=== PATIENT | male | born 1940 | race Hispanic/Latino ===

== ENCOUNTER 2016-03-21 03:09 | Inpatient (IN) | payer OTHER ==
[~2016-03-21] VITALS: Ht 170.2 cm; Wt 76.9 kg
[~2016-03-21 03:09] MED LIST: AMLODIPINE BESYL5 M1 PO; ATORVASTATIN CA40 M1 PO; COLACE100 M1 PO; FLOMAX0.4 M1 PO; GLUCOPHAGE1000 M1 PO; LEVEMIR100 UNIT/1 SC; LEXAPRO20 M1 PO; LYRICA75 M1 PO; NEXIUM40 M1 PO; NOVOLOG100 UNIT/2 SC; PLAQUENIL200 M1 PO; PREDNISONE5 M1 PO; PROAIR HFA8.5 GM INH; SULFASALAZINE500 M2 PO; TRAMADOL HCL50 M1 PO; VICTOZA 2-0.6 MG/0.1 SC; VITAMIN B-121000 MC3 PO
--- NOTE | 2016-03-21 16:05 | Admission Core Measures ---
Acute Coronary Syndrome Inclusion Criteria ACS Diagnosis No Inpatient Core Measures LDL Reminder: If No, please order W/I first 24hr of stay Congestive Heart Failure Inclusion Criteria CHF Diagnosis No Cerebrovascular accident Inclusion Criteria CVA/TIA Diagnosis No Inpatient Core Measures Bedside Swallow Eval Reminder: If BSE failed, place ST order Antithrombotic Reminder: Order Antithrombotic Medication by end of day 2 Antithrombotic Reminder: Document Reason Antithrombotic Not ordered by end of day 2 AFIB/Flutter Reminder: If Present, add to problem list AFIB/Flutter Reminder: Order Anticoag Medication for pts with AFIB/Flutter Atherosclerosis Reminder: If Present, add to problem list LDL Reminder: If No, please order W/I first 24hr of stay PT Order Reminder: If No, please order Venous thromboembolism Inpatient Core Measures VTE Risk Factors: Age > 40, Surgery VTE Prophylaxis Ordered Inpt Mech & Pharm No Mech VTE prophylaxis d/t No contraindications No VTE Pharm Prophylaxis d/t No contraindications Inclusion Criteria - Per Current guidelines, there needs to be overlap - treatment for the first 5 days of Warfarin therapy. - Parenteral Anticoagulation (IV or SC) needs to be - given along with Warfarin therapy. VTE Diagnosis No VTE Type NONE VTE Confirmed by (Test) NONE Problem List As ranked by this Provider includes Assessment & Plan 1. S/P lobectomy of lung HOME MEDS Home Med List Albuterol Sulfate (Proair Hfa) 90 MCG HFA.AER.AD 2 PUF INH PRN RESPIRATORY ( Reported) Amlodipine Besylate 5 MG TABLET 1 TAB PO DAILY BP (Reported) Atorvastatin Calcium 40 MG TABLET 1 TAB PO DAILY CHOLESTEROL (Reported) Cyanocobalamin (Vitamin B-12) 1,000 MCG TABLET 1 TAB PO DAILY SUPPLEMENT ( Reported) Docusate Sodium (Colace) 100 MG CAPSULE 1 CAP PO DAILY STOOL SOFTENER ( Reported) Escitalopram Oxalate (Lexapro) (Unknown Strength) TABLET (Unknown Dose) PO DAILY ANXIETY (Reported) Esomeprazole (Nexium) 40 MG CAPSULE.DR 1 CAP PO BID GI (Reported) Hydroxychlorquine (Plaquenil) 200 MG TABLET 1 TAB PO DAILY RA (Reported) Insulin Aspart (Novolog) 100 UNIT/ML VIAL 15 UNITS SC TIDAC DM (Reported) Insulin Detemir (Levemir) 100 UNIT/ML VIAL 25 UNITS SC QPM DM (Reported) Liraglutide (Victoza 2-Britton) 0.6 MG/0.1 ML (18 MG/3 ML) PEN.INJCTR 1.2 MG SC QPM DM (Reported) Metformin HCl (Glucophage) 1,000 MG TABLET 1 TAB PO BID DM (Reported) Prednisone 5 MG TABLET 1 TAB PO DAILY RA (Reported) Pregabalin (Lyrica) 75 MG CAPSULE 1 CAP PO BID NEUROPATHY (Reported) Sulfasalazine 500 MG TABLET 1 TAB PO DAILY RA (Reported) Tamsulosin HCl (Flomax) 0.4 MG CAP.ER.24H 1 CAP PO DAILY BPH (Reported) Tramadol HCl 50 MG TABLET 1 TAB PO TID PRN PAIN (Reported)
[2016-03-21] MEDS ORDERED: LEXAPRO20 M1 PO (16:09)
--- NOTE | 2016-03-21 16:45 | Cons- CRCU ---
SELENE HALL 03/21/16 1644: General Information and HPI Consulting Request Date of Consult: 03/21/16 Requested By: Dr. Rosales Reason for Consult: Post lobectomy for critical care management Source of Information: patient, family, old records Exam Limitations: no limitations History of Present Illness: This is a 75 years old gentleman with past medical history significant for depression, anxiety, diabetes mellitus, emphysema, COPD, GERD, hypertension, hyperlipidemia, lung cancer status post left upper lobectomy in 1996, BPH who is today admitted to the critical care unit after having right lower lobectomy and mediastinal lymph node dissection. The patient had a right lower lobectomy and mediastinal lymph node dissection and has been left with the chest tube hooked to the vacuum suction. At the time of interview in the ICU the patient reported pain predominantly on the incision site and the placement of the chest tubes she denied any shortness of breath, coughing, bloody sputum, palpitation, lightheadedness, or dizziness. The patient concern is is hungry and would like to eat proper solid meal. Allergies/Medications Allergies: Coded Allergies: No Known Allergies (03/18/16) Home Med List: Albuterol Sulfate (Proair Hfa) 90 MCG HFA.AER.AD 2 PUF INH Q6P PRN WHEEZING ( Reported) Amlodipine Besylate 5 MG TABLET 1 TAB PO DAILY BP (Reported) Atorvastatin Calcium 40 MG TABLET 1 TAB PO DAILY CHOLESTEROL (Reported) Cyanocobalamin (Vitamin B-12) 1,000 MCG TABLET 1 TAB PO DAILY SUPPLEMENT ( Reported) Docusate Sodium (Colace) 100 MG CAPSULE 1 CAP PO DAILY STOOL SOFTENER ( Reported) Escitalopram Oxalate (Lexapro) 20 MG TABLET 1 TAB PO DAILY DEPRESSION ( Reported) Esomeprazole (Nexium) 40 MG CAPSULE.DR 1 CAP PO BID GI (Reported) Hydroxychlorquine (Plaquenil) 200 MG TABLET 1 TAB PO DAILY RA (Reported) Insulin Aspart (Novolog) 100 UNIT/ML VIAL 15 UNITS SC TIDAC DM (Reported) Insulin Detemir (Levemir) 100 UNIT/ML VIAL 25 UNITS SC QPM DM (Reported) Liraglutide (Victoza 2-Britton) 0.6 MG/0.1 ML (18 MG/3 ML) PEN.INJCTR 1.2 MG SC QPM DM (Reported) Metformin HCl (Glucophage) 1,000 MG TABLET 1 TAB PO BID DM (Reported) Prednisone 5 MG TABLET 1 TAB PO DAILY RA (Reported) Pregabalin (Lyrica) 75 MG CAPSULE 1 CAP PO BID NEUROPATHY (Reported) Sulfasalazine 500 MG TABLET 1 TAB PO DAILY RA (Reported) Tamsulosin HCl (Flomax) 0.4 MG CAP.ER.24H 1 CAP PO DAILY BPH (Reported) Tramadol HCl 50 MG TABLET 1 TAB PO TID PRN PAIN (Reported) Current Medications: Current Medications Sig/Lelo Start time Last Medication Dose Route Stop Time Status Admin Albuterol Sulfate 3 ML Q4 03/21 2200 AC INH Albuterol Sulfate 2 PUF Q6P PRN 03/21 1800 AC INH Albuterol Sulfate 2 PUF Q6P PRN 03/21 1615 DC INH Amlodipine Besylate 5 MG DAILY 03/22 1000 DC PO Amlodipine Besylate 5 MG DAILY 03/22 1000 AC PO Atorvastatin Calcium 40 MG DAILY@1700 03/22 1700 AC PO Atorvastatin Calcium 40 MG DAILY 03/22 1000 DC PO Cefazolin Sodium 2 GM Q8H 03/21 2200 AC N/A 1 UNIT IV 03/22 0629 Dextrose/Sodium 1,000 ML .[id number] 03/21 1800 AC Chloride IV Docusate Sodium 100 MG DAILY 03/22 1000 DC PO Docusate Sodium 100 MG DAILY 03/22 1000 AC PO Escitalopram Oxalate 20 MG DAILY 03/22 1000 DC PO Escitalopram Oxalate 20 MG DAILY 03/22 1000 AC PO Heparin Sodium 5,000 UNIT Q8 03/21 2200 AC (Porcine) SC Hydromorphone HCl 50 MG Q24H PRN 03/21 1615 AC Sodium Chloride 45 ML IV Hydroxychloroquine 200 MG DAILY 03/22 1000 DC Sulfate PO Hydroxychloroquine 200 MG DAILY 03/22 1000 AC Sulfate PO Insulin Human Regular 0 TIDAC/HS 03/21 1700 AC SC Omeprazole 40 MG DAILY AC 03/22 0700 DC PO Omeprazole 40 MG DAILY AC 03/22 0700 AC PO Ondansetron HCl 4 MG Q6P PRN 03/21 1800 AC IV Prednisone 5 MG DAILY 03/22 1000 DC PO Prednisone 5 MG DAILY 03/22 1000 AC PO Pregabalin 75 MG BID 03/21 2200 DC PO Pregabalin 75 MG BID 03/21 2200 AC PO Sulfasalazine 500 MG DAILY 03/22 1000 DC PO Sulfasalazine 500 MG DAILY 03/22 1000 AC PO Tamsulosin HCl 0.4 MG DAILY 03/22 1000 DC PO Tamsulosin HCl 0.4 MG DAILY 03/22 1000 AC PO Review of Systems Review of Systems Constitutional: Denies: chills, fever. EENTM: Denies: blurred vision, double vision. Cardiovascular: Denies: chest pain, palpitations. Respiratory: Denies: cough, short of breath. GI: Denies: abdominal pain, nausea, vomiting. Genitourinary: Denies: frequency, urgency. Musculoskeletal: Denies: no symptoms. Skin: Denies: no symptoms. Hematologic/Endocrine: Denies: bruising, bleeding. All Other Systems: Reviewed and Negative Past History Travel History Traveled to [place] past 21 day No Medical History Cardiovascular: hypertension, hyperlipidemia Respiratory: COPD, emphysema Gastrointestinal: GERD Renal: benign prost hyperplasia Endocrine: diabetes Surgical History Surgical History: hernia repair-inguinal Family History Relations & Conditions If Any: MOTHER (Diabetes mellitus). SISTER (Diabetes mellitus). Psychosocial History Where Do You Live? Home Who Do You Live With? spouse Smoking Status: Former Smoker ETOH Use: denies use Illicit Drug Use: denies illicit drug use Functional Ability ADLs Independent: dressing, eating, toileting, bathing. Exam & Diagnostic Data Last 24 Hrs of Vital Signs/I&O Vital Signs Date Time Temp Pulse Resp B/P Pulse O2 O2 Flow FiO2 Ox Delivery Rate 03/21 1999 98.2 88 26 148/88 03/21 1999 93 Nasal 3.0L Cannula 03/21 1999 98.2 88 26 148/88 93 Nasal 3.0L Cannula 03/21 Nasal 3.0L Cannula Physical Exam General Appearance: no apparent distress, alert, awake, in pain Head: atraumatic, normal appearance Eyes: Bilateral: normal appearance, PERRL. Ears, Nose, Throat: normal pharynx, normal ENT inspection Neck: normal inspection, supple Respiratory: normal breath sounds, no respiratory distress, tender around the surgical site Cardiovascular: regular rate/rhythm Gastrointestinal: normal bowel sounds, soft, non-tender Extremities: normal inspection, normal capillary refill, no edema Neurologic/Psych: awake, alert, oriented x 3 Cranial Nerves: normal hearing, normal speech Skin: intact, normal color Assessment/Plan Impression/Plan: This is a 75 years old gentleman who was admitted today for right lower lung lobectomy she has had previous lobectomy in 1996 due to lung cancer and subsequently admitted to the ICU for postoperative management. Right lower lobe lobectomy Postoperative day 0 for right lower lobe lobectomy and mediastinal lymph node dissection Chest tube currently in place to suction draining sanguinous fluid, will continue to monitor drainage and subsequent management for CT surgery for removal when there is substantial decrease in secretion. Repeat CXR in the a.m. , CBCs and electrolytes in the a.m. and 24 hours old in program 2 doses every 8 hours. 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 Chronic obstructive pulmonary disease Patient has history of COPD not on home oxygen, continue the patient on home prednisone 5 mg daily, TRC evaluation and nebulization as needed Hyperlipidemia Continue the patient on a medication atorvastatin 40 mg daily and low-fat diet Patient Is full code heparin and Alps for DVT prophylaxis Problem List: 1. S/P lobectomy of lung 2. GERD (gastroesophageal reflux disease) 3. Diabetes mellitus 4. COPD (chronic obstructive pulmonary disease) 5. Hyperlipidemia 6. Hypertension 7. Lung cancer Consult Acknowledgment - Thank you for your consult request. ELIA KAMINSKI MD 03/21/16 7321: Exam & Diagnostic Data Last 48 Hrs of Labs/Abelardo: na Assessment/Plan Other Findings/Comments: Elia Mcqueen M.D. have examined this patient, reviewed available EMR data, personally reviewed images, discussed with resident/PA/MAINSPRING FORMER, discussed management plan with housestaff and nursing staff, discussed managment plan all of healthcare providers, discussed management plan with patient and/or family, agreed with resident/PA/MAINSPRING FORMER. The past history and parts of the chart have been autopopulated. Impression 75 year old man hx lung ca, s/p right lower lobecotmy, lymph node dissection. Plan -pain control -chest tube per surgery -ins/outs -IST -TRC/Nebs -post thoracotomy protocol -DVT prophylaxis at all times TTS 40min Consult Acknowledgment - Thank you for your consult request.
--- NOTE | 2016-03-21 17:07 | RADIOLOGY REPORT ---
EXAMINATION: XR PORTABLE CHEST CLINICAL INFORMATION: Status post right lower lobectomy COMPARISON: 03/18/2016 TECHNIQUE: Portable view of the chest was obtained. FINDINGS: Chest tube overlies the right lung base. The lungs are hypoinflated. There is haziness at the right lung base, which may reflect postoperative change. No definite pneumothorax. No discrete consolidation is seen in the left lung, though assessment is somewhat limited due to low lung volumes. No definite pleural effusion. There is widening of the mediastinal contour which could be accentuated by low lung volumes and patient rotation. Soft tissue gas is noted along the right lateral chest wall. IMPRESSION: 1. Status post right lower lobectomy with basilar chest tube. Right basilar haziness may reflect postoperative change/atelectasis. 2. Widened mediastinum may be accentuated by low lung volumes and patient positioning, though mediastinal hematoma is also a possibility in the setting of recent surgery. Short-term follow-up with improved inspiratory effort may be helpful for reevaluation.
--- NOTE | 2016-03-21 18:32 | PN- Thoracic Surgery ---
Subjective Subjective: The patient was seen this evening postoperatively. He was complaining of some pain around the chest tube site insertion but overall was relatively comfortable. He no other points current time and denied any true chest pain, difficulty breathing, or palpitations. Objective Vital Signs and I&Os Vital signs: Blood pressure 160/90, pulse 80, O2 saturations 97% on 2 L via nasal cannula temperature 97.6 I's and O's: 2000 ML's in of lactated Ringer's/500 ML's out of urine via Brice catheter/EBL 100/chest tube 140 Physical Exam: Gen.: Alert and in no obvious distress Skin: Warm and dry Cardiac: S1-S2 regular Chest: Equal expansion, surgical dressing is blood-tinged but otherwise intact, there is a chest tube hooked up to Pleur-evac suction with no air leak Pulmonary: Bilateral breath sounds are equal and decreased at bases this transmitted chest tube noises in the right chest with some upper respiratory congestion clears with cough Extremities: Bilateral lower extremity warm without calf tenderness or significant edema. Assessment/Plan Assessment/Plan Assessment: 75-year-old male status post right thoracotomy and right upper lobectomy. Postoperatively patient is pressing as expected and his pain is under adequate control. He is oxygenating adequately on the minimum O2 requirements Plan: Strict I's and O's Follow-up morning laboratory studies and chest x-ray Continue current pain regiment GI and DVT prophylaxis Resuming medications aside for diabetic meds but will be started on insulin sliding scale Total respiratory care for postthoracotomy protocol Out of bed to chair in the morning Follow-up pulmonary critical care consultation recommendations Clear liquid diet tomorrow advance as tolerated in the morning if stable Keep chest tube to Pleur-evac and suction 2 doses of prophylactic postoperative antibiotics Core Measures/Miscellaneous Brice Catheter Date In: 03/21/16 Still Needed? Yes Venous Thromboembolism VTE Risk Factors: Cancer/chemo/oth therapy, Surgery VTE Contraindications: No Contraindications VTE Prophylaxis Ordered Inpt: Mech & Pharm VTE Diagnosis: No VTE Type: NONE VTE Confirmed by (Test): NONE Beta Sonali Is Beta Sonlai a Home Med? No Antibiotics Is Patient on Antibiotics? Yes If Yes: prophylaxis
--- NOTE | 2016-03-21 18:49 | Admission Certification ---
Admission Certification Certification Statement - As attending physician, I certify that at the time of - admission, based on clinical presentation, severity of - symptoms, need for further diagnostic testing and - therapeutic interventions, and risk of adverse outcomes - without in-hospital treatment, in my clinical assessment, - this patient requires an acute hospital stay for a minimum - of two nights or longer. I have also considered psychsocial - factors such as support system, advanced age, financial - issues, cognitive issues, and failed out-patient treatments, - past re-admission history, safety of patient, and lack of - compliance as applicable. Specific rationale supporting this admission is: Major chest surgery requiring prolonged intensive care unit stay
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
[2016-03-21 20:00] VITALS: BP 148/88
[2016-03-21 22:00] VITALS: BP 147/73
[2016-03-22] VITALS (11 sets, daily range): BP systolic 121–158; BP diastolic 60–88
--- NOTE | 2016-03-22 05:42 | PN- Thoracic Surgery ---
Subjective Subjective: The patient was seen this morning postoperatively day #1. He is complaining of some significant pain from around the chest tube site for which the Dilaudid ULTRASONIC CLEANER was not helping. He has no other complaints the current time and denies any chest pain, difficulty breathing, or palpitations. Objective Vital Signs and I&Os Vital Signs Date Time Temp Pulse Resp B/P Pulse O2 O2 Flow FiO2 Ox Delivery Rate 03/22 0400 98.1 84 24 156/74 03/22 0400 95 Nasal 5.0L Cannula 03/22 0200 97.9 87 17 144/66 03/22 0054 96 Nasal 5.0L Cannula 03/22 0000 98 Nasal 5.0L Cannula 03/22 0000 98.2 88 20 158/88 98 Nasal 5.0L Cannula 03/21 2199 98.0 85 19 147/73 03/21 2052 Nasal 3.0L Cannula 03/21 1999 98.2 88 26 148/88 03/21 1999 93 Nasal 3.0L Cannula 03/21 1999 98.2 88 26 148/88 93 Nasal 3.0L Cannula 03/21 1900 91 Nasal 3.0L Cannula Intake & Output 03/22 0800 03/22 0000 03/21 1600 03/21 0800 03/21 0000 03/20 1600 Intake Total 1014 Output Total 975 Balance 39 Intake, IV 314 Intake, Oral 700 Number 0 Bowel Movements Output, Chest 275 Tube Drainage Output, Urine 700 Patient 171 lb Weight Physical Exam: General: Alert and complaining of pain Skin: Warm and dry Chest: Surgical dressing is blood-tinged but otherwise intact. His chest tube 1 placed hooked up to Pleur-evac and wall suction with approximately 400 ML's of dark sanguinous blood since inserted. Cardiac: S1-S2 regular Pulmonary: Bilateral breath sounds are equal, there are fine extremities is throughout both lung quiroz, transmitted chest tube sounds in the right chest Extremities: Bilateral extremities warm without calf tenderness or significant edema. Assessment/Plan Assessment/Plan Assessment: 75-year-old male status post right thoracotomy and lower lobectomy postoperative day #1. The patient is progressing as expected, his oxygenating adequately, however his pain is not well managed at the current time. Plan: Will give 1 dose of IV Toradol and and when necessary IV Tylenol Follow-up morning laboratory studies and chest x-ray Hep-Lock IV fluids, advance diet as tolerated, KELLY Mary line. Total respiratory care per postthoracotomy protocol Strict I's and O's GI and DVT prophylaxis Out of bed to chair Keep chest tube to Pleur-evac and wall suction Core Measures/Miscellaneous Brice Catheter Date In: 03/21/16 Venous Thromboembolism VTE Risk Factors: Cancer/chemo/oth therapy, Surgery VTE Contraindications: No Contraindications VTE Prophylaxis Ordered Inpt: Mech & Pharm VTE Diagnosis: No VTE Type: NONE VTE Confirmed by (Test): NONE Beta Sonali Is Beta Sonali a Home Med? No Antibiotics Is Patient on Antibiotics? No
[2016-03-22 06:20] LABS: ABSOLUTE BASOPHIL COUNT 0 /CUMM (0.0-0.2); ABSOLUTE EOSINOPHIL COUNT 0 /CUMM (0.0-0.7); ABSOLUTE GRANULOCYTE CT 14.4 /CUMM (1.4-6.5); ABSOLUTE LYMPH COUNT 1.2 /CUMM (1.2-3.4); ABSOLUTE MONOCYTE COUNT 1.7 /CUMM (0.10-0.60); BASOPHIL % 0.1 % (0.0-2.0); EOSINOPHIL % 0 % (0-5); GRANULOCYTE % 83.2 % (42.2-75.2); HEMATOCRIT 33.2 % (42-52); MEAN CORPUSCULAR HGB 27.6 PG (27.0-31.0); MEAN CORPUSCULAR HGB CONC 32.9 G/DL (33.0-37.0); MEAN CORPUSCULAR VOLUME 84.1 FL (80.0-94.0); MEAN PLATELET VOLUME 8.2 FL (7.4-10.4); PLATELET COUNT 341 /CUMM (130-400); RBC DISTRIBUTION WIDTH 16.9 % (11.5-14.5); RED BLOOD CELL CT 3.95 /CUMM (4.70-6.10); WHITE BLOOD CELL COUNT 17.4 /CUMM (4.8-10.8)
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
--- NOTE | 2016-03-22 08:11 | RADIOLOGY REPORT ---
EXAMINATION: XR PORTABLE CHEST CLINICAL INFORMATION: Postop right lower lobectomy. COMPARISON: 03/18/2016, 03/21/2016. TECHNIQUE: Portable view of the chest was obtained. FINDINGS: Right-sided thoracostomy tube is again noted along the diaphragm. A small amount of subcutaneous emphysema is identified along the chest wall. Cardiomediastinal silhouette appears somewhat decreased in size suggesting improved vascular congestion. Lung volumes remain diminished although somewhat improved. Patchy opacity right lung base likely atelectasis. Discoid atelectasis left lung base. No pneumothorax. There are multiple air-filled loops of bowel in the abdominal cavity. IMPRESSION: Somewhat improved appearing chest x-ray.
--- NOTE | 2016-03-22 08:35 | PN- Resident CRCU ---
Subjective HPI/CRCU Issues: Patient was seen and examined. He is on bed looks relaxed and comfortable. Patient denies any current chest pain or palpitation, however he reported mild shortness breath which is normal for him. Patient has no current complaints. He is on oxygen activating 94 on 3 L. Objective Vital Signs & I&O Last 8 Hrs of Vitals and I&O: Intake & Output 03/22 1600 03/22 0800 03/22 0000 Intake Total 1537.5 1014 Output Total 1075 975 Balance 462.5 39 Intake, IV 557.5 314 Intake, Oral 980 700 Number 0 0 Bowel Movements Output, Chest 275 275 Tube Drainage Output, Urine 800 700 Patient 77.564 kg Weight Laboratory Tests 03/22 0452 Chemistry Sodium (137 - 145 mmol/L) 133 L Potassium (3.5 - 5.1 mmol/L) 4.6 Chloride (98 - 107 mmol/L) 97 L Carbon Dioxide (22 - 30 mmol/L) 24 Anion Gap (5 - 16) 12 BUN (9 - 20 mg/dL) 13 Creatinine (0.7 - 1.2 mg/dL) 0.6 L Estimated GFR (>60 ml/min) > 60 BUN/Creatinine Ratio (7 - 25 %) 21.7 Hematology CBC w Diff NO MAN DIFF REQ WBC (4.8 - 10.8 /CUMM) 17.4 H RBC (4.70 - 6.10 /CUMM) 3.95 L Hgb (14.0 - 18.0 G/DL) 10.9 L Hct (42 - 52 %) 33.2 L MCV (80.0 - 94.0 FL) 84.1 MCH (27.0 - 31.0 PG) 27.6 RDW (11.5 - 14.5 %) 16.9 H Plt Count (130 - 400 /CUMM) 341 MPV (7.4 - 10.4 FL) 8.2 Gran % (42.2 - 75.2 %) 83.2 H Lymphocytes % (20.5 - 51.1 %) 7.0 L Monocytes % (1.7 - 9.3 %) 9.7 H Eosinophils % (0 - 5 %) 0 Basophils % (0.0 - 2.0 %) 0.1 Absolute Granulocytes (1.4 - 6.5 /CUMM) 14.4 H Absolute Lymphocytes (1.2 - 3.4 /CUMM) 1.2 Absolute Monocytes (0.10 - 0.60 /CUMM) 1.7 H Absolute Eosinophils (0.0 - 0.7 /CUMM) 0 Absolute Basophils (0.0 - 0.2 /CUMM) 0 PUBS MCHC (33.0 - 37.0 G/DL) 32.9 L Exam General Appearance: well developed/nourished, no apparent distress, alert, awake , comfortable Head: atraumatic, normal appearance Neck: supple Respiratory: rhonchi on the right side more than the left side Cardiovascular: regular rate/rhythm Gastrointestinal: soft, non-tender Extremities: normal inspection, no edema (on lower extremity bilaterally) Current Medications: Current Medications Sig/Lelo Start time Last Medication Dose Route Stop Time Status Admin Acetaminophen 1,000 MG Q8P PRN 03/22 0545 AC N/A 1 UNIT IV 03/23 0600 Acetaminophen 1,000 MG .STK-MED ONE 03/21 1306 DC IV 03/21 1307 Albuterol Sulfate 3 ML Q4 03/21 2200 AC 03/22 INH 0807 Albuterol Sulfate 2 PUF Q6P PRN 03/21 1800 AC INH Albuterol Sulfate 2 PUF Q6P PRN 03/21 1615 DC INH Amlodipine Besylate 5 MG DAILY 03/22 1000 DC PO Amlodipine Besylate 5 MG DAILY 03/22 1000 AC PO Atorvastatin Calcium 40 MG DAILY@1700 03/22 1700 AC PO Atorvastatin Calcium 40 MG DAILY 03/22 1000 DC PO Cefazolin Sodium 2 GM Q8H 03/21 2200 DC 03/22 N/A 1 UNIT IV 03/22 0629 0555 Dexamethasone 8 MG .STK-MED ONE 03/21 1306 DC IM 03/21 1307 Dextrose/Sodium 1,000 ML .Q24H 03/22 0545 AC Chloride IV Dextrose/Sodium 1,000 ML .[id number] 03/21 1800 DC Chloride IV Docusate Sodium 100 MG DAILY 03/22 1000 DC PO Docusate Sodium 100 MG DAILY 03/22 1000 AC PO Escitalopram Oxalate 20 MG DAILY 03/22 1000 DC PO Escitalopram Oxalate 20 MG DAILY 03/22 1000 AC PO Fentanyl Citrate 500 MCG .STK-MED ONE 03/21 1305 DC IM 03/21 1306 Heparin Sodium 5,000 UNIT Q8 03/21 2200 AC 03/22 (Porcine) SC 0554 Hydromorphone HCl 50 MG Q24H PRN 03/21 1615 AC Sodium Chloride 45 ML IV Hydromorphone HCl 2 MG .STK-MED ONE 03/21 1605 DC IM 03/21 1606 Hydromorphone HCl 2 MG .STK-MED ONE 03/21 1305 DC IM 03/21 1306 Hydroxychloroquine 200 MG DAILY 03/22 1000 DC Sulfate PO Hydroxychloroquine 200 MG DAILY 03/22 1000 AC Sulfate PO Insulin Aspart 15 UNITS TIDAC 03/22 1200 AC SC Insulin Aspart 8 UNITS ONCE ONE 03/22 0930 DC SC 03/22 0931 Insulin Detemir 25 UNITS QPM 03/22 2200 AC SC Insulin Human Regular 0 TIDAC/HS 03/21 1700 DC 03/21 SC 2206 Ketorolac 30 MG ONCE ONE 03/22 0545 DC 03/22 Tromethamine IV 03/22 0546 0554 Metformin HCl 1,000 MG BID 03/22 1000 AC PO Midazolam HCl 2 MG .STK-MED ONE 03/21 1305 DC IM 03/21 1306 Omeprazole 40 MG DAILY AC 03/22 0700 DC PO Omeprazole 40 MG DAILY AC 03/22 0700 AC 03/22 PO 0552 Ondansetron HCl 4 MG Q6P PRN 03/21 1800 AC IV Prednisone 5 MG DAILY 03/22 1000 DC PO Prednisone 5 MG DAILY 03/22 1000 AC PO Pregabalin 75 MG BID 03/21 2200 DC PO Pregabalin 75 MG BID 03/21 2200 AC 03/21 PO 2207 Sulfasalazine 500 MG DAILY 03/22 1000 DC PO Sulfasalazine 500 MG DAILY 03/22 1000 AC PO Tamsulosin HCl 0.4 MG DAILY 03/22 1000 DC PO Tamsulosin HCl 0.4 MG DAILY 03/22 1000 AC 03/22 PO 0552 Impression/Plan Impression/Problem List Impression: Respiratory #Right lower lobe lobectomy Postoperative day 1 for right lower lobectomy and mediastinal lymph node dissectionChest tube currently in place to suction and draining sanguinous fluid , until today he put out 550 mL, will continue to monitor drainage and subsequent management for CT surgery for removal when there is substantial decrease in secretion. Repeated CXR this morning show somewhat improving comparing to the previous x-ray. * Will continue patient on oxygen * We will continue monitoring drainage * We will follow up CT surgery condition #Chronic obstructive pulmonary disease Patient has history of COPD not on home oxygen * continue the patient on home prednisone 5 mg daily * TRC evaluation * nebulization as needed ID No current distress Cardiovascular Hypertension * Continue to monitor blood pressure every shift * continue home medication amlodipine 5 mg daily Hematology H&H is stable at 10.9 and 33.2 WBCs 17.4 most likely because of the steroid * Repeat CBC daily Metabolic: #BPH Continue Tamsulosin 0.4 mg daily. #Hyperlipidemia Continue atorvastatin 40 mg daily and low-fat diet Alimentary: #GERD Continue with omeprazole 40 mg daily. Neurological No current neurological issue Endocrinology Diabetes mellitus Will hold patient oral antidiabetic medications. * keep him on insulin sliding scale low-dose * Accu-Cheks * consistent carbohydrate 3 diet SKIN no Current skin issues DVT/Prophylaxis: heparin Diet consistent carbohydrate 3 diet Code Status Full code Patient Is full code heparin and Alps for DVT prophylaxis Problem List: 1. S/P lobectomy of lung Pain Ratin Tomorrow's Labs & Rationales: CBC and ICU bundle Plan DVT/Prophylaxis: mechanical, pharmacological
--- NOTE | 2016-03-22 10:28 | PN- CRCU ---
Subjective HPI/Critical Care Issues: Patient seen and examined. No chest pain, at respiratory baseline. No nausea, vomiting, diarrhea or constipation. Afebrile and hemodynamically stable. Objective Current Medications: Current Medications Sig/Leol Start time Last Medication Dose Route Stop Time Status Admin Acetaminophen 1,000 MG Q8P PRN 03/22 0545 AC N/A 1 UNIT IV 03/23 0600 Acetaminophen 1,000 MG .STK-MED ONE 03/21 1306 DC IV 03/21 1307 Albuterol Sulfate 3 ML Q4 03/21 2200 AC 03/22 INH 0807 Albuterol Sulfate 2 PUF Q6P PRN 03/21 1800 AC 03/22 INH 1010 Albuterol Sulfate 2 PUF Q6P PRN 03/21 1615 DC INH Amlodipine Besylate 5 MG DAILY 03/22 1000 DC PO Amlodipine Besylate 5 MG DAILY 03/22 1000 AC 03/22 PO 1009 Atorvastatin Calcium 40 MG DAILY@1700 03/22 1700 AC PO Atorvastatin Calcium 40 MG DAILY 03/22 1000 DC PO Cefazolin Sodium 2 GM Q8H 03/21 2200 DC 03/22 N/A 1 UNIT IV 03/22 0629 0555 Dexamethasone 8 MG .STK-MED ONE 03/21 1306 DC IM 03/21 1307 Dextrose/Sodium 1,000 ML .Q24H 03/22 0545 AC 03/22 Chloride IV 1019 Dextrose/Sodium 1,000 ML .[id number] 03/21 1800 DC Chloride IV Docusate Sodium 100 MG DAILY 03/22 1000 DC PO Docusate Sodium 100 MG DAILY 03/22 1000 AC 03/22 PO 1008 Escitalopram Oxalate 20 MG DAILY 03/22 1000 DC PO Escitalopram Oxalate 20 MG DAILY 03/22 1000 AC PO Fentanyl Citrate 500 MCG .STK-MED ONE 03/21 1305 DC IM 03/21 1306 Heparin Sodium 5,000 UNIT Q8 03/21 2200 AC 03/22 (Porcine) SC 0554 Hydromorphone HCl 50 MG Q24H PRN 03/21 1615 AC Sodium Chloride 45 ML IV Hydromorphone HCl 2 MG .STK-MED ONE 03/21 1605 DC IM 03/21 1606 Hydromorphone HCl 2 MG .STK-MED ONE 03/21 1305 DC IM 03/21 1306 Hydroxychloroquine 200 MG DAILY 03/22 1000 DC Sulfate PO Hydroxychloroquine 200 MG DAILY 03/22 1000 AC 03/22 Sulfate PO 1008 Insulin Aspart 15 UNITS TIDAC 03/22 1200 AC SC Insulin Aspart 8 UNITS ONCE ONE 03/22 0930 DC SC 03/22 0931 Insulin Detemir 25 UNITS QPM 03/22 2200 AC SC Insulin Human Regular 0 TIDAC/HS 03/21 1700 DC 03/21 SC 2206 Ketorolac 30 MG ONCE ONE 03/22 0545 DC 03/22 Tromethamine IV 03/22 0546 0554 Metformin HCl 1,000 MG BID 03/22 1000 AC PO Midazolam HCl 2 MG .STK-MED ONE 03/21 1305 DC IM 03/21 1306 Omeprazole 40 MG DAILY AC 03/22 0700 DC PO Omeprazole 40 MG DAILY AC 03/22 0700 AC 03/22 PO 0552 Ondansetron HCl 4 MG Q6P PRN 03/21 1800 AC IV Prednisone 5 MG DAILY 03/22 1000 DC PO Prednisone 5 MG DAILY 03/22 1000 AC 03/22 PO 1008 Pregabalin 75 MG BID 03/21 2200 DC PO Pregabalin 75 MG BID 03/21 2200 AC 03/22 PO 1008 Sulfasalazine 500 MG DAILY 03/22 1000 DC PO Sulfasalazine 500 MG DAILY 03/22 1000 AC 03/22 PO 1009 Tamsulosin HCl 0.4 MG DAILY 03/22 1000 DC PO Tamsulosin HCl 0.4 MG DAILY 03/22 1000 AC 03/22 PO 0552 Vital Signs & I&O Last 24 Hrs of Vitals and I&O: Vital Signs Date Time Temp Pulse Resp B/P Pulse O2 O2 Flow FiO2 Ox Delivery Rate 03/22 1009 81 127/68 03/22 0810 94 Nasal 3.0L Cannula 03/22 0800 97.2 78 19 136/60 03/22 0800 95 Nasal 3.0L Cannula 03/22 0800 97.2 78 19 136/60 95 Nasal 3.0L Cannula 03/22 0600 98.0 80 21 139/73 03/22 0552 81 30 152/73 03/22 0400 98.1 84 24 156/74 03/22 0400 95 Nasal 5.0L Cannula 03/22 0200 97.9 87 17 144/66 03/22 0054 96 Nasal 5.0L Cannula 03/22 0000 98 Nasal 5.0L Cannula 03/22 0000 98.2 88 20 158/88 98 Nasal 5.0L Cannula 03/21 2199 98.0 85 19 147/73 03/21 2052 Nasal 3.0L Cannula 03/21 1999 98.2 88 26 148/88 03/21 1999 93 Nasal 3.0L Cannula 03/21 1999 98.2 88 26 148/88 93 Nasal 3.0L Cannula 03/21 1899 91 Nasal 3.0L Cannula Intake & Output 03/22 1600 03/22 0800 03/22 0000 Intake Total 1537.5 1014 Output Total 1075 975 Balance 462.5 39 Intake, IV 557.5 314 Intake, Oral 980 700 Number 0 0 Bowel Movements Output, Chest 275 275 Tube Drainage Output, Urine 800 700 Patient 171 lb Weight Exam Other Physical Findings: General - Alert, awake and oriented HEENT - normocephalic, atraumatic Cardiovascular - S1, S2 Lungs - clear to auscultation bilaterally Abdomen - soft, bowel sounds positive, no tenderness Extremities - without edema or cyanosis Results Last 24 Hrs of Lab Results: Laboratory Tests 03/22/16 0452: Anion Gap 12, Estimated GFR > 60, BUN/Creatinine Ratio 21.7, CBC w Diff NO MAN DIFF REQ, RBC 3.95 L, MCV 84.1, MCH 27.6, RDW 16.9 H, MPV 8.2, Gran % 83.2 H, Lymphocytes % 7.0 L, Monocytes % 9.7 H, Eosinophils % 0, Basophils % 0.1, Absolute Granulocytes 14.4 H, Absolute Lymphocytes 1.2, Absolute Monocytes 1.7 H, Absolute Eosinophils 0, Absolute Basophils 0, PUBS MCHC 32.9 L Impression/Plan Impression/Plan Impression/Plan: Impression 75 year old man hx lung ca, s/p right lower lobecotmy, lymph node dissection. Plan -pain control -chest tube per surgery -ins/outs -IST -TRC/Nebs -post thoracotomy protocol -DVT prophylaxis at all times TTS 35 min
--- NOTE | 2016-03-22 13:40 | NUR ---
RAY HERNANDEZ PAGED NO VOIDS SINCE COATS REMOVAL, BLADDER SCAN 446 MLS, PATIENT EXHIBITED SYMPTOMS OF PANIC ATTACK, HR TO 105, RR 30'S, DESAT 89,
--- NOTE | 2016-03-22 20:43 | NUR ---
PT A/OX3, FOLLOWS COMMANDS, ANXIOUS. PT PRIMARILY SERBIAN SPEAKING, BUT SPEAKS AND UNDERSTANDS [place]. 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 BREATHS SOUNDS WITH SCATTERED INP/EXP WHEEZES, DIMINISHED BREATH SOUNDS AT BASES. NO SOB OR RESP DISTRESS NOTED AT PRESENT. NONPRODUCTIVE COUGH NOTED. 02 SATS 88-91%-O2 INCREASED FROM 5LNC TO 6LNC BY RESP THERAPIST-WILL MONITOR. SEE FLOW SHEET FOR VS, 02 SATS, I/O'S. MONITOR SHOWS ST, NO ECTOPY NOTED AT PRESENT. BP SLIGHTLY ELEVATED AT PRESENT. ABD SOFT, DISTENDED, POSITIVE BOWEL SOUNDS. ON STRAIGHT CATH PROTOCOL. SKIN INTACT. RT CHEST TUBE IN PLACE-TO WATER SEAL-DRAINING SEROSAGINIOUS DRAINAGE, NO AIR LEAK OR CREIPUTUS NOTED
--- NOTE | 2016-03-22 22:03 | RADIOLOGY REPORT ---
EXAMINATION: XR PORTABLE CHEST CLINICAL INFORMATION: Post lobectomy. Shortness of breath and desaturation COMPARISON: Chest x-rays from 03/21/2016 and 03/22/2016 TECHNIQUE: Portable AP view of the chest was obtained. FINDINGS: Lung volumes are lower than on the recent prior study, accounting for which the cardiomediastinal silhouette is stable. There is a right-sided chest tube with tip terminating in the region of the right lung base medially, unchanged. There remains opacity in the region of the right lung base. The left lung demonstrates some linear opacity, unchanged potentially related to atelectasis. No progressive pulmonary edema, or progressive airspace consolidation is convincingly visualized. No pneumothorax. There is scattered soft tissue air within the right hemithorax. IMPRESSION: Lung volumes are lower than on the prior study from earlier the same day. Apart from this there has been no convincing interval change.
--- NOTE | 2016-03-22 22:35 | NUR ---
PT CONTINUED TO DESATURATE-DR. HALL AND SURGICAL PA AWARE-12 LEAD EKG AND CBC, ICU BUNDLE AND TROPONIN DONE ORDERED. PT EXAMINED BY SURGICAL PA-CHEST TUBE HOOKED BACK UP TO 20CM H2O SUCTION, PLACED ON HIGH FLOW 02 AT 50%. 02 SATS 92-94%. PT DENIES ANY CHEST PAIN AT PRESENT, ONLY PAIN AT CHEST TUBE INSERION SITE. MONITOR ST IN LOW 100'S. BP REMAINS SLIGHTLY ELEVATED. NO NAUSEA, OR DIAPHORESIS NOTED AT PRESENT. WILL MONITOR
[2016-03-22 22:48] LABS: ABSOLUTE BASOPHIL COUNT 0 /CUMM (0.0-0.2); ABSOLUTE EOSINOPHIL COUNT 0 /CUMM (0.0-0.7); ABSOLUTE GRANULOCYTE CT 17.5 /CUMM (1.4-6.5); ABSOLUTE LYMPH COUNT 1.2 /CUMM (1.2-3.4); ABSOLUTE MONOCYTE COUNT 1.8 /CUMM (0.10-0.60); BASOPHIL % 0.1 % (0.0-2.0); EOSINOPHIL % 0 % (0-5); HEMATOCRIT 32.3 % (42-52); MEAN CORPUSCULAR HGB 27.9 PG (27.0-31.0); MEAN CORPUSCULAR HGB CONC 33.2 G/DL (33.0-37.0); MEAN PLATELET VOLUME 8.3 FL (7.4-10.4); PLATELET COUNT 338 /CUMM (130-400); RBC DISTRIBUTION WIDTH 16.6 % (11.5-14.5); RED BLOOD CELL CT 3.84 /CUMM (4.70-6.10); WHITE BLOOD CELL COUNT 20.5 /CUMM (4.8-10.8)
[2016-03-22 22:49] LABS: GRANULOCYTE % 85.4 % (42.2-75.2)
--- NOTE | 2016-03-22 23:49 | NUR ---
PT TRANSPORTED TO CT SCAN FOR CTA AT 2310-EKG MONITORING, 02 AT 50%VM. PT STABLE THOUGHOUT PROCEDURE-02 SATS 96-98% DURING PROCEDURE-RETURNED AT 2340-PLACED BACK IN BED AND REATTACHED TO BEDSIDE MONITOR
[2016-03-23] VITALS: BP 130/80; BP 133/69
--- NOTE | 2016-03-23 00:14 | CT SCAN REPORT ---
EXAMINATION: CT ANGIOGRAM OF THE CHEST WITH AND WITHOUT CONTRAST (CT PULMONARY ANGIOGRAM FOR PE) CLINICAL INFORMATION: Lung cancer. Status post right lower lobectomy. Shortness of breath and desaturation. COMPARISON: Multiple prior chest x-rays dating back to 03/18/2016. TECHNIQUE: Prior to contrast administration, noncontrast localization images were obtained. Subsequently, multidetector volumetric imaging was performed from the thoracic inlet to below the diaphragms following the administration of 95 mL Optiray 350 intravenous contrast. No contrast reaction reported. Sagittal, coronal, and MIP oblique sagittal reformatted images were obtained on the CT workstation, uploaded to PACS, and reviewed. Total exam dose-length product 594 mGy-cm FINDINGS: QUALITY OF STUDY/CONTRAST BOLUS: Suboptimal contrast opacification of the pulmonary arterial vasculature. PULMONARY ARTERIES: No large central pulmonary emboli. No visible intraluminal filling defects within the right and left pulmonary arteries or within the lobar and segmental branches of the pulmonary arterial vasculature. Evaluation of the subsegmental pulmonary arteries, notably within the bilateral lung bases, is limited secondary to diffuse respiratory motion abnormality and pulmonary hypoinflation. THORACIC AORTA: The thoracic aorta is normal in caliber, without evidence of obstruction or aneurysmal dilatation. There are scattered coronary artery calcifications. Calcified and noncalcified mural thrombus is identified along the descending thoracic aorta. LUNG: Evaluation of the lung parenchyma demonstrates postsurgical changes related to right lower lobe lobectomy with a small pneumothorax identified within the right lung apex, occupying approximately 15% of the right hemithorax. There are patchy airspace opacities within the remnant segments of the right lung, which are nonspecific but could reflect atelectasis given recent surgery. There is moderate centrilobular emphysema, notably within the right lung. Images of the chest were obtained during the expiratory phase, which accounts for posterior collapse of the trachea and mainstem bronchi. There is also narrowing of the right upper lobe bronchus as well as the right middle lobe bronchus. A chest tube is visualized within the right hemithorax. No large pleural effusions are identified. Incidental note is made of right apical scarring (series 2, image 59). Smooth interlobular septal thickening may reflect interstitial pulmonary edema. PLEURA: As noted above, there is a small right apical pneumothorax occupying approximately 15% of the right hemithorax. A right-sided chest tube is in place. There is a trace right-sided pleural effusion. No large pleural effusions are identified. MEDIASTINUM: Normal heart size, without significant pericardial effusion. Normal three-vessel branching of the aortic arch. Scattered atherosclerosis of the thoracic aorta. Scattered coronary artery calcifications. No evidence of septal bowing or right heart strain. CHEST WALL/AXILLA: Scattered foci of subcutaneous emphysema along the right chest wall. OSSEOUS STRUCTURES: Acute nondisplaced fractures involving the right posterolateral seventh rib (series 2, image 243). No visible destructive osseous lesions. UPPER ABDOMEN: No acute findings within the upper abdomen. No reflux of contrast into the hepatic veins to suggest elevated right heart pressures. IMPRESSION: 1. Suboptimal contrast opacification of the pulmonary arterial vasculature. No large central pulmonary emboli. No visible intraluminal filling defects to the level of the segmental pulmonary arteries. Evaluation of the subsegmental pulmonary arteries, notably within the bilateral lung bases is limited secondary to pulmonary hypoinflation as well as diffuse respiratory motion abnormality, which degrades image quality. 2. Postsurgical changes related to right lower lobe lobectomy with a small right apical pneumothorax identified occupying approximately 15% of the right hemithorax. A right-sided chest tube is in place. 3. Confluent and patchy airspace opacities within the remnant right lung. This could reflect atelectasis given right lung volume loss. Superimposed infection is not excluded in the appropriate clinical setting. These airspace opacities are visualized on a background of moderate centrilobular emphysema. 4. Narrowing of the right upper and right middle lobe bronchi. This may be secondary to hypoventilation given expiratory phase imaging. VTE: Indeterminate. This critical result was discussed with Dr. Breezy Deshpande at 12:11 AM on 03/23/2016 and it was ascertained that the content and urgency of the report was understood at the time of direct communication.
[2016-03-23 04:00] VITALS: BP 118/65
[2016-03-23 05:05] LABS: ABSOLUTE BASOPHIL COUNT 0 /CUMM (0.0-0.2); ABSOLUTE EOSINOPHIL COUNT 0 /CUMM (0.0-0.7); ABSOLUTE GRANULOCYTE CT 16.1 /CUMM (1.4-6.5); ABSOLUTE LYMPH COUNT 1.6 /CUMM (1.2-3.4); ABSOLUTE MONOCYTE COUNT 1.7 /CUMM (0.10-0.60); BASOPHIL % 0.2 % (0.0-2.0); EOSINOPHIL % 0.2 % (0-5); GRANULOCYTE % 82.5 % (42.2-75.2); MEAN CORPUSCULAR HGB 27.5 PG (27.0-31.0); MEAN CORPUSCULAR HGB CONC 32.5 G/DL (33.0-37.0); MEAN CORPUSCULAR VOLUME 84.3 FL (80.0-94.0); MEAN PLATELET VOLUME 8.2 FL (7.4-10.4); PLATELET COUNT 307 /CUMM (130-400); RBC DISTRIBUTION WIDTH 17.2 % (11.5-14.5); RED BLOOD CELL CT 3.68 /CUMM (4.70-6.10); WHITE BLOOD CELL COUNT 19.5 /CUMM (4.8-10.8)
--- NOTE | 2016-03-23 05:56 | PN- Thoracic Surgery ---
Subjective Subjective: Pt was having episodes of hypoxia last night with increase O2 requirements, up to 50% high flow O2. His CT was returned to pleurovac suction, and subsequent CXR was relatively unchanged vs. the morning and negative for ptx. Given peristent hypoxia and mild tachycardia, the decision was made by the CC team to send pt for CTA chest, which did not show PE. Pt also required straight cath x 2 overnight. At this time, he admits to discomfort at the chest tube insertion site, but denies shortness of breath or substernal chest pain. He is tolerating some po liquids. Unclear whether he is eating. Denies nausea. Objective Vital Signs and I&Os Vital Signs Date Time Temp Pulse Resp B/P Pulse O2 O2 Flow FiO2 Ox Delivery Rate 03/23 0400 86 15 118/65 03/23 0400 96 Nasal 50% Cannula 03/23 0051 Nasal 50% Cannula 03/23 0000 99.1 103 21 133/69 03/23 0000 98 Nasal 50% Cannula 03/23 0000 99.1 103 21 130/80 98 Nasal 50% Cannula 03/22 2000 99.6 105 33 153/73 03/22 2000 91 Nasal 6.0L Cannula 03/22 1800 106 30 157/88 03/22 1640 94 Nasal 5.0L Cannula 03/22 1617 94 Nasal 5.0L Cannula 03/22 1617 98.3 97 23 130/62 94 Nasal 5.0L Cannula 03/22 1400 96 22 140/72 03/22 1200 98.6 96 22 136/60 03/22 1200 95 Nasal 3.0L Cannula 03/22 1153 Nasal 3.0L Cannula 03/22 1009 81 127/68 03/22 1000 90 22 121/68 03/22 0810 94 Nasal 3.0L Cannula 03/22 0800 97.2 78 19 136/60 03/22 0800 95 Nasal 3.0L Cannula 03/22 0800 97.2 78 19 136/60 95 Nasal 3.0L Cannula 03/22 0600 98.0 80 21 139/73 03/22 0552 81 30 152/73 Intake & Output 03/23 0800 03/23 0000 03/22 1600 03/22 0800 03/22 0000 03/21 1600 Intake Total 861 1600 1537.5 1014 Output Total 916 089 3819 975 Balance 171 775 462.5 39 Intake, IV 501 240 557.5 314 Intake, Oral 360 1360 980 700 Number 0 0 0 0 Bowel Movements Output, Chest 190 200 275 275 Tube Drainage Output, Urine 500 625 800 700 Patient 170 lb 171 lb Weight Physical Exam: Gen: Pt is resting, but easily arousable. No acute distress. Cardiac: Regular, borderline tachycardic. Pulmonary: There are still scattered rhonchi and expiratory wheezes on the right side. Shallow breathing is noted. The bases. Right-sided chest tube is intact and dressing is clean and dry. Extremities: No significant edema or calf tenderness noted. Results Last 48 Hours of Labs: Laboratory Tests 03/23 03/22 0435 2151 Chemistry Sodium (137 - 145 mmol/L) 129 L 127 L Potassium (3.5 - 5.1 mmol/L) 4.7 4.4 Chloride (98 - 107 mmol/L) 93 L 90 L Carbon Dioxide (22 - 30 mmol/L) 28 24 Anion Gap (5 - 16) 8 12 BUN (9 - 20 mg/dL) 14 14 Creatinine (0.7 - 1.2 mg/dL) 0.8 0.6 L Estimated GFR (>60 ml/min) > 60 > 60 Glucose (65 - 99 mg/dL) 205 H 171 H Calcium (8.4 - 10.2 mg/dL) 9.3 9.4 Phosphorus (2.5 - 4.5 mg/dL) 3.1 3.3 Magnesium (1.6 - 2.3 mg/dL) 1.8 1.2 L Total Bilirubin (0.2 - 1.3 mg/dL) 0.5 0.6 AST (17 - 59 U/L) 20 24 ALT (21 - 72 U/L) 30 35 Troponin I (<0.11 ng/ml) < 0.01 Albumin (3.5 - 5.0 g/dL) 2.7 L 3.2 L Hematology CBC w Diff NO MAN DIFF REQ NO MAN DIFF REQ WBC (4.8 - 10.8 /CUMM) 19.5 H 20.5 H RBC (4.70 - 6.10 /CUMM) 3.68 L 3.84 L Hgb (14.0 - 18.0 G/DL) 10.1 L 10.7 L Hct (42 - 52 %) 31.0 L 32.3 L MCV (80.0 - 94.0 FL) 84.3 84.0 MCH (27.0 - 31.0 PG) 27.5 27.9 RDW (11.5 - 14.5 %) 17.2 H 16.6 H Plt Count (130 - 400 /CUMM) 307 338 MPV (7.4 - 10.4 FL) 8.2 8.3 Gran % (42.2 - 75.2 %) 82.5 H 85.4 H Lymphocytes % (20.5 - 51.1 %) 8.3 L 5.9 L Monocytes % (1.7 - 9.3 %) 8.8 8.6 Eosinophils % (0 - 5 %) 0.2 0 Basophils % (0.0 - 2.0 %) 0.2 0.1 Absolute Granulocytes (1.4 - 6.5 /CUMM) 16.1 H 17.5 H Absolute Lymphocytes (1.2 - 3.4 /CUMM) 1.6 1.2 Absolute Monocytes (0.10 - 0.60 /CUMM) 1.7 H 1.8 H Absolute Eosinophils (0.0 - 0.7 /CUMM) 0 0 Absolute Basophils (0.0 - 0.2 /CUMM) 0 0 PUBS MCHC (33.0 - 37.0 G/DL) 32.5 L 33.2 03/22 0452 Chemistry Sodium (137 - 145 mmol/L) 133 L Potassium (3.5 - 5.1 mmol/L) 4.6 Chloride (98 - 107 mmol/L) 97 L Carbon Dioxide (22 - 30 mmol/L) 24 Anion Gap (5 - 16) 12 BUN (9 - 20 mg/dL) 13 Creatinine (0.7 - 1.2 mg/dL) 0.6 L Estimated GFR (>60 ml/min) > 60 BUN/Creatinine Ratio (7 - 25 %) 21.7 Hematology CBC w Diff NO MAN DIFF REQ WBC (4.8 - 10.8 /CUMM) 17.4 H RBC (4.70 - 6.10 /CUMM) 3.95 L Hgb (14.0 - 18.0 G/DL) 10.9 L Hct (42 - 52 %) 33.2 L MCV (80.0 - 94.0 FL) 84.1 MCH (27.0 - 31.0 PG) 27.6 RDW (11.5 - 14.5 %) 16.9 H Plt Count (130 - 400 /CUMM) 341 MPV (7.4 - 10.4 FL) 8.2 Gran % (42.2 - 75.2 %) 83.2 H Lymphocytes % (20.5 - 51.1 %) 7.0 L Monocytes % (1.7 - 9.3 %) 9.7 H Eosinophils % (0 - 5 %) 0 Basophils % (0.0 - 2.0 %) 0.1 Absolute Granulocytes (1.4 - 6.5 /CUMM) 14.4 H Absolute Lymphocytes (1.2 - 3.4 /CUMM) 1.2 Absolute Monocytes (0.10 - 0.60 /CUMM) 1.7 H Absolute Eosinophils (0.0 - 0.7 /CUMM) 0 Absolute Basophils (0.0 - 0.2 /CUMM) 0 PUBS MCHC (33.0 - 37.0 G/DL) 32.9 L Recent Imaging Studies: CTA chest last night: 1. Suboptimal contrast opacification of the pulmonary arterial vasculature. No large central pulmonary emboli. No visible intraluminal filling defects to the level of the segmental pulmonary arteries. Evaluation of the subsegmental pulmonary arteries, notably within the bilateral lung bases is limited secondary to pulmonary hypoinflation as well as diffuse respiratory motion abnormality, which degrades image quality. 2. Postsurgical changes related to right lower lobe lobectomy with a small right apical pneumothorax identified occupying approximately 15% of the right hemithorax. A right-sided chest tube is in place. 3. Confluent and patchy airspace opacities within the remnant right lung. This could reflect atelectasis given right lung volume loss. Superimposed infection is not excluded in the appropriate clinical setting. These airspace opacities are visualized on a background of moderate centrilobular emphysema. 4. Narrowing of the right upper and right middle lobe bronchi. This may be secondary to hypoventilation given expiratory phase imaging. Assessment/Plan Assessment/Plan Patient is 75-year-old male who is now postoperative day #2 status post right lower lobectomy. One chest tube remains in place. It was placed to waterseal in the morning, but returned to Pleur-evac suction due to hypoxia yesterday. CT was negative for central PE, but did show 15% pneumothorax and atelectasis. Plan: -Continue chest tube to Pleur-evac suction for now. -Continue TRC's, incentive spirometer. -Wean oxygen as tolerated. -Follow up repeat chest x-ray this morning. -Would replace Brice if another straight cath as needed. -Continue DIRECTOR SALES SUPPORT Dilaudid for pain control until the chest tube is out. -Continue diabetic diet as tolerated, although we are still awaiting bowel function. -Magnesium is improved. Continue to monitor electrolytes. Patient is also hyponatremic, so KVO fluids were changed to D5 normal saline. -Continue medical management per critical care team. -We'll discuss with attending. Core Measures/Miscellaneous Brice Catheter Date In: 03/21/16 Venous Thromboembolism VTE Risk Factors: Cancer/chemo/oth therapy, Surgery VTE Contraindications: No Contraindications VTE Prophylaxis Ordered Inpt: Mech & Pharm VTE Diagnosis: No VTE Type: NONE VTE Confirmed by (Test): NONE Beta Sonali Is Beta Sonali a Home Med? No Antibiotics Is Patient on Antibiotics? No
--- NOTE | 2016-03-23 07:26 | NUR ---
PT SLEPT MOST OF NIGHT. REMAINS ON DILUADID BROWNFIELD PROGRAM COORDINATOR. PT GOT ONE TIME DOSE OF TORADOL IV LAST NIGHT-SEE EMAR-PT STATES PAIN IS IMPROVED. RT CHEST TUBE NOW DRAINING SEROUS DRAINAGE, NO AIR OR CREPITUS NOTED THOUGHOUT SHIFT. NONPRODUCTIVE COUGH OVERNIGHT. NO SOB OR RESP DISTRESS NOTED THOUGHOUT SHIFT. RT LUNG WITH COARSE BREATH SOUNDS, DIMINISHED AT RT BASE, LT LUNG CLEAR WITH DIMINISHED BREATH SOUNDS AT LT BASE. MONITOR NSR-ST-90'S-100'S, NO ECTOPY FOR SHIFT. SBP-110'S-160'S FOR SHIFT. ABD SOFT, DISTENDED, POSITIVE BOWEL SOUNDS. PT UNABLE TO VOID-STRAIGHT CATH ORDERED FOR CLEAR YELLOW URINE-750ML AT 0500-SURGICAL RAY SAAVEDRA AWARE. SKIN INTACT. RT UPPER BACK DSG REMAINS WITH OLD BLOODY DRAINAGE-WAS OUTLINED WITH MARKER-HAS NOT EXTENDED BEYOND MARKER LINES.
--- NOTE | 2016-03-23 07:56 | RADIOLOGY REPORT ---
EXAMINATION: XR PORTABLE CHEST CLINICAL INFORMATION: Status post lobectomy. Follow-up. COMPARISON: Chest 03/22/2016. TECHNIQUE: Portable AP upright view of the chest was obtained. FINDINGS: Status post right lobectomy changes are present with slightly hypoinflated right lung. There is a right chest tube along the base. There is a right anterolateral upper chest wall subcutaneous emphysema the minimal increase in the emphysema from previous study. Minimal increased haziness in the right lung base is noted. The left lung remains expanded and clear. The aorta is ectatic deviating trachea to the right. The heart size is upper limits of normal. No gross bony abnormality seen. IMPRESSION: Stable postoperative changes right lung. Interval increase in the right chest wall subcutaneous emphysema. No change in the right basilar chest tube. Minimal increase haziness in the right lung base. Clear and expanded left lung.
[2016-03-23 08:00] VITALS: BP 130/60
--- NOTE | 2016-03-23 08:55 | PN- Resident CRCU ---
Subjective HPI/CRCU Issues: Patient was seen and examined. He looks anxious, discomfort and pain. His pain is in the right upper quadrant and around the chest you that's placed on the right side. Patient reported that he did not have any bowel movements or passing gas since surgery. Patient feel that his abdomen is distended. Denies nausea, fever, Objective Vital Signs & I&O Last 8 Hrs of Vitals and I&O: Intake & Output 03/23 1600 03/23 0800 03/23 0000 Intake Total 509 861 Output Total 790 690 Balance -281 171 Intake, IV 509 501 Intake, Oral 360 Number 0 Bowel Movements Output, Chest 40 190 Tube Drainage Output, Urine 750 500 Laboratory Tests 03/23 03/22 0435 2151 Chemistry Sodium (137 - 145 mmol/L) 129 L 127 L Potassium (3.5 - 5.1 mmol/L) 4.7 4.4 Chloride (98 - 107 mmol/L) 93 L 90 L Carbon Dioxide (22 - 30 mmol/L) 28 24 Anion Gap (5 - 16) 8 12 BUN (9 - 20 mg/dL) 14 14 Creatinine (0.7 - 1.2 mg/dL) 0.8 0.6 L Estimated GFR (>60 ml/min) > 60 > 60 Glucose (65 - 99 mg/dL) 205 H 171 H Calcium (8.4 - 10.2 mg/dL) 9.3 9.4 Phosphorus (2.5 - 4.5 mg/dL) 3.1 3.3 Magnesium (1.6 - 2.3 mg/dL) 1.8 1.2 L Total Bilirubin (0.2 - 1.3 mg/dL) 0.5 0.6 AST (17 - 59 U/L) 20 24 ALT (21 - 72 U/L) 30 35 Troponin I (<0.11 ng/ml) < 0.01 Albumin (3.5 - 5.0 g/dL) 2.7 L 3.2 L Hematology CBC w Diff NO MAN DIFF REQ NO MAN DIFF REQ WBC (4.8 - 10.8 /CUMM) 19.5 H 20.5 H RBC (4.70 - 6.10 /CUMM) 3.68 L 3.84 L Hgb (14.0 - 18.0 G/DL) 10.1 L 10.7 L Hct (42 - 52 %) 31.0 L 32.3 L MCV (80.0 - 94.0 FL) 84.3 84.0 MCH (27.0 - 31.0 PG) 27.5 27.9 RDW (11.5 - 14.5 %) 17.2 H 16.6 H Plt Count (130 - 400 /CUMM) 307 338 MPV (7.4 - 10.4 FL) 8.2 8.3 Gran % (42.2 - 75.2 %) 82.5 H 85.4 H Lymphocytes % (20.5 - 51.1 %) 8.3 L 5.9 L Monocytes % (1.7 - 9.3 %) 8.8 8.6 Eosinophils % (0 - 5 %) 0.2 0 Basophils % (0.0 - 2.0 %) 0.2 0.1 Absolute Granulocytes (1.4 - 6.5 /CUMM) 16.1 H 17.5 H Absolute Lymphocytes (1.2 - 3.4 /CUMM) 1.6 1.2 Absolute Monocytes (0.10 - 0.60 /CUMM) 1.7 H 1.8 H Absolute Eosinophils (0.0 - 0.7 /CUMM) 0 0 Absolute Basophils (0.0 - 0.2 /CUMM) 0 0 PUBS MCHC (33.0 - 37.0 G/DL) 32.5 L 33.2 Exam General Appearance: well developed/nourished, no apparent distress, alert, awake , anxious, severe distress Head: atraumatic, normal appearance Respiratory: normal breath sounds, chest non-tender Cardiovascular: regular rate/rhythm Gastrointestinal: decreased bowel sounds, distended and tender Extremities: normal inspection Current Medications: Current Medications Sig/Lelo Start time Last Medication Dose Route Stop Time Status Admin Acetaminophen 1,000 MG Q8P PRN 03/22 0545 DC N/A 1 UNIT IV 03/23 0600 Albuterol Sulfate 3 ML Q4 03/21 2200 AC 03/23 INH 0753 Albuterol Sulfate 2 PUF Q6P PRN 03/21 1800 AC 03/22 INH 1010 Alprazolam 0.5 MG TID PRN 03/22 1345 AC 03/23 PO 03/29 1344 0942 Amlodipine Besylate 5 MG DAILY 03/22 1000 AC 03/23 PO 1003 Atorvastatin Calcium 40 MG DAILY@1700 03/22 1700 AC 03/22 PO 1711 Bisacodyl 10 MG ONCE ONE 03/23 1000 DC PA 03/23 1001 Dextrose/Sodium 1,000 ML Q20H 03/23 0600 AC 03/23 Chloride IV 0645 Dextrose/Sodium 1,000 ML .Q24H 03/22 0545 DC 03/22 Chloride IV 1019 Docusate Sodium 100 MG DAILY 03/22 1000 AC 03/23 PO 1003 Escitalopram Oxalate 20 MG DAILY 03/22 1000 AC 03/23 PO 1003 Furosemide 20 MG ONCE ONE 03/23 0745 DC 03/23 IV 03/23 0746 0751 Heparin Sodium 5,000 UNIT Q8 03/21 2200 AC 03/23 (Porcine) SC 0645 Hydromorphone HCl 50 MG Q24H PRN 03/21 1615 AC Sodium Chloride 45 ML IV Hydroxychloroquine 200 MG DAILY 03/22 1000 AC 03/23 Sulfate PO 1003 Insulin Aspart 15 UNITS TIDAC 03/22 1200 AC 03/23 SC 0946 Insulin Detemir 25 UNITS QPM 03/22 2200 AC 03/22 SC 2207 Ketorolac 30 MG ONCE ONE 03/22 2145 DC 03/23 Tromethamine IV 03/22 2146 0001 Magnesium Oxide 400 MG ONE ONE 03/23 0745 DC 03/23 PO 03/23 0746 0750 Magnesium Oxide 800 MG ONE ONE 03/22 2345 DC 03/23 PO 03/22 2346 0003 Magnesium Sulfate 1 GM ONCE ONE 03/22 2345 DC 03/23 Dextrose/Water 100 ML IV 03/23 0344 0005 Metformin HCl 1,000 MG BID 03/22 1000 AC 03/23 PO 1003 Omeprazole 40 MG DAILY AC 03/22 0700 AC 03/23 PO 0645 Ondansetron HCl 4 MG Q6P PRN 03/21 1800 AC IV Prednisone 5 MG DAILY 03/22 1000 AC 03/23 PO 1003 Pregabalin 75 MG BID 03/21 2200 AC 03/23 PO 1004 Sodium Chloride 1,000 ML Q13H 03/22 2345 AC 03/23 IV 03/23 1244 0000 Sulfasalazine 500 MG DAILY 03/22 1000 AC 03/23 PO 1003 Tamsulosin HCl 0.4 MG DAILY 03/22 1000 AC 03/23 PO 1003 Impression/Plan Impression/Problem List Impression: Respiratory #Right lower lobe lobectomy Postoperative day 2 for right lower lobectomy and mediastinal lymph node dissectionChest tube currently in place to suction and draining sanguinous fluid , until today he put out 550 mL, will continue to monitor drainage and subsequent management for CT surgery for removal when there is substantial decrease in secretion. Repeated CXR this morning show somewhat improving comparing to the previous x-ray. * Will continue patient on oxygen * We will continue monitoring drainage * We will follow up cardio thoracic surgery condition #Chronic obstructive pulmonary disease Patient has history of COPD not on home oxygen * continue the patient on home prednisone 5 mg daily * TRC evaluation * nebulization as needed ID No current distress Cardiovascular Hypertension * Continue to monitor blood pressure every shift * continue home medication amlodipine 5 mg daily Hematology H&H is stable at 10.1 and 31 WBCs 19.5 most likely because of the steroid * Repeat CBC daily Metabolic: #BPH Continue Tamsulosin 0.4 mg daily. #Hyperlipidemia Continue atorvastatin 40 mg daily and low-fat diet Alimentary: #GERD Continue with omeprazole 40 mg daily. #Abdominal distention and pain Today patient started to complain of abdominal distention, and pain. He did not pass gas and denies any bowel movement. Even though patient denies any nausea or vomiting still an abdominal x-ray will be ordered to exclude intestinal obstruction, paralytic ileus or any acute intra-abdominal pathology. * Follow-up x-ray stat * If x-rays normal we will help induce bowel movements with medications Neurological No current neurological issue Endocrinology Diabetes mellitus Will hold patient oral antidiabetic medications. * keep him on insulin sliding scale low-dose * Accu-Cheks * consistent carbohydrate 3 diet SKIN no Current skin issues DVT/Prophylaxis: heparin Diet consistent carbohydrate 3 diet Code Status Full code Patient Is full code heparin and Alps for DVT prophylaxis Problem List: 1. S/P lobectomy of lung Pain Ratin Tomorrow's Labs & Rationales: cbc and ICU bundle, xray Plan DVT/Prophylaxis: mechanical, pharmacological
--- NOTE | 2016-03-23 09:53 | PN- CRCU ---
Subjective HPI/Critical Care Issues: The patient is awake and alert. Last night, the patient's oxygenation deteriorated and a chest x-ray was done. This demonstrated lower lung volumes then previous. A CT angiogram was performed and there was no evidence of central pulmonary emboli. The patient had a small right apical pneumothorax reported. There was also patchy airspace opacities within the right lung. This was thought to represent atelectasis with volume loss. Moderate emphysema was seen. He received IV Lasix for possible volume overload. Objective Current Medications: Current Medications Sig/Lelo Start time Last Medication Dose Route Stop Time Status Admin Acetaminophen 1,000 MG Q8P PRN 03/22 0545 DC N/A 1 UNIT IV 03/23 0600 Albuterol Sulfate 3 ML Q4 03/21 2200 AC 03/23 INH 0753 Albuterol Sulfate 2 PUF Q6P PRN 03/21 1800 AC 03/22 INH 1010 Alprazolam 0.5 MG TID PRN 03/22 1345 AC 03/22 PO 03/29 1344 2205 Amlodipine Besylate 5 MG DAILY 03/22 1000 DC PO Amlodipine Besylate 5 MG DAILY 03/22 1000 AC 03/22 PO 1009 Atorvastatin Calcium 40 MG DAILY@1700 03/22 1700 AC 03/22 PO 1711 Atorvastatin Calcium 40 MG DAILY 03/22 1000 DC PO Dextrose/Sodium 1,000 ML Q20H 03/23 0600 AC 03/23 Chloride IV 0645 Dextrose/Sodium 1,000 ML .Q24H 03/22 0545 DC 03/22 Chloride IV 1019 Docusate Sodium 100 MG DAILY 03/22 1000 DC PO Docusate Sodium 100 MG DAILY 03/22 1000 AC 03/22 PO 1008 Escitalopram Oxalate 20 MG DAILY 03/22 1000 DC PO Escitalopram Oxalate 20 MG DAILY 03/22 1000 AC 03/22 PO 1027 Furosemide 20 MG ONCE ONE 03/23 0745 DC 03/23 IV 03/23 0746 0751 Heparin Sodium 5,000 UNIT Q8 03/21 2200 AC 03/23 (Porcine) SC 0645 Hydromorphone HCl 50 MG Q24H PRN 03/21 1615 AC Sodium Chloride 45 ML IV Hydroxychloroquine 200 MG DAILY 03/22 1000 DC Sulfate PO Hydroxychloroquine 200 MG DAILY 03/22 1000 AC 03/22 Sulfate PO 1008 Insulin Aspart 15 UNITS TIDAC 03/22 1200 AC 03/22 SC 1220 Insulin Detemir 25 UNITS QPM 03/22 2200 AC 03/22 SC 2207 Ketorolac 30 MG ONCE ONE 03/22 2145 DC 03/23 Tromethamine IV 03/22 2146 0001 Magnesium Oxide 400 MG ONE ONE 03/23 0745 DC 03/23 PO 03/23 0746 0750 Magnesium Oxide 800 MG ONE ONE 03/22 2345 DC 03/23 PO 03/22 2346 0003 Magnesium Sulfate 1 GM ONCE ONE 03/22 2345 DC 03/23 Dextrose/Water 100 ML IV 03/23 0344 0005 Metformin HCl 1,000 MG BID 03/22 1000 AC 03/22 PO 2206 Omeprazole 40 MG DAILY AC 03/22 0700 AC 03/23 PO 0645 Ondansetron HCl 4 MG Q6P PRN 03/21 1800 AC IV Prednisone 5 MG DAILY 03/22 1000 DC PO Prednisone 5 MG DAILY 03/22 1000 AC 03/22 PO 1008 Pregabalin 75 MG BID 03/21 2200 AC 03/22 PO 2206 Sodium Chloride 1,000 ML Q13H 03/22 2345 AC 03/23 IV 03/23 1244 0000 Sulfasalazine 500 MG DAILY 03/22 1000 DC PO Sulfasalazine 500 MG DAILY 03/22 1000 AC 03/22 PO 1009 Tamsulosin HCl 0.4 MG DAILY 03/22 1000 DC PO Tamsulosin HCl 0.4 MG DAILY 03/22 1000 AC 03/22 PO 0552 Vital Signs & I&O Last 24 Hrs of Vitals and I&O: Vital Signs Date Time Temp Pulse Resp B/P Pulse O2 O2 Flow FiO2 Ox Delivery Rate 03/23 0758 95 Nasal 50% Cannula 03/23 0400 86 15 118/65 03/23 0400 96 Nasal 50% Cannula 03/23 0051 Nasal 50% Cannula 03/23 0000 99.1 103 21 133/69 03/23 0000 98 Nasal 50% Cannula 03/23 0000 99.1 103 21 130/80 98 Nasal 50% Cannula 03/22 1999 99.6 105 33 153/73 03/22 1999 91 Nasal 6.0L Cannula 03/22 1800 106 30 157/88 03/22 1640 94 Nasal 5.0L Cannula 03/22 1617 94 Nasal 5.0L Cannula 03/22 161 98.3 97 23 130/62 94 Nasal 5.0L Cannula 03/22 1400 96 22 140/72 03/22 1200 98.6 96 22 136/60 03/22 1200 95 Nasal 3.0L Cannula 03/22 1153 Nasal 3.0L Cannula 03/22 1009 81 127/68 03/22 1000 90 22 121/68 Intake & Output 03/23 1600 03/23 0800 03/23 0000 Intake Total 509 861 Output Total 790 690 Balance -281 171 Intake, IV 509 501 Intake, Oral 360 Number 0 Bowel Movements Output, Chest 40 190 Tube Drainage Output, Urine 750 500 Exam General Appearance: alert, awake Head: atraumatic Neck: supple Respiratory: coarse bilateral rhonchi and crackles heard Cardiovascular: regular rate/rhythm Abdomen: distended, bowel sounds present but mildly tympanitic, nontender Extremities: no edema Skin: intact, normal color, warm/dry Results Last 24 Hrs of Lab Results: Laboratory Tests 03/23/16 0435: Anion Gap 8, Estimated GFR > 60, Glucose 205 H, Calcium 9.3, Phosphorus 3.1, Magnesium 1.8, Total Bilirubin 0.5, AST 20, ALT 30, Albumin 2.7 L, CBC w Diff NO MAN DIFF REQ, RBC 3.68 L, MCV 84.3, MCH 27.5, RDW 17.2 H, MPV 8.2, Gran % 82.5 H, Lymphocytes % 8.3 L, Monocytes % 8.8, Eosinophils % 0.2, Basophils % 0.2, Absolute Granulocytes 16.1 H, Absolute Lymphocytes 1.6, Absolute Monocytes 1.7 H, Absolute Eosinophils 0, Absolute Basophils 0, PUBS MCHC 32.5 L 03/22/16 2151: Anion Gap 12, Estimated GFR > 60, Glucose 171 H, Calcium 9.4, Phosphorus 3.3, Magnesium 1.2 L, Total Bilirubin 0.6, AST 24, ALT 35, Troponin I < 0.01, Albumin 3.2 L, CBC w Diff NO MAN DIFF REQ, RBC 3.84 L, MCV 84.0, MCH 27.9, RDW 16.6 H, MPV 8.3, Gran % 85.4 H, Lymphocytes % 5.9 L, Monocytes % 8.6, Eosinophils % 0, Basophils % 0.1, Absolute Granulocytes 17.5 H, Absolute Lymphocytes 1.2, Absolute Monocytes 1.8 H, Absolute Eosinophils 0, Absolute Basophils 0, PUBS MCHC 33.2 Diagnostic Data CXR Findings: Stable postoperative changes right lung. Interval increase in the right chest wall subcutaneous emphysema. No change in the right basilar chest tube. Minimal increase haziness in the right lung base. Clear and expanded left lung. Impression/Plan Impression/Plan Impression/Plan: 1. Worsening hypoxemic respiratory failure likely secondary to atelectasis, mucus plugging and possible volume overload. CTA was negative for central pulmonary embolism. Superimposed infection needs to be considered in the setting of significant leukocytosis. 2. Right lower lobectomy and lymph node dissection for a history of lung cancer. 3. Diabetes. 4. COPD without evidence of bronchospasm. 5. Lung cancer status post left upper lobectomy in 1996. 6. Urinary retention. Recommendations: * Continue high flow oxygen. Attempt to wean down, maintain saturations greater than 92%. * Continue with aggressive pulmonary toilet. The patient needs right-sided chest PT. * Incentive spirometry hourly as tolerated. * Continue nebs/TRC. * Brice catheter placed due to urinary retention. * Continue Dilaudid CAP AND STUD MACHINE OPERATOR for pain control until the chest tube has been removed. * Continue diabetic diet as tolerated. * Await bowel function. Consider checking an x-ray to rule out ileus. * Agree with changing IV fluids to avoid hyponatremia. * Chest tube management as per CT surgery. * Continue DVT prophylaxis. * Continue to monitor in critical care.
--- NOTE | 2016-03-23 10:07 | NUR ---
c/o intermittent pain to abd, reports no flatus, anxiety present; RAY Rojas called, reported to Dr. Mosquera and Dr. El; Dr. El in to see patient, PA ordered suppository per Dr. El do not give until abd xray done; patient refusing xray until son arrives will continue to monitor
--- NOTE | 2016-03-23 10:13 | NUR ---
per daughters phone call "do not put my father on the commode until my mother gets there" md's aware
--- NOTE | 2016-03-23 10:18 | NUR ---
DR. ULLOA IN TO SEE PATIENT ORDERS TO AMBULATE PATIENT TO COMMODE
--- NOTE | 2016-03-23 10:40 | NUR ---
PATIENT ON COOMODE FOR 15 MINUTES, NO FLATUS, REFUSING TO SIT IN CHAIR PATIENT BACK TO BED
[2016-03-23 12:00] VITALS: BP 120/60
--- NOTE | 2016-03-23 12:05 | RADIOLOGY REPORT ---
EXAMINATION: XR PORTABLE ABDOMEN CLINICAL INFORMATION: 75-year-old man with distended and painful abdomen. COMPARISON: None. TECHNIQUE: Portable supine film of the abdomen was obtained. FINDINGS: There is significant gaseous distention of large and small bowel loops raising the possibility of postoperative ileus. No definite free peritoneal air is visualized. IMPRESSION: Prominent gaseous distention of large and small bowel loops raises the possibility of postoperative ileus.
[2016-03-23 16:00] VITALS: BP 140/70
--- NOTE | 2016-03-23 18:12 | NUR ---
PASSING FLATUS, SMALL MUCUS GUIAC POSITIVE BM ON COMMODE REPORTED TO RAY YIN AND DR. DELGADO
[2016-03-23 20:00] VITALS: BP 121/63
--- NOTE | 2016-03-23 20:12 | NUR ---
PT A/OX3, FOLLOWS COMMANDS. POLISH SPEAKING, BUT SPEAKS AND UNDERSTANDS PERUVIAN. ON DILUADID TOP LIFT CUTTER-RATES PAIN 1 OUT OF 10 AT PRESENT, DESCRIBES STABBING. RT SIDED BREATH SOUNDS RHONCI WITH DIMINISHED BREATH SOUNDS AT BASE, LT SIDE CLEAR WITH DIMINISHED BREATH SOUNDS AT LT BASE. NO COUGH, SOB OR RESP DISTRESS NOTED AT PRESENT. ON HIGH FLOW 02 AT 45% AT PRESENT. SEE FLOW SHEET FOR VS, 02 SATS, I/O'S. MONITOR SHOWS NSR, NO ECTOPY NOTED AT PRESENT. BP STABLE AT PRESENT. ABD FIRM, DISTENDED, POSITIVE BOWEL SOUNDS. COATS IN PLACE-DRAINING ADEQUATE AMT OF CLEAR YELLOW URINE. SKIN INTACT. RT SIDED CHEST TUBE IN PLACE TO H20 SEAL-NO AIR LEAK OR CREPITUS NOTED, DRAINING SEROUS DRAINAGE. RT UPPER BACK DRESSING WITH OLD BLOODY DRAINAGE.
[2016-03-24] VITALS: BP 124/62
[2016-03-24 04:00] VITALS: BP 129/63
--- NOTE | 2016-03-24 05:22 | PN- Thoracic Surgery ---
See Addendum Subjective Subjective: POD #3 s/p RLL with lymph node exenteration. Resting comfortably in bed. Remains on high flow oxygen (45%). CXR yesterday with atelectasis to right lung base. No complaints of CP or SOB. Denies N/V, F/C. Complains of abdominal pain. Xray of abdomen yesterday revealed ileus; given suppository without much effect. Not ambulating. Brice replaced due to neurogenic bladder. Objective Vital Signs and I&Os Vital Signs Date Time Temp Pulse Resp B/P Pulse O2 O2 Flow FiO2 Ox Delivery Rate 03/24 0218 94 Nasal 40% Cannula 03/24 0000 96.9 93 16 124/62 03/24 0000 92 Nasal 45% Cannula 03/24 0000 96.9 93 16 124/62 92 Nasal 45% Cannula 03/23 2000 95 32 121/63 03/23 2000 92 Nasal 45% Cannula 03/23 1707 96 Nasal 40% Cannula 03/23 1600 97.6 97 28 140/70 03/23 1600 93 Nasal 45% Cannula 03/23 1600 97.6 97 28 140/70 93 Nasal 45% Cannula 03/23 1200 97.8 100 23 120/60 03/23 1200 96 Nasal 45% Cannula 03/23 1003 145/68 03/23 1003 105 145/68 03/23 0800 97.9 92 25 130/60 03/23 0800 97.9 92 25 130/60 100 Nasal 50% Cannula 03/23 0800 100 Nasal 50% Cannula 03/23 0758 95 Nasal 50% Cannula Intake & Output 03/24 0800 03/24 0000 03/23 1600 03/23 0800 03/23 0000 03/22 1600 Intake Total 666 950 823 813 0021 Output Total 780 1250 790 690 825 Balance -114 -300 -281 171 775 Intake, IV 256 240 509 501 240 Intake, Oral 410 041 467 4175 Number 1 0 0 0 Bowel Movements Output, Chest 50 50 40 190 200 Tube Drainage Output, Urine 730 1200 750 500 625 Patient 170 lb Weight Physical Exam: Gen: AAOx3 in NAD Cor: S1+S2+ Lungs: diminished breath sounds to right lung base. Chest tube remains to waterseal. Dressing intact. Abd: firm, tender diffusely, distended, hypoactive bowel sounds auscultated Ext: no edema or calf tenderness to kahlil lower extremities CXR: Pending CT: 50/50/- no air leak identified Current Medications: Current Medications Sig/Lelo Start time Last Medication Dose Route Stop Time Status Admin Acetaminophen 1,000 MG Q8P PRN 03/22 0545 DC N/A 1 UNIT IV 03/23 0600 Albuterol Sulfate 3 ML Q4 03/21 2200 AC 03/24 INH 0200 Albuterol Sulfate 2 PUF Q6P PRN 03/21 1800 AC 03/22 INH 1010 Alprazolam 0.5 MG TID PRN 03/22 1345 AC 03/23 PO 03/29 1344 1756 Amlodipine Besylate 5 MG DAILY 03/22 1000 AC 03/23 PO 1003 Atorvastatin Calcium 40 MG DAILY@1700 03/22 1700 AC 03/23 PO 1721 Bisacodyl 10 MG ONCE ONE 03/24 0530 UNVr IL 03/24 0531 Bisacodyl 10 MG ONCE ONE 03/23 1000 DC 03/23 IL 03/23 1001 1221 Dextrose/Sodium 1,000 ML Q20H 03/23 0600 AC 03/23 Chloride IV 0645 Dextrose/Sodium 1,000 ML .Q24H 03/22 0545 DC 03/22 Chloride IV 1019 Docusate Sodium 100 MG BID 03/24 1000 UNVr PO Docusate Sodium 100 MG DAILY 03/22 1000 DC 03/23 PO 1003 Escitalopram Oxalate 20 MG DAILY 03/22 1000 AC 03/23 PO 1003 Furosemide 20 MG ONCE ONE 03/23 0745 DC 03/23 IV 03/23 0746 0751 Heparin Sodium 5,000 UNIT Q8 03/21 2200 AC 03/23 (Porcine) SC 2120 Hydromorphone HCl 50 MG Q24H PRN 03/21 1615 AC Sodium Chloride 45 ML IV Hydroxychloroquine 200 MG DAILY 03/22 1000 AC 03/23 Sulfate PO 1003 Insulin Aspart 15 UNITS TIDAC 03/22 1200 AC 03/23 SC 0946 Insulin Detemir 25 UNITS QPM 03/22 2200 AC 03/23 SC 2118 Magnesium Oxide 400 MG ONE ONE 03/23 0745 DC 03/23 PO 03/23 0746 0750 Metformin HCl 1,000 MG BID 03/22 1000 AC 03/23 PO 2116 Omeprazole 20 MG .STK-MED ONE 03/23 0648 DC PO 03/23 0649 Omeprazole 40 MG DAILY AC 03/22 0700 AC 03/23 PO 0645 Ondansetron HCl 4 MG Q6P PRN 03/21 1800 AC IV Polyethylene Glycol 17 GM DAILY 03/24 1000 UNVr PO Prednisone 5 MG DAILY 03/22 1000 AC 03/23 PO 1003 Pregabalin 75 MG BID 03/21 2200 AC 03/23 PO 2116 Sodium Chloride 1,000 ML Q13H 03/22 2345 DC 03/23 IV 03/23 1244 0000 Sulfasalazine 500 MG DAILY 03/22 1000 AC 03/23 PO 1003 Tamsulosin HCl 0.4 MG DAILY 03/22 1000 AC 03/23 PO 1003 Results Last 48 Hours of Labs: Laboratory Tests 03/23 03/22 0435 2151 Chemistry Sodium (137 - 145 mmol/L) 129 L 127 L Potassium (3.5 - 5.1 mmol/L) 4.7 4.4 Chloride (98 - 107 mmol/L) 93 L 90 L Carbon Dioxide (22 - 30 mmol/L) 28 24 Anion Gap (5 - 16) 8 12 BUN (9 - 20 mg/dL) 14 14 Creatinine (0.7 - 1.2 mg/dL) 0.8 0.6 L Estimated GFR (>60 ml/min) > 60 > 60 Glucose (65 - 99 mg/dL) 205 H 171 H Calcium (8.4 - 10.2 mg/dL) 9.3 9.4 Phosphorus (2.5 - 4.5 mg/dL) 3.1 3.3 Magnesium (1.6 - 2.3 mg/dL) 1.8 1.2 L Total Bilirubin (0.2 - 1.3 mg/dL) 0.5 0.6 AST (17 - 59 U/L) 20 24 ALT (21 - 72 U/L) 30 35 Troponin I (<0.11 ng/ml) < 0.01 Albumin (3.5 - 5.0 g/dL) 2.7 L 3.2 L Hematology CBC w Diff NO MAN DIFF REQ NO MAN DIFF REQ WBC (4.8 - 10.8 /CUMM) 19.5 H 20.5 H RBC (4.70 - 6.10 /CUMM) 3.68 L 3.84 L Hgb (14.0 - 18.0 G/DL) 10.1 L 10.7 L Hct (42 - 52 %) 31.0 L 32.3 L MCV (80.0 - 94.0 FL) 84.3 84.0 MCH (27.0 - 31.0 PG) 27.5 27.9 RDW (11.5 - 14.5 %) 17.2 H 16.6 H Plt Count (130 - 400 /CUMM) 307 338 MPV (7.4 - 10.4 FL) 8.2 8.3 Gran % (42.2 - 75.2 %) 82.5 H 85.4 H Lymphocytes % (20.5 - 51.1 %) 8.3 L 5.9 L Monocytes % (1.7 - 9.3 %) 8.8 8.6 Eosinophils % (0 - 5 %) 0.2 0 Basophils % (0.0 - 2.0 %) 0.2 0.1 Absolute Granulocytes (1.4 - 6.5 /CUMM) 16.1 H 17.5 H Absolute Lymphocytes (1.2 - 3.4 /CUMM) 1.6 1.2 Absolute Monocytes (0.10 - 0.60 /CUMM) 1.7 H 1.8 H Absolute Eosinophils (0.0 - 0.7 /CUMM) 0 0 Absolute Basophils (0.0 - 0.2 /CUMM) 0 0 PUBS MCHC (33.0 - 37.0 G/DL) 32.5 L 33.2 Assessment/Plan Assessment/Plan A: POD #3 s/p RLL with lymph node exenteration for a RLL lung cancer. Hospital course complicated by a post operative ileus. Chest tube remains to waterseal. Plan: Wean oxygen if feasible. Patient needs aggressive chest PT, including acapela therapy. Will likely remove chest tube today, pending todays CXR. No air leak identified on pleurovac. OOB and ambulate with PT. Will give aggressive bowel regimen- Colace BID, Miralax daily, Dulcolax IL x1 again today. Continue dilaudid SPINDLE SANDER until chest tube removed. Core Measures/Miscellaneous Brice Catheter Date In: 03/21/16 Venous Thromboembolism VTE Risk Factors: Cancer/chemo/oth therapy, Surgery VTE Contraindications: No Contraindications VTE Prophylaxis Ordered Inpt: Mech & Pharm VTE Diagnosis: No VTE Type: NONE VTE Confirmed by (Test): NONE Beta Sonali Is Beta Sonali a Home Med? No Antibiotics Is Patient on Antibiotics? No
[2016-03-24 06:57] LABS: ABSOLUTE BASOPHIL COUNT 0 /CUMM (0.0-0.2); ABSOLUTE EOSINOPHIL COUNT 0.1 /CUMM (0.0-0.7); ABSOLUTE GRANULOCYTE CT 11.1 /CUMM (1.4-6.5); ABSOLUTE LYMPH COUNT 1.5 /CUMM (1.2-3.4); ABSOLUTE MONOCYTE COUNT 1.6 /CUMM (0.10-0.60); BASOPHIL % 0.1 % (0.0-2.0); EOSINOPHIL % 0.8 % (0-5); GRANULOCYTE % 76.9 % (42.2-75.2); MEAN CORPUSCULAR HGB 27.3 PG (27.0-31.0); MEAN CORPUSCULAR HGB CONC 32.4 G/DL (33.0-37.0); MEAN CORPUSCULAR VOLUME 84.2 FL (80.0-94.0); MEAN PLATELET VOLUME 7.7 FL (7.4-10.4); PLATELET COUNT 301 /CUMM (130-400); RBC DISTRIBUTION WIDTH 16.3 % (11.5-14.5); RED BLOOD CELL CT 3.57 /CUMM (4.70-6.10); WHITE BLOOD CELL COUNT 14.4 /CUMM (4.8-10.8)
--- NOTE | 2016-03-24 07:36 | RADIOLOGY REPORT ---
EXAMINATION: XR PORTABLE CHEST CLINICAL INFORMATION: Status post thoracotomy with lobectomy. Follow-up pneumothorax COMPARISON: Chest x-ray from 03/23/2016 TECHNIQUE: Portable AP portable view of the chest was obtained. FINDINGS: The lungs are hypoexpanded. Postsurgical changes on the right with chest tube at the right base, as previously. There is increased opacity at the right lung base which might be related to increasing atelectasis or developing pleural effusion. Atelectasis at the left base is slightly increased. There is no pneumothorax appreciated. There is subcutaneous emphysema on the right which is slightly decreased in amount when compared to prior study. No other change. IMPRESSION: Hypoexpanded lungs with increasing atelectasis at the left base. Increasing opacity at the right base could be related to atelectasis or developing pleural effusion. No pneumothorax. Subcutaneous emphysema on the right slightly improved.
--- NOTE | 2016-03-24 07:48 | NUR ---
PT SLEPT MOST OF NIGHT. REMAINS ON DILUADID MIXER AND SCALER. RATES PAIN 1 OUT OF 10. CHEST TUBE TO WATER SEAL, NO AIR LEAK OR CREPITUS, DRAINING SEROUS DRAINAGE. RT BREATH SOUNDS RHONCI, LT BREATH SOUNDS CLEAR, DIMINISHED BREATH SOUNDS AT BASES BILATERALLY. PRODUCTIVE COUGH OF THICK ANN BLOOD TINGED SECREATIONS. NO SOB OR RESP DISTRESS NOTED OVERNIGHT. MONITOR SHOWED NSR, NO ECTOPY NOTED THOUGHOUT SHIFT. BP STABLE THOUGHOUT SHIFT. GOOD URINE OUTPUT VIA COATS THOUGHOUT SHIFT. SKIN REMAINS INTACT. ABD FIRM, DISTENDED, POSITIVE BOWEL SOUNDS
--- NOTE | 2016-03-24 07:53 | NUR ---
RECEIVED PT FROM VIA BED AT 0455-EKG MONITORING, 02 AT 3LNC, NS INFUSING AT 150ML/HR. PT PLACED IN BED AND ATTACHED TO BEDSIDE MONITOR. ORIENTATION TO UNIT DONE. BP IN THE 80'S-SEE FLOW SHEET-RT IJ TLC INSERTED BY DR. EVANS AT 0530 WITHOUT DIFFICULTY-STAT CHEST XRAY DONE-PER DR. EVANS NO PNEUMOTHROX, OKAY TO USE LINE. AT 0545 PERPHERIAL LEVOPHED STARTED ORDERED-TITRATED UP TO MAINTAIN MAP>65-SEE FREQUENT VS SHEET-CURRENTLY INFUSING AT 9MCG/MIN-#18 RF WITH POSITIVE BLOOD RETURN, NO SIGNS OF INFLITRATION. PT DENIED ANY PAIN SINCE TRANSFER. A/OX3, FOLLOWS COMMANDS. BREATH SOUND CLEAR THOUGHOUT BILATERALLY. NO SOB, RESP DISTRESS OR COUGH NOTED AT PRESENT. ABD SOFT, NONTENDER, NONDISTENDED, POSITIVE BOWEL SOUNDS. COATS IN PLACE-DRAINING ADEQUATE AMT OF CLEAR YELLOW URINE. SKIN INTACT.
[2016-03-24 08:00] VITALS: BP 110/60
--- NOTE | 2016-03-24 09:01 | PN- CRCU ---
Subjective HPI/Critical Care Issues: The patient is awake and alert. He is feeling better overall. He continues to have pain. His chest tube has been taken out. He is afebrile and his WBC count is decreasing. Objective Current Medications: Current Medications Sig/Lelo Start time Last Medication Dose Route Stop Time Status Admin Albuterol Sulfate 3 ML Q4 03/21 2200 AC 03/24 INH 0530 Albuterol Sulfate 2 PUF Q6P PRN 03/21 1800 AC 03/22 INH 1010 Alprazolam 0.5 MG TID PRN 03/22 1345 AC 03/23 PO 03/29 1344 1756 Amlodipine Besylate 5 MG DAILY 03/22 1000 AC 03/23 PO 1003 Atorvastatin Calcium 40 MG DAILY@1700 03/22 1700 AC 03/23 PO 1721 Bisacodyl 10 MG ONCE ONE 03/24 0530 DC OK 03/24 0531 Bisacodyl 10 MG ONCE ONE 03/23 1000 DC 03/23 OK 03/23 1001 1221 Dextrose/Sodium 1,000 ML Q20H 03/23 0600 AC 03/23 Chloride IV 0645 Docusate Sodium 100 MG BID 03/24 1000 AC PO Docusate Sodium 100 MG DAILY 03/22 1000 DC 03/23 PO 1003 Escitalopram Oxalate 20 MG DAILY 03/22 1000 AC 03/23 PO 1003 Heparin Sodium 5,000 UNIT Q8 03/21 2200 AC 03/24 (Porcine) SC 0630 Hydromorphone HCl 50 MG Q24H PRN 03/21 1615 AC Sodium Chloride 45 ML IV Hydroxychloroquine 200 MG DAILY 03/22 1000 AC 03/23 Sulfate PO 1003 Insulin Aspart 15 UNITS TIDAC 03/22 1200 AC 03/23 SC 0946 Insulin Detemir 25 UNITS QPM 03/22 2200 AC 03/23 SC 2118 Metformin HCl 1,000 MG BID 03/22 1000 AC 03/23 PO 2116 Omeprazole 40 MG DAILY AC 03/22 0700 AC 03/24 PO 0630 Ondansetron HCl 4 MG Q6P PRN 03/21 1800 AC IV Polyethylene Glycol 17 GM DAILY 03/24 1000 AC PO Prednisone 5 MG DAILY 03/22 1000 AC 03/23 PO 1003 Pregabalin 75 MG BID 03/21 2200 AC 03/23 PO 2116 Sodium Chloride 1,000 ML Q13H 03/22 2345 DC 03/23 IV 03/23 1244 0000 Sulfasalazine 500 MG DAILY 03/22 1000 AC 03/23 PO 1003 Tamsulosin HCl 0.4 MG DAILY 03/22 1000 AC 03/23 PO 1003 Vital Signs & I&O Last 24 Hrs of Vitals and I&O: Vital Signs Date Time Temp Pulse Resp B/P Pulse O2 O2 Flow FiO2 Ox Delivery Rate 03/24 0400 99.4 89 24 129/63 03/24 0400 93 Nasal 45% Cannula 03/24 0218 94 Nasal 40% Cannula 03/24 0000 96.9 93 16 124/62 03/24 0000 92 Nasal 45% Cannula 03/24 0000 96.9 93 16 124/62 92 Nasal 45% Cannula 03/23 1999 95 32 121/63 03/23 1999 92 Nasal 45% Cannula 03/23 1707 96 Nasal 40% Cannula 03/23 1600 97.6 97 28 140/70 03/23 1600 93 Nasal 45% Cannula 03/23 1600 97.6 97 140/70 93 Nasal 45% Cannula 03/23 1200 97.8 100 23 120/60 03/23 1200 96 Nasal 45% Cannula 03/23 1003 145/68 03/23 1003 105 145/68 Intake & Output 03/24 1600 03/24 0800 03/24 0000 Intake Total 240 666 Output Total 780 780 Balance -540 -114 Intake, IV 240 256 Intake, Oral 410 Number 1 Bowel Movements Output, Chest 40 50 Tube Drainage Output, Urine 740 730 Exam General Appearance: alert, awake Head: atraumatic Neck: supple Respiratory: coarse bilateral rhonchi and crackles heard Cardiovascular: regular rate/rhythm Abdomen: distended, bowel sounds present but mildly tympanitic, nontender Extremities: no edema Skin: intact, normal color, warm/dry Results Last 24 Hrs of Lab Results: Laboratory Tests 03/24/16 0627: Anion Gap 5, Estimated GFR > 60, Glucose 95, Calcium 10.0, Phosphorus 2.6, Magnesium 2.0, Total Bilirubin 0.5, AST 15 L, ALT 30, Albumin 2.7 L, CBC w Diff NO MAN DIFF REQ, RBC 3.57 L, MCV 84.2, MCH 27.3, RDW 16.3 H, MPV 7.7, Gran % 76.9 H, Lymphocytes % 10.7 L, Monocytes % 11.5 H, Eosinophils % 0.8, Basophils % 0.1, Absolute Granulocytes 11.1 H, Absolute Lymphocytes 1.5, Absolute Monocytes 1.6 H, Absolute Eosinophils 0.1, Absolute Basophils 0, PUBS MCHC 32.4 L 03/24/16 0600: Sodium Cancelled, Potassium Cancelled, Chloride Cancelled, Carbon Dioxide Cancelled, Anion Gap Cancelled, BUN Cancelled, Creatinine Cancelled, BUN/ Creatinine Ratio Cancelled, Phosphorus Cancelled, Magnesium Cancelled, CBC w Diff Cancelled, WBC Cancelled, RBC Cancelled, Hgb Cancelled, Hct Cancelled, MCV Cancelled, MCH Cancelled, RDW Cancelled, Plt Count Cancelled, MPV Cancelled, PUBS MCHC Cancelled Impression/Plan Impression/Plan Impression/Plan: 1. Worsening hypoxemic respiratory failure likely secondary to atelectasis, mucus plugging and volume overload. 2. Right lower lobectomy and lymph node dissection for lung cancer. 3. Diabetes. 4. COPD without evidence of bronchospasm. 5. Lung cancer status post left upper lobectomy in 1996. 6. Urinary retention. Recommendations: * Continue high flow oxygen. Attempt to wean down, maintain saturations greater than 92%. * Continue with aggressive pulmonary toilet and right-sided chest PT. * Incentive spirometry hourly as tolerated. * Continue nebs/TRC. * Brice catheter for urinary retention. * Stop Dilaudid GLOBAL MANAGER. Continue with pain control. * Continue diabetic diet as tolerated. * Aggressive bowel regimen. * Stop IVFs. * Physical therapy consult. Ambulate as tolerated. * Continue DVT prophylaxis.
[2016-03-24 10:00] VITALS: BP 122/63
--- NOTE | 2016-03-24 14:46 | NUR ---
7A-3P SHIFT NOTE: A&OX3, ANXIETY, DENIES PAIN, DILAUDID ACQUISITION CONSULTANT DC'ED. NSR 80-90, SBP 102-110, HFNC CHANGED TO HUNIDIFIED 4L NC O2SAT 96%, 20 IV LASIX GIVEN; CHEST TUBE REMOVED AT 0740 TOTAL OF 1100 MLS IN CANISTER; PA CHANGED C/T & SURG. SITE DSG'S; OOB TO COOMODE X2 BM'S (CLEAR, BLOOD TINGED MUCUS BM'S) TOLERATING CLEAR LIQUID DIET, ABD. DISTENDED AND FIRM, BOWL REG. GIVEN TO INCLUDED SUPPOSITORY,COATS INTACT ADEQUATE U/O, OOB TO CHAIR;
[2016-03-24 16:00] VITALS: BP 112/60
[2016-03-24 20:33] VITALS: BP 140/60
--- NOTE | 2016-03-24 20:39 | PN- Resident CRCU ---
Subjective HPI/CRCU Issues: pod 3 for Lympth node exenteration for RLL lung cancer. Pt is predominantly angolan speaking. Friend at bedside translated. Pt is doing well. Complains of slight increase in pain bc dilaudid pump was d/c 2/2 constipation. He continues to have no BM. No other acute complaints or overnight events. Objective Vital Signs & I&O Last 8 Hrs of Vitals and I&O: Intake & Output 03/24 1600 Intake Total 1142 Output Total 1100 Balance 42 Intake, IV 82 Intake, Oral 1060 Number 2 Bowel Movements Output, Urine 1100 Exam General Appearance: well developed/nourished, no apparent distress, alert, awake , comfortable Head: atraumatic, normal appearance Ears, Nose, Throat: normal pharynx Neck: supple Respiratory: normal breath sounds, chest non-tender Cardiovascular: regular rate/rhythm Gastrointestinal: soft, non-tender Extremities: normal inspection Nutrition Nutrition: P.O. diet Current Medications: Current Medications Sig/Lelo Start time Last Medication Dose Route Stop Time Status Admin Albuterol Sulfate 3 ML EVERY 4 HRS/AWAKE 03/24 1600 AC 03/24 INH 1752 Albuterol Sulfate 3 ML Q4 03/21 2200 DC 03/24 INH 0938 Albuterol Sulfate 2 PUF Q6P PRN 03/21 1800 AC 03/22 INH 1010 Alprazolam 0.5 MG TID PRN 03/22 1345 AC 03/23 PO 03/29 1344 1756 Amlodipine Besylate 5 MG DAILY 03/22 1000 AC 03/24 PO 1053 Atorvastatin Calcium 40 MG DAILY@1700 03/22 1700 AC 03/24 PO 1647 Bisacodyl 10 MG ONCE ONE 03/24 0530 DC 03/24 HI 03/24 0531 1053 Dextrose/Sodium 1,000 ML Q20H 03/23 0600 DC 03/23 Chloride IV 0645 Docusate Sodium 100 MG BID 03/24 1000 AC 03/24 PO 1053 Docusate Sodium 100 MG DAILY 03/22 1000 DC 03/23 PO 1003 Escitalopram Oxalate 20 MG DAILY 03/22 1000 AC 03/24 PO 1053 Furosemide 20 MG ONCE ONE 03/24 0930 DC 03/24 IV 03/24 0931 1023 Heparin Sodium 5,000 UNIT Q8 03/21 2200 AC 03/24 (Porcine) SC 1340 Hydromorphone HCl 0.5 MG Q4P PRN 03/24 0930 AC IV Hydromorphone HCl 50 MG Q24H PRN 03/21 1615 DC Sodium Chloride 45 ML IV Hydroxychloroquine 200 MG DAILY 03/22 1000 AC 03/24 Sulfate PO 1052 Insulin Aspart 0 TIDAC 03/24 1200 AC 03/24 SC 1647 Insulin Aspart 15 UNITS TIDAC 03/22 1200 DC 03/23 SC 0946 Insulin Detemir 25 UNITS QPM 03/22 2200 AC 03/23 SC 2118 Metformin HCl 1,000 MG BID 03/22 1000 DC 03/24 PO 1053 Omeprazole 40 MG DAILY AC 03/22 0700 AC 03/24 PO 0630 Ondansetron HCl 4 MG Q6P PRN 03/21 1800 AC IV Oxycodone/ 1 TAB Q4P PRN 03/24 0930 AC 03/24 Acetaminophen PO 1206 Oxycodone/ 2 TAB Q4P PRN 03/24 0930 AC Acetaminophen PO Polyethylene Glycol 17 GM DAILY 03/24 1000 AC 03/24 PO 1053 Prednisone 5 MG DAILY 03/22 1000 AC 03/24 PO 1052 Pregabalin 75 MG BID 03/21 2200 AC 03/24 PO 1053 Sulfasalazine 500 MG DAILY 03/22 1000 AC 03/24 PO 1052 Tamsulosin HCl 0.4 MG DAILY 03/22 1000 AC 03/24 PO 1053 Impression/Plan Impression/Problem List Impression: Respiratory: Right lower lobe lobectomy: Postoperative day 3 for right lower lobectomy and mediastinal lymph node dissection. Chest tube removal today. Repeated CXR this morning show somewhat improving comparing to the previous x-ray. * Will continue patient on oxygen * We will continue monitoring chest tube site * We will follow up cardio thoracic surgery recs * Dilaudid for pain Chronic obstructive pulmonary disease: Patient has history of COPD not on home oxygen * continue the patient on home prednisone 5 mg daily * TRC evaluation * nebulization as needed Cardiovascular Hypertension * Continue to monitor blood pressure every shift * continue home medication amlodipine 5 mg daily Hematology H&H. WBC elevated most likely because of the steroid * Repeat CBC daily Metabolic: BPH Continue Tamsulosin 0.4 mg daily. Hyperlipidemia Continue atorvastatin 40 mg daily and low-fat diet Alimentary: GERD Continue with omeprazole 40 mg daily. Abdominal distention and pain secondary to paralytic ileus: Yesterday patient started to complain of abdominal distention, and pain. He did not pass gas and still denies any bowel movement. * Stop Dilaudid COMPLIANCE CLERK * Zofran * By mouth diet * Monitor with abdominal x-rays or since Neurological No current neurological issue Endocrinology Diabetes mellitus * Will hold patient oral antidiabetic medications: D/C metformin * keep him on insulin sliding scale low-dose * Accu-Cheks * consistent carbohydrate 3 diet * Continue Lyrica SKIN no Current skin issues Rheumatology: Rheumatoid arthritis: Patient has long history of rheumatoid arthritis. He is currently on DMARD. * Continue sulfasalazine * Continue prednisone 5 mg by mouth daily * Continue hydroxychloroquine DVT/Prophylaxis: heparin Diet consistent carbohydrate 3 diet Code Status Full code Problem List: 1. Lung cancer 2. Hypertension 3. Hyperlipidemia 4. COPD (chronic obstructive pulmonary disease) 5. Diabetes mellitus 6. GERD (gastroesophageal reflux disease) Pain Ratin Pain Location: [facility] Tomorrow's Labs & Rationales: ICU CBC Plan DVT/Prophylaxis: mechanical, pharmacological
--- NOTE | 2016-03-24 22:20 | Event Note ---
Event Note Event Note: At 10 PM, we were alerted by nursing staff that patient had gone into atrial fibrillation. This was confirmed by EKG. Patient's heart rate ranged between 100 -120 on the stenographer secretary. Of note, patient's oxygen requirement had recently increased to 4 L from 3 L and he was satting at 90% on 3 L NC. Blood pressure was stable around 130/70. Patient was seen and examined. He was asymptomatic. Of note, patient has limited proficiency in Israeli but patient's grandson who was at bedside reported that patient does not have any history of cardiac problems or atrial fibrillation. Patient was given single dose of aspirin 81 mg. Lytes had been checked in the morning and K, Mg and Phos were all within normal limits. Troponins were checked and came back negative. CXR showed improved aeration and decreased left lower atelectasis and stable right-sided pleural effusion compared to prior CXR in AM. Patient's CHAD2-VASC score was calculated at 3 (+1 for age 65-74, +1 for HTN and +1 for diabetes), suggesting that he is at a moderate-high risk for stroke and should be considered for anticoagulation. His HAS-BLED score was 1 (+1 for age > 65), indicating a relatively low risk for major bleeding. Decision was made to start the patient on anti-coagulation, if OK with surgery since patient had a right lower lobectomy 3 days prior, after discussing with attending Dr. Shin and plug assembler Dr. Walsh. An ECHO was ordered per Dr. Walsh recs, who said that he will see patient in the AM. Dr. Rosales was contacted who recommended that patient should not be started on IV heparin. Cardizem drip was started for rate control. Repeat EKG in 5 hours showed atrial fibrillation as well. Second set of troponin was negative.
--- NOTE | 2016-03-24 23:03 | RADIOLOGY REPORT ---
EXAMINATION: XR PORTABLE CHEST CLINICAL INFORMATION: Increased oxygen requirement. Evaluate for interval changes and volume overload. New onset atrial fibrillation. COMPARISON: Multiple priors, most recent chest radiographs done 03/24/2016 at 6:55 AM. TECHNIQUE: Portable AP semiupright view of the chest was obtained. FINDINGS: There is mild improved aeration of the bilateral lungs. There is a right sided pleural effusion with adjacent right lower lobe airspace opacification which could represent atelectasis versus infiltrates. This is not significantly changed since the prior examination. There is mild left lower lobe atelectasis, decreased since the prior examination. There is no pneumothorax. The cardiomediastinal silhouette is unchanged. IMPRESSION: 1. Right-sided pleural effusion with adjacent airspace opacification which could represent atelectasis versus infiltrates, not significantly changed. 2. Improved aeration and decreased left lower lobe atelectasis.
--- NOTE | 2016-03-24 23:21 | NUR ---
LATE ENTRY: PT NOTICED AT 2200 TO BE IN AFIB ON MONITOR BY HINA MONTES. PT A/O X3. PT ASYPTOMATIC, DENIES CP/PALIPITATIONS. BP 130/70. O2 SAT 90 % ON 3L NC , O2 INCREASED TO 4L WHICH SATURATION OF 94%. IMGE NOTIFIED AND SURGICAL RAY PARSON NOTIFIED. STAT TROP/EKG/XRAY ORDERED AND COMPLETED. CARDIZEM GTT STARTED PER ORDER BY OSMANY MONTES. HR DURING AFIB HIGHEST RATE OF 130. RANGING HR OF 100-130. REPORT GIVEN TO ONCOMING RN.
--- NOTE | 2016-03-24 23:38 | Event Note ---
Event Note Event Note: Pt went into afib, rate 100s-110s. Cardiology was consulted by the critical care team. Cardizem drip was started. Dr. Walsh recommends heparin gtt, however, I spoke with Dr. Rosales and he does NOT want a heparin gtt to be started at this time due to the risk of postoperative bleeding. Of note, CXR is improved and there is no pneumothorax. First troponin is negative. Pt has improved from a pulmonary standpoint and is currently satting 95-96% on 4L humidified O2 via NC. He denies chest pain. Continue to monitor closely.
[2016-03-25] VITALS: BP 110/60
[2016-03-25 04:33] LABS: ABSOLUTE BASOPHIL COUNT 0.1 /CUMM (0.0-0.2); ABSOLUTE EOSINOPHIL COUNT 0.1 /CUMM (0.0-0.7); ABSOLUTE LYMPH COUNT 2.3 /CUMM (1.2-3.4); ABSOLUTE MONOCYTE COUNT 1.2 /CUMM (0.10-0.60); BASOPHIL % 0.4 % (0.0-2.0); EOSINOPHIL % 0.9 % (0-5); GRANULOCYTE % 72.9 % (42.2-75.2); HEMATOCRIT 31.3 % (42-52); MEAN CORPUSCULAR HGB 27.6 PG (27.0-31.0); MEAN CORPUSCULAR VOLUME 83.7 FL (80.0-94.0); MEAN PLATELET VOLUME 8.8 FL (7.4-10.4); PLATELET COUNT 237 /CUMM (130-400); RBC DISTRIBUTION WIDTH 16.9 % (11.5-14.5); RED BLOOD CELL CT 3.73 /CUMM (4.70-6.10); WHITE BLOOD CELL COUNT 13.7 /CUMM (4.8-10.8)
--- NOTE | 2016-03-25 06:05 | PN- Thoracic Surgery ---
Subjective Subjective: CT was removed yesterday, which improved pt's comfort level. O2 was weaned to 4L via NC. Pt was able to mobilize OOB. Patient received a dose of Lasix 20 mg in the morning, with effective diuresis. Last evening around 10pm, he was found to be in afib with a rate in the 100s-110s and subsequently started on a cardizem gtt. At this time, patient admits to soreness near the surgical site, but otherwise denies significant complaints. He states that he is hungry. He has been tolerating clear liquids without nausea or vomiting. Brice catheter remains in place. Objective Vital Signs and I&Os Vital Signs Date Time Temp Pulse Resp B/P Pulse O2 O2 Flow FiO2 Ox Delivery Rate 03/25 0400 96 Nasal 4.0L Cannula 03/25 0000 96 Nasal 4.0L Cannula 03/25 0000 97.6 107 25 110/60 96 Nasal 4.0L Cannula 03/24 2033 98.5 85 18 140/60 95 Nasal 3.0L Cannula 03/24 2000 Nasal 3.0L Cannula 03/24 1755 98 Nasal 4.0L Cannula 03/24 1600 Nasal 4.0L Cannula 03/24 1600 99.0 86 14 112/60 94 Nasal 4.0L Cannula 03/24 1339 94 Nasal 4.0L Cannula 03/24 1200 93 Nasal 4.0L Cannula 03/24 1053 122/63 03/24 1053 99 122/63 03/24 1000 98.0 88 17 122/63 03/24 0954 95 Nasal 4.0L Cannula 03/24 0915 95 Nasal 4.0L Cannula 03/24 0800 98.0 88 26 110/60 98 Nasal 45% Cannula 03/24 0800 98 Nasal 45% Cannula Intake & Output 03/25 0800 03/25 0000 03/24 1600 03/24 0800 03/24 0000 03/23 1600 Intake Total 267.5 1460 1142 240 666 950 Output Total 665 1400 1100 246 972 6006 Balance -397.5 60 42 -540 -114 -300 Intake, IV 17.5 20 82 240 256 240 Intake, Oral 250 1440 1060 410 710 Number 1 2 1 0 Bowel Movements Output, Chest 40 50 50 Tube Drainage Output, Urine 665 1400 1100 859 198 9888 Physical Exam: Gen.: Patient is awake and alert. No acute distress. He does appear uncomfortable with movement. Cardiac: Irregular rhythm, borderline tachycardia. Pulmonary: Improved aeration is noted today versus yesterday. Lungs are clear and breath sounds are heard to the apex. Surgical dressing and chest tube site are clean, dry, and intact. Abdomen: Remains softly distended, but slightly improved versus yesterday. No tenderness. Bowel sounds are heard. Extremities: No significant lower extremity edema Tenderness are appreciated. Results Last 48 Hours of Labs: Laboratory Tests 03/25 03/24 0338 2232 Chemistry Sodium (137 - 145 mmol/L) 137 Potassium (3.5 - 5.1 mmol/L) 4.7 Chloride (98 - 107 mmol/L) 100 Carbon Dioxide (22 - 30 mmol/L) 30 Anion Gap (5 - 16) 8 BUN (9 - 20 mg/dL) 11 Creatinine (0.7 - 1.2 mg/dL) 0.5 L Estimated GFR (>60 ml/min) > 60 Glucose (65 - 99 mg/dL) 125 H Calcium (8.4 - 10.2 mg/dL) 10.1 Phosphorus (2.5 - 4.5 mg/dL) 3.0 Magnesium (1.6 - 2.3 mg/dL) 1.9 Total Bilirubin (0.2 - 1.3 mg/dL) 0.5 AST (17 - 59 U/L) 15 L ALT (21 - 72 U/L) 23 Troponin I (<0.11 ng/ml) < 0.01 < 0.01 Albumin (3.5 - 5.0 g/dL) 2.8 L Hematology CBC w Diff MAN DIFF ORDERED WBC (4.8 - 10.8 /CUMM) 13.7 H RBC (4.70 - 6.10 /CUMM) 3.73 L Hgb (14.0 - 18.0 G/DL) 10.3 L Hct (42 - 52 %) 31.3 L MCV (80.0 - 94.0 FL) 83.7 MCH (27.0 - 31.0 PG) 27.6 RDW (11.5 - 14.5 %) 16.9 H Plt Count (130 - 400 /CUMM) 237 MPV (7.4 - 10.4 FL) 8.8 Gran % (42.2 - 75.2 %) 72.9 Lymphocytes % (20.5 - 51.1 %) 16.9 L Monocytes % (1.7 - 9.3 %) 8.9 Eosinophils % (0 - 5 %) 0.9 Basophils % (0.0 - 2.0 %) 0.4 Absolute Granulocytes (1.4 - 6.5 /CUMM) 10.0 H Absolute Lymphocytes (1.2 - 3.4 /CUMM) 2.3 Absolute Monocytes (0.10 - 0.60 /CUMM) 1.2 H Absolute Eosinophils (0.0 - 0.7 /CUMM) 0.1 Absolute Basophils (0.0 - 0.2 /CUMM) 0.1 Platelet Estimate (ADEQUATE) ADEQUATE Polychromasia 1+ Hypochromic-Microcytic 1+ Ovalocytes 1+ PUBS MCHC (33.0 - 37.0 G/DL) 33.0 03/24 03/24 0627 0600 Chemistry Sodium (137 - 145 mmol/L) 133 L Cancelled Potassium (3.5 - 5.1 mmol/L) 4.3 Cancelled Chloride (98 - 107 mmol/L) 97 L Cancelled Carbon Dioxide (22 - 30 mmol/L) 31 H Cancelled Anion Gap (5 - 16) 5 Cancelled BUN (9 - 20 mg/dL) 12 Cancelled Creatinine (0.7 - 1.2 mg/dL) 0.7 Cancelled Estimated GFR (>60 ml/min) > 60 BUN/Creatinine Ratio Cancelled Glucose (65 - 99 mg/dL) 95 Calcium (8.4 - 10.2 mg/dL) 10.0 Phosphorus (2.5 - 4.5 mg/dL) 2.6 Cancelled Magnesium (1.6 - 2.3 mg/dL) 2.0 Cancelled Total Bilirubin (0.2 - 1.3 mg/dL) 0.5 AST (17 - 59 U/L) 15 L ALT (21 - 72 U/L) 30 Albumin (3.5 - 5.0 g/dL) 2.7 L Hematology CBC w Diff NO MAN DIFF REQ Cancelled WBC (4.8 - 10.8 /CUMM) 14.4 H Cancelled RBC (4.70 - 6.10 /CUMM) 3.57 L Cancelled Hgb (14.0 - 18.0 G/DL) 9.7 L Cancelled Hct (42 - 52 %) 30.0 L Cancelled MCV (80.0 - 94.0 FL) 84.2 Cancelled MCH (27.0 - 31.0 PG) 27.3 Cancelled RDW (11.5 - 14.5 %) 16.3 H Cancelled Plt Count (130 - 400 /CUMM) 301 Cancelled MPV (7.4 - 10.4 FL) 7.7 Cancelled Gran % (42.2 - 75.2 %) 76.9 H Lymphocytes % (20.5 - 51.1 %) 10.7 L Monocytes % (1.7 - 9.3 %) 11.5 H Eosinophils % (0 - 5 %) 0.8 Basophils % (0.0 - 2.0 %) 0.1 Absolute Granulocytes (1.4 - 6.5 /CUMM) 11.1 H Absolute Lymphocytes (1.2 - 3.4 /CUMM) 1.5 Absolute Monocytes (0.10 - 0.60 /CUMM) 1.6 H Absolute Eosinophils (0.0 - 0.7 /CUMM) 0.1 Absolute Basophils (0.0 - 0.2 /CUMM) 0 PUBS MCHC (33.0 - 37.0 G/DL) 32.4 L Cancelled Recent Imaging Studies: EKG performed last night and this morning reveal atrial fibrillation with a rate in the low 100s. Chest x-ray performed last night revealed decreased haziness and no evidence of pneumothorax. Assessment/Plan Assessment/Plan Patient is 75-year-old male who is now postoperative day #4 status post right lower lobectomy. Chest tube was removed yesterday without complication and O2 requirements decreased slightly throughout the day. Plan: -Advance diet. -Discontinue Brice today if okay with critical care team. -Wean oxygen as tolerated. -Continue TRC's, incentive spirometer. -Follow up repeat chest x-ray this morning. -Pain control with intermittent Percocet as needed. -Continue Cardizem drip as per cardiology recommendations. Echocardiogram is pending. Anticoagulation is being held due to the risk of bleeding in the postoperative period. -Continue medical management per critical care team. -Will discuss with attending. Core Measures/Miscellaneous Brice Catheter Date In: 03/21/16 Venous Thromboembolism VTE Risk Factors: Cancer/chemo/oth therapy, Surgery VTE Contraindications: No Contraindications VTE Prophylaxis Ordered Inpt: Mech & Pharm VTE Diagnosis: No VTE Type: NONE VTE Confirmed by (Test): NONE Beta Sonali Is Beta Sonali a Home Med? No Antibiotics Is Patient on Antibiotics? No
--- NOTE | 2016-03-25 06:45 | RADIOLOGY REPORT ---
EXAMINATION: CHEST 1 VIEW CLINICAL INFORMATION: Follow-up for pneumothorax following chest tube removal. COMPARISON: Multiple prior exams are reviewed. The most recent is from 03/24/2016. TECHNIQUE: An AP view of the chest is provided. FINDINGS: The cardiac silhouette is stable. There are no discernible pneumothoraces. There is a small focus of subcutaneous gas within the lower right neck. There is a stable appearance of right greater than left bibasilar airspace disease. There is likely a small right pleural effusion. Coarsened interstitial prominence, right greater than left, is again identified. IMPRESSION: No discernible pneumothorax. Small right pleural effusion and right greater than left mixed interstitial and airspace disease.
--- NOTE | 2016-03-25 07:59 | PN- Resident CRCU ---
Subjective HPI/CRCU Issues: POD4, for right lower lobectomy for RLL lung cancer. She was seen and examined, he reported improvement of his pain. Patient had a nonbloody bowel movement yesterday. Patient now is in A. fib that started for the first time ever yesterday at 10 PM, he reported mild shortness breath that started around the same time with A. fib. 24 Hour Events: A. fib started around 10 PM yesterday. His blood pressure during the last shift is in the low 100s over high 60s. Temperature within normal limits. Objective Vital Signs & I&O Last 8 Hrs of Vitals and I&O: Intake & Output 03/25 1600 Intake Total Output Total Balance Patient 76.884 kg Weight Exam General Appearance: well developed/nourished, no apparent distress, alert, awake , comfortable Head: atraumatic, normal appearance Respiratory: normal breath sounds, mild right side chest,over mid axillary line tenderness.(tube site) Cardiovascular: irregular Gastrointestinal: normal bowel sounds, soft, non-tender Extremities: no lower extremity edema bilaterally Current Medications: Current Medications Sig/Lelo Start time Last Medication Dose Route Stop Time Status Admin Albuterol Sulfate 3 ML EVERY 4 HRS/AWAKE 03/24 1600 AC 03/25 INH 0800 Albuterol Sulfate 3 ML Q4 03/21 2200 DC 03/24 INH 0938 Albuterol Sulfate 2 PUF Q6P PRN 03/21 1800 AC 03/22 INH 1010 Alprazolam 0.5 MG TID PRN 03/22 1345 AC 03/23 PO 03/29 1344 1756 Amlodipine Besylate 5 MG DAILY 03/22 1000 AC 03/25 PO 1001 Aspirin 81 MG ONCE ONE 03/24 2230 DC 03/24 PO 03/24 2231 2240 Atorvastatin Calcium 40 MG DAILY@1700 03/22 1700 AC 03/24 PO 1647 Digoxin 0.125 MG 1700 03/26 1700 AC PO Digoxin 0.25 MG Q6 03/25 1200 AC 03/25 IV 03/25 2359 1239 Diltiazem HCl 125 MG Q24H 03/24 2300 AC 03/24 Sodium Chloride 100 ML IV 2301 Diltiazem HCl 25 MG .STK-MED ONE 03/24 2251 DC IV 03/24 2252 Docusate Sodium 100 MG BID 03/24 1000 AC 03/25 PO 1001 Escitalopram Oxalate 20 MG DAILY 03/22 1000 AC 03/25 PO 1000 Furosemide 40 MG DAILY 03/25 1000 DC IV Furosemide 40 MG ONCE ONE 03/25 1000 DC 03/25 IV 03/25 1001 1021 Heparin Sodium 5,000 UNIT Q8 03/21 2200 AC 03/25 (Porcine) SC 0506 Hydromorphone HCl 0.5 MG Q4P PRN 03/24 0930 AC IV Hydroxychloroquine 200 MG DAILY 03/22 1000 AC 03/25 Sulfate PO 1000 Insulin Aspart 0 TIDAC 03/24 1200 AC 03/25 SC 1219 Insulin Detemir 25 UNITS QPM 03/22 2200 AC 03/24 SC 2119 Omeprazole 40 MG DAILY AC 03/22 0700 AC 03/25 PO 0610 Ondansetron HCl 4 MG Q6P PRN 03/21 1800 AC IV Oxycodone/ 1 TAB Q4P PRN 03/24 0930 AC 03/25 Acetaminophen PO 1244 Oxycodone/ 2 TAB Q4P PRN 03/24 0930 AC Acetaminophen PO Polyethylene Glycol 17 GM DAILY 03/24 1000 AC 03/25 PO 1000 Prednisone 5 MG DAILY 03/22 1000 AC 03/25 PO 1001 Pregabalin 75 MG BID 03/21 2200 AC 03/25 PO 1000 Sulfasalazine 500 MG DAILY 03/22 1000 AC 03/25 PO 1001 Tamsulosin HCl 0.4 MG DAILY 03/22 1000 AC 03/25 PO 1000 Impression/Plan Impression/Problem List Impression: Respiratory #Right lower lobe lobectomy Postoperative day 4 for right lower lobectomy and mediastinal lymph node dissectionChest tube currently in place to suction and draining sanguinous fluid , until today he put out 550 mL, his chest tube was removed yesterday. * Will continue patient on oxygen * We will follow up cardio thoracic surgery recommendations #Chronic obstructive pulmonary disease Patient has history of COPD not on home oxygen * continue the patient on home prednisone 5 mg daily * TRC evaluation * nebulization as needed ID No current distress Cardiovascular Hypertension * Continue to monitor blood pressure every shift * continue home medication amlodipine 5 mg daily Onset A. fib Ration had the new onset A. fib that started for the first time ever yesterday around 10 PM. Patient electrolytes are within normal limits, troponin are negative, EKG showing no changes, TSH and T4, however T3 is a little bit low. * Patient is on Cardizem drip * Echocardiogram was ordered * Cardiology is on board * We will hold his anticoagulant because of his surgery history Hematology H&H is stable at 10.3 and 31.3 WBCs 13.7(down from yesterday) * Repeat CBC daily Metabolic: #BPH Continue Tamsulosin 0.4 mg daily. #Hyperlipidemia Continue atorvastatin 40 mg daily and low-fat diet Alimentary: #GERD Continue with omeprazole 40 mg daily. #Abdominal distention and pain Today patient started to complain of abdominal distention, and pain. He did not pass gas and denies any bowel movement. Even though patient denies any nausea or vomiting still an abdominal x-ray showed post operational paralytic ileus, his Dilaudid pump was DC'd. He was given suppository and had a bowel movement earlier today. Neurological No current neurological issue Endocrinology #Diabetes mellitus Will hold patient oral antidiabetic medications. * keep him on insulin sliding scale low-dose * Accu-Cheks * consistent carbohydrate 3 diet SKIN no Current skin issues DVT/Prophylaxis: heparin Diet consistent carbohydrate 3 diet Code Status Full code Patient Is full code heparin and Alps for DVT prophylaxis Problem List: 1. S/P lobectomy of lung Pain Ratin Tomorrow's Labs & Rationales: EBC and ICU bundle Plan DVT/Prophylaxis: mechanical, pharmacological
[2016-03-25 08:00] VITALS: BP 100/70
--- NOTE | 2016-03-25 09:19 | Cons- Cardiology ---
General Information and HPI Consulting Request Date of Consult: 03/25/16 Requested By: ARTEMIO KEMP,JAIR Anderson JR Reason for Consult: Atrial fibrillation Source of Information: patient, old records Exam Limitations: no limitations History of Present Illness: The patient is a 75-year-old gentleman with a past medical history of diabetes mellitus, COPD, gastroesophageal reflux disease, hypertension and hyperlipidemia. He as well has a history of lung cancer, status post right upper lung lobectomy. He presented for a right lower lung lobectomy and lymph node resection, undergoing the same on 03/21/2016. We are consulted for new onset atrial fibrillation. The patient had no significant intraoperative events. Postoperatively, his course was, gated by an ileus, which has resolved. On March 24, the patient was noted to go into atrial fibrillation, with a rapid ventricular response. He was transferred to the ICU and initiated on a Cardizem drip for rate control. The patient's rate control remains suboptimal with heart rates averaging approximately 100 to 120s. He is currently asymptomatic for chest pain or palpitations; however, continues to have discomfort with deep inspiration. Troponin isoenzymes have been negative. The patient has no history of atrial fibrillation or other cardiac issues. Allergies/Medications Allergies: Coded Allergies: No Known Allergies (03/18/16) Home Med List: Albuterol Sulfate (Proair Hfa) 90 MCG HFA.AER.AD 2 PUF INH Q6P PRN WHEEZING ( Reported) Amlodipine Besylate 5 MG TABLET 1 TAB PO DAILY BP (Reported) Atorvastatin Calcium 40 MG TABLET 1 TAB PO DAILY CHOLESTEROL (Reported) Cyanocobalamin (Vitamin B-12) 1,000 MCG TABLET 1 TAB PO DAILY SUPPLEMENT ( Reported) Docusate Sodium (Colace) 100 MG CAPSULE 1 CAP PO DAILY STOOL SOFTENER ( Reported) Escitalopram Oxalate (Lexapro) 20 MG TABLET 1 TAB PO DAILY DEPRESSION ( Reported) Esomeprazole (Nexium) 40 MG CAPSULE.DR 1 CAP PO BID GI (Reported) Hydroxychlorquine (Plaquenil) 200 MG TABLET 1 TAB PO DAILY RA (Reported) Insulin Aspart (Novolog) 100 UNIT/ML VIAL 15 UNITS SC TIDAC DM (Reported) Insulin Detemir (Levemir) 100 UNIT/ML VIAL 25 UNITS SC QPM DM (Reported) Liraglutide (Victoza 2-Britton) 0.6 MG/0.1 ML (18 MG/3 ML) PEN.INJCTR 1.2 MG SC QPM DM (Reported) Metformin HCl (Glucophage) 1,000 MG TABLET 1 TAB PO BID DM (Reported) Prednisone 5 MG TABLET 1 TAB PO DAILY RA (Reported) Pregabalin (Lyrica) 75 MG CAPSULE 1 CAP PO BID NEUROPATHY (Reported) Sulfasalazine 500 MG TABLET 1 TAB PO DAILY RA (Reported) Tamsulosin HCl (Flomax) 0.4 MG CAP.ER.24H 1 CAP PO DAILY BPH (Reported) Tramadol HCl 50 MG TABLET 1 TAB PO TID PRN PAIN (Reported) Current Medications: Current Medications Sig/Lelo Start time Last Medication Dose Route Stop Time Status Admin Albuterol Sulfate 3 ML EVERY 4 HRS/AWAKE 03/24 1600 AC 03/25 INH 0800 Albuterol Sulfate 3 ML Q4 03/21 2200 DC 03/24 INH 0938 Albuterol Sulfate 2 PUF Q6P PRN 03/21 1800 AC 03/22 INH 1010 Alprazolam 0.5 MG TID PRN 03/22 1345 AC 03/23 PO 03/29 1344 1756 Amlodipine Besylate 5 MG DAILY 03/22 1000 AC 03/24 PO 1053 Aspirin 81 MG ONCE ONE 03/24 2230 DC 03/24 PO 03/24 2231 2240 Atorvastatin Calcium 40 MG DAILY@1700 03/22 1700 AC 03/24 PO 1647 Dextrose/Sodium 1,000 ML Q20H 03/23 0600 DC 03/23 Chloride IV 0645 Diltiazem HCl 125 MG Q24H 03/24 2300 AC 03/24 Sodium Chloride 100 ML IV 2301 Diltiazem HCl 25 MG .STK-MED ONE 03/24 2251 DC IV 03/24 2252 Docusate Sodium 100 MG BID 03/24 1000 AC 03/24 PO 2125 Escitalopram Oxalate 20 MG DAILY 03/22 1000 AC 03/24 PO 1053 Furosemide 20 MG ONCE ONE 03/24 0930 DC 03/24 IV 03/24 0931 1023 Heparin Sodium 5,000 UNIT Q8 03/21 2200 AC 03/25 (Porcine) SC 0506 Hydromorphone HCl 0.5 MG Q4P PRN 03/24 0930 AC IV Hydromorphone HCl 50 MG Q24H PRN 03/21 1615 DC Sodium Chloride 45 ML IV Hydroxychloroquine 200 MG DAILY 03/22 1000 AC 03/24 Sulfate PO 1052 Insulin Aspart 0 TIDAC 03/24 1200 AC 03/24 SC 1647 Insulin Aspart 15 UNITS TIDAC 03/22 1200 DC 03/23 SC 0946 Insulin Detemir 25 UNITS QPM 03/22 2200 AC 03/24 SC 2119 Metformin HCl 1,000 MG BID 03/22 1000 DC 03/24 PO 1053 Omeprazole 40 MG DAILY AC 03/22 0700 AC 03/25 PO 0610 Ondansetron HCl 4 MG Q6P PRN 03/21 1800 AC IV Oxycodone/ 1 TAB Q4P PRN 03/24 0930 AC 03/25 Acetaminophen PO 0818 Oxycodone/ 2 TAB Q4P PRN 03/24 0930 AC Acetaminophen PO Polyethylene Glycol 17 GM DAILY 03/24 1000 AC 03/24 PO 1053 Prednisone 5 MG DAILY 03/22 1000 AC 03/24 PO 1052 Pregabalin 75 MG BID 03/21 2200 AC 03/24 PO 2119 Sulfasalazine 500 MG DAILY 03/22 1000 AC 03/24 PO 1052 Tamsulosin HCl 0.4 MG DAILY 03/22 1000 AC 03/24 PO 1053 Review of Systems Review of Systems: The review of systems is negative for chest pains, palpitations nor lightheadedness. The remainder of the 14 point review of systems is noncontributory with the exception of above. 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 SISTER (Diabetes mellitus). Psychosocial History Where Do You Live? Home Who Do You Live With? spouse Services at Home: None Smoking Status: Former Smoker ETOH Use: denies use Illicit Drug Use: denies illicit drug use Functional Ability ADLs Independent: dressing, eating, toileting, bathing. Exam & Diagnostic Data Vital Signs and I&O Vital Signs Date Time Temp Pulse Resp B/P Pulse O2 O2 Flow FiO2 Ox Delivery Rate 03/25 0802 92 Nasal 4.0L Cannula 03/25 0800 97.5 110 18 100/70 95 Nasal 4.0L Cannula 03/25 0748 Nasal 4.0L Cannula 03/25 0400 96 Nasal 4.0L Cannula 03/25 0000 96 Nasal 4.0L Cannula 03/25 0000 97.6 107 25 110/60 96 Nasal 4.0L Cannula 03/24 2033 98.5 85 18 140/60 95 Nasal 3.0L Cannula 03/24 2000 Nasal 3.0L Cannula 03/24 1755 98 Nasal 4.0L Cannula 03/24 1600 Nasal 4.0L Cannula 03/24 1600 99.0 86 14 112/60 94 Nasal 4.0L Cannula 03/24 1339 94 Nasal 4.0L Cannula 03/24 1200 93 Nasal 4.0L Cannula 03/24 1053 122/63 03/24 1053 99 122/63 03/24 1000 98.0 88 17 122/63 03/24 0954 95 Nasal 4.0L Cannula 03/24 0915 95 Nasal 4.0L Cannula Intake & Output 03/25 1600 03/25 0800 03/25 0000 03/24 1600 03/24 0800 03/24 0000 Intake Total 267.5 1460 1142 240 666 Output Total 665 1400 1100 780 780 Balance -397.5 60 42 -540 -114 Intake, IV 17.5 20 82 240 256 Intake, Oral 250 1440 1060 410 Number 1 2 1 Bowel Movements Output, Chest 40 50 Tube Drainage Output, Urine 665 1400 1100 740 730 Physical Exam: General: Nontoxic, no apparent distress. HEENT: Sclera and conjunctiva within normal limits, without xanthelasmas. Neck: Carotids 2+ without bruits. Respiratory: Scattered rhonchi and rales, air movement is decreased at bases, without accessory respiratory muscle use. Heart: Irregularly irregular 2/6 systolic ejection murmur left sternal border, without JVD. Abdomen: Soft, nontender, no masses, normoactive bowel sounds. Extremities: Without clubbing, cyanosis, without edema. Neuro: Nonfocal exam, strength, 5 out of 5 Skin: Within normal limits without lesions. Psych: Mood and affect: Normal Labs/Abelardo Results: Laboratory Tests 03/25 03/24 0338 2232 Chemistry Sodium (137 - 145 mmol/L) 137 Potassium (3.5 - 5.1 mmol/L) 4.7 Chloride (98 - 107 mmol/L) 100 Carbon Dioxide (22 - 30 mmol/L) 30 Anion Gap (5 - 16) 8 BUN (9 - 20 mg/dL) 11 Creatinine (0.7 - 1.2 mg/dL) 0.5 L Estimated GFR (>60 ml/min) > 60 Glucose (65 - 99 mg/dL) 125 H Calcium (8.4 - 10.2 mg/dL) 10.1 Phosphorus (2.5 - 4.5 mg/dL) 3.0 Magnesium (1.6 - 2.3 mg/dL) 1.9 Total Bilirubin (0.2 - 1.3 mg/dL) 0.5 AST (17 - 59 U/L) 15 L ALT (21 - 72 U/L) 23 Troponin I (<0.11 ng/ml) < 0.01 < 0.01 Albumin (3.5 - 5.0 g/dL) 2.8 L Hematology CBC w Diff MAN DIFF ORDERED WBC (4.8 - 10.8 /CUMM) 13.7 H RBC (4.70 - 6.10 /CUMM) 3.73 L Hgb (14.0 - 18.0 G/DL) 10.3 L Hct (42 - 52 %) 31.3 L MCV (80.0 - 94.0 FL) 83.7 MCH (27.0 - 31.0 PG) 27.6 RDW (11.5 - 14.5 %) 16.9 H Plt Count (130 - 400 /CUMM) 237 MPV (7.4 - 10.4 FL) 8.8 Gran % (42.2 - 75.2 %) 72.9 Lymphocytes % (20.5 - 51.1 %) 16.9 L Monocytes % (1.7 - 9.3 %) 8.9 Eosinophils % (0 - 5 %) 0.9 Basophils % (0.0 - 2.0 %) 0.4 Absolute Granulocytes (1.4 - 6.5 /CUMM) 10.0 H Absolute Lymphocytes (1.2 - 3.4 /CUMM) 2.3 Absolute Monocytes (0.10 - 0.60 /CUMM) 1.2 H Absolute Eosinophils (0.0 - 0.7 /CUMM) 0.1 Absolute Basophils (0.0 - 0.2 /CUMM) 0.1 Platelet Estimate (ADEQUATE) ADEQUATE Polychromasia 1+ Hypochromic-Microcytic 1+ Ovalocytes 1+ PUBS MCHC (33.0 - 37.0 G/DL) 33.0 03/24 03/24 0627 0600 Chemistry Sodium (137 - 145 mmol/L) 133 L Cancelled Potassium (3.5 - 5.1 mmol/L) 4.3 Cancelled Chloride (98 - 107 mmol/L) 97 L Cancelled Carbon Dioxide (22 - 30 mmol/L) 31 H Cancelled Anion Gap (5 - 16) 5 Cancelled BUN (9 - 20 mg/dL) 12 Cancelled Creatinine (0.7 - 1.2 mg/dL) 0.7 Cancelled Estimated GFR (>60 ml/min) > 60 BUN/Creatinine Ratio Cancelled Glucose (65 - 99 mg/dL) 95 Calcium (8.4 - 10.2 mg/dL) 10.0 Phosphorus (2.5 - 4.5 mg/dL) 2.6 Cancelled Magnesium (1.6 - 2.3 mg/dL) 2.0 Cancelled Total Bilirubin (0.2 - 1.3 mg/dL) 0.5 AST (17 - 59 U/L) 15 L ALT (21 - 72 U/L) 30 Albumin (3.5 - 5.0 g/dL) 2.7 L Hematology CBC w Diff NO MAN DIFF REQ Cancelled WBC (4.8 - 10.8 /CUMM) 14.4 H Cancelled RBC (4.70 - 6.10 /CUMM) 3.57 L Cancelled Hgb (14.0 - 18.0 G/DL) 9.7 L Cancelled Hct (42 - 52 %) 30.0 L Cancelled MCV (80.0 - 94.0 FL) 84.2 Cancelled MCH (27.0 - 31.0 PG) 27.3 Cancelled RDW (11.5 - 14.5 %) 16.3 H Cancelled Plt Count (130 - 400 /CUMM) 301 Cancelled MPV (7.4 - 10.4 FL) 7.7 Cancelled Gran % (42.2 - 75.2 %) 76.9 H Lymphocytes % (20.5 - 51.1 %) 10.7 L Monocytes % (1.7 - 9.3 %) 11.5 H Eosinophils % (0 - 5 %) 0.8 Basophils % (0.0 - 2.0 %) 0.1 Absolute Granulocytes (1.4 - 6.5 /CUMM) 11.1 H Absolute Lymphocytes (1.2 - 3.4 /CUMM) 1.5 Absolute Monocytes (0.10 - 0.60 /CUMM) 1.6 H Absolute Eosinophils (0.0 - 0.7 /CUMM) 0.1 Absolute Basophils (0.0 - 0.2 /CUMM) 0 PUBS MCHC (33.0 - 37.0 G/DL) 32.4 L Cancelled Assessment/Plan Assessment/Plan 75-year-old gentleman with a past medical history of diabetes mellitus, COPD, gastroesophageal reflux disease, hypertension and hyperlipidemia. He as well has a history of lung cancer, status post right upper lung lobectomy. He presented for a right lower lung lobectomy and lymph node resection, undergoing the same on 03/21/2016. We are consulted for new onset atrial fibrillation. Atrial fibrillation: Suboptimal heart rate control with IV Cardizem and the dose will be titrated as allowable by blood pressure; however, we may need to supplement with an such as digoxin (0.25 mg IV every 6 hours 3 then 0.125 mg daily). Given his underlying COPD history and use of albuterol, beta blockers may not be optimal. Anticoagulation will be initiated when acceptable from a surgical standpoint. We will as well obtain an echocardiogram to better determine his LV status in assistance for optimizing medications. Further recommendations will be made based on the findings of the same. Lungs CA: Awaiting pathology report. Further as per oncology and thoracic surgery. Hypertension: Further optimization of treatment will be made following recovery from the acute event. Titration of his medications will depend on atrial fibrillation control. Thank you for allowing us to participate in the care of your patient. Please do not hesitate to contact us further with any questions. Sincerely, César Choudhury MD [facility] Consult Acknowledgment - Thank you for your consult request.
--- NOTE | 2016-03-25 11:31 | PN- CRCU ---
Subjective HPI/Critical Care Issues: Patient seen and examined today swelling better. A. fib noted overnight heparin was not started due to recent thoracic surgery. Feeling better overall daily x- rays still show some congestion however no significant fluid overload based on ins and outs. Hemodynamically stable Objective Current Medications: Current Medications Sig/Lelo Start time Last Medication Dose Route Stop Time Status Admin Albuterol Sulfate 3 ML EVERY 4 HRS/AWAKE 03/24 1600 AC 03/25 INH 0800 Albuterol Sulfate 3 ML Q4 03/21 2200 DC 03/24 INH 0938 Albuterol Sulfate 2 PUF Q6P PRN 03/21 1800 AC 03/22 INH 1010 Alprazolam 0.5 MG TID PRN 03/22 1345 AC 03/23 PO 03/29 1344 1756 Amlodipine Besylate 5 MG DAILY 03/22 1000 AC 03/25 PO 1001 Aspirin 81 MG ONCE ONE 03/24 2230 DC 03/24 PO 03/24 2231 2240 Atorvastatin Calcium 40 MG DAILY@1700 03/22 1700 AC 03/24 PO 1647 Digoxin 0.125 MG 1700 03/26 1700 AC PO Digoxin 0.25 MG Q6 03/25 1200 AC IV 03/25 2359 Diltiazem HCl 125 MG Q24H 03/24 2300 AC 03/24 Sodium Chloride 100 ML IV 2301 Diltiazem HCl 25 MG .STK-MED ONE 03/24 2251 DC IV 03/24 2252 Docusate Sodium 100 MG BID 03/24 1000 AC 03/25 PO 1001 Escitalopram Oxalate 20 MG DAILY 03/22 1000 AC 03/25 PO 1000 Furosemide 40 MG DAILY 03/25 1000 DC IV Furosemide 40 MG ONCE ONE 03/25 1000 DC 03/25 IV 03/25 1001 1021 Heparin Sodium 5,000 UNIT Q8 03/21 2200 AC 03/25 (Porcine) SC 0506 Hydromorphone HCl 0.5 MG Q4P PRN 03/24 0930 AC IV Hydroxychloroquine 200 MG DAILY 03/22 1000 AC 03/25 Sulfate PO 1000 Insulin Aspart 0 TIDAC 03/24 1200 AC 03/24 SC 1647 Insulin Detemir 25 UNITS QPM 03/22 2200 AC 03/24 SC 2119 Omeprazole 40 MG DAILY AC 03/22 0700 AC 03/25 PO 0610 Ondansetron HCl 4 MG Q6P PRN 03/21 1800 AC IV Oxycodone/ 1 TAB Q4P PRN 03/24 0930 AC 03/25 Acetaminophen PO 0818 Oxycodone/ 2 TAB Q4P PRN 03/24 0930 AC Acetaminophen PO Polyethylene Glycol 17 GM DAILY 03/24 1000 AC 03/25 PO 1000 Prednisone 5 MG DAILY 03/22 1000 AC 03/25 PO 1001 Pregabalin 75 MG BID 03/21 2200 AC 03/25 PO 1000 Sulfasalazine 500 MG DAILY 03/22 1000 AC 03/25 PO 1001 Tamsulosin HCl 0.4 MG DAILY 03/22 1000 AC 03/25 PO 1000 Vital Signs & I&O Last 24 Hrs of Vitals and I&O: Vital Signs Date Time Temp Pulse Resp B/P Pulse O2 O2 Flow FiO2 Ox Delivery Rate 03/25 1001 95 111/62 03/25 1000 96 109/65 03/25 0802 92 Nasal 4.0L Cannula 03/25 0800 97.5 110 18 100/70 95 Nasal 4.0L Cannula 03/25 0748 Nasal 4.0L Cannula 03/25 0400 96 Nasal 4.0L Cannula 03/25 0000 96 Nasal 4.0L Cannula 03/25 0000 97.6 107 25 110/60 96 Nasal 4.0L Cannula 03/24 2033 98.5 85 18 140/60 95 Nasal 3.0L Cannula 03/24 2000 Nasal 3.0L Cannula 03/24 1755 98 Nasal 4.0L Cannula 03/24 1600 Nasal 4.0L Cannula 03/24 1600 99.0 86 14 112/60 94 Nasal 4.0L Cannula 03/24 1339 94 Nasal 4.0L Cannula 03/24 1200 93 Nasal 4.0L Cannula Intake & Output 03/25 1600 03/25 0800 03/25 0000 Intake Total 267.5 1460 Output Total 665 1400 Balance -397.5 60 Intake, IV 17.5 20 Intake, Oral 250 1440 Number 1 Bowel Movements Output, Urine 665 1400 Patient 170 lb Weight Exam Other Physical Findings: General - Alert, awake and oriented HEENT - normocephalic, atraumatic Cardiovascular - S1, S2 Lungs - clear to auscultation bilaterally Abdomen - soft, bowel sounds positive, no tenderness Extremities - without edema or cyanosis Results Last 24 Hrs of Lab Results: Laboratory Tests 03/25/16 0338: Anion Gap 8, Estimated GFR > 60, Glucose 125 H, Calcium 10.1, Phosphorus 3.0, Magnesium 1.9, Total Bilirubin 0.5, AST 15 L, ALT 23, Troponin I < 0.01, Albumin 2.8 L, TSH Pending, Thyroxine (T4) Pending, Total T3 Pending, CBC w Diff MAN DIFF ORDERED, RBC 3.73 L, MCV 83.7, MCH 27.6, RDW 16.9 H, MPV 8.8, Gran % 72.9, Lymphocytes % 16.9 L, Monocytes % 8.9, Eosinophils % 0.9, Basophils % 0.4, Absolute Granulocytes 10.0 H, Absolute Lymphocytes 2.3, Absolute Monocytes 1.2 H, Absolute Eosinophils 0.1, Absolute Basophils 0.1, Platelet Estimate ADEQUATE, Polychromasia 1+, Hypochromic-Microcytic 1+, Ovalocytes 1+, PUBS MCHC 33.0 03/24/162: Troponin I < 0.01 Impression/Plan Impression/Plan Impression/Plan: Impression 75 year old man hx lung ca, s/p right lower lobecotmy, lymph node dissection. New-onset atrial fibrillation. Atelectasis/element of congestion. Plan -40 of Lasix today -echo,cardiology follow up -pain control -ins/outs -IST 10 times daily/flutter device -TRC/Nebs -DVT prophylaxis at all times TTS 35 min
--- NOTE | 2016-03-25 11:32 | NUR ---
report given to nurse abbasi
[2016-03-25 12:00] VITALS: BP 108/74
--- NOTE | 2016-03-25 13:12 | ECHOCARDIOGRAM REPORT ---
NADYA WARE Age: 75 : 1940 Gender: M Exam Date: 03/25/2016 11:20 Exam Location: [facility] Ht (in): 67 Wt (lb): 169 BSA: 1.92 BP: 111 / 62 Ordering Physician: ED LIMA MD Referring Physician: ED LIMA MD Technologist: [facility] Room Number: 104 Indications: AFIB/FLUTTER Rhythm: Technical Quality: FINDINGS Left Ventricle Normal LV chamber size with borderline concentric LVH. The estimated LVEF is 45-50%. There is mild global hypokinesis. Right Ventricle Normal. Right ventricular size and function Right Atrium Normal appearing right atrium Left Atrium Normal appearing left atrium Mitral Valve Mildly calcified mitral valvular leaflets and annulus. It is adequate leaflet opening. There is mild mitral regurgitation. Aortic Valve Mildly calcified trileaflet aortic valve with no significant transvalvular gradient Tricuspid Valve Normal appearing tricuspid valvular leaflet structure and function. There is mild tricuspid regurgitation. The estimated PA systolic pressure is 45 mmHg Pulmonic Valve Grossly normal pulmonic valvular leaflet structure and function Pericardium Normal-appearing pericardium without significant pericardial effusion Great Vessels Grossly normal appearing great vessels CONCLUSIONS Normal LV chamber size with borderline concentric LVH. The estimated LVEF is 45-50%. There is mild global hypokinesis. There is mild mitral regurgitation. There is mild tricuspid regurgitation. The estimated PA systolic pressure is 45 mmHg. César Choudhury M.D. (Electronically Signed) Final Date: 25 March 2016 13:11 MEASUREMENTS (Male / Female) Normal Values 2D ECHO LV Diastolic Diameter PLAX 4.6 cm 4.2 - 5.9 / 3.9 - 5.3 cm LV Systolic Diameter PLAX 3.3 cm 2.1 - 4.0 cm LV Fractional Shortening PLAX 28.3 % 25 - 46 % LV Ejection Fraction 2D Teich 54.7 % IVS Diastolic Thickness 1.2 cm LVPW Diastolic Thickness 1.2 cm LV Relative Wall Thickness 0.5 LVOT Diameter 2.0 cm Aortic Root Diameter 2.8 cm LA Systolic Diameter LX 4.5 cm 3.0 - 4.0 / 2.7 - 3.8 cm LA Volume 43.0 cm 18 - 58 / 22 - 52 cm Ascending Aorta Diameter 2.9 cm DOPPLER AV Peak Velocity 128.0 cm/s AV Peak Gradient 6.6 mmHg AV Mean Velocity 87.3 cm/s AV Mean Gradient 3.0 mmHg AV Velocity Time Integral 24.9 cm LVOT Peak Velocity 73.7 cm/s LVOT Peak Gradient 2.2 mmHg LVOT Mean Velocity 46.7 cm/s LVOT Mean Gradient 1.0 mmHg LVOT Velocity Time Integral 14.4 cm LVOT Stroke Volume 45.2 cm AV Area Cont Eq vti 1.8 cm AV Area Cont Eq pk 1.8 cm MV Peak Velocity 90.9 cm/s MV Peak Gradient 3.3 mmHg MV Mean Velocity 53.0 cm/s MV Mean Gradient 1.3 mmHg Mitral E Point Velocity 67.1 cm/s Mitral A Point Velocity 79.0 cm/s Mitral E to A Ratio 0.8 MV PHT Velocity 73.3 cm/s MV Deceleration Horry 231.3 cm/s MV Pressure Half Time 95.1 ms MV Area PHT 2.3 cm MV Deceleration Time 306.0 ms TR Peak Velocity 314.0 cm/s TR Peak Gradient 39.4 mmHg Right Atrial Pressure 5.0 mmHg Pulmonary Artery Systolic Pressu 44.4 mmHg Right Ventricular Systolic Press 44.4 mmHg PV Peak Velocity 89.6 cm/s PV Peak Gradient 3.2 mmHg PV Mean Velocity 57.3 cm/s PV Mean Gradient 2.0 mmHg PV Velocity Time Integral 17.1 cm LV E' Lateral Velocity 7.6 cm/s Mitral E to LV E' Lateral Ratio 8.8 LV E' Septal Velocity 6.4 cm/s Mitral E to LV E' Septal Ratio 10.4
[2016-03-25 17:00] VITALS: BP 110/70
--- NOTE | 2016-03-25 19:40 | NUR ---
PT A/OX3, FOLLOWS COMMANDS, SPANISHH SPEAKING, BUT UNDERSTANDS AND SPEAKS [place]. RATES SURGICAL SITE PAIN 3 OUT OF 10 AT PRESENT-SEE EMAR FOR PAIN MED ADMINISTRATION. BREATH SOUNDS CLEAR WITH DIMINISHED BREATH SOUNDS AT BASES BILATERALLY. NO COUGH, SOB OR RESP DISTRESS NOTED AT PRESENT. SEE FLOW SHEET FOR VS, 02 SATS, I/O'S. MONITOR SHOWS NSR, NO ECTOPY NOTED AT PRESENT. BP STABLE AT PRESENT. CARDIZEM GTT AT 2.5MG/HR. ABD SOFT, DISTENDED, POSITIVE BOWEL SOUNDS. COATS IN PLACE-ADEQUATE URINE OUTPUT AT PRESENT. SKIN INTACT. RT SIDE AND RT UPPER BACK DSG C/D/I
[2016-03-26] VITALS: BP 124/60
[2016-03-26 05:19] LABS: ABSOLUTE BASOPHIL COUNT 0 /CUMM (0.0-0.2); ABSOLUTE EOSINOPHIL COUNT 0.2 /CUMM (0.0-0.7); ABSOLUTE GRANULOCYTE CT 7.4 /CUMM (1.4-6.5); ABSOLUTE LYMPH COUNT 1.7 /CUMM (1.2-3.4); ABSOLUTE MONOCYTE COUNT 1.3 /CUMM (0.10-0.60); BASOPHIL % 0.2 % (0.0-2.0); EOSINOPHIL % 1.7 % (0-5); HEMATOCRIT 30.6 % (42-52); MEAN CORPUSCULAR HGB 27.4 PG (27.0-31.0); MEAN CORPUSCULAR HGB CONC 32.5 G/DL (33.0-37.0); MEAN CORPUSCULAR VOLUME 84.5 FL (80.0-94.0); MEAN PLATELET VOLUME 7.7 FL (7.4-10.4); PLATELET COUNT 327 /CUMM (130-400); RBC DISTRIBUTION WIDTH 16.3 % (11.5-14.5); RED BLOOD CELL CT 3.62 /CUMM (4.70-6.10); WHITE BLOOD CELL COUNT 10.6 /CUMM (4.8-10.8)
--- NOTE | 2016-03-26 05:31 | PN- Thoracic Surgery ---
Subjective Subjective: The patient was seen this morning postoperatively day #5. He reports that his pain is getting better and denies any true chest pain, difficulty breathing, or palpitations. Most of his pain is from around the old chest tube site. Per nursing there were no significant events overnight. Objective Vital Signs and I&Os Vital Signs Date Time Temp Pulse Resp B/P Pulse O2 O2 Flow FiO2 Ox Delivery Rate 03/26 0400 97 Nasal 4.0L Cannula 03/26 0000 97 Nasal 4.0L Cannula 03/26 0000 98.0 72 15 124/60 97 Nasal 4.0L Cannula 03/25 2300 98.0 72 16 124/60 03/25 1949 93 Nasal 4.0L Cannula 03/25 1743 96 168/62 03/25 1700 93 Nasal 3.0L Cannula 03/25 1700 98.2 84 20 110/70 95 Nasal 4.0L Cannula 03/25 1645 97 Nasal 4.0L Cannula 03/25 1535 Nasal 3.0L Cannula 03/25 1239 98 108/74 03/25 1200 Nasal 4.0L Cannula 03/25 1200 98.2 90 24 108/74 94 Nasal 4.0L Cannula 03/25 1001 95 111/62 03/25 1000 96 109/65 03/25 0802 92 Nasal 4.0L Cannula 03/25 0800 97.5 110 18 100/70 95 Nasal 4.0L Cannula 03/25 0748 Nasal 4.0L Cannula Intake & Output 03/26 0800 03/26 0000 03/25 1600 03/25 0800 03/25 0000 03/24 1600 Intake Total 550 740 267.5 1460 1142 Output Total 700 5971 732 8934 1100 Balance -150 -860 -397.5 60 42 Intake, IV 30 20 17.5 20 82 Intake, Oral 520 553 539 0097 1060 Number 0 1 2 Bowel Movements Output, Urine 700 6783 123 2426 1100 Patient 170 lb Weight Physical Exam: Gen.: Alert and obvious distress Skin: Warm and dry Chest: Appropriate. Incisional tenderness, equal expansion, surgical dressing is clean, dry, and intact without signs of infection. Cardiac: S1 and S2 regular Pulmonary: Bilateral breath sounds equal with upper respiratory congestion and rose expiratory wheezes. Extremities: Bilateral lower extremities are warm without calf tenderness. Assessment/Plan Assessment/Plan Assessment: 75-year-old male status post right lower lobectomy postoperative day #5. From a surgical standpoint the patient is progressing as expected and his pain is under relatively adequate control. He developed some postoperative atrial fibrillation which is currently rate controlled with a Cardizem drip and by mouth digoxin Plan: Total respiratory care per postthoracotomy protocol Out of bed and ambulate Would consider DC Brice catheter if no further plans for diuresis today GI and DVT prophylaxis Continue current pain regiment as well as bowel regimen Follow-up morning laboratory studies and chest x-ray Follow-up pulmonary and cardiology consultation recommendations Core Measures/Miscellaneous Brice Catheter Date In: 03/21/16 Venous Thromboembolism VTE Risk Factors: Cancer/chemo/oth therapy, Surgery VTE Contraindications: No Contraindications VTE Prophylaxis Ordered Inpt: Mech & Pharm VTE Diagnosis: No VTE Type: NONE VTE Confirmed by (Test): NONE Beta Sonali Is Beta Sonali a Home Med? No Antibiotics Is Patient on Antibiotics? No
--- NOTE | 2016-03-26 06:56 | NUR ---
PT SLEPT THOUGHOUT NIGHT. RATES SURGICAL INCISION PAIN 2-3 OUT OF 10 FOR SHIFT. BREATH SOUNDS CLEAR WITH DIMINISHED BREATH SOUNDS AT BASES BILATERALLY. NO SOB OR RESP DISTRESS NOTED THOUGHOUT SHIFT, NONPRODUCTIVE COUGH NOTED. MONITOR SHOWED NSR, NO ECTOPY NOTED THOUGHOUT SHIFT. CARDIZEM GTT REMAINS AT 2.5MG/HR. COATS WITH GOOD URINE OUTPUT FOR SHIFT-CLEAR YELLOW URINE. ABD SOFT, DISTENDED, POSITIVE BOWEL SOUNDS. SKIN INTACT. DSG C/D/I
--- NOTE | 2016-03-26 07:47 | PN- Resident CRCU ---
Subjective HPI/CRCU Issues: POD5, for right lower lobectomy for RLL lung cancer. Patient was seen and examined, he looks relaxed and comfortable. No acute overnight events were reported by the patient or his nurse. He reported improvement of his pain. Yesterday he developed A. fib however now he is in normal sinus rhythm and on Cardizem drip t. He denies chest pain, palpitation, shortness breath or diaphoresis. Objective Vital Signs & I&O Last 8 Hrs of Vitals and I&O: Intake & Output 03/26 1600 03/26 0800 03/26 0000 Intake Total 18 550 Output Total 990 700 Balance -972 -150 Intake, IV 18 30 Intake, Oral 520 Number 0 0 Bowel Movements Output, Urine 990 700 Laboratory Tests 03/26 0502 Chemistry Sodium (137 - 145 mmol/L) 136 L Potassium (3.5 - 5.1 mmol/L) 4.4 Chloride (98 - 107 mmol/L) 98 Carbon Dioxide (22 - 30 mmol/L) 33 H Anion Gap (5 - 16) 5 BUN (9 - 20 mg/dL) 13 Creatinine (0.7 - 1.2 mg/dL) 0.7 Estimated GFR (>60 ml/min) > 60 Glucose (65 - 99 mg/dL) 157 H Calcium (8.4 - 10.2 mg/dL) 10.1 Phosphorus (2.5 - 4.5 mg/dL) 3.4 Magnesium (1.6 - 2.3 mg/dL) 1.7 Total Bilirubin (0.2 - 1.3 mg/dL) 0.4 AST (17 - 59 U/L) 16 L ALT (21 - 72 U/L) 26 Albumin (3.5 - 5.0 g/dL) 2.7 L Hematology CBC w Diff NO MAN DIFF REQ WBC (4.8 - 10.8 /CUMM) 10.6 RBC (4.70 - 6.10 /CUMM) 3.62 L Hgb (14.0 - 18.0 G/DL) 9.9 L Hct (42 - 52 %) 30.6 L MCV (80.0 - 94.0 FL) 84.5 MCH (27.0 - 31.0 PG) 27.4 RDW (11.5 - 14.5 %) 16.3 H Plt Count (130 - 400 /CUMM) 327 MPV (7.4 - 10.4 FL) 7.7 Gran % (42.2 - 75.2 %) 70.0 Lymphocytes % (20.5 - 51.1 %) 16.1 L Monocytes % (1.7 - 9.3 %) 12.0 H Eosinophils % (0 - 5 %) 1.7 Basophils % (0.0 - 2.0 %) 0.2 Absolute Granulocytes (1.4 - 6.5 /CUMM) 7.4 H Absolute Lymphocytes (1.2 - 3.4 /CUMM) 1.7 Absolute Monocytes (0.10 - 0.60 /CUMM) 1.3 H Absolute Eosinophils (0.0 - 0.7 /CUMM) 0.2 Absolute Basophils (0.0 - 0.2 /CUMM) 0 PUBS MCHC (33.0 - 37.0 G/DL) 32.5 L Exam General Appearance: well developed/nourished, no apparent distress, alert, awake , comfortable Head: atraumatic, normal appearance Neck: normal inspection, supple Respiratory: normal breath sounds, no respiratory distress, quiet respiration, lungs clear, mild chest tenderness over the surgical incision Cardiovascular: regular rate/rhythm Gastrointestinal: soft, non-tender Extremities: normal inspection, no lower extremity edema Current Medications: Current Medications Sig/Lelo Start time Last Medication Dose Route Stop Time Status Admin Albuterol Sulfate 3 ML EVERY 4 HRS/AWAKE 03/24 1600 AC 03/26 INH 0906 Albuterol Sulfate 2 PUF Q6P PRN 03/21 1800 AC 03/22 INH 1010 Alprazolam 0.5 MG TID PRN 03/22 1345 AC 03/25 PO 03/29 1344 2145 Amlodipine Besylate 5 MG DAILY 03/22 1000 AC 03/26 PO 0952 Atorvastatin Calcium 40 MG DAILY@1700 03/22 1700 AC 03/25 PO 1741 Digoxin 0.125 MG 1700 03/26 1700 AC PO Digoxin 0.25 MG Q6 03/25 1200 DC 03/25 IV 03/25 2359 2300 Diltiazem HCl 120 MG DAILY 03/26 1000 AC 03/26 PO 0952 Diltiazem HCl 125 MG Q24H 03/24 2300 DC 03/25 Sodium Chloride 100 ML IV 2300 Docusate Sodium 100 MG BID 03/24 1000 AC 03/26 PO 0952 Escitalopram Oxalate 20 MG DAILY 03/22 1000 AC 03/26 PO 0952 Furosemide 40 MG ONE ONE 03/25 1330 CAN PO 03/25 1331 Heparin Sodium 5,000 UNIT Q8 03/21 2200 AC 03/26 (Porcine) SC 0635 Hydromorphone HCl 0.5 MG Q4P PRN 03/24 0930 AC IV Hydroxychloroquine 200 MG DAILY 03/22 1000 AC 03/26 Sulfate PO 0951 Insulin Aspart 0 TIDAC 03/24 1200 AC 03/25 SC 1722 Insulin Detemir 25 UNITS QPM 03/22 2200 AC 03/25 SC 2142 Magnesium Oxide 400 MG ONE ONE 03/26 0800 DC 03/26 PO 03/26 0801 0952 Omeprazole 40 MG DAILY AC 03/22 0700 AC 03/26 PO 0635 Ondansetron HCl 4 MG Q6P PRN 03/21 1800 AC IV Oxycodone/ 1 TAB ONCE ONE 03/25 1415 DC 03/25 Acetaminophen PO 03/25 1416 1415 Oxycodone/ 1 TAB Q4P PRN 03/24 0930 AC 03/25 Acetaminophen PO 1741 Oxycodone/ 2 TAB Q4P PRN 03/24 0930 AC 03/26 Acetaminophen PO 0756 Polyethylene Glycol 17 GM DAILY 03/24 1000 AC 03/26 PO 0953 Prednisone 5 MG DAILY 03/22 1000 AC 03/26 PO 0951 Pregabalin 75 MG BID 03/21 2200 AC 03/26 PO 0951 Sulfasalazine 500 MG DAILY 03/22 1000 AC 03/26 PO 0951 Tamsulosin HCl 0.4 MG DAILY 03/22 1000 AC 03/26 PO 0952 Impression/Plan Impression/Problem List Impression: Respiratory #Right lower lobe lobectomy Postoperative day 5 for right lower lobectomy and mediastinal lymph node dissection. his chest tube was removed yesterday. * Will continue patient on oxygen as needed * We will follow up cardio thoracic surgery recommendations #Chronic obstructive pulmonary disease Patient has history of COPD not on home oxygen * continue the patient on home prednisone 5 mg daily * TRC evaluation * nebulization as needed ID No current distress Cardiovascular #Hypertension * Continue to monitor blood pressure every shift * continue home medication amlodipine 5 mg daily #Onset A. fib Ration had the new onset A. fib that started for the first time ever during hospital stay. Patient electrolytes are within normal limits, troponin are negative, EKG showing no changes, TSH and T4, however T3 is a little bit low. Now patient is back to normal sinus rhythm. * Patient is on Cardizem drip, we will switch it today Cardizem 120 CD. * Echocardiogram results pending * Cardiology is on board we will follow his recommendation * We will hold his anticoagulant because of his surgery history Hematology H&H is stable at 9.9 and 30.6. WBCs 10.6(down from yesterday) * Repeat CBC daily Metabolic: #BPH Continue Tamsulosin 0.4 mg daily. #Hyperlipidemia Continue atorvastatin 40 mg daily and low-fat diet Alimentary: #GERD Continue with omeprazole 40 mg daily. #Abdominal distention and pain(resolved) Denies any current abdominal pain or distention Neurological No current neurological issue Endocrinology #Diabetes mellitus Will hold patient oral antidiabetic medications. * keep him on insulin sliding scale low-dose * Accu-Cheks * consistent carbohydrate 3 diet SKIN no Current skin issues DVT/Prophylaxis: heparin Diet consistent carbohydrate 3 diet Code Status Full code Patient Is full code heparin and Alps for DVT prophylaxis Problem List: 1. S/P lobectomy of lung 2. A-fib Pain Ratin Tomorrow's Labs & Rationales: cbc and icu bundle Plan DVT/Prophylaxis: mechanical, pharmacological
[2016-03-26 08:00] VITALS: BP 122/66
--- NOTE | 2016-03-26 08:23 | RADIOLOGY REPORT ---
EXAMINATION: XR PORTABLE CHEST CLINICAL INFORMATION: Status post right lobectomy. Follow-up study. COMPARISON: Chest x-rays 03/25/2016 03/24/2016. TECHNIQUE: Portable AP view of the chest was obtained. FINDINGS: There has been no significant interval change in the opacities at the right greater than left bases. There is likely a right sided pleural effusion. The cardiac silhouette is unchanged. The aortic arch is calcified and unfolded. Surgical clips are noted at the left hilum and at the thoracic inlet in the midline. There are no pneumothoraces. There has been interval decrease in the subcutaneous air in the right neck. There are degenerative changes in the right shoulder. There are multiple monitor leads overlying the chest.. IMPRESSION: 1. Stable opacification at the right greater than left bases with a likely right pleural effusion. 2. There are no pneumothoraces.
--- NOTE | 2016-03-26 08:48 | PN- Cardiology ---
Subjective Subjective: Patient only complains of incisional pain. Review of Systems: Eyes no blurred or double vision Ears no deafness or ringing Nose and throat no recurrent sinusitis Lungs per history of present illness Heart per history of present illness Abdomen no nausea vomiting Musculoskeletal occasional muscle and joint pains Psych no anxiety or depression Neuro without recurrent headache or seizures Endocrine no heat or cold intolerance Objective Vital Signs and I&Os Vital Signs Date Time Temp Pulse Resp B/P Pulse O2 O2 Flow FiO2 Ox Delivery Rate 03/26 0400 97 Nasal 4.0L Cannula 03/26 0000 97 Nasal 4.0L Cannula 03/26 0000 98.0 72 15 124/60 97 Nasal 4.0L Cannula 03/25 2300 98.0 72 16 124/60 03/25 1949 93 Nasal 4.0L Cannula 03/25 1743 96 168/62 03/25 1700 93 Nasal 3.0L Cannula 03/25 1700 98.2 84 20 110/70 95 Nasal 4.0L Cannula 03/25 1645 97 Nasal 4.0L Cannula 03/25 1535 Nasal 3.0L Cannula 03/25 1239 98 108/74 03/25 1200 Nasal 4.0L Cannula 03/25 1200 98.2 90 24 108/74 94 Nasal 4.0L Cannula 03/25 1001 95 111/62 03/25 1000 96 109/65 Intake & Output 03/26 1600 03/26 0800 03/26 0000 03/25 1600 03/25 0800 03/25 0000 Intake Total 18 550 740 267.5 1460 Output Total 240 623 9367 665 1400 Balance -972 -150 -860 -397.5 60 Intake, IV 18 30 20 17.5 20 Intake, Oral 520 448 374 7854 Number 0 0 1 Bowel Movements Output, Urine 994 835 6300 665 1400 Patient 170 lb Weight Physical Exam: Patient is a well-developed well-nourished male appearing in no acute distress HEENT is unremarkable Neck is supple there is no JVD Lungs decreased breath sounds right upper lung field Heart regular rhythm S1 and S2 are normal no murmurs gallops or rubs Abdomen bowel sounds positive Extremities without edema Current Medications: Current Medications Sig/Lelo Start time Last Medication Dose Route Stop Time Status Admin Albuterol Sulfate 3 ML EVERY 4 HRS/AWAKE 03/24 1600 AC 03/25 INH 2100 Albuterol Sulfate 2 PUF Q6P PRN 03/21 1800 AC 03/22 INH 1010 Alprazolam 0.5 MG TID PRN 03/22 1345 AC 03/25 PO 03/29 1344 2145 Amlodipine Besylate 5 MG DAILY 03/22 1000 AC 03/25 PO 1001 Atorvastatin Calcium 40 MG DAILY@1700 03/22 1700 AC 03/25 PO 1741 Digoxin 0.125 MG 1700 03/26 1700 AC PO Digoxin 0.25 MG Q6 03/25 1200 DC 03/25 IV 03/25 2359 2300 Diltiazem HCl 125 MG Q24H 03/24 2300 AC 03/25 Sodium Chloride 100 ML IV 2300 Docusate Sodium 100 MG BID 03/24 1000 AC 03/25 PO 2141 Escitalopram Oxalate 20 MG DAILY 03/22 1000 AC 03/25 PO 1000 Furosemide 40 MG ONE ONE 03/25 1330 CAN PO 03/25 1331 Furosemide 40 MG DAILY 03/25 1000 DC IV Furosemide 40 MG ONCE ONE 03/25 1000 DC 03/25 IV 03/25 1001 1021 Heparin Sodium 5,000 UNIT Q8 03/21 2200 AC 03/26 (Porcine) SC 0635 Hydromorphone HCl 0.5 MG Q4P PRN 03/24 0930 AC IV Hydroxychloroquine 200 MG DAILY 03/22 1000 AC 03/25 Sulfate PO 1000 Insulin Aspart 0 TIDAC 03/24 1200 AC 03/25 SC 1722 Insulin Detemir 25 UNITS QPM 03/22 2200 AC 03/25 SC 2142 Magnesium Oxide 400 MG ONE ONE 03/26 0800 DC PO 03/26 0801 Omeprazole 40 MG DAILY AC 03/22 0700 AC 03/26 PO 0635 Ondansetron HCl 4 MG Q6P PRN 03/21 1800 AC IV Oxycodone/ 1 TAB ONCE ONE 03/25 1415 DC 03/25 Acetaminophen PO 03/25 1416 1415 Oxycodone/ 1 TAB Q4P PRN 03/24 09 AC 03/25 Acetaminophen PO 1741 Oxycodone/ 2 TAB Q4P PRN 03/24 0930 AC 03/26 Acetaminophen PO 0756 Polyethylene Glycol 17 GM DAILY 03/24 1000 AC 03/25 PO 1000 Prednisone 5 MG DAILY 03/22 1000 AC 03/25 PO 1001 Pregabalin 75 MG BID 03/21 2200 AC 01/30 PO 2141 Sulfasalazine 500 MG DAILY 03/22 1000 AC 03/25 PO 1001 Tamsulosin HCl 0.4 MG DAILY 03/22 1000 AC 03/25 PO 1000 Results Last 48 Hrs of Labs/Mics: Laboratory Tests 03/26/16 0502: Anion Gap 5, Estimated GFR > 60, Glucose 157 H, Calcium 10.1, Phosphorus 3.4, Magnesium 1.7, Total Bilirubin 0.4, AST 16 L, ALT 26, Albumin 2.7 L, CBC w Diff NO MAN DIFF REQ, RBC 3.62 L, MCV 84.5, MCH 27.4, RDW 16.3 H, MPV 7.7, Gran % 70.0, Lymphocytes % 16.1 L, Monocytes % 12.0 H, Eosinophils % 1.7, Basophils % 0.2, Absolute Granulocytes 7.4 H, Absolute Lymphocytes 1.7, Absolute Monocytes 1.3 H, Absolute Eosinophils 0.2, Absolute Basophils 0, PUBS MCHC 32.5 L 03/25/16 0338: Anion Gap 8, Estimated GFR > 60, Glucose 125 H, Calcium 10.1, Phosphorus 3.0, Magnesium 1.9, Total Bilirubin 0.5, AST 15 L, ALT 23, Troponin I < 0.01, Albumin 2.8 L, TSH 1.520, Thyroxine (T4) 7.0, Total T3 0.70 L, CBC w Diff MAN DIFF ORDERED, RBC 3.73 L, MCV 83.7, MCH 27.6, RDW 16.9 H, MPV 8.8, Gran % 72.9 , Lymphocytes % 16.9 L, Monocytes % 8.9, Eosinophils % 0.9, Basophils % 0.4, Absolute Granulocytes 10.0 H, Absolute Lymphocytes 2.3, Absolute Monocytes 1.2 H, Absolute Eosinophils 0.1, Absolute Basophils 0.1, Platelet Estimate ADEQUATE, Polychromasia 1+, Hypochromic-Microcytic 1+, Ovalocytes 1+, PUBS MCHC 33.0 03/24/16 2232: Troponin I < 0.01 Telemetry reviewed sinus rhythm Recent Imaging Studies: Echocardiogram CONCLUSIONS Normal LV chamber size with borderline concentric LVH. The estimated LVEF is 45-50%. There is mild global hypokinesis. There is mild mitral regurgitation. There is mild tricuspid regurgitation. The estimated PA systolic pressure is 45 mmHg. César Choudhury M.D. Assessment/Plan Assessment/Plan 1. Brief episode of postoperative atrial fibrillation currently in sinus rhythm 2. Carcinoma of the lung status post right upper lobectomy 3. COPD by history 4. GERD 5. Hypertension stable 6. Hyperlipidemia 7. Diabetes 8. Mild cardiomyopathy on echocardiogram EF 45-50% Recommendations 1. I would transition IV Cardizem to by mouth 2. Given the brevity of his episode of atrial fibrillation I would hold off on initiating anticoagulation at present but continue to monitor on telemetry 3. Due to COPD I would avoid beta blockers 4. Out of bed as tolerated Continue telemetry? Yes
--- NOTE | 2016-03-26 10:26 | NUR ---
@0800-PT ALERT AND ORIENTED, COOP. SPANSIH SPEAKING BUT ABLE TO MAKE NEEDS KNOWN. C/O PAIN TO SURG SITE 08/03-MEDICATED WITH PERCOCET PRN 2 TABS PER ORDER. CONT ON NC-4L, O2SAT 98%. LUNGS CLEAR, DIM TO BASES. PROD COUGH OF RUST/DK BROWN COLORED SPUTUM. NEBS Q4HRS. NSR HR 70S. BP STABLE. VS Q4HRS. CONT ON CARDIZEM GTT AT 2.5MG/HR. C3 DIET PROVIDED FOR BREAKFAST, GOOD APPETITE. COATS IN PLACE, ADEQUATE OUTPUT. SKIN INTACT. DSG TO R UPPER BACK AND OLD CHEST TUBE SITE CDI. PT CONSULT ORD. PT DOES NOT WANT TO GET OOB FOR BREAKFAST-WILL ATTEMPT AGAIN AFTER AM MEDS. CONT TO MONITOR CLOSELY. CALL RICH WITHIN REACH.
--- NOTE | 2016-03-26 10:35 | NUR ---
@3912-PT MEDICATED WITH NEW MED DAILY ORDER OF CARDIZEM CD 120MG. PLAN TO DC CARDIZEM GTT 1 HR AFTER PO ADMINISTRATION. WILL DC PAULY AT 1040 PRIOR TO GETTING PT OOB TO CHAIR.
--- NOTE | 2016-03-26 10:55 | NUR ---
@1050-[facility] ME[facility] DC'D AT THIS TIME. HR REMAINS 70S, NSR. PAULY DC'D AT THIS TIME. PT OOB TO [place], ASSIST X 2. UNSTEADY AND SLOW GAIT. PHYSICAL THERAPY TO FOLLOW. CONT TO MONITOR CLOSELY. CALL HILARIO PLASENCIA.
--- NOTE | 2016-03-26 11:11 | NUR ---
PHYSICAL THERAPY: Attempted to see patient this AM. Patient recently transferred bed<>chair w/ nursing staff and is refusing ambulation and exercise with P.T. due to pain with mov't. Patient states "I tried yesterday, too much pain, I will try again tomorrow, not today." With education on the benefits of mobility everyday, patient con't to refuse "maybe later" P.T. to f/u later this P.M. - Thank you.
--- NOTE | 2016-03-26 11:23 | PN- Pulmonary ---
Subjective HPI/Critical Care Issues: Patient seen and examined this morning. He is in sinus rhythm and only complaint is incisional site pain that is well controlled with pain medications. Objective Current Medications: Current Medications Sig/Lelo Start time Last Medication Dose Route Stop Time Status Admin Albuterol Sulfate 3 ML EVERY 4 HRS/AWAKE 03/24 1600 AC 03/26 INH 0906 Albuterol Sulfate 2 PUF Q6P PRN 03/21 1800 AC 03/22 INH 1010 Alprazolam 0.5 MG TID PRN 03/22 1345 AC 03/25 PO 03/29 1344 2145 Amlodipine Besylate 5 MG DAILY 03/22 1000 AC 03/26 PO 0952 Atorvastatin Calcium 40 MG DAILY@1700 03/22 1700 AC 03/25 PO 1741 Digoxin 0.125 MG 1700 03/26 1700 AC PO Digoxin 0.25 MG Q6 03/25 1200 DC 03/25 IV 03/25 2359 2300 Diltiazem HCl 120 MG DAILY 03/26 1000 AC 03/26 PO 0952 Diltiazem HCl 125 MG Q24H 03/24 2300 DC 03/25 Sodium Chloride 100 ML IV 2300 Docusate Sodium 100 MG BID 03/24 1000 AC 03/26 PO 0952 Escitalopram Oxalate 20 MG DAILY 03/22 1000 AC 03/26 PO 0952 Furosemide 40 MG ONE ONE 03/25 1330 CAN PO 03/25 1331 Heparin Sodium 5,000 UNIT Q8 03/21 2200 AC 03/26 (Porcine) SC 0635 Hydromorphone HCl 0.5 MG Q4P PRN 03/24 0930 AC IV Hydroxychloroquine 200 MG DAILY 03/22 1000 AC 03/26 Sulfate PO 0951 Insulin Aspart 0 TIDAC 03/24 1200 AC 03/25 SC 1722 Insulin Detemir 25 UNITS QPM 03/22 2200 AC 03/25 SC 2142 Magnesium Oxide 400 MG ONE ONE 03/26 0800 DC 03/26 PO 03/26 0801 0952 Omeprazole 40 MG DAILY AC 03/22 0700 AC 03/26 PO 0635 Ondansetron HCl 4 MG Q6P PRN 03/21 1800 AC IV Oxycodone/ 1 TAB ONCE ONE 03/25 1415 DC 03/25 Acetaminophen PO 03/25 1416 1415 Oxycodone/ 1 TAB Q4P PRN 03/24 0930 AC 03/25 Acetaminophen PO 1741 Oxycodone/ 2 TAB Q4P PRN 03/24 0930 AC 03/26 Acetaminophen PO 0756 Polyethylene Glycol 17 GM DAILY 03/24 1000 AC 03/26 PO 0953 Prednisone 5 MG DAILY 03/22 1000 AC 03/26 PO 0951 Pregabalin 75 MG BID 03/21 2200 AC 03/26 PO 0951 Sulfasalazine 500 MG DAILY 03/22 1000 AC 03/26 PO 0951 Tamsulosin HCl 0.4 MG DAILY 03/22 1000 AC 03/26 PO 0952 Vital Signs & I&O Last 24 Hrs of Vitals and I&O: Vital Signs Date Time Temp Pulse Resp B/P Pulse O2 O2 Flow FiO2 Ox Delivery Rate 03/26 0952 120/70 03/26 0952 12070 03/26 0909 95 Nasal 4.0L Cannula 03/26 0800 97.6 63 22 122/66 98 Nasal 4.0L Cannula 03/26 0800 97 Nasal 4.0L Cannula 03/26 0400 97 Nasal 4.0L Cannula 03/26 0000 97 Nasal 4.0L Cannula 03/26 0000 98.0 72 15 124/60 97 Nasal 4.0L Cannula 03/25 2300 98.0 72 16 124/60 03/25 1949 93 Nasal 4.0L Cannula 03/25 1743 96 168/62 03/25 1700 93 Nasal 3.0L Cannula 03/25 1700 98.2 84 20 110/70 95 Nasal 4.0L Cannula 03/25 1645 97 Nasal 4.0L Cannula 03/25 1535 Nasal 3.0L Cannula 03/25 1239 98 108/74 03/25 1200 Nasal 4.0L Cannula 03/25 1200 98.2 90 24 108/74 94 Nasal 4.0L Cannula Intake & Output 03/26 1600 03/26 0800 03/26 0000 Intake Total 18 550 Output Total 990 700 Balance -972 -150 Intake, IV 18 30 Intake, Oral 520 Number 0 0 Bowel Movements Output, Urine 990 700 Exam Other Physical Findings: General - Alert, awake and oriented HEENT - normocephalic, atraumatic Cardiovascular - S1, S2 Lungs - rare rhonchi Abdomen - soft, bowel sounds positive, no tenderness Extremities - without edema or cyanosis Results Last 24 Hrs of Lab Results: Laboratory Tests 03/26/16 0502: Anion Gap 5, Estimated GFR > 60, Glucose 157 H, Calcium 10.1, Phosphorus 3.4, Magnesium 1.7, Total Bilirubin 0.4, AST 16 L, ALT 26, Albumin 2.7 L, CBC w Diff NO MAN DIFF REQ, RBC 3.62 L, MCV 84.5, MCH 27.4, RDW 16.3 H, MPV 7.7, Gran % 70.0, Lymphocytes % 16.1 L, Monocytes % 12.0 H, Eosinophils % 1.7, Basophils % 0.2, Absolute Granulocytes 7.4 H, Absolute Lymphocytes 1.7, Absolute Monocytes 1.3 H, Absolute Eosinophils 0.2, Absolute Basophils 0, PUBS MCHC 32.5 L Impression/Plan Impression/Plan Impression/Plan: Impression 75 year old man hx lung ca, s/p right lower lobecotmy, lymph node dissection. Brief period of a.fib now in sinus rhythm. Atelectasis/element of congestion. Plan -cardiology follow up -pain control -ins/outs -IST 10 times daily/flutter device -TRC/Nebs -DVT prophylaxis at all times okay for tele
--- NOTE | 2016-03-26 15:58 | NUR ---
@1600-PT RESTING COMF IN BED. CONT ON 3LNC. DENIES SOB. DENIES NEED FOR PAIN MED AT THIS TIME. PT HAS NOT VOIDED SINCE PAULY MONSON. DTV [phone]. CONT TO MONITOR, CALL HILARIO PLASENCIA.
[2016-03-26 16:00] VITALS: BP 116/72
--- NOTE | 2016-03-26 18:31 | NUR ---
@1830-PT HAS NOT VOIDED SINCE COATS CATH DC'D AT 1040. BLADDER SCANNED FOR 400-600ML. PT ATTEMPTED TO VOID IN URINAL, STOOD AT EDGE OF BED WITH ASSIST OF NURSING AND PT CONT W INABILITY TO VOID. ST CATH AT THIS TIME AND OBTAINED 600ML OF URINE. REPORTED TO HOUSESTAFF AND PT STARTED ON ST CATH PROTOCOL. CONT TO MONITOR CLOSELY. CALL RICH WITHIN REACH.
[2016-03-27] VITALS: BP 126/60
--- NOTE | 2016-03-27 01:48 | NUR ---
0000 PATIENT RECEIVED ALERT AND RESPONSIVE, ORIENTED X3, SKIN PINK, WARM AND DRY, STATES THAT EARLIER PAIN MED REMAINS EFFECTIVE FOR POST-OP DISCOMFORT, BACK AND CT SITE DRESSINGS CLEAN, DRY AND INTACT, NO PALPABLE CREPITUS NOTED, O2 AT 3L/MIN VIA NC- CONTINUOUS O2 SAT 94 TO 95%, DRY SOUNDING COUGH NOTED INFREQUENTLY, BREATHE SOUNDS DIMINISHED UPPER ROCHA, OTHERWISE CLEAR, ABDOMEN SOFT, + BS, CERTIFIED MEDICATION AIDE SINUS WITH FIRST DEGREE AV BLOCK- RI .22, UNSUCESSFUL ATTEMPT BY PATIENT TO VOID- BLADDER SCAN SHOWS >999 ML- STRAIGHT CATHETERIZATION DONE WITHOUT DIFFICULTY- 920 ML CLEAR, YELLOW UO OBTAINED, BACK CARE GIVEN AND PATIENT SETTLED FOR SLEEP, CALL LIGHT WITHIN REACH
--- NOTE | 2016-03-27 05:53 | PN- Thoracic Surgery ---
Subjective Subjective: NAEO. Patient without new c/o. Pain controlled. Has not been able to ambulate independetly. PT recommending short term rehab. Patient has been in NSR with PO cardizem and digoxin. Maintaining O2 sats of 91-93% on 3L NC. Has had difficulty voiding requiring straight cath overnight. Patient states the only way for him to go on his own is if he can walk to the bathroom himself. Pulmonary following, feels patient is stable for downgrade to telemetry. Patient without new CP/SOB. Objective Vital Signs and I&Os Vital Signs Date Time Temp Pulse Resp B/P Pulse O2 O2 Flow FiO2 Ox Delivery Rate 03/27 0000 95 Nasal 3.0L Cannula 03/27 0000 97.5 76 22 126/60 95 Nasal 3.0L Cannula 03/26 1944 93 Nasal 3.0L Cannula 03/26 1616 78 116/72 03/26 1600 93 Nasal 3.0L Cannula 03/26 1600 97.8 72 20 116/72 93 Nasal 3.0L Cannula 03/26 1200 95 Nasal 3.0L Cannula 03/26 0952 120/70 03/26 0952 120/70 03/26 0909 95 Nasal 4.0L Cannula 03/26 0800 97.6 63 22 122/66 98 Nasal 4.0L Cannula 03/26 0800 97 Nasal 4.0L Cannula Intake & Output 03/27 0800 03/27 0000 03/26 1600 03/26 0800 03/26 0000 03/25 1600 Intake Total 540 447.5 18 550 740 Output Total 600 240 322 055 3741 Balance -60 207.5 -972 -150 -860 Intake, IV 7.5 18 30 20 Intake, Oral 540 440 520 720 Number 0 0 0 Bowel Movements Output, Urine 600 240 263 549 0549 Patient 170 lb Weight Physical Exam: General: NAD, comfortable, A&Ox3, Sittin up in bed Chest: CTAB, shallow breaths with low chest expansion b/l. Heart S1S2 normal. Right chest incision c/d/i. No signs of infection. Abdomen: soft, nontender, nondistended. Ext: No calve swelling/TTP, neurovascularly intact bilateral lower extremities Current Medications: Current Medications Sig/Lelo Start time Last Medication Dose Route Stop Time Status Admin Albuterol Sulfate 3 ML EVERY 4 HRS/AWAKE 03/24 1600 AC 03/26 INH 1943 Albuterol Sulfate 2 PUF Q6P PRN 03/21 1800 AC 03/22 INH 1010 Alprazolam 0.5 MG TID PRN 03/22 1345 AC 03/25 PO 03/29 1344 2145 Amlodipine Besylate 5 MG DAILY 03/22 1000 AC 03/26 PO 0952 Atorvastatin Calcium 40 MG DAILY@1700 03/22 1700 AC 03/26 PO 1616 Digoxin 0.125 MG 1700 03/26 1700 AC 03/26 PO 1616 Diltiazem HCl 120 MG DAILY 03/26 1000 AC 03/26 PO 0952 Diltiazem HCl 125 MG Q24H 03/24 2300 DC 03/25 Sodium Chloride 100 ML IV 2300 Docusate Sodium 100 MG BID 03/24 1000 AC 03/26 PO 2211 Escitalopram Oxalate 20 MG DAILY 03/22 1000 AC 03/26 PO 0952 Heparin Sodium 5,000 UNIT Q8 03/21 2200 AC 03/26 (Porcine) SC 2211 Hydromorphone HCl 0.5 MG Q4P PRN 03/24 0930 AC IV Hydroxychloroquine 200 MG DAILY 03/22 1000 AC 03/26 Sulfate PO 0951 Insulin Aspart 0 TIDAC 03/24 1200 AC 03/26 SC 1617 Insulin Detemir 25 UNITS QPM 03/22 2200 AC 03/26 SC 2211 Magnesium Oxide 400 MG ONE ONE 03/26 0800 DC 03/26 PO 03/26 0801 0952 Omeprazole 40 MG DAILY AC 03/22 0700 AC 03/26 PO 0635 Ondansetron HCl 4 MG Q6P PRN 03/21 1800 AC IV Oxycodone/ 1 TAB Q4P PRN 03/24 0930 AC 03/27 Acetaminophen PO 0440 Oxycodone/ 2 TAB Q4P PRN 03/24 0930 AC 03/26 Acetaminophen PO 2004 Polyethylene Glycol 17 GM DAILY 03/24 1000 AC 03/26 PO 0953 Prednisone 5 MG DAILY 03/22 1000 AC 03/26 PO 0951 Pregabalin 75 MG BID 03/21 2200 AC 03/26 PO 2211 Sulfasalazine 500 MG DAILY 03/22 1000 AC 03/26 PO 0951 Tamsulosin HCl 0.4 MG DAILY 03/22 1000 AC 03/26 PO 0952 Results Last 48 Hours of Labs: Laboratory Tests 03/27 03/26 [id number] [id number] Chemistry Sodium (137 - 145 mmol/L) Pending 136 L Potassium (3.5 - 5.1 mmol/L) Pending 4.4 Chloride (98 - 107 mmol/L) Pending 98 Carbon Dioxide (22 - 30 mmol/L) Pending 33 H Anion Gap (5 - 16) Pending 5 BUN (9 - 20 mg/dL) Pending 13 Creatinine (0.7 - 1.2 mg/dL) Pending 0.7 Estimated GFR (>60 ml/min) > 60 Glucose (65 - 99 mg/dL) Pending 157 H Calcium (8.4 - 10.2 mg/dL) Pending 10.1 Phosphorus (2.5 - 4.5 mg/dL) Pending 3.4 Magnesium (1.6 - 2.3 mg/dL) Pending 1.7 Total Bilirubin (0.2 - 1.3 mg/dL) Pending 0.4 AST (17 - 59 U/L) Pending 16 L ALT (21 - 72 U/L) Pending 26 Albumin (3.5 - 5.0 g/dL) Pending 2.7 L Hematology CBC w Diff Pending NO MAN DIFF REQ WBC (4.8 - 10.8 /CUMM) Pending 10.6 RBC (4.70 - 6.10 /CUMM) Pending 3.62 L Hgb (14.0 - 18.0 G/DL) Pending 9.9 L Hct (42 - 52 %) Pending 30.6 L MCV (80.0 - 94.0 FL) Pending 84.5 MCH (27.0 - 31.0 PG) Pending 27.4 RDW (11.5 - 14.5 %) Pending 16.3 H Plt Count (130 - 400 /CUMM) Pending 327 MPV (7.4 - 10.4 FL) Pending 7.7 Gran % (42.2 - 75.2 %) 70.0 Lymphocytes % (20.5 - 51.1 %) 16.1 L Monocytes % (1.7 - 9.3 %) 12.0 H Eosinophils % (0 - 5 %) 1.7 Basophils % (0.0 - 2.0 %) 0.2 Absolute Granulocytes (1.4 - 6.5 /CUMM) 7.4 H Absolute Lymphocytes (1.2 - 3.4 /CUMM) 1.7 Absolute Monocytes (0.10 - 0.60 /CUMM) 1.3 H Absolute Eosinophils (0.0 - 0.7 /CUMM) 0.2 Absolute Basophils (0.0 - 0.2 /CUMM) 0 PUBS MCHC (33.0 - 37.0 G/DL) Pending 32.5 L Assessment/Plan Assessment/Plan 75yo M s/p RLL lobectomy on 03/21/16 with new onset afib 03/24/16. Patient in NSR, stable. Breathing comfortably on 3L NC. Patient below baseline for activity, PT recommending STR. - Pain control - OOB with PT - encourage void - f/u cards - continue PO cardizem and digoxin - f/u labs - f/u cxr - daily dressing changes by RN - f/u pulmonary - downgrade to tele if patient stays - dc planning - will d/w attending Core Measures/Miscellaneous Brice Catheter Date In: 03/21/16 Venous Thromboembolism VTE Risk Factors: Cancer/chemo/oth therapy, Surgery VTE Contraindications: No Contraindications VTE Prophylaxis Ordered Inpt: Mech & Pharm VTE Diagnosis: No VTE Type: NONE VTE Confirmed by (Test): NONE Beta Sonali Is Beta Sonali a Home Med? No Antibiotics Is Patient on Antibiotics? No
[2016-03-27 06:06] LABS: ABSOLUTE BASOPHIL COUNT 0 /CUMM (0.0-0.2); ABSOLUTE EOSINOPHIL COUNT 0.3 /CUMM (0.0-0.7); ABSOLUTE GRANULOCYTE CT 7.3 /CUMM (1.4-6.5); ABSOLUTE LYMPH COUNT 2.1 /CUMM (1.2-3.4); ABSOLUTE MONOCYTE COUNT 1.2 /CUMM (0.10-0.60); BASOPHIL % 0.4 % (0.0-2.0); EOSINOPHIL % 2.4 % (0-5); GRANULOCYTE % 67.3 % (42.2-75.2); HEMATOCRIT 31.1 % (42-52); MEAN CORPUSCULAR HGB 27.8 PG (27.0-31.0); MEAN CORPUSCULAR HGB CONC 33.1 G/DL (33.0-37.0); MEAN CORPUSCULAR VOLUME 84.1 FL (80.0-94.0); MEAN PLATELET VOLUME 8.5 FL (7.4-10.4); PLATELET COUNT 310 /CUMM (130-400); RBC DISTRIBUTION WIDTH 16.2 % (11.5-14.5); WHITE BLOOD CELL COUNT 10.9 /CUMM (4.8-10.8)
--- NOTE | 2016-03-27 06:26 | RADIOLOGY REPORT ---
EXAMINATION: CHEST 1 VIEW CLINICAL INFORMATION: Follow-up status post right lower lobectomy. COMPARISON: 03/26/2016. TECHNIQUE: An AP view of the chest is provided. FINDINGS: The cardiac silhouette is stable. The mediastinal and hilar contours are unremarkable. There is a stable appearance of mixed interstitial and airspace disease within the lower two thirds of the right hemithorax. There is likely a small right pleural effusion present. The left lung is clear. The osseous structures are unremarkable. IMPRESSION: Stable mixed interstitial and airspace disease within the right hemithorax with a small right pleural effusion.
--- NOTE | 2016-03-27 06:49 | NUR ---
0500 SEEN AND EXAMINED BY LEXIE BELL 0600 PATIENT ABLE TO EXPECTORATE BROWNISH COLORED SPUTUM THIS AM, NO CHANGES IN STATUS, RESTING QUIETLY, AWAITING AM MD ROUNDS
[2016-03-27 08:00] VITALS: BP 130/60
--- NOTE | 2016-03-27 08:32 | PN- Resident CRCU ---
See Addendum DANNY KEMP,ISMAIL 03/27/16 0827: Subjective HPI/CRCU Issues: POD6, for right lower lobectomy for RLL lung cancer. Patient was seen and examined, he looks relaxed and comfortable. No acute overnight events were reported by the patient or his nurse. He reported improvement of his pain. Patient is still normal sinus rhythm, his heart rate is well controlled (70s) on Cardizem 120 CD PO. He is Maintaining O2 sats of 91- 93% on 3L NC. Has had difficulty voiding requiring straight cath overnight. Objective Vital Signs & I&O Last 8 Hrs of Vitals and I&O: Intake & Output 03/27 1600 03/27 0800 03/27 0000 Intake Total 400 540 Output Total 1720 600 Balance -1320 -60 Intake, Oral 400 540 Number 0 Bowel Movements Output, Urine 1720 600 Laboratory Tests 03/27 0455 Chemistry Sodium (137 - 145 mmol/L) 138 Potassium (3.5 - 5.1 mmol/L) 5.0 Chloride (98 - 107 mmol/L) 95 L Carbon Dioxide (22 - 30 mmol/L) 37 H Anion Gap (5 - 16) 5 BUN (9 - 20 mg/dL) 15 Creatinine (0.7 - 1.2 mg/dL) 0.7 Estimated GFR (>60 ml/min) > 60 Glucose (65 - 99 mg/dL) 112 H Calcium (8.4 - 10.2 mg/dL) 10.4 H Phosphorus (2.5 - 4.5 mg/dL) 3.6 Magnesium (1.6 - 2.3 mg/dL) 1.7 Total Bilirubin (0.2 - 1.3 mg/dL) 0.3 AST (17 - 59 U/L) 21 ALT (21 - 72 U/L) 35 Albumin (3.5 - 5.0 g/dL) 2.8 L Hematology CBC w Diff NO MAN DIFF REQ WBC (4.8 - 10.8 /CUMM) 10.9 H RBC (4.70 - 6.10 /CUMM) 3.70 L Hgb (14.0 - 18.0 G/DL) 10.3 L Hct (42 - 52 %) 31.1 L MCV (80.0 - 94.0 FL) 84.1 MCH (27.0 - 31.0 PG) 27.8 RDW (11.5 - 14.5 %) 16.2 H Plt Count (130 - 400 /CUMM) 310 MPV (7.4 - 10.4 FL) 8.5 Gran % (42.2 - 75.2 %) 67.3 Lymphocytes % (20.5 - 51.1 %) 19.1 L Monocytes % (1.7 - 9.3 %) 10.8 H Eosinophils % (0 - 5 %) 2.4 Basophils % (0.0 - 2.0 %) 0.4 Absolute Granulocytes (1.4 - 6.5 /CUMM) 7.3 H Absolute Lymphocytes (1.2 - 3.4 /CUMM) 2.1 Absolute Monocytes (0.10 - 0.60 /CUMM) 1.2 H Absolute Eosinophils (0.0 - 0.7 /CUMM) 0.3 Absolute Basophils (0.0 - 0.2 /CUMM) 0 PUBS MCHC (33.0 - 37.0 G/DL) 33.1 Exam General Appearance: well developed/nourished, no apparent distress, alert, awake , comfortable Head: atraumatic, normal appearance Neck: normal inspection Respiratory: normal breath sounds, no respiratory distress, quiet respiration, mild tenderness around the chest tube place Cardiovascular: regular rate/rhythm Gastrointestinal: normal bowel sounds, soft, non-tender Extremities: no edema (bilateral) Current Medications: Current Medications Sig/Lelo Start time Last Medication Dose Route Stop Time Status Admin Albuterol Sulfate 3 ML EVERY 4 HRS/AWAKE 03/24 1600 03/26 INH 1943 Albuterol Sulfate 2 PUF Q6P PRN 03/21 1800 AC 03/22 INH 1010 Alprazolam 0.5 MG TID PRN 03/22 1345 AC 03/25 PO 03/29 1344 2145 Amlodipine Besylate 5 MG DAILY 03/22 1000 AC 03/26 PO 0952 Atorvastatin Calcium 40 MG DAILY@17003/22 1700 AC 03/26 PO 1616 Digoxin 0.125 MG 03/26 1700 AC 03/26 PO 1616 Diltiazem HCl 120 MG DAILY 03/26 1000 AC 03/26 PO 0952 Diltiazem HCl 125 MG Q24H 03/24 2300 DC 03/25 Sodium Chloride 100 ML IV 2300 Docusate Sodium 100 MG BID 03/24 1000 AC 03/26 PO 2211 Escitalopram Oxalate 20 MG DAILY 03/22 1000 AC 03/26 PO 0952 Heparin Sodium 5,000 UNIT Q8 03/21 2200 AC 03/27 (Porcine) SC 0619 Hydromorphone HCl 0.5 MG Q4P PRN 03/24 0930 AC IV Hydroxychloroquine 200 MG DAILY 03/22 1000 AC 03/26 Sulfate PO 0951 Insulin Aspart 0 TIDAC 03/24 1200 AC 03/26 SC 1617 Insulin Detemir 25 UNITS QPM 03/22 2200 AC 03/26 SC 2211 Magnesium Oxide 400 MG ONE ONE 03/27 0745 DC PO 03/27 0746 Omeprazole 40 MG DAILY AC 03/22 0700 AC 03/27 PO 0619 Ondansetron HCl 4 MG Q6P PRN 03/21 1800 AC IV Oxycodone/ 1 TAB Q4P PRN 03/24 0930 AC 03/27 Acetaminophen PO 0440 Oxycodone/ 2 TAB Q4P PRN 03/24 0930 AC 03/27 Acetaminophen PO 0758 Polyethylene Glycol 17 GM DAILY 03/24 1000 AC 03/26 PO 0953 Prednisone 5 MG DAILY 03/22 1000 AC 03/26 PO 0951 Pregabalin 75 MG BID 03/21 2200 AC 03/26 PO 2211 Sulfasalazine 500 MG DAILY 03/22 1000 AC 03/26 PO 0951 Tamsulosin HCl 0.4 MG DAILY 03/22 1000 AC 03/26 PO 0952 Impression/Plan Impression/Problem List Impression: Respiratory #Right lower lobe lobectomy Postoperative day 6 for right lower lobectomy and mediastinal lymph node dissection. his chest tube was removed yesterday. * Will continue patient on oxygen as needed * We will follow up cardio thoracic surgery recommendations #Chronic obstructive pulmonary disease Patient has history of COPD not on home oxygen * continue the patient on home prednisone 5 mg daily * TRC evaluation * nebulization as needed ID No current distress Cardiovascular #Hypertension * Continue to monitor blood pressure every shift * continue home medication amlodipine 5 mg daily #Onset A. fib(currently on normal sinus rhythm) Ration had the new onset A. fib that started for the first time ever during hospital stay. Patient electrolytes are within normal limits, troponin are negative, EKG showing no changes, TSH and T4, however T3 is a little bit low. Now patient is back to normal sinus rhythm. Today his heart is well controlled with Cardizem by mouth and digoxin * We will continue Cardizem 120 CD. * We will continue digoxin 0.125 mg by mouth * We will replete electrolytes when necessary * Cardiology is on board we will follow his recommendation * We will hold his anticoagulant because of his surgery history Hematology CBC is stable * Repeat CBC daily Metabolic: #BPH Continue Tamsulosin 0.4 mg daily. #Hyperlipidemia Continue atorvastatin 40 mg daily and low-fat diet #Mild Hypercalcemia today his calcium is 10.4, when we corrected to the albumin become 11.6. He denies any symptoms suggestive of hypercalcemia. This is asymptomatic less than 12 hypercalcemia. * We will ask patient to ambulate * We will ask patient to drink water * We'll repeat calcium tomorrow if still elevated he may use normal saline Alimentary: #GERD Continue with omeprazole 40 mg daily. #Abdominal distention and pain(resolved) Denies any current abdominal pain or distention Neurological No current neurological issue Endocrinology #Diabetes mellitus Will hold patient oral antidiabetic medications. * keep him on insulin sliding scale low-dose * Accu-Cheks * consistent carbohydrate 3 diet SKIN no Current skin issues DVT PPx heparin SC consistent carbohydrate 3 diet Full code Patient Is full code heparin and Alps for DVT prophylaxis Problem List: 1. S/P lobectomy of lung 2. Diabetes mellitus Pain Ratin Tomorrow's Labs & Rationales: CBC and ICU bundle Plan DVT/Prophylaxis: mechanical, pharmacological ELIA KAIMNSKI MD 03/27/16 0920: Attending MD Review Statement Attending Sign Off Attending Cosign Statement: I have: examined this patient, reviewed aval EMR data, personally reviewd images, discussd w/resident/PA/BLOCK HACKER, discussed mgmt plan w/lauri, discussed mgmt plan w/CM, discussed mgmt plan w/pt, agreed w/resident/PA/BLOCK HACKER, amended to note. Other Findings: Elia Mcqueen M.D. have examined this patient, reviewed available EMR data, personally reviewed images, discussed with resident/PA/BLOCK HACKER, discussed management plan with housestaff and nursing staff, discussed managment plan all of healthcare providers, discussed management plan with patient and/or family, agreed with resident/PA/BLOCK HACKER. The past history and parts of the chart have been autopopulated. Impression 75 year old man hx lung ca, s/p right lower lobecotmy, lymph node dissection. Brief period of a.fib now in sinus rhythm. Atelectasis/element of congestion. Plan -cardiology follow up -pain control -ins/outs -IST 10 times daily/flutter device -TRC/Nebs -DVT prophylaxis at all times Telemetry hold DC planning Check oxygen saturation on room air and ambulation to determine oxygen needs.
--- NOTE | 2016-03-27 09:09 | NUR ---
@0800-PT ALERT AND ORIENTED, CALM AND COOP. VSS. PEROCET 2 TABS ADMNISTERED AT THIS TIME FOR C/O PAIN TO INCISIONAL SITE 08/03. CONT ON 3LNC. O2SAT 95% DIM BS TO BASES. PROD COUGH-BROWN IN COLOR. NSR HR 70-80S. BP STABLE. DIET PROVIDED FOR BREAKFAST. ST CATH DUE AT 0830. SKIN INTACT. DSG TO R UPPER BACK AND OLD CT SITE CDI. PT C/O ITCHING TO DSG SITE-WILL CHANGE THIS AM. MAG OX ORD, WILL ADMINISTER WHEN ARRIVES FROM PHARMACY. @0830-PT ATTMEPTED TO VOID IN [id number] CATH AT THIS TIME AND OBTAINED 300ML OF CLEAR YELLOW URINE. NEXT ST CATH IN 6 HRS. CONT TO MONITOR, CALL RICH WITHIN REACH.
--- NOTE | 2016-03-27 11:15 | PN- Cardiology ---
Subjective Subjective: The patient is awake, alert The patient overall feels improved Normal sinus rhythm has been seen throughout telemetry overnight The events of the last 24 hours as well as telemetry were reviewed. Review of Systems: The review of systems is negative for chest pains, palpitations nor lightheadedness. The remainder of the 14 point review of systems is noncontributory with the exception of above. Objective Vital Signs and I&Os Vital Signs Date Time Temp Pulse Resp B/P Pulse O2 O2 Flow FiO2 Ox Delivery Rate 03/27 1005 90 130/70 03/27 1005 90 130/70 03/27 0800 95 Nasal 3.0L Cannula 03/27 08 98.1 78 21 130/60 93 Nasal 3.0L Cannula 03/27 0400 95 Nasal 3.0L Cannula 03/27 0000 95 Nasal 3.0L Cannula 03/27 0000 97.5 76 22 126/60 95 Nasal 3.0L Cannula 03/26 1944 93 Nasal 3.0L Cannula 03/26 1616 78 116/72 03/26 1600 93 Nasal 3.0L Cannula 03/26 1600 97.8 72 20 116/72 93 Nasal 3.0L Cannula 03/26 1200 95 Nasal 3.0L Cannula Intake & Output 03/27 1600 03/27 0800 03/27 0000 03/26 1600 03/26 0800 03/26 0000 Intake Total 400 540 447.5 18 550 Output Total 1720 600 240 990 700 Balance -1320 -60 207.5 -972 -150 Intake, IV 7.5 18 30 Intake, Oral 400 540 440 520 Number 0 0 0 0 Bowel Movements Output, Urine 1720 600 240 990 700 Physical Exam: General: Nontoxic, no apparent distress. HEENT: Sclera and conjunctiva within normal limits, without xanthelasmas. Neck: Carotids 2+ without bruits. Respiratory: Scattered rhonchi at bases, air movement is good, without accessory respiratory muscle use. Heart: Regular rate and rhythm, without murmurs, without JVD. Abdomen: Soft, nontender, no masses, normoactive bowel sounds. Extremities: Without clubbing, cyanosis, without edema. Neuro: Nonfocal exam, strength, 5 out of 5 Skin: Within normal limits without lesions. Psych: Mood and affect: Normal Current Medications: Current Medications Sig/Lelo Start time Last Medication Dose Route Stop Time Status Admin Albuterol Sulfate 3 ML EVERY 4 HRS/AWAKE 03/24 1600 AC 03/27 INH 0953 Albuterol Sulfate 2 PUF Q6P PRN 03/21 1800 AC 03/22 INH 1010 Alprazolam 0.5 MG TID PRN 03/22 1345 AC 03/25 PO 03/29 1344 2145 Amlodipine Besylate 5 MG DAILY 03/22 1000 AC 03/27 PO 1005 Atorvastatin Calcium 40 MG DAILY@1700 03/22 1700 AC 03/26 PO 1616 Digoxin 0.125 MG 1700 03/26 1700 AC 03/26 PO 1616 Diltiazem HCl 120 MG DAILY 03/26 1000 AC 03/27 PO 1005 Docusate Sodium 100 MG BID 03/24 1000 AC 03/27 PO 1005 Escitalopram Oxalate 20 MG DAILY 03/22 1000 AC 03/27 PO 1005 Heparin Sodium 5,000 UNIT Q8 03/21 2200 AC 03/27 (Porcine) SC 0619 Hydromorphone HCl 0.5 MG Q4P PRN 03/24 0930 AC IV Hydroxychloroquine 200 MG DAILY 03/22 1000 AC 03/27 Sulfate PO 1004 Insulin Aspart 0 TIDAC 03/24 1200 AC 03/26 SC 1617 Insulin Detemir 25 UNITS QPM 03/22 2200 AC 03/26 SC 2211 Magnesium Oxide 400 MG ONE ONE 03/27 0745 DC 03/27 PO 03/27 0746 1005 Omeprazole 40 MG DAILY AC 03/22 0700 AC 03/27 PO 0619 Ondansetron HCl 4 MG Q6P PRN 03/21 1800 AC IV Oxycodone/ 1 TAB Q4P PRN 03/24 0930 AC 03/27 Acetaminophen PO 0440 Oxycodone/ 2 TAB Q4P PRN 03/24 0930 AC 03/27 Acetaminophen PO 0758 Polyethylene Glycol 17 GM DAILY 03/24 1000 AC 03/27 PO 1004 Prednisone 5 MG DAILY 03/22 1000 AC 03/27 PO 1004 Pregabalin 75 MG BID 03/21 2200 AC 03/27 PO 1004 Sulfasalazine 500 MG DAILY 03/22 1000 AC 03/27 PO 1004 Tamsulosin HCl 0.4 MG DAILY 03/22 1000 AC 03/27 PO 1005 Results Last 48 Hrs of Labs/Mics: Laboratory Tests 03/27/16 0455: Anion Gap 5, Estimated GFR > 60, Glucose 112 H, Calcium 10.4 H, Phosphorus 3.6 , Magnesium 1.7, Total Bilirubin 0.3, AST 21, ALT 35, Albumin 2.8 L, CBC w Diff NO MAN DIFF REQ, RBC 3.70 L, MCV 84.1, MCH 27.8, RDW 16.2 H, MPV 8.5, Gran % 67.3, Lymphocytes % 19.1 L, Monocytes % 10.8 H, Eosinophils % 2.4, Basophils % 0.4, Absolute Granulocytes 7.3 H, Absolute Lymphocytes 2.1, Absolute Monocytes 1.2 H, Absolute Eosinophils 0.3, Absolute Basophils 0, PUBS MCHC 33.1 03/26/16 0502: Anion Gap 5, Estimated GFR > 60, Glucose 157 H, Calcium 10.1, Phosphorus 3.4, Magnesium 1.7, Total Bilirubin 0.4, AST 16 L, ALT 26, Albumin 2.7 L, CBC w Diff NO MAN DIFF REQ, RBC 3.62 L, MCV 84.5, MCH 27.4, RDW 16.3 H, MPV 7.7, Gran % 70.0, Lymphocytes % 16.1 L, Monocytes % 12.0 H, Eosinophils % 1.7, Basophils % 0.2, Absolute Granulocytes 7.4 H, Absolute Lymphocytes 1.7, Absolute Monocytes 1.3 H, Absolute Eosinophils 0.2, Absolute Basophils 0, PUBS MCHC 32.5 L Assessment/Plan Assessment/Plan 75-year-old gentleman with a past medical history of diabetes mellitus, COPD, gastroesophageal reflux disease, hypertension and hyperlipidemia. He as well has a history of lung cancer, status post right upper lung lobectomy. He presented for a right lower lung lobectomy and lymph node resection, undergoing the same on 03/21/2016. We are consulted for new onset atrial fibrillation. Atrial fibrillation: The patient had paroxysmal atrial fibrillation postoperative from a lung resection. He has maintained sinus rhythm following his initial brief short episodes. Given this, we will maintain him off of anticoagulation... he will remain on oral cardizen, and may be transferred to telemetry. Lungs CA: Awaiting pathology report. Further as per oncology and thoracic surgery. Hypertension: Further optimization of treatment will be made following recovery from the acute event. Titration of his medications will depend on atrial fibrillation control. Continue telemetry? Yes
[2016-03-27 16:00] VITALS: BP 140/70
[2016-03-28] VITALS: BP 148/80
--- NOTE | 2016-03-28 00:27 | NUR ---
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
[2016-03-28 04:00] VITALS: BP 150/70
--- NOTE | 2016-03-28 05:59 | PN- Thoracic Surgery ---
Subjective Subjective: NO SIGNIFICANT CHANGES OOVERNIGHT CURRENTLY SAMEERAS CP, SOB, ADRIANA N+V AMBULATING TO BATHROOM WITH ASSISTANCE STILL REQUIRES 3L O2 DESATURATION TO 88% ON 3L WITH AMBULATION Objective Vital Signs and I&Os Vital Signs Date Time Temp Pulse Resp B/P Pulse O2 O2 Flow FiO2 Ox Delivery Rate 03/28 0400 97.5 80 18 150/70 96 Nasal 2.0L Cannula 03/28 0000 93 Nasal 3.0L Cannula 03/28 0000 98.8 80 26 148/80 93 Nasal 3.0L Cannula 03/27 1821 93 Nasal 3.0L Cannula 03/27 1653 78 140/70 03/27 1600 93 Nasal 3.0L Cannula 03/27 1600 97.9 84 22 140/70 94 Nasal 3.0L Cannula 03/27 1005 90 130/70 03/27 1005 90 130/70 03/27 0800 95 Nasal 3.0L Cannula 03/27 0800 98.1 78 21 130/60 93 Nasal 3.0L Cannula Intake & Output 03/28 0800 03/28 0000 03/27 1600 03/27 0800 03/27 0000 03/26 1600 Intake Total 480 560 400 540 447.5 Output Total 800 1720 600 240 Balance 480 -240 -1320 -60 207.5 Intake, IV 0 7.5 Intake, Oral 480 560 400 540 440 Number 0 0 0 Bowel Movements Output, Urine 800 1720 600 240 Physical Exam: Gen.: Alert and obvious distress Skin: Warm and dry Chest: Appropriate. Incisional tenderness, equal expansion, surgical dressing is clean, dry, and intact without signs of infection. Cardiac: S1 and S2 regular Pulmonary: Bilateral breath sounds equal with upper respiratory congestion and rose expiratory wheezes. Extremities: Bilateral lower extremities are warm without calf tenderness. Assessment/Plan Assessment/Plan - Pain control - OOB with PT - encourage void - f/u cards - continue PO cardizem and digoxin - f/u labs - f/u cxr - daily dressing changes by RN - f/u pulmonary - dc planning - will d/w attending Core Measures/Miscellaneous Brice Catheter Date In: 03/21/16 Venous Thromboembolism VTE Risk Factors: Cancer/chemo/oth therapy, Surgery VTE Contraindications: No Contraindications VTE Prophylaxis Ordered Inpt: Mech & Pharm VTE Diagnosis: No VTE Type: NONE VTE Confirmed by (Test): NONE Beta Sonali Is Beta Sonali a Home Med? No Antibiotics Is Patient on Antibiotics? No
[2016-03-28 08:00] VITALS: BP 142/62
--- NOTE | 2016-03-28 08:01 | PN- Cardiology ---
Subjective Subjective: Patient appears comfortable in bed. Has no complaints. Telemetry reviewed sinus rhythm throughout. Objective Vital Signs and I&Os Vital Signs Date Time Temp Pulse Resp B/P Pulse O2 O2 Flow FiO2 Ox Delivery Rate 03/28 0400 97.5 80 18 150/70 96 Nasal 2.0L Cannula 03/28 0000 93 Nasal 3.0L Cannula 03/28 0000 98.8 80 26 148/80 93 Nasal 3.0L Cannula 03/27 1821 93 Nasal 3.0L Cannula 03/27 1653 78 140/70 03/27 1600 93 Nasal 3.0L Cannula 03/27 1600 97.9 84 22 140/70 94 Nasal 3.0L Cannula 03/27 1005 90 130/70 03/27 1005 90 130/70 03/27 0800 95 Nasal 3.0L Cannula 03/27 0800 98.1 78 21 130/60 93 Nasal 3.0L Cannula Intake & Output 03/28 0800 03/28 0000 03/27 1600 03/27 0800 03/27 0000 03/26 1600 Intake Total 300 480 560 400 540 447.5 Output Total 8143 010 9329 600 240 Balance -750 480 -240 -1320 -60 207.5 Intake, IV 0 7.5 Intake, Oral 300 480 560 400 540 440 Number 0 0 0 0 Bowel Movements Output, Urine 7269 225 3393 600 240 Physical Exam: Gen. exam patient comfortable Head normocephalic atraumatic Eyes sclera anicteric conjunctiva showed no pallor extraocular muscles were normal Neck no jugular venous distention no thyroid masses no palpable nodes Chest lungs were clear bilaterally equal air entry Heart regular rhythm without murmurs Abdomen soft no organomegaly bowel sounds normal Extremities no clubbing cyanosis or edema Neurological no gross motor or sensory deficits Current Medications: Current Medications Sig/Lelo Start time Last Medication Dose Route Stop Time Status Admin Albuterol Sulfate 3 ML EVERY 4 HRS/AWAKE 03/24 1600 AC 03/27 INH 2122 Albuterol Sulfate 2 PUF Q6P PRN 03/21 1800 AC 03/22 INH 1010 Alprazolam 0.5 MG TID PRN 03/22 1345 AC 03/25 PO 03/29 1344 2145 Amlodipine Besylate 5 MG DAILY 03/22 1000 AC 03/27 PO 1005 Atorvastatin Calcium 40 MG DAILY@1700 03/22 1700 AC 03/27 PO 1653 Digoxin 0.125 MG 1700 03/26 1700 AC 03/27 PO 1653 Diltiazem HCl 120 MG DAILY 03/26 1000 AC 03/27 PO 1005 Docusate Sodium 100 MG BID 03/24 1000 AC 03/27 PO 2200 Escitalopram Oxalate 20 MG DAILY 03/22 1000 AC 03/27 PO 1005 Heparin Sodium 5,000 UNIT Q8 03/21 2200 AC 03/28 (Porcine) SC 0555 Hydromorphone HCl 0.5 MG Q4P PRN 03/24 0930 AC IV Hydroxychloroquine 200 MG DAILY 03/22 1000 AC 03/27 Sulfate PO 1004 Insulin Aspart 0 TIDAC 03/24 1200 AC 03/27 SC 1653 Insulin Detemir 25 UNITS QPM 03/22 2200 AC 03/27 SC 2205 Omeprazole 40 MG DAILY AC 03/22 0700 AC 03/28 PO 0611 Ondansetron HCl 4 MG Q6P PRN 03/21 1800 AC IV Oxycodone/ 1 TAB Q4P PRN 03/24 0930 AC 03/28 Acetaminophen PO 0544 Oxycodone/ 2 TAB Q4P PRN 03/24 0930 AC 03/27 Acetaminophen PO 1458 Polyethylene Glycol 17 GM DAILY 03/24 1000 AC 03/27 PO 1004 Prednisone 5 MG DAILY 03/22 1000 AC 03/27 PO 1004 Pregabalin 75 MG BID 03/21 220 AC 03/27 PO 2200 Sulfasalazine 500 MG DAILY 03/22 1000 AC 03/27 PO 1004 Tamsulosin HCl 0.4 MG DAILY 03/22 1000 AC 03/27 PO 1005 Results Last 48 Hrs of Labs/Mics: Laboratory Tests 03/27/16 0455: Anion Gap 5, Estimated GFR > 60, Glucose 112 H, Calcium 10.4 H, Phosphorus 3.6 , Magnesium 1.7, Total Bilirubin 0.3, AST 21, ALT 35, Albumin 2.8 L, CBC w Diff NO MAN DIFF REQ, RBC 3.70 L, MCV 84.1, MCH 27.8, RDW 16.2 H, MPV 8.5, Gran % 67.3, Lymphocytes % 19.1 L, Monocytes % 10.8 H, Eosinophils % 2.4, Basophils % 0.4, Absolute Granulocytes 7.3 H, Absolute Lymphocytes 2.1, Absolute Monocytes 1.2 H, Absolute Eosinophils 0.3, Absolute Basophils 0, PUBS MCHC 33.1 Assessment/Plan Assessment/Plan In summary this 75-year-old gentleman has the following problems 75-year-old gentleman with a past medical history of diabetes mellitus, COPD, gastroesophageal reflux disease, hypertension and hyperlipidemia. He as well has a history of lung cancer, status post right upper lung lobectomy. He presented for a right lower lung lobectomy and lymph node resection, undergoing the same on 03/21/2016. We are consulted for new onset atrial fibrillation. Atrial fibrillation: The patient had paroxysmal atrial fibrillation postoperative from a lung resection. He has maintained sinus rhythm following his initial brief short episodes. Given this, we will maintain him off of anticoagulation... Since he already is on amlodipine I would probably change diltiazem to metoprolol tartrate 25 mg twice a day. Digoxin may be continued for now although on a long -term basis I don't believe this needs to be continued. Lungs CA: Awaiting pathology report. Further as per oncology and thoracic surgery. Hypertension: Further optimization of treatment will be made following recovery from the acute event. Titration of his medications will depend on atrial fibrillation control. Continue telemetry? Yes probably may be transferred to telemetry bed Continue telemetry? Yes
--- NOTE | 2016-03-28 08:42 | PN- Housestaff ---
Subjective Follow-up For: POD7, for right lower lobectomy for RLL lung cancer. Subjective: Patient was seen and examined, he looks relaxed and comfortable. No acute overnight events were reported by the patient or his nurse. His pain improved. Patient is still normal sinus rhythm, his heart rate is well controlled (70s). He is Maintaining O2 sats of 91-93% on 3L NC. Has had difficulty voiding requiring straight cath yesterday however today he voided 800 mL without the need of straight cath. Review of Systems Constitutional: Reports: see HPI. Denies: chills, diaphoresis, fever. Objective Last 24 Hrs of Vital Signs/I&O Vital Signs Date Time Temp Pulse Resp B/P Pulse O2 O2 Flow FiO2 Ox Delivery Rate 03/28 0858 142/62 03/28 0856 93 142/62 03/28 0400 97.5 80 18 150/70 96 Nasal 2.0L Cannula 03/28 0000 93 Nasal 3.0L Cannula 03/28 0000 98.8 80 26 148/80 93 Nasal 3.0L Cannula 03/27 1821 93 Nasal 3.0L Cannula 03/27 1653 78 140/70 03/27 1600 93 Nasal 3.0L Cannula 03/27 1600 97.9 84 22 140/70 94 Nasal 3.0L Cannula Intake & Output 03/28 1600 03/28 0800 03/28 0000 Intake Total 300 480 Output Total 1050 Balance -750 480 Intake, Oral 300 480 Number 0 Bowel Movements Output, Urine 1050 Physical Exam General Appearance: Alert, Oriented X3, Cooperative, No Acute Distress Skin: No Rashes HEENT: Atraumatic, PERRLA, EOMI, Mucous Membr. moist/pink Neck: No JVD Cardiovascular: Regular Rate, Normal S1, Normal S2, No Murmurs Lungs: Clear to Auscultation Abdomen: Soft, No Tenderness Neurological: Normal Speech Extremities: No Edema Current Medications: Current Medications Sig/Lelo Start time Last Medication Dose Route Stop Time Status Admin Albuterol Sulfate 3 ML EVERY 4 HRS/AWAKE 03/24 1600 AC 03/28 INH 0823 Albuterol Sulfate 2 PUF Q6P PRN 03/21 1800 AC 03/22 INH 1010 Alprazolam 0.5 MG TID PRN 03/22 1345 AC 03/25 PO 03/29 1344 2145 Amlodipine Besylate 5 MG DAILY 03/22 1000 AC 03/28 PO 0856 Atorvastatin Calcium 40 MG DAILY@1700 03/22 1700 AC 03/27 PO 1653 Digoxin 0.125 MG 1700 03/26 1700 AC 03/27 PO 1653 Diltiazem HCl 120 MG DAILY 03/26 1000 DC 03/28 PO 0858 Docusate Sodium 100 MG BID 03/24 1000 AC 03/28 PO 0859 Escitalopram Oxalate 20 MG DAILY 03/22 1000 AC 03/28 PO 0858 Heparin Sodium 5,000 UNIT Q8 03/21 2200 AC 03/28 (Porcine) SC 0555 Hydromorphone HCl 0.5 MG Q4P PRN 03/24 0930 AC IV Hydroxychloroquine 200 MG DAILY 03/22 1000 AC 03/28 Sulfate PO 0856 Insulin Aspart 0 TIDAC 03/24 1200 AC 03/28 SC 0825 Insulin Detemir 25 UNITS QPM 03/22 2200 AC 03/27 SC 2205 Metoprolol Tartrate 25 MG BID 03/28 2200 AC PO Omeprazole 40 MG DAILY AC 03/22 0700 AC 03/28 PO 0611 Ondansetron HCl 4 MG Q6P PRN 03/21 1800 AC IV Oxycodone/ 1 TAB Q4P PRN 03/24 0930 AC 03/28 Acetaminophen PO 0544 Oxycodone/ 2 TAB Q4P PRN 03/24 0930 AC 03/27 Acetaminophen PO 1458 Polyethylene Glycol 17 GM DAILY 03/24 1000 AC 03/28 PO 0855 Prednisone 5 MG DAILY 03/22 1000 AC 03/28 PO 0855 Pregabalin 75 MG BID 03/21 2200 AC 03/28 PO 0856 Sulfasalazine 500 MG DAILY 03/22 1000 AC 03/28 PO 0859 Tamsulosin HCl 0.4 MG DAILY 03/22 1000 AC 03/28 PO 0858 Last 24 Hrs of Lab/Abelardo Results Last 24 Hrs of Labs/Mics: Laboratory Tests 03/28/16 0855: Anion Gap 8, Estimated GFR > 60, Glucose 176 H, Calcium 10.6 H, Phosphorus 3.4 , Magnesium 1.7, Total Bilirubin 0.4, AST 30, ALT 62, Albumin 3.2 L, CBC w Diff NO MAN DIFF REQ, RBC 3.96 L, MCV 84.9, MCH 27.4, RDW 16.5 H, MPV 7.9, Gran % 76.0 H, Lymphocytes % 10.8 L, Monocytes % 10.9 H, Eosinophils % 2.2, Basophils % 0.1, Absolute Granulocytes 11.0 H, Absolute Lymphocytes 1.6, Absolute Monocytes 1.6 H, Absolute Eosinophils 0.3, Absolute Basophils 0, PUBS MCHC 32.2 L Assessment/Plan Assessment: #Right lower lobe lobectomy Postoperative day 7 for right lower lobectomy and mediastinal lymph node dissection. his chest tube was removed currently on 3 L of oxygen. He will most likely need to be discharge on oxygen as he keep desaturating when we try to wean him. * Will continue patient on oxygen as needed * We will follow up cardio thoracic surgery recommendations * Most likely patient will need a short rehabilitation #Chronic obstructive pulmonary disease Patient has history of COPD not on home oxygen * continue the patient on home prednisone 5 mg daily * TRC evaluation * nebulization as needed #Hypertension * Continue to monitor blood pressure every shift * continue home medication amlodipine 5 mg daily * Today we will start metoprolol to control heartrate #Onset A. fib(currently on normal sinus rhythm) He had new onset A. fib that started for the first time ever during hospital stay. Patient electrolytes were within normal limits, troponin was negative, EKG showing no changes, TSH and T4. Now patient is back to normal sinus rhythm. Today his heart is well controlled with Cardizem 120 CD by mouth and digoxin. However cardiology would like to switch his Cardizem to metoprolol given the fact that patient is on amlodipine. Patient already received Cardizem this morning, we will put metoprolol to start at 10 PM if blood pressure and heartrate can tolerate * We will switch Cardizem 120 CD to metoprolol 25 mg twice a day * We will continue digoxin 0.125 mg by mouth for now, to be discussed with cardiology tomorrow * We will replete electrolytes when necessary * Cardiology is on board we will follow his recommendation * We will hold his anticoagulant because of his surgery history #BPH Continue Tamsulosin 0.4 mg daily. #Hyperlipidemia Continue atorvastatin 40 mg daily and low-fat diet #Mild Hypercalcemia today his calcium is 10.6, when we corrected to the albumin become 11.2. He denies any symptoms suggestive of hypercalcemia. This is asymptomatic less than 12 hypercalcemia and that makes it mild and does not need urgent treatment. * We will ask patient to ambulate * We will ask patient to drink water * We'll repeat calcium tomorrow if still elevated he may use normal saline #GERD Continue with omeprazole 40 mg daily. #Abdominal distention and pain(resolved) Denies any current abdominal pain or distention #Diabetes mellitus Will hold patient oral antidiabetic medications. * keep him on insulin sliding scale low-dose * Accu-Cheks * consistent carbohydrate 3 diet DVT PPx heparin SC consistent carbohydrate 3 diet Full code Problem List: 1. S/P lobectomy of lung Pain Ratin Pain Location: The site of the chest tube and the surgical incision on the back of the chest Pain Goal: Remain pain free Pain Plan: Oxycodone Tomorrow's Labs & Rationales: CBC and BEP
--- NOTE | 2016-03-28 09:19 | PN- Pulmonary ---
Subjective HPI/Critical Care Issues: pt seen and examined afebrile hemodynamically stable calcium slighltly trending up no new events 96% on 2LNC Objective Current Medications: Current Medications Sig/Lelo Start time Last Medication Dose Route Stop Time Status Admin Albuterol Sulfate 3 ML EVERY 4 HRS/AWAKE 03/24 1600 AC 03/28 INH 0823 Albuterol Sulfate 2 PUF Q6P PRN 03/21 1800 AC 03/22 INH 1010 Alprazolam 0.5 MG TID PRN 03/22 1345 AC 03/25 PO 03/29 1344 2145 Amlodipine Besylate 5 MG DAILY 03/22 1000 AC 03/28 PO 0856 Atorvastatin Calcium 40 MG DAILY@1700 03/22 1700 AC 03/27 PO 1653 Digoxin 0.125 MG 1700 03/26 1700 AC 03/27 PO 1653 Diltiazem HCl 120 MG DAILY 03/26 1000 AC 03/28 PO 0858 Docusate Sodium 100 MG BID 03/24 1000 AC 03/28 PO 0859 Escitalopram Oxalate 20 MG DAILY 03/22 1000 AC 03/28 PO 0858 Heparin Sodium 5,000 UNIT Q8 03/21 2200 AC 03/28 (Porcine) SC 0555 Hydromorphone HCl 0.5 MG Q4P PRN 03/24 0930 AC IV Hydroxychloroquine 200 MG DAILY 03/22 1000 AC 03/28 Sulfate PO 0856 Insulin Aspart 0 TIDAC 03/24 1200 AC 03/28 SC 0825 Insulin Detemir 25 UNITS QPM 03/22 2200 AC 03/27 SC 2205 Omeprazole 40 MG DAILY AC 03/22 0700 AC 03/28 PO 0611 Ondansetron HCl 4 MG Q6P PRN 03/21 1800 AC IV Oxycodone/ 1 TAB Q4P PRN 03/24 0930 AC 03/28 Acetaminophen PO 0544 Oxycodone/ 2 TAB Q4P PRN 03/24 0930 AC 03/27 Acetaminophen PO 1458 Polyethylene Glycol 17 GM DAILY 03/24 1000 AC 03/28 PO 0855 Prednisone 5 MG DAILY 03/22 1000 AC 03/28 PO 0855 Pregabalin 75 MG BID 03/21 2200 AC 03/28 PO 0856 Sulfasalazine 500 MG DAILY 03/22 1000 AC 03/28 PO 0859 Tamsulosin HCl 0.4 MG DAILY 03/22 1000 AC 03/28 PO 0858 Vital Signs & I&O Last 24 Hrs of Vitals and I&O: Vital Signs Date Time Temp Pulse Resp B/P Pulse O2 O2 Flow FiO2 Ox Delivery Rate 03/28 0858 142/62 03/28 0856 93 142/62 03/28 0400 97.5 80 18 150/70 96 Nasal 2.0L Cannula 03/28 0000 93 Nasal 3.0L Cannula 03/28 0000 98.8 80 26 148/80 93 Nasal 3.0L Cannula 03/27 1821 93 Nasal 3.0L Cannula 03/27 1653 78 140/70 03/27 1600 93 Nasal 3.0L Cannula 03/27 1600 97.9 84 22 140/70 94 Nasal 3.0L Cannula 03/27 1005 90 130/70 03/27 1005 90 130/70 Intake & Output 03/28 1600 03/28 0800 03/28 0000 Intake Total 300 480 Output Total 1050 Balance -750 480 Intake, Oral 300 480 Number 0 Bowel Movements Output, Urine 1050 Exam Other Physical Findings: General - Alert, awake and oriented HEENT - normocephalic, atraumatic Cardiovascular - S1, S2 Lungs - rare rhonchi Abdomen - soft, bowel sounds positive, no tenderness Extremities - without edema or cyanosis Results Last 24 Hrs of Lab Results: Laboratory Tests 03/28/16 0855: Sodium Pending, Potassium Pending, Chloride Pending, Carbon Dioxide Pending, Anion Gap Pending, BUN Pending, Creatinine Pending, Glucose Pending, Calcium Pending, Phosphorus Pending, Magnesium Pending, Total Bilirubin Pending, AST Pending, ALT Pending, Albumin Pending, CBC w Diff Pending, WBC Pending, RBC Pending, Hgb Pending, Hct Pending, MCV Pending, MCH Pending, RDW Pending, Plt Count Pending, MPV Pending, PUBS MCHC Pending Impression/Plan Impression/Plan Impression/Plan: Impression 75 year old man hx lung ca, s/p right lower lobecotmy, lymph node dissection. Brief period of a.fib now in sinus rhythm. Atelectasis/element of congestion. Plan -pathology follow up -cardiology follow up -pain control -ins/outs -IST/flutter device -TRC/Nebs -DVT prophylaxis at all times tele
--- NOTE | 2016-03-28 09:21 | NUR ---
A&OX3, AFEBRILE,F.S.185;DENIES PAIN; VSS, DENIES CP, PALPITATIONS, NSR 70-90, BP 142/62, NO ECTOPY NOTED ON TELE MONITOR; 3LNC O2 SAT 95%, NO WHEEZING, NO CRACKLES NOTED, ASSISTANCE & ENCOURGAGEMENT GIVEN W/ IST & ACAPELA; PER DR. HALL'S ORDER MONITOR AN O2 SAT SITTING IN CHAIR OFF O2 RESULTING IN SAT OF 85%; DESATS ON 3L DURING AMBULATION, CDI DSG AT OLD C/T SITE, NO CREPITUS NOTED, SURGICAL SITE LARS W/STERI STRIPS NO REDNESS, NO DISCHARGE; PRODUCTIVE COUGH SMALL AMOUNTS THICK ANN SPUTUM; TOLERATING PO; OOB ASSIST X1 & RW TO TOILET & CHAIR;
[2016-03-28 09:50] LABS: ABSOLUTE BASOPHIL COUNT 0 /CUMM (0.0-0.2); ABSOLUTE EOSINOPHIL COUNT 0.3 /CUMM (0.0-0.7); ABSOLUTE LYMPH COUNT 1.6 /CUMM (1.2-3.4); ABSOLUTE MONOCYTE COUNT 1.6 /CUMM (0.10-0.60); BASOPHIL % 0.1 % (0.0-2.0); EOSINOPHIL % 2.2 % (0-5); HEMATOCRIT 33.6 % (42-52); MEAN CORPUSCULAR HGB 27.4 PG (27.0-31.0); MEAN CORPUSCULAR HGB CONC 32.2 G/DL (33.0-37.0); MEAN CORPUSCULAR VOLUME 84.9 FL (80.0-94.0); MEAN PLATELET VOLUME 7.9 FL (7.4-10.4); PLATELET COUNT 405 /CUMM (130-400); RBC DISTRIBUTION WIDTH 16.5 % (11.5-14.5); RED BLOOD CELL CT 3.96 /CUMM (4.70-6.10); WHITE BLOOD CELL COUNT 14.5 /CUMM (4.8-10.8)
--- NOTE | 2016-03-28 10:34 | RADIOLOGY REPORT ---
EXAMINATION: XR PORTABLE CHEST CLINICAL INFORMATION: Postop thoracotomy, lobectomy COMPARISON: X-ray chest portable 03/27/2016 and 03/26/2016. TECHNIQUE: Portable AP view of the chest was obtained. FINDINGS: Multiple devices overlie the patient. There is calcification of the aorta. The cardiac size and right hilum are indeterminate due to extensive reticular and airspace opacity in the right hemithorax. There is no dense consolidation of the left lung. There is some pleural density in the right lower chest. There is no definite pneumothorax. There are surgical clips at the region of the sternal notch. IMPRESSION: There is extensive opacity throughout the right hemithorax. This is slightly improved. No consolidation has developed in the left lung.
[2016-03-28 16:00] VITALS: BP 142/64
--- NOTE | 2016-03-28 20:07 | NUR ---
PATIENT ALERT AND ORIENTED. MONITOR SINUS RYTHM AT RATE OF 77.O2 SAT=93% ON 3L NASAL O2.AMBULATED TO BATHROOM.NO DYSPNEA NOTED.DRESSING R SIDE OF CHEST DRY AND INTACT. STERI STRIPS ALOMG BACK INTACT.
[2016-03-28 22:00] VITALS: BP 144/60
[2016-03-29 05:18] LABS: ABSOLUTE BASOPHIL COUNT 0 /CUMM (0.0-0.2); ABSOLUTE EOSINOPHIL COUNT 0.3 /CUMM (0.0-0.7); ABSOLUTE LYMPH COUNT 1.4 /CUMM (1.2-3.4); ABSOLUTE MONOCYTE COUNT 1.7 /CUMM (0.10-0.60); BASOPHIL % 0.3 % (0.0-2.0); GRANULOCYTE % 76.1 % (42.2-75.2); HEMATOCRIT 32.1 % (42-52); MEAN CORPUSCULAR HGB 27.3 PG (27.0-31.0); MEAN CORPUSCULAR HGB CONC 32.6 G/DL (33.0-37.0); MEAN CORPUSCULAR VOLUME 83.9 FL (80.0-94.0); MEAN PLATELET VOLUME 7.9 FL (7.4-10.4); PLATELET COUNT 405 /CUMM (130-400); RBC DISTRIBUTION WIDTH 16.6 % (11.5-14.5); RED BLOOD CELL CT 3.83 /CUMM (4.70-6.10); WHITE BLOOD CELL COUNT 14.4 /CUMM (4.8-10.8)
--- NOTE | 2016-03-29 06:52 | PN- Thoracic Surgery ---
Subjective Subjective: The patient was seen this morning postoperatively day #8. He has no complaints the current time and reports this pain is under adequate control. He denies any chest pain, difficulty breathing, or palpitations. Objective Vital Signs and I&Os Vital Signs Date Time Temp Pulse Resp B/P Pulse O2 O2 Flow FiO2 Ox Delivery Rate / 0000 95 Nasal 3.0L Cannula / 2200 98.9 86 20 144/60 93 Nasal 3.0L Cannula / 2153 98.9 86 20 144/60 02/02 1654 96 142/64 02/02 1600 96 Nasal 3.0L Cannula / 1600 98.7 96 27 142/64 96 Nasal 3.0L Cannula / 1600 94 Nasal 3.0L Cannula 03/28 1233 95 Nasal 3.0L Cannula 03/28 1101 Nasal 3.0L Cannula 03/28 0858 142/62 02/ 0856 93 142/62 / 0800 94 Nasal 3.0L Cannula 03/28 0800 98.7 72 25 142/62 94 Nasal 3.0L Cannula Intake & Output 03/29 0800 02/03 0000 02/02 1600 02/02 0800 02/ 0000 02/01 1600 Intake Total 200 200 840 300 480 560 Output Total 1100 1400 1800 1050 800 Balance -900 -1200 -960 -750 480 -240 Intake, IV 0 0 Intake, Oral 200 200 840 300 480 560 Number 0 0 0 Bowel Movements Output, Urine 1100 1400 1800 1050 800 Physical Exam: Gen.: Alert and in no obvious distress Skin: Warm and dry Chest: Equal expansion, mild incisional tenderness, surgical dressings are clean , dry, and intact. Cardiac: S1-S2 regular Pulmonary: Bilateral breath sounds are equal and slightly decreased at bases Extremities: Bilateral lower extremities are warm without calf tenderness. Assessment/Plan Assessment/Plan Assessment: 75-year-old male status post thoracotomy and right lower lobectomy postoperative day #8. The patient is progressing as expected and his pain is under adequate control. He is oxygenating adequately on 3 L via nasal cannula. He is currently in sinus rhythm and rate controlled on by mouth medications adjusted by cardiology. Plan: Total respiratory care per postrecovery protocol Follow-up morning laboratory studies Out of bed with physical therapy Continue current pain regiment Follow-up pulmonary and cardiology consultation recommendations GI and DVT prophylaxis Discharged to short-term rehabilitation once bed is available Core Measures/Miscellaneous Brice Catheter Date In: 03/21/16 Venous Thromboembolism VTE Risk Factors: Cancer/chemo/oth therapy, Surgery VTE Contraindications: No Contraindications VTE Prophylaxis Ordered Inpt: Mech & Pharm VTE Diagnosis: No VTE Type: NONE VTE Confirmed by (Test): NONE Beta Sonali Is Beta Sonali a Home Med? No Antibiotics Is Patient on Antibiotics? No
--- NOTE | 2016-03-29 07:35 | PN- Housestaff ---
See Addendum Subjective Follow-up For: POD8, for right lower lobectomy for RLL lung cancer. Subjective: Patient was seen and examined. He looks relaxed and comfortable. No acute overnight events were reported by the patient or his nurse. His pain improved. Patient is still normal sinus rhythm, his heart rate is well controlled (70s). She has no difficulty voiding currently. He is Maintaining O2 sats of 91-93% on 3L NC however he desaturated without oxygen, patient may need to be discharged on oxygen. Review of Systems Constitutional: Reports: see HPI. Denies: chills, diaphoresis, fever. Objective Last 24 Hrs of Vital Signs/I&O Vital Signs Date Time Temp Pulse Resp B/P Pulse O2 O2 Flow FiO2 Ox Delivery Rate 03/29 0000 95 Nasal 3.0L Cannula 03/28 2200 98.9 86 20 144/60 93 Nasal 3.0L Cannula 03/28 2153 98.9 86 20 144/60 03/28 1654 96 142/64 03/28 1600 96 Nasal 3.0L Cannula 03/28 1600 98.7 96 27 142/64 96 Nasal 3.0L Cannula 03/28 1600 94 Nasal 3.0L Cannula 03/28 1233 95 Nasal 3.0L Cannula 03/28 1101 Nasal 3.0L Cannula 03/28 0858 142/62 03/28 0856 93 142/62 Intake & Output 03/29 1600 /03 0800 03/29 0000 Intake Total 200 320 Output Total 1100 2100 Balance -900 -1780 Intake, Oral 200 320 Number 0 Bowel Movements Output, Urine 1100 2100 Physical Exam General Appearance: Alert, Oriented X3, Cooperative, No Acute Distress Skin: No Rashes HEENT: Atraumatic, PERRLA, EOMI Neck: No JVD Cardiovascular: Regular Rate, Normal S1, Normal S2, No Murmurs Lungs: Clear to Auscultation, Normal Air Movement Abdomen: Soft, No Tenderness Neurological: Normal Speech Extremities: No Edema Current Medications: Current Medications Sig/Lelo Start time Last Medication Dose Route Stop Time Status Admin Albuterol Sulfate 3 ML EVERY 4 HRS/AWAKE 03/24 1600 AC 03/29 INH 0811 Albuterol Sulfate 2 PUF Q6P PRN 03/21 1800 AC 03/22 INH 1010 Alprazolam 0.5 MG TID PRN 03/22 1345 AC 03/25 PO 03/29 1344 2145 Amlodipine Besylate 5 MG DAILY 03/22 1000 AC 03/28 PO 0856 Atorvastatin Calcium 40 MG DAILY@1700 03/22 1700 AC 03/28 PO 1654 Digoxin 0.125 MG 1700 03/26 1700 AC 03/28 PO 1654 Diltiazem HCl 120 MG DAILY 03/26 1000 DC 03/28 PO 0858 Docusate Sodium 100 MG BID 03/24 1000 AC 03/28 PO 2153 Escitalopram Oxalate 20 MG DAILY 03/22 1000 AC 03/28 PO 0858 Heparin Sodium 5,000 UNIT Q8 03/21 2200 AC 03/29 (Porcine) SC 0634 Hydromorphone HCl 0.5 MG Q4P PRN 03/24 0930 AC IV Hydroxychloroquine 200 MG DAILY 03/22 1000 AC 03/28 Sulfate PO 0856 Insulin Aspart 0 TIDAC 03/24 1200 AC 03/28 SC 1655 Insulin Detemir 25 UNITS QPM 03/22 2200 AC 03/28 SC 2148 Metoprolol Tartrate 25 MG BID 03/28 2200 AC 03/28 PO 2153 Omeprazole 40 MG DAILY AC 03/22 0700 AC 03/29 PO 0633 Ondansetron HCl 4 MG Q6P PRN 03/21 1800 AC IV Oxycodone/ 1 TAB Q4P PRN 03/24 0930 AC 03/28 Acetaminophen PO 1550 Oxycodone/ 2 TAB Q4P PRN 03/24 0930 AC 03/29 Acetaminophen PO 0210 Polyethylene Glycol 17 GM DAILY 03/24 1000 AC 03/28 PO 0855 Prednisone 5 MG DAILY 03/22 1000 AC 03/28 PO 0855 Pregabalin 75 MG BID 03/21 2200 AC 03/28 PO 2154 Sulfasalazine 500 MG DAILY 03/22 1000 AC 03/28 PO 0859 Tamsulosin HCl 0.4 MG DAILY 03/22 1000 AC 03/28 PO 0858 Last 24 Hrs of Lab/Abelardo Results Last 24 Hrs of Labs/Mics: Laboratory Tests 03/29/16 0435: Anion Gap 7, Estimated GFR > 60, Glucose 108 H, Calcium 10.6 H, Phosphorus 3.6 , Magnesium 1.8, Total Bilirubin 0.3, AST 36, ALT 47, Albumin 3.0 L, CBC w Diff NO MAN DIFF REQ, RBC 3.83 L, MCV 83.9, MCH 27.3, RDW 16.6 H, MPV 7.9, Gran % 76.1 H, Lymphocytes % 9.5 L, Monocytes % 12.1 H, Eosinophils % 2.0, Basophils % 0.3, Absolute Granulocytes 11.0 H, Absolute Lymphocytes 1.4, Absolute Monocytes 1.7 H, Absolute Eosinophils 0.3, Absolute Basophils 0, PUBS MCHC 32.6 L 03/28/16 0855: Anion Gap 8, Estimated GFR > 60, Glucose 176 H, Calcium 10.6 H, Phosphorus 3.4 , Magnesium 1.7, Total Bilirubin 0.4, AST 30, ALT 62, Albumin 3.2 L, CBC w Diff NO MAN DIFF REQ, RBC 3.96 L, MCV 84.9, MCH 27.4, RDW 16.5 H, MPV 7.9, Gran % 76.0 H, Lymphocytes % 10.8 L, Monocytes % 10.9 H, Eosinophils % 2.2, Basophils % 0.1, Absolute Granulocytes 11.0 H, Absolute Lymphocytes 1.6, Absolute Monocytes 1.6 H, Absolute Eosinophils 0.3, Absolute Basophils 0, PUBS MCHC 32.2 L Assessment/Plan Assessment: #Right lower lobe lobectomy POD 8 for right lower lobectomy and mediastinal lymph node dissection. his chest tube was removed. Currently on 3 L of oxygen saturating in the lower 90s. He will most likely need to be discharge on oxygen as he keep desaturating when we try to wean him. * Will continue patient on oxygen as needed * We will follow up cardio thoracic surgery recommendations * Most likely patient will need a short rehabilitation #Chronic obstructive pulmonary disease Patient has history of COPD not on home oxygen * continue the patient on home prednisone 5 mg daily * TRC evaluation * nebulization as needed #Hypertension * Continue to monitor blood pressure every shift * continue home medication amlodipine 5 mg daily * Continue metoprolol to control heartrate #Onset A. fib(currently on normal sinus rhythm) He had new onset A. fib that started for the first time ever during hospital stay. Patient electrolytes were within normal limits, troponin was negative, EKG showing no changes, TSH and T4. Now patient is back to normal sinus rhythm. Today his heart is well controlled with Cardizem 120 CD by mouth and digoxin. However cardiology switched his Cardizem to metoprolol given the fact that patient is on amlodipine. * We will Continue metoprolol 25 mg twice a day * We will continue digoxin 0.125 mg by mouth for now, to be discussed with cardiology tomorrow * We will replete electrolytes when necessary * Cardiology is on board we will follow his recommendation * We will hold his anticoagulant because of his surgery history #BPH Continue Tamsulosin 0.4 mg daily. #Hyperlipidemia Continue atorvastatin 40 mg daily and low-fat diet #Mild Hypercalcemia today his calcium is 10.6, when we corrected to the albumin become 11.4. He denies any symptoms suggestive of hypercalcemia. This is asymptomatic less than 12 hypercalcemia and that makes it mild and does not need urgent treatment. * We will ask patient to ambulate * We will ask patient to drink water * We'll repeat calcium tomorrow if still elevated he may use normal saline #GERD Continue with omeprazole 40 mg daily. #Abdominal distention and pain(resolved) Denies any current abdominal pain or distention #Diabetes mellitus Will hold patient oral antidiabetic medications. * keep him on insulin sliding scale low-dose * Accu-Cheks * consistent carbohydrate 3 diet DVT PPx heparin SC consistent carbohydrate 3 diet Full code Problem List: 1. S/P lobectomy of lung Pain Ratin Pain Location: righrt chest over the chest tube site Pain Goal: Remain pain free Pain Plan: see A&P Tomorrow's Labs & Rationales: cbc and bep
[2016-03-29 08:00] VITALS: BP 124/60
--- NOTE | 2016-03-29 08:49 | Patient Discharge Instructions ---
Discharge Instructions General Discharge Information You were seen/treated for: right lower lobe lung cancer You had these procedures: right lower lobe lobectomy Watch for these problems: increased chest pain, sob, increased O2 requirements, increased wound drainage/ redness Call Surgeon to remove: Wisam No bath, but you may shower: Yes Other wound care: keep wound clean and dry Diet Continue normal diet: Yes Activity Activity Limited to: Weight bear as tolerated Other activity limits: no strenous activity Acute Coronary Syndrome Inclusion Criteria At DC or during hospital stay patient has or had the following: ACS DIAGNOSIS No Discharge Core Measures Meds if any: Prescribed or Continued at Discharge Meds if any: NOT Prescribed or Continued at Discharge Congestive Heart Failure Inclusion Criteria At DC or during hospital stay patient has or had the following: CHF DIAGNOSIS No Discharge Core Measures Meds if any: Prescribed or Continued at Discharge Meds if any: NOT Prescribed or Continued at Discharge Cerebrovascular accident Inclusion Criteria At DC or during hospital stay patient has or had the following: CVA/TIA Diagnosis No Discharge Core Measures Meds if any: Prescribed or Continued at Discharge Meds if any: NOT Prescribed or Continued at Discharge Venous thromboembolism Inclusion Criteria VTE Diagnosis No VTE Type NONE VTE Confirmed by (Test) NONE Discharge Core Measures - Per Current guidelines, there needs to be overlap - treatment for the first 5 days of Warfarin therapy. - If discharged on Warfarin prior to 5 days of - overlap therapy, the patient will need to be - assessed for post discharge needs including - *Post discharge parental anticoagulation - *Warfarin and/or parental anticoagulation education - *Follow up date to check INR post discharge At least 5 days overlap therapy as Inpatient No Meds if any: Prescribed or Continued at Discharge Note: Overlap Therapy is Warfarin and Anticoagulant Meds if any: NOT Prescribed or Continued at Discharge
--- NOTE | 2016-03-29 09:02 | Discharge Summary ---
Visit Information Visit Dates Admission Date: 03/21/16 Discharge Date: 03/29/16 Hospital Course Course Attending Physician: ARTEMIO KEMP,JAIR Anderson JR Primary Care Physician: SIOMARA MARCELINO MD Other Care Providers: Dr Segal, pulmonary/crit care Dr Alexandre, cardiology Hospital Course: Mr. Maldonado is 75-year-old male who was taken to the operating room on 03/21/2016 and underwent a right lower lobe lobectomy for right lung CA. He tolerated procedure well and he was transferred to the intensive care unit for monitoring. Postoperatively his course advanced as planned and on postop day 3 his right chest tube was removed. He developed hypoxia that evening at which time he was worked up for a pulmonary embolism and his CT angiogram of his chest was negative for PE. However did reveal pulmonary pleural effusion for which he received Lasix and aggressive pulmonary toilet. On 03/24/2016 the cardiac nurse specialist revealed new onset A. fib and the patient was placed on IV antiarrhythmics. He was evaluated by cardiology and it was determined that this was not an ischemic event. He was eventually changed to oral antiarrhythmics and his heart rate remained stable without ectopy. On Friday03/29/2016 he was cleared by all consulting services for discharge on day of discharge he still required 3 L of oxygen for which she will be discharged on and wean according to respiratory protocol. Complications: New onset atrial fibrillation Allergies: Coded Allergies: No Known Allergies (03/18/16) Significant Procedures: right lower lobe lobectomy Disposition Summary Disposition Principal Diagnosis: right lowe lobe lung cancer Additional Diagnosis: Atrial fibrillation Discharge Disposition: SNF Discharge Instructions General Discharge Information Code Status: Full Code Patient's Diet: diabetic diet Patient's Activity: may be oob wbat Continue with nasal cannula oxygen but wean as O2 requirements decrease Follow-Up Instructions/Appts: f/u with dr moon in 2 weeks Medications at Discharge Discharge Medications: Continue taking these medications: Tramadol HCl (Tramadol HCl) 50 MG TABLET 1 Tablet ORAL THREE TIMES DAILY as needed for PAIN Comments: Last Taken: NOT GIVEN IN HOSPITAL Time: DOCUMENTED PER CMR DURING PRE-SX INTERVIEW Hydroxychlorquine (Plaquenil) 200 MG TABLET 1 Tablet ORAL DAILY Comments: Last Taken: 03/29/16 Time: 0930AM DOCUMENTED PER CMR DURING PRE-SX INTERVIEW Tamsulosin HCl (Flomax) 0.4 MG CAP.ER.24H 1 Capsule ORAL DAILY Comments: Last Taken: 03/29/16 Time: 0930 AM DOCUMENTED PER CMR DURING PRE-SX INTERVIEW Metformin HCl (Glucophage) 1,000 MG TABLET 1 Tablet ORAL TWICE DAILY Comments: Last Taken: NOT GIVEN IN HOSPITAL Time: DOCUMENTED PER CMR DURING PRE-SX INTERVIEW Prednisone (Prednisone) 5 MG TABLET 1 Tablet ORAL DAILY Comments: Last Taken: 03/29/16 Time: 0930AM DOCUMENTED PER CMR DURING PRE-SX INTERVIEW Amlodipine Besylate (Amlodipine Besylate) 5 MG TABLET 1 Tablet ORAL DAILY Comments: Last Taken: 03/29/16 Time: 930 AM DOCUMENTED PER CMR DURING PRE-SX INTERVIEW Atorvastatin Calcium (Atorvastatin Calcium) 40 MG TABLET 1 Tablet ORAL DAILY Comments: Last Taken: 03/28/16 Time: 4:54 PM DOCUMENTED PER CMR DURING PRE-SX INTERVIEW Insulin Aspart (Novolog) 100 UNIT/ML VIAL 15 Units Inject into fatty tissue 3 TIMES DAILY BEFORE MEALS Comments: Last Taken: 03/28/16 455 PM. PT ON SLIDING SCALE IN HOSPITAL Time: DOCUMENTED PER CMR DURING PRE-SX INTERVIEW Liraglutide (Victoza 2-Britton) 0.6 MG/0.1 ML (18 MG/3 ML) PEN.INJCTR 1.2 Milligram Inject into fatty tissue Every night Comments: Last Taken: NOT GIVIN IN HOSPITAL Time: DOCUMENTED PER CMR DURING PRE-SX INTERVIEW Insulin Detemir (Levemir) 100 UNIT/ML VIAL 25 Units Inject into fatty tissue Every night Comments: Last Taken: 03/29/16 9:48 PM Time: DOCUMENTED PER CMR DURING PRE-SX INTERVIEW Esomeprazole (Nexium) 40 MG CAPSULE.DR 1 Capsule ORAL TWICE DAILY Comments: PT TOOK PRILOSEC 40MG QD IN HOSPITAL, LAST DOSE 03/29/16 0630AM DOCUMENTED PER CMR DURING PRE-SX INTERVIEW Sulfasalazine (Sulfasalazine) 500 MG TABLET 1 Tablet ORAL DAILY Comments: Last Taken: 03/29/16 Time: 0930 AM DOCUMENTED PER CMR DURING PRE-SX INTERVIEW Docusate Sodium (Colace) 100 MG CAPSULE 1 Capsule ORAL DAILY Comments: Last Taken: 03/29/16 Time: 0930 AM DOCUMENTED PER CMR DURING PRE-SX INTERVIEW Cyanocobalamin (Vitamin B-12) 1,000 MCG TABLET 1 Tablet ORAL DAILY Comments: Last Taken: NOT GIVEN IN HOSPITAL Time: DOCUMENTED PER CMR DURING PRE-SX INTERVIEW Pregabalin (Lyrica) 75 MG CAPSULE 1 Capsule ORAL TWICE DAILY Comments: Last Taken: 03/29/16 Time: 0930 AM DOCUMENTED PER CMR DURING PRE-SX INTERVIEW Albuterol Sulfate (Proair Hfa) 90 MCG HFA.AER.AD 2 Puff Inhale through mouth EVERY SIX HOURS NEEDED as needed for WHEEZING Comments: DOCUMENTED PER CMR DURING PRE-SX INTERVIEW Escitalopram Oxalate (Lexapro) 20 MG TABLET 1 Tablet ORAL DAILY Comments: Last Taken: 03/29/16 Time: 0930 AM Start taking the following new medications: Digoxin (Lanoxin) 125 MCG TABLET 1 Tablet ORAL 5 PM Qty = 30 No Refills Comments: Last Taken:03/28/16 Time: 4:54PM Metoprolol Tartrate (Metoprolol Tartrate) 25 MG TABLET 1 Tablet ORAL TWICE DAILY Qty = 30 No Refills Comments: Last Taken: 03/28/16 Time: 9:48 PM Oxycodone HCl/Acetaminophen (Percocet 5-325 MG Tablet) 5 MG-325 MG TABLET 1-2 Tablet ORAL EVERY 4 HOURS NEEDED as needed for PAIN SCALE 1-3 (MILD) Qty = 30 No Refills Comments: Last Taken: 03/29/16 Time: 10:20 AM Copies To: GAYATHRI KEMP,SHIRLENE Puga; ARTEMIO KEMP,JAIR Anderson JR; YAMILEX KEMP,TRACE
[2016-03-29 09:07] VITALS: BP 124/60
--- NOTE | 2016-03-29 09:50 | NUR ---
DR ULLOA GAVE V.O TO DC PT PENDING CARDIOLOGY AND MEDICAL CLEARANCE. CARDIOLOGY AND DR KAMINSKI GAVE V.O. CLEARANCE FOR DC. RICHARD, SURG PA, MADE AWARE. CONTINUING CARE RN, JOE NOTIFIED AND PT AND MADE AWARE OF PENDING TRANSFER TO [facility]. TRANSPORT EXPECTED AT 1130.
--- NOTE | 2016-03-29 10:08 | PN- Cardiology ---
Subjective Subjective: The patient is awake, alert No telemetry events were noted The patient continues to feel overall improved The events of the last 24 hours as well as telemetry were reviewed. Review of Systems: The review of systems is negative for chest pains, palpitations nor lightheadedness. The remainder of the 14 point review of systems is noncontributory with the exception of above. Objective Vital Signs and I&Os Vital Signs Date Time Temp Pulse Resp B/P Pulse O2 O2 Flow FiO2 Ox Delivery Rate 03/29 0907 86 124/60 03/29 0907 84 124/60 03/29 0907 84 124/60 03/29 0813 91 Nasal 3.0L Cannula 03/29 0800 95 Nasal 3.0L Cannula 03/29 0800 99.8 65 18 124/60 95 Nasal 3.0L Cannula 03/29 0000 95 Nasal 3.0L Cannula 03/28 2200 98.9 86 20 144/60 93 Nasal 3.0L Cannula 03/28 2153 98.9 86 20 144/60 03/28 1654 96 142/64 03/28 1600 96 Nasal 3.0L Cannula 03/28 1600 98.7 96 27 142/64 96 Nasal 3.0L Cannula 03/28 1600 94 Nasal 3.0L Cannula 03/28 1233 95 Nasal 3.0L Cannula 03/28 1101 Nasal 3.0L Cannula Intake & Output 03/29 1600 03/29 0800 03/29 0000 03/28 1600 03/28 0800 03/28 0000 Intake Total 200 200 840 300 480 Output Total 1100 1400 1800 1050 Balance -900 -1200 -960 -750 480 Intake, IV 0 Intake, Oral 200 200 840 300 480 Number 0 0 Bowel Movements Output, Urine 1100 1400 1800 1050 Physical Exam: General: Nontoxic, no apparent distress. HEENT: Sclera and conjunctiva within normal limits, without xanthelasmas. Neck: Carotids 2+ without bruits. Respiratory: Clear to auscultation, air movement is good, without accessory respiratory muscle use. Heart: Regular rate and rhythm, without murmurs, without JVD. Abdomen: Soft, nontender, no masses, normoactive bowel sounds. Extremities: Without clubbing, cyanosis, without edema. Neuro: Nonfocal exam, strength, 5 out of 5 Skin: Within normal limits without lesions. Psych: Mood and affect: Normal Current Medications: Current Medications Sig/Lelo Start time Last Medication Dose Route Stop Time Status Admin Albuterol Sulfate 3 ML EVERY 4 HRS/AWAKE 03/24 1600 AC 03/29 INH 0811 Albuterol Sulfate 2 PUF Q6P PRN 03/21 1800 AC 03/22 INH 1010 Alprazolam 0.5 MG TID PRN 03/22 1345 AC 03/25 PO 03/29 1344 2145 Amlodipine Besylate 5 MG DAILY 03/22 1000 AC 03/29 PO 0907 Atorvastatin Calcium 40 MG DAILY@1700 03/22 1700 AC 03/28 PO 1654 Bisacodyl 5 MG DAILY 03/29 1000 AC PO Bisacodyl 10 MG ONCE PRN 03/29 1000 DC CO 03/29 1001 Digoxin 0.125 MG 1700 03/26 1700 AC 03/28 PO 1654 Diltiazem HCl 120 MG DAILY 03/26 1000 DC 03/28 PO 0858 Docusate Sodium 100 MG BID 03/24 1000 AC 03/29 PO 0906 Escitalopram Oxalate 20 MG DAILY 03/22 1000 AC 03/29 PO 0906 Heparin Sodium 5,000 UNIT Q8 03/21 2200 AC 03/29 (Porcine) SC 0634 Hydromorphone HCl 0.5 MG Q4P PRN 03/24 0930 AC IV Hydroxychloroquine 200 MG DAILY 03/22 1000 AC 03/29 Sulfate PO 0906 Insulin Aspart 0 TIDAC 03/24 1200 AC 03/28 SC 1655 Insulin Detemir 25 UNITS QPM 03/22 2200 AC 03/28 SC 2148 Metoprolol Tartrate 25 MG BID 03/28 2200 AC 03/29 PO 0907 Omeprazole 40 MG DAILY AC 03/22 0700 AC 03/29 PO 0633 Ondansetron HCl 4 MG Q6P PRN 03/21 1800 AC IV Oxycodone/ 1 TAB Q4P PRN 03/24 0930 AC 03/28 Acetaminophen PO 1550 Oxycodone/ 2 TAB Q4P PRN 03/24 0930 AC 03/29 Acetaminophen PO 0210 Polyethylene Glycol 17 GM DAILY 03/24 1000 AC 03/29 PO 0906 Prednisone 5 MG DAILY 03/22 1000 AC 03/29 PO 0907 Pregabalin 75 MG BID 03/21 2200 AC 03/29 PO 0919 Sulfasalazine 500 MG DAILY 03/22 1000 AC 03/29 PO 0906 Tamsulosin HCl 0.4 MG DAILY 03/22 1000 AC 03/29 PO 0907 Results Last 48 Hrs of Labs/Mics: Laboratory Tests 03/29/16 0435: Anion Gap 7, Estimated GFR > 60, Glucose 108 H, Calcium 10.6 H, Phosphorus 3.6 , Magnesium 1.8, Total Bilirubin 0.3, AST 36, ALT 47, Albumin 3.0 L, CBC w Diff NO MAN DIFF REQ, RBC 3.83 L, MCV 83.9, MCH 27.3, RDW 16.6 H, MPV 7.9, Gran % 76.1 H, Lymphocytes % 9.5 L, Monocytes % 12.1 H, Eosinophils % 2.0, Basophils % 0.3, Absolute Granulocytes 11.0 H, Absolute Lymphocytes 1.4, Absolute Monocytes 1.7 H, Absolute Eosinophils 0.3, Absolute Basophils 0, PUBS MCHC 32.6 L 03/28/16 0855: Anion Gap 8, Estimated GFR > 60, Glucose 176 H, Calcium 10.6 H, Phosphorus 3.4 , Magnesium 1.7, Total Bilirubin 0.4, AST 30, ALT 62, Albumin 3.2 L, CBC w Diff NO MAN DIFF REQ, RBC 3.96 L, MCV 84.9, MCH 27.4, RDW 16.5 H, MPV 7.9, Gran % 76.0 H, Lymphocytes % 10.8 L, Monocytes % 10.9 H, Eosinophils % 2.2, Basophils % 0.1, Absolute Granulocytes 11.0 H, Absolute Lymphocytes 1.6, Absolute Monocytes 1.6 H, Absolute Eosinophils 0.3, Absolute Basophils 0, PUBS MCHC 32.2 L Assessment/Plan Assessment/Plan 75-year-old gentleman with a past medical history of diabetes mellitus, COPD, gastroesophageal reflux disease, hypertension and hyperlipidemia. He as well has a history of lung cancer, status post right upper lung lobectomy. He presented for a right lower lung lobectomy and lymph node resection, undergoing the same on 03/21/2016. We are consulted for new onset atrial fibrillation. Atrial fibrillation: The patient had paroxysmal atrial fibrillation postoperative from a lung resection. He has maintained sinus rhythm following his initial brief short episodes. Given this, we will maintain him off of anticoagulation... he will remain on oral metoprolol as well as amlodipine for hypertension, and may be transferred to telemetry. Lungs CA: Further treatment as per oncology and thoracic surgery. Hypertension: Currently controlled. We will continue to follow as an outpatient. Disposition: The patient will be transferred to a rehabilitation facility today Continue telemetry? No
[2016-03-29] MEDS ORDERED: LANOXIN125 MCG PO (10:43)
[2016-03-29] MEDS ORDERED: METOPROLOL TART25 M1 PO (10:44)
[2016-03-29] MEDS ORDERED: PERCOCET 5-3251 EACH PO (10:45)
== END 2016-03-29 13:41 | DRG 163 ==
LOC: ENRESERVTM → ENRESERVDT → CRI 03:09 → SDA 03:09 → CRI 18:30
PROVIDERS: Nurse Practitioner; Physician Assistant Surgical; Preventive Medicine Public Health & General Preventive Medicine; Student in an Organized Health Care Education/Training Program; ADMIT Thoracic Surgery (Cardiothoracic Vascular Surgery)
PROC: 0BTF0ZZ Resection of Right Lower Lung Lobe, Open Approach (ICD-10-PCS; principal; 2016-03-21)
PROC: 07B70ZX Excision of Thorax Lymphatic, Open Approach, Diagnostic (ICD-10-PCS; principal; 2016-03-21)
DX: C34.31 Malignant neoplasm of lower lobe, right bronchus or lung (principal); J96.91 Respiratory failure, unspecified with hypoxia; I42.9 Cardiomyopathy, unspecified; K56.7 Ileus, unspecified; I48.0 Paroxysmal atrial fibrillation; E83.52 Hypercalcemia; J98.11 Atelectasis; C77.1 Secondary and unspecified malignant neoplasm of intrathoracic lymph nodes; N31.9 Neuromuscular dysfunction of bladder, unspecified; J44.9 Chronic obstructive pulmonary disease, unspecified; E11.9 Type 2 diabetes mellitus without complications; K21.9 Gastro-esophageal reflux disease without esophagitis; E78.5 Hyperlipidemia, unspecified; I10 Essential (primary) hypertension; M06.9 Rheumatoid arthritis, unspecified; N40.1 Benign prostatic hyperplasia with lower urinary tract symptoms; R33.8 Other retention of urine; Z87.891 Personal history of nicotine dependence
CPT/HCPCS: CCU; 36415; 74000; 82436; 87086; 88305; 88309; 88331; 93005; 93010; 93306; 97110-GO; 97116-GO; 97162-GP; 97530-GO; C9290; J0131; J0690; J1100; J1160; J1170; J1644; J1885; J1940; J2405; J3490; J7042; J7512

== ENCOUNTER 2016-04-20 19:54 | Emergency (ER) | payer OTHER ==
[~2016-04-20] VITALS: Ht 170.2 cm; Wt 75.3 kg
[~2016-04-20 19:54] MED LIST changes: +LANOXIN125 MCG PO; +METOPROLOL TART25 M1 PO; +PERCOCET 5-3251 EACH PO
[2016-04-20] MEDS ORDERED: AUGMENTIN 875-1 EACH PO (22:17)
--- NOTE | 2016-04-20 22:18 | ED UPPER/LOWER EXTREMITY COMPL ---
History of Present Illness General Chief Complaint: Upper Extremity Problem Stated Complaint: REDNESS TO L ARM, BILATERAL SWELLING Source: patient, family Exam Limitations: no limitations Vital Signs & Intake/Output Vital Signs & Intake/Output Vital Signs Date Time Temp Pulse Resp B/P Pulse O2 O2 Flow FiO2 Ox Delivery Rate 04/20 2230 99.7 98 18 130/80 98 Room Air 04/20 2010 99.8 108 20 129/72 93 Room Air ED Intake and Output 04/21 0000 04/20 1200 Intake Total 0 Output Total Balance 0 Intake, Oral 0 Patient 166 lb Weight Allergies Coded Allergies: No Known Allergies (03/18/16) Reconcile Medications Albuterol Sulfate (Proair Hfa) 90 MCG HFA.AER.AD 2 PUF INH Q6P PRN WHEEZING ( Reported) Amlodipine Besylate 5 MG TABLET 1 TAB PO DAILY BP (Reported) Amoxicillin/Potassium Clav (Augmentin 875-125 Tablet) 875 MG-125 MG TABLET 1 TAB PO BID cellulitis Atorvastatin Calcium 40 MG TABLET 1 TAB PO DAILY CHOLESTEROL (Reported) Cyanocobalamin (Vitamin B-12) 1,000 MCG TABLET 1 TAB PO DAILY SUPPLEMENT ( Reported) Digoxin (Lanoxin) 125 MCG TABLET 1 TAB PO 1700 [facility] Docusate Sodium (Colace) 100 MG CAPSULE 1 CAP PO DAILY STOOL SOFTENER ( Reported) Escitalopram Oxalate (Lexapro) 20 MG TABLET 1 TAB PO DAILY DEPRESSION ( Reported) Esomeprazole (Nexium) 40 MG CAPSULE.DR 1 CAP PO BID GI (Reported) Hydroxychlorquine (Plaquenil) 200 MG TABLET 1 TAB PO DAILY RA (Reported) Insulin Aspart (Novolog) 100 UNIT/ML VIAL 15 UNITS SC TIDAC DM (Reported) Insulin Detemir (Levemir) 100 UNIT/ML VIAL 25 UNITS SC QPM DM (Reported) Liraglutide (Victoza 2-Britton) 0.6 MG/0.1 ML (18 MG/3 ML) PEN.INJCTR 1.2 MG SC QPM DM (Reported) Metformin HCl (Glucophage) 1,000 MG TABLET 1 TAB PO BID DM (Reported) Metoprolol Tartrate 25 MG TABLET 1 TAB PO BID [facility] Oxycodone HCl/Acetaminophen (Percocet 5-325 MG Tablet) 5 MG-325 MG TABLET 1-2 TAB PO Q4P PRN PAIN SCALE 1-3 (MILD) Prednisone 5 MG TABLET 1 TAB PO DAILY RA (Reported) Pregabalin (Lyrica) 75 MG CAPSULE 1 CAP PO BID NEUROPATHY (Reported) Sulfasalazine 500 MG TABLET 1 TAB PO DAILY RA (Reported) Tamsulosin HCl (Flomax) 0.4 MG CAP.ER.24H 1 CAP PO DAILY BPH (Reported) Tramadol HCl 50 MG TABLET 1 TAB PO TID PRN PAIN (Reported) Triage Note: PT TO TRIAGE WITH C/O R HAND/WRIST SWELLING/REDNESS/PAIN 8/10 x3DAYS. PT DENIES ANY INJURY. HX OF ARTHRITIS,HTN,HIGH CHOL,DIABETES,COPD. ALSO PT REPORTS MILD SOB, O2SAT 93% ON RA. Triage Nurses Notes Reviewed? yes HPI: 75-year-old male with history of rheumatoid arthritis chronic prednisone therapy , plaque 10, history of diabetes insulin-dependent and history of cellulitis presents with 2 days of left wrist and forearm swelling pain and redness warmth and tenderness. He denies any fever or flulike illness. He has limited range of motion due to the pain. He does not have any systemic symptoms. He is concerned this is a another bout of cellulitis. There is been no treatment thus far. Past History Travel History Traveled to [place] past 21 day No Medical History Any Pertinent Medical History? 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 SISTER (Diabetes mellitus). Hx Contributory? No Review of Systems Review of Systems Constitutional: Reports: see HPI. EENTM: Reports: no symptoms. Respiratory: Reports: no symptoms. Cardiovascular: Reports: no symptoms. Gastrointestinal/Abdominal: Reports: no symptoms. Genitourinary: Reports: no symptoms. Musculoskeletal: Reports: see HPI. Skin: Reports: see HPI. Neurological/Psychological: Reports: no symptoms. Hematologic/Endocrine: Reports: no symptoms. Immunological: Reports: no symptoms. All Other Systems: Reviewed and Negative Physical Exam Physical Exam General Appearance: well developed/nourished Comments: Well-developed well-nourished no apparent distress. HEENT: Atraumatic, extraocular motion intact Neck: Supple, no lymphadenopathy Back: Nontender Respiratory: No respiratory distress Extremities: No edema, Left upper extremity, there is moderate to severe erythema about the dorsal ulnar aspect wrist that extends into the dorsum of the hand and to the proximal one third of the forearm on the ulnar side. There is moderate warmth and tenderness. Range of motion of the wrist is limited secondary to the pain. There is moderate swelling. Neurovascularly intact. Neuro: Alert and oriented x3 Psych: Mood affect normal, normal memory normal judgment. Skin: Warm and dry, no rash on exposed skin Progress Differential Diagnosis: arterial insufficiency, cellulitis, CHF, compartment syndrome, contusion, dislocation, DVT, fracture, gout, septic arthritis, sprain, tendon injury Plan of Care: Current Medications Sig/Lelo Start time Last Medication Dose Stop Time Status Admin Ampicillin Sodium/ 1,500 MG ONCE ONE 04/20 2214 UNVr Sulbactam Sodium 04/20 2215 (Unasyn) Comments: Likely recurrent cellulitis. There is spreading diffuse erythema more so than I would suspect for a gout or joint infection. He is given 1.5 g of Unasyn IM and placed on Augmentin as outpatient. A well-padded well molded volar Ortho-Glass splint was applied to the left wrist for comfort, he should apply warm compresses elevate the wrist and follow-up in the next few days either here with his primary care doctor for recheck. Return sooner if there are signs of systemic illness. Departure Departure Disposition: HOME OR SELF CARE Condition: Stable Clinical Impression Primary Impression: Cellulitis of multiple sites of hand and wrist Referrals: PRIOR SIOMARA KEMP (PCP/Family) Additional Instructions: Return to the ER in 2 days will follow-up with your primary care doctor for evaluation of your skin infection. Return sooner if there is high fevers, flulike illness, spreading redness up the arm. Keep the splint on for comfort. Apply warm compresses. Elevate the hand as much as possible. Take antibiotics for infection as directed. Departure Forms: Customer Survey General Discharge Information Prescriptions: Current Visit Scripts Amoxicillin/Potassium Clav (Augmentin 875-125 Tablet) 1 TAB PO BID #20 TAB
[2016-04-20 22:31] VITALS: BP 130/80
== END 2016-04-20 22:33 ==
LOC: ERH 19:54
DX: L03.114 Cellulitis of left upper limb (principal)
CPT/HCPCS: 96372

== ENCOUNTER 2016-04-23 11:27 | Emergency (ER) | payer OTHER ==
[~2016-04-23] VITALS: Ht 170.2 cm; Wt 75.3 kg
[~2016-04-23 11:27] MED LIST changes: +AUGMENTIN 875-1 EACH PO
--- NOTE | 2016-04-23 12:12 | ED GENERAL ADULT ---
History of Present Illness General Chief Complaint: General Adult Stated Complaint: LEFT LEG AND RIGHT SHOULDER PAIN Source: patient, old records Exam Limitations: no limitations Vital Signs & Intake/Output Vital Signs & Intake/Output Vital Signs Date Time Temp Pulse Resp B/P Pulse O2 O2 Flow FiO2 Ox Delivery Rate 04/23 1402 98.1 92 22 151/72 93 Room Air ED Intake and Output 04/24 0000 04/23 1200 Intake Total Output Total Balance Patient 166 lb Weight Allergies Coded Allergies: No Known Allergies (04/23/16) Reconcile Medications Albuterol Sulfate (Proair Hfa) 90 MCG HFA.AER.AD 2 PUF INH Q6P PRN WHEEZING ( Reported) Amlodipine Besylate 5 MG TABLET 1 TAB PO DAILY BP (Reported) Amoxicillin/Potassium Clav (Augmentin 875-125 Tablet) 875 MG-125 MG TABLET 1 TAB PO BID cellulitis Atorvastatin Calcium 40 MG TABLET 1 TAB PO DAILY CHOLESTEROL (Reported) Cyanocobalamin (Vitamin B-12) 1,000 MCG TABLET 1 TAB PO DAILY SUPPLEMENT ( Reported) Digoxin (Lanoxin) 125 MCG TABLET 1 TAB PO 1700 [facility] Docusate Sodium (Colace) 100 MG CAPSULE 1 CAP PO DAILY STOOL SOFTENER ( Reported) Escitalopram Oxalate (Lexapro) 20 MG TABLET 1 TAB PO DAILY DEPRESSION ( Reported) Esomeprazole (Nexium) 40 MG CAPSULE.DR 1 CAP PO BID GI (Reported) Hydromorphone HCl (Dilaudid) 2 MG TABLET 1-2 TAB PO Q6H PRN pain Hydroxychlorquine (Plaquenil) 200 MG TABLET 1 TAB PO DAILY RA (Reported) Insulin Aspart (Novolog) 100 UNIT/ML VIAL 15 UNITS SC TIDAC DM (Reported) Insulin Detemir (Levemir) 100 UNIT/ML VIAL 25 UNITS SC QPM DM (Reported) Liraglutide (Victoza 2-Britton) 0.6 MG/0.1 ML (18 MG/3 ML) PEN.INJCTR 1.2 MG SC QPM DM (Reported) Meloxicam 7.5 MG TABLET 1 TAB PO DAILY PRN PAIN Metformin HCl (Glucophage) 1,000 MG TABLET 1 TAB PO BID DM (Reported) Metoprolol Tartrate 25 MG TABLET 1 TAB PO BID [facility] Oxycodone HCl/Acetaminophen (Percocet 5-325 MG Tablet) 5 MG-325 MG TABLET 1-2 TAB PO Q4P PRN PAIN SCALE 1-3 (MILD) Prednisone 5 MG TABLET 1 TAB PO DAILY RA (Reported) Pregabalin (Lyrica) 75 MG CAPSULE 1 CAP PO BID NEUROPATHY (Reported) Sulfasalazine 500 MG TABLET 1 TAB PO DAILY RA (Reported) Tamsulosin HCl (Flomax) 0.4 MG CAP.ER.24H 1 CAP PO DAILY BPH (Reported) Tramadol HCl 50 MG TABLET 1 TAB PO TID PRN PAIN (Reported) Triage Note: TRIAGE: PT TO ER WITH C/C PAIN TO RT SHOULDER AND L LEG. ONSET YESTERDAY. CONSTANT AND WORSENING SINCE ONSET. HAD R LOWER LOBECTOMY R/T LUNG CANCER 4 W[address]KS AGO AND WAS AT DR ULLOA'S OFFICE FOR FOLLOW UP APPOINTMENT YESTERDAY, STATES THE PAINS STARTED AFTER THE APPT. NO INJURY OR AGGRAVATING FACTOR. Triage Nurses Notes Reviewed? yes HPI: Patient is a 75 year old male presents complaining of right shoulder and left hip pain. Patient had a surgery to remove lung cancer from right lower lobe 1 month ago, had follow up appointment yesterday and after the appointment developed severe pain. Patient took Percocet every 4 hours and 600mg of Ibuprofen with no improvement. Pain worsens with movement. Patient reports associated severe headache onset yesterday. Denies recent falls or known inciting factors, fevers. Patient started on antibiotics 2 days ago for cellulitis of the left wrist, which is improving. (JONA BELL,EVELYN) Past History Travel History Traveled to [place] past 21 day No Medical History Any Pertinent Medical History? 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 SISTER (Diabetes mellitus). Hx Contributory? No (EVELYN KRAUSE) Review of Systems Review of Systems Constitutional: Denies: chills, fever. EENTM: Reports: no symptoms. Respiratory: Denies: cough, short of breath. Cardiovascular: Denies: chest pain. GI: Denies: abdominal pain, nausea, vomiting. Genitourinary: Reports: no symptoms. Musculoskeletal: Reports: see HPI. Skin: Reports: erythema (left wrist, on abx for celluli). Neurological/Psychological: Reports: headache. Denies: numbness. Hematologic/Endocrine: Denies: bruising, bleeding. Immunologic/Allergic: Denies: splenectomy. (EVELYN KRAUSE) Physical Exam Physical Exam General Appearance: well developed/nourished, alert, awake Head: atraumatic, normal appearance Eyes: Left: other (pupil irregular(previous surg)). Right: normal appearance, PERRL. Bilateral: EOMI. Ears, Nose, Throat: hearing grossly normal Neck: normal inspection, supple, full range of motion, no midline tenderness Respiratory: no respiratory distress Cardiovascular: regular rate/rhythm Peripheral Pulses: 2+ radial (R), 2+ dorsalis pedis (R), 2+ dorsalis pedis (L) Gastrointestinal: soft, non-tender Extremities: severe left lateral hip tenderness. Increasing pain to the left hip with any passive flexion. Minimal active range of motion of the left hip secondary to pain. Tenderness right anterior and lateral shoulder. Good passive range of motion. Mild erythema and swelling to the left posterior wrist, minimal tenderness Neurologic/Psych: awake, alert, oriented x 3 Skin: warm/dry Core Measures ACS in differential dx? No CVA/TIA Diagnosis: No Severe Sepsis Present: No Septic Shock Present: No (EVELYN KRAUSE) Progress Differential Diagnoses I considered the following diagnoses in my evaluation of the patient: Arthritis, fracture, pathologic fracture, sprain, strain, septic joint Plan of Care: Laboratory Tests 04/23/16 1315: Anion Gap 10, Estimated GFR > 60, BUN/Creatinine Ratio 22.0, Glucose 130 H, Calcium 10.4 H, Total Bilirubin 0.6, AST 12 L, ALT 23, Alkaline Phosphatase 106, Total Protein 6.6, Albumin 3.5, Globulin 3.1, Albumin/Globulin Ratio 1.1, CBC w Diff MAN DIFF ORDERED, RBC 4.01 L, MCV 81.9, MCH 26.9 L, RDW 15.9 H, MPV 7.5, Gran % 83.1 H, Lymphocytes % 6.5 L, Monocytes % 9.3, Eosinophils % 0.9, Basophils % 0.2, Absolute Granulocytes 13.3 H, Absolute Lymphocytes 1.0 L , Absolute Monocytes 1.5 H, Absolute Eosinophils 0.1, Absolute Basophils 0, Platelet Estimate VERIFIED BY SMEAR, Anisocytosis 1+, Ovalocytes FEW, PUBS MCHC 32.9 L 04/23/2016 2:23:28 PM: Discussed with and seen by Dr. Vences. Patient reports moderate improvement of his pain. Improved range of motion actively of the right shoulder and left hip. Will attempt ambulation trial. Patient ambulated well. Patient wants to go home. Results of imaging discussed with the patient and his family. (JONA BELL,EVELYN) Diagnostic Imaging: Viewed by Me: Radiology Read, CT Scan. Discussed w/RAD: Radiology Read, CT Scan. Radiology Impression: PATIENT: NADYA WARE PRESENT AGE: 75 PATIENT ACCOUNT NO: [id number] : 41 LOCATION: [facility] ORDERING PHYSICIAN: EVELYN BELL SERVICE DATE: 04/23/16 EXAM TYPE: RAD - XRY-HIP 2-3 VIEWS, LEFT EXAMINATION: XR LEFT HIP WITH AP PELVIS CLINICAL INFORMATION: Severe left hip pain and tenderness. Rule out bone lesion/ pathologic fracture. COMPARISON: None TECHNIQUE: AP and frog-leg lateral views of the left hip and an AP view of the pelvis. FINDINGS: Mild degenerative arthritis the left hip is characterized by cephalad joint space narrowing and marginal osteophytes. Mild degenerative arthritis is also present in the right hip, to lesser degree. No fracture or malalignment. No osseous lesions are identified. Bone mineralization is normal. Pubic symphysis is normal. There is a ankylosis of the right SI joint. Mild degenerative changes are present in the left SI joint. Degenerative disc disease is present in the lower lumbar spine. Surgical clips are present in the right hemipelvis. [place] are also present in the right inguinal region. Soft tissues are otherwise unremarkable. IMPRESSION: 1. 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 2. Degenerative disc disease in the lower lumbar spine 3. No acute osseous abnormalities or osseous lesions are identified. 4. Probable ankylosis of the right SI joint. DICTATED BY: OSCAR AVELAR MD DATE/TIME DICTATED:04/23/161316 ACID CONDITIONING WORKER:STELLA DATE/TIME TRANSCRIBED:04/23/161316 CONFIDENTIAL, DO NOT COPY WITHOUT APPROPRIATE AUTHORIZATION. <Electronically signed in Other Vendor System> SIGNED BY: OSCAR AVELAR MD 04/23/16 1323, PATIENT: NADYA WARE PRESENT AGE: 75 PATIENT ACCOUNT NO: [id number] : 41 LOCATION: [facility] ORDERING PHYSICIAN: EVELYN BELL SERVICE DATE: 04/23/16 EXAM TYPE: RAD - XRY-SHOULDER COMPLETE-RIGHT EXAMINATION: XR SHOULDER, RIGHT CLINICAL INFORMATION: Severe right shoulder pain. History of lung cancer. Evaluate for bony lesion and pathologic fracture. COMPARISON: Chest CT from 03/22/2016. TECHNIQUE: Three views of the right shoulder. FINDINGS: No acute fracture or dislocation. The humeral head articulates appropriately with the glenoid. Severe degenerative changes are noted with loss of the joint space and marginal osteophyte formation. The acromioclavicular joint is intact with mild degenerative changes. Pleural thickening seen along the right chest wall with mild interstitial markings. IMPRESSION: No acute fracture or focal osseous lesion identified. Severe degenerative changes of the right glenohumeral joint. DICTATED BY: HECTOR MILES MD DATE/TIME DICTATED:04/23/161316 ACID CONDITIONING WORKER:STELLA DATE/ TIME TRANSCRIBED:04/23/161316 CONFIDENTIAL, DO NOT COPY WITHOUT APPROPRIATE AUTHORIZATION. <Electronically signed in Other Vendor System> SIGNED BY: HECTOR MILES MD 04/23/16 1322 Initial ED EKG: none (JONA BELL,EVELYN) Departure Departure Disposition: HOME OR SELF CARE Condition: Stable Clinical Impression Primary Impression: Arthritis Referrals: PRIOR SIOMARA KEMP (PCP/Family) Additional Instructions: Follow up with your primary doctor this week for further evaluation. Return to the ER if fevers or worsening of symptoms. Departure Forms: Customer Survey General Discharge Information Prescriptions: Current Visit Scripts Meloxicam 1 TAB PO DAILY PRN PAIN #7 TAB Hydromorphone HCl (Dilaudid) 1-2 TAB PO Q6H PRN pain #15 TAB (EVELYN KRAUSE) PA/DIRECTOR OF PUBLIC SAFETY Co-Sign Statement Statement: ED Attending supervision documentation- [x] I saw and evaluated the patient. I have also reviewed all the pertinent lab results and diagnostic results. I agree with the findings and the plan of care as documented in the PA's/DIRECTOR OF PUBLIC SAFETY's documentation. [] I have reviewed the ED Record and agree with the PA's/DIRECTOR OF PUBLIC SAFETY's documentation. [] Additions or exceptions (if any) to the PAs/DIRECTOR OF PUBLIC SAFETY's note and plan are summarized below: [] (HILARIO KEMP,CONSTANZA Buck) Critical Care Note Critical Care Note Critical Care Time: non-applicable (EVELYN KRAUSE)
[2016-04-23 13:21] LABS: ABSOLUTE BASOPHIL COUNT 0 /CUMM (0.0-0.2); ABSOLUTE EOSINOPHIL COUNT 0.1 /CUMM (0.0-0.7); ABSOLUTE GRANULOCYTE CT 13.3 /CUMM (1.4-6.5); ABSOLUTE MONOCYTE COUNT 1.5 /CUMM (0.10-0.60); BASOPHIL % 0.2 % (0.0-2.0); EOSINOPHIL % 0.9 % (0-5); GRANULOCYTE % 83.1 % (42.2-75.2); HEMATOCRIT 32.8 % (42-52); MEAN CORPUSCULAR HGB 26.9 PG (27.0-31.0); MEAN CORPUSCULAR HGB CONC 32.9 G/DL (33.0-37.0); MEAN CORPUSCULAR VOLUME 81.9 FL (80.0-94.0); MEAN PLATELET VOLUME 7.5 FL (7.4-10.4); PLATELET COUNT 327 /CUMM (130-400); RBC DISTRIBUTION WIDTH 15.9 % (11.5-14.5); RED BLOOD CELL CT 4.01 /CUMM (4.70-6.10)
--- NOTE | 2016-04-23 13:22 | RADIOLOGY REPORT ---
EXAMINATION: XR SHOULDER, RIGHT CLINICAL INFORMATION: Severe right shoulder pain. History of lung cancer. Evaluate for bony lesion and pathologic fracture. COMPARISON: Chest CT from 03/22/2016. TECHNIQUE: Three views of the right shoulder. FINDINGS: No acute fracture or dislocation. The humeral head articulates appropriately with the glenoid. Severe degenerative changes are noted with loss of the joint space and marginal osteophyte formation. The acromioclavicular joint is intact with mild degenerative changes. Pleural thickening seen along the right chest wall with mild interstitial markings. IMPRESSION: No acute fracture or focal osseous lesion identified. Severe degenerative changes of the right glenohumeral joint.
--- NOTE | 2016-04-23 13:23 | RADIOLOGY REPORT ---
EXAMINATION: XR LEFT HIP WITH AP PELVIS CLINICAL INFORMATION: Severe left hip pain and tenderness. Rule out bone lesion/pathologic fracture. COMPARISON: None TECHNIQUE: AP and frog-leg lateral views of the left hip and an AP view of the pelvis. FINDINGS: Mild degenerative arthritis the left hip is characterized by cephalad joint space narrowing and marginal osteophytes. Mild degenerative arthritis is also present in the right hip, to lesser degree. No fracture or malalignment. No osseous lesions are identified. Bone mineralization is normal. Pubic symphysis is normal. There is a ankylosis of the right SI joint. Mild degenerative changes are present in the left SI joint. Degenerative disc disease is present in the lower lumbar spine. Surgical clips are present in the right hemipelvis. [place] are also present in the right inguinal region. Soft tissues are otherwise unremarkable. IMPRESSION: 1. 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 2. Degenerative disc disease in the lower lumbar spine 3. No acute osseous abnormalities or osseous lesions are identified. 4. Probable ankylosis of the right SI joint.
--- NOTE | 2016-04-23 13:44 | CT SCAN REPORT ---
EXAMINATION: CT HEAD WITHOUT CONTRAST CLINICAL INFORMATION: Severe headache. History of lung cancer. Rule out bleed/lesion. COMPARISON: None TECHNIQUE: Contiguous axial imaging was performed from the skull base to vertex without intravenous administration of contrast. DLP: 600.7 mGy-cm FINDINGS: There is no evidence of acute intracranial hemorrhage or territorial infarction. No abnormal mass effect or midline shift is seen. Stanton to white matter differentiation is well preserved. No extra-axial fluid collections are identified. Mild enlargement of the ventricles, sulci, and extra-axial CSF spaces is in keeping with age-appropriate parenchymal volume loss. Multiple areas of hypoattenuation in the subcortical and periventricular white matter are present, most commonly attributable to chronic microangiopathic changes. Calcific atherosclerosis is present within the cavernous and supraclinoid segments of the internal carotid arteries. The osseous structures and soft tissues are normal. The mastoid air cells and visualized portions of the paranasal sinuses are well aerated. IMPRESSION: No acute intracranial pathology. No masses or intracranial hemorrhage identified. Multifocal hypoattenuation in the cerebral white matter, most compatible with chronic microvascular ischemic changes. If there is persistent concern for an intraparenchymal lesion, consider follow-up MRI with and without contrast for increased specificity.
[2016-04-23 14:02] VITALS: BP 151/72
[2016-04-23] MEDS ORDERED: MELOXICAM7.5 M1 PO (14:54)
[2016-04-23] MEDS ORDERED: DILAUDID2 M1 PO (14:54)
== END 2016-04-23 15:00 ==
LOC: ERH 11:27
PROVIDERS: Physician Assistant
DX: M19.011 Primary osteoarthritis, right shoulder (principal); M16.12 Unilateral primary osteoarthritis, left hip; R51 Headache
CPT/HCPCS: 73030-RT; 73502-LT; 96374; 96375

== ENCOUNTER 2016-05-23 18:00 | Observation (INO) | payer OTHER ==
[~2016-05-23] VITALS: Ht 170.2 cm; Wt 72.6 kg
[~2016-05-23 18:00] MED LIST changes: +DILAUDID2 M1 PO; +MELOXICAM7.5 M1 PO
--- NOTE | 2016-05-23 18:43 | NUR ---
PER PT FELL OFF BACK OF BOAT AND HIT HEAD SCHEDULED TO START CHEMO IN AM PER PT DIZZY FAMILY STATES PASSED OUT
--- NOTE | 2016-05-23 18:48 | NUR ---
REQUESTS FINGER STICK [id number].
[2016-05-23] MEDS ORDERED: LISINOPRIL5 M1 PO (19:23)
[2016-05-23] MEDS ORDERED: LIDOCAINE1 EACH (19:27)
[2016-05-23] MEDS ORDERED: METFORMIN HCL500 M4 PO (19:27)
[2016-05-23] MEDS ORDERED: VITAMIN B-121000 MC3 PO (19:29)
--- NOTE | 2016-05-23 19:50 | ED SYNCOPE COMPLAINT ---
History of Present Illness General Chief Complaint: Syncope and Near-Syncope Stated Complaint: "PASSED OUT, HIT HEAD, CP, RIB PAIN" PER PT Source: patient, family Exam Limitations: language barrier Vital Signs & Intake/Output Vital Signs & Intake/Output Vital Signs Date Time Temp Pulse Resp B/P Pulse O2 O2 Flow FiO2 Ox Delivery Rate 05/24 2143 97.5 92 18 128/84 94 05/23 2105 Room Air 05/23 1844 97.4 83 22 175/84 98 Room Air Allergies Coded Allergies: No Known Allergies (04/23/16) Reconcile Medications Albuterol Sulfate (Proair Hfa) 90 MCG HFA.AER.AD 2 PUF INH Q6P PRN WHEEZING ( Reported) Amlodipine Besylate 5 MG TABLET 1 TAB PO DAILY BP (Reported) Atorvastatin Calcium 40 MG TABLET 1 TAB PO DAILY CHOLESTEROL (Reported) Cyanocobalamin (Vitamin B-12) 1,000 MCG TABLET 1 TAB PO DAILY SUPPLEMENT ( Reported) Cyanocobalamin (Vitamin B-12) 1,000 MCG TABLET 1 TAB PO DAILY SUPPLEMENT ( Reported) Digoxin (Lanoxin) 125 MCG TABLET 1 TAB PO 1700 [facility] Docusate Sodium (Colace) 100 MG CAPSULE 1 CAP PO PRN GI (Reported) Escitalopram Oxalate (Lexapro) 20 MG TABLET 2 TAB PO DAILY DEPRESSION ( Reported) Esomeprazole (Nexium) 40 MG CAPSULE.DR 1 CAP PO BID GI (Reported) Hydroxychlorquine (Plaquenil) 200 MG TABLET 1 TAB PO BID RA (Reported) Insulin Aspart (Novolog) 100 UNIT/ML VIAL 11 UNITS SC TIDAC PRN DM (Reported) Insulin Detemir (Levemir) 100 UNIT/ML VIAL 15 UNITS SC QPM DM (Reported) Lidocaine (Unknown Strength) ADH..PATCH (Unknown Dose) UNKNOWN (Reported) Liraglutide (Victoza 2-Britton) 0.6 MG/0.1 ML (18 MG/3 ML) PEN.INJCTR 1.2 MG SC QPM DM (Reported) Lisinopril (Unknown Strength) TABLET (Unknown Dose) UNKNOWN (Reported) Metformin HCl (Metformin HCl ER) 500 MG TAB.ER.24H 2 TAB PO BID DM (Reported) Metoprolol Tartrate 25 MG TABLET 1 TAB PO BID [facility]ART [facility] Prednisone 5 MG TABLET 2 TAB PO DAILY RA (Reported) Pregabalin (Lyrica) 75 MG CAPSULE 1 CAP PO BID NEUROPATHY (Reported) Sulfasalazine 500 MG TABLET 3 TAB PO BID RA (Reported) Tamsulosin HCl (Flomax) 0.4 MG CAP.ER.24H 1 CAP PO BID BPH (Reported) Tramadol HCl 50 MG TABLET 1 TAB PO 4XDAILY PRN PAIN (Reported) Triage Note: PER PT FELL OFF BACK OF BOAT AND HIT HEAD SCHEDULED TO START CHEMO IN AM Triage Nurses Notes Reviewed? yes Timing: recent history Precipitating Factors: none Loss of Consciousness: brief (seconds) HPI: 75-year-old male comes in a syncopal episode. Patient is supposed to start chemotherapy tomorrow. He has a history of rheumatoid arthritis. He is been experiencing loss of joint pain for months now. 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 he was working on his boat he felt lightheaded and dizzy and supposedly he fell forward and passed out onto his knees and fell to the ground and hit his head. He complains of a headache and neck pain chest pain and hip pain. He denies any preceding chest pain or shortness of breath but did feel dizzy and lightheaded. (LASHA RICHARD) Past History Travel History Traveled to [place] past 21 day No Medical History Any Pertinent Medical History? 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 SISTER (Diabetes mellitus). Hx Contributory? No (LASHA RICHARD) Review of Systems Review of Systems Constitutional: Reports: see HPI. EENTM: Reports: no symptoms. Respiratory: Reports: no symptoms. Cardiovascular: Reports: see HPI. GI: Reports: no symptoms. Genitourinary: Reports: no symptoms. Musculoskeletal: Reports: see HPI. Skin: Reports: no symptoms. Neurological/Psychological: Reports: see HPI. All Other Systems: Reviewed and Negative (LASHA RICHARD) Physical Exam Physical Exam General Appearance: alert, awake, moderate distress Head: atraumatic, normal appearance Eyes: Bilateral: normal appearance, PERRL, EOMI. Ears, Nose, Throat: normal pharynx, normal ENT inspection, hearing grossly normal Neck: normal inspection, full range of motion Respiratory: normal breath sounds, no respiratory distress Cardiovascular: regular rate/rhythm Back: normal range of motion Extremities: normal inspection, normal range of motion Psychiatric: awake, alert Cranial Nerves: normal hearing, normal speech, PERRL Motor/Sensory: no motor/sensory deficits Skin: intact, normal color Core Measures ACS in differential dx? Yes CVA/TIA Diagnosis: No Severe Sepsis Present: No Septic Shock Present: No (LASHA RICHARD) Progress Differential Diagnosis: AMI, aortic dissection, aortic valve, drug induced syncope, hyperventilation, orthostatic syncope, other valvular disease, pacemaker malfunction, pericardial tamponade, pulmonary embolus, seizure, sick sinus syndrome, subarachnoid hem., TIA/CVA, vasodepressor syncope, ventricular tach/fib, rib fx, intracranial bleed, cervical fx, hip fx Plan of Care: Orders Procedure Date/time Status Patient Data 05/24 2147 Active Telemetry/Fire Suppression Captain 05/24 1943 Active TROPONIN LEVEL 05/24 1943 Complete PARTIAL THROMBOPLASTIN TIME 05/24 1943 Complete PROTHROMBIN TIME 05/24 1943 Complete MAGNESIUM 05/24 1943 Complete COMPREHENSIVE METABOLIC PANEL 05/24 1943 Complete CBC WITHOUT DIFFERENTIAL 05/24 1943 Complete EKG 05/23 180 Active Current Medications Sig/Lelo Start time Last Medication Dose Stop Time Status Admin Magnesium Sulfate 1 GM ONCE ONE 05/23 2200 AC (Mag Sulfate in D5) 05/24 0159 Dextrose/Water 100 ML (D5W) Laboratory Tests 05/23/161951: Anion Gap 11, Estimated GFR > 60, BUN/Creatinine Ratio 31.7 H, Glucose 171 H, Calcium 10.3 H, Magnesium 1.1 L, Total Bilirubin 0.4, AST 13 L, ALT 25, Alkaline Phosphatase 72, Troponin I < 0.01, Total Protein 6.7, Albumin 3.5, Globulin 3.2, Albumin/Globulin Ratio 1.1, PT 12.9 H, INR 1.23 H, APTT 26, CBC w Diff NO MAN DIFF REQ, RBC 3.74 L, MCV 81.7, MCH 26.6 L, RDW 17.4 H, MPV 7.9 , Gran % 77.2 H, Lymphocytes % 12.8 L, Monocytes % 9.3, Eosinophils % 0.3, Basophils % 0.4, Absolute Granulocytes 11.7 H, Absolute Lymphocytes 2.0, Absolute Monocytes 1.4 H, Absolute Eosinophils 0.1, Absolute Basophils 0.1, PUBS MCHC 32.6 L Diagnostic Imaging: Viewed by Me: CT Scan. Discussed w/RAD: CT Scan. Radiology Impression: IMPRESSION: 1. No acute osseous abnormality in the chest, abdomen and pelvis. A healing fracture of the right 6th rib. 2. Postsurgical changes of left upper lobectomy and right lower lobectomy. Changes of emphysema. A 0.5 cm nodule in the left lower lobe is stable compared to previous CT. Two right lung nodules abutting the fissure as described above are not discretely seen on the previous CT due to presence of significant amount of airspace disease in the region on the previous CT. Small right pleural effusion which might be loculated. 3. No evidence of acute traumatic injury to the chest, abdomen and pelvis. 4. Colonic diverticulosis without acute diverticulitis. 5. Prostatomegaly. DICTATED BY: PAVAN EVANS MD DATE/TIME DICTATED:05/23/162049 PROVIDER CONTRACTING CONSULTANT:STELLA DATE/TIME TRANSCRIBED:05/23/162049 Initial ED EKG: normal intervals, normal p-waves, normal QRS complex, normal sinus rhythm, rate (93) (DEMARCO BELL,LASHA) Departure Departure Disposition: STILL A PATIENT Condition: Stable Clinical Impression Primary Impression: Syncope and collapse Secondary Impressions: Hypomagnesemia Referrals: UNKNOWN (PCP/Family) Departure Forms: Customer Survey General Discharge Information Observation Note Spoke With: MARIANELA PEGUERO MD Physician Advisor Notified: CONSTANZA WEEKS DO Place Patient In: Non-ED OBS Care Area Rationale for Observation: My rational for observation is as follows . Patient will require cardiac telemetry. Serial EKGs and troponins. IV magnesium. Cardiac consultation. Serial blood work. (LASHA RICHARD) PA/INDEPENDENT DRIVER Co-Sign Statement Statement: ED Attending supervision documentation- x I saw and evaluated the patient. I have also reviewed all the pertinent lab results and diagnostic results. I agree with the findings and the plan of care as documented in the PA's/INDEPENDENT DRIVER's documentation. [] I have reviewed the ED Record and agree with the PA's/INDEPENDENT DRIVER's documentation. [] Additions or exceptions (if any) to the PAs/INDEPENDENT DRIVER's note and plan are summarized below: [] (BELL NORMAN MD) Critical Care Note Critical Care Note Critical Care Time: 30-74 min (40 min) (LASHA RICHARD)
--- NOTE | 2016-05-23 19:58 | NUR ---
LABS SENT PT AWAITING CAT SCAN NSR ON MONITOR DENIES COMPLAINTS
[2016-05-23 20:16] LABS: ABSOLUTE BASOPHIL COUNT 0.1 /CUMM (0.0-0.2); ABSOLUTE EOSINOPHIL COUNT 0.1 /CUMM (0.0-0.7); ABSOLUTE GRANULOCYTE CT 11.7 /CUMM (1.4-6.5); ABSOLUTE MONOCYTE COUNT 1.4 /CUMM (0.10-0.60); BASOPHIL % 0.4 % (0.0-2.0); EOSINOPHIL % 0.3 % (0-5); GRANULOCYTE % 77.2 % (42.2-75.2); HEMATOCRIT 30.5 % (42-52); MEAN CORPUSCULAR HGB 26.6 PG (27.0-31.0); MEAN CORPUSCULAR HGB CONC 32.6 G/DL (33.0-37.0); MEAN CORPUSCULAR VOLUME 81.7 FL (80.0-94.0); MEAN PLATELET VOLUME 7.9 FL (7.4-10.4); PLATELET COUNT 288 /CUMM (130-400); RBC DISTRIBUTION WIDTH 17.4 % (11.5-14.5); RED BLOOD CELL CT 3.74 /CUMM (4.70-6.10); WHITE BLOOD CELL COUNT 15.2 /CUMM (4.8-10.8)
--- NOTE | 2016-05-23 20:22 | NUR ---
PT TO CAT SCAN
[2016-05-23 20:24] LABS: PT 12.9 SEC (9.4-12.5); PTT 26 SEC (25-37)
--- NOTE | 2016-05-23 20:46 | NUR ---
PT BACK FROM CAT SCAN
--- NOTE | 2016-05-23 21:03 | CT SCAN REPORT ---
EXAMINATIONS: CT HEAD WITHOUT CONTRAST AND CT CERVICAL SPINE WITHOUT CONTRAST CLINICAL INFORMATION: Trauma to head. Pain after fall. Syncope. COMPARISON: 04/23/2016. TECHNIQUE: Contiguous helical images of the brain were obtained without IV contrast. Contiguous helical images of the cervical spine were obtained without IV contrast. Multiplanar reconstructions were performed. DLP: 866 mGy-cm. FINDINGS: There are no pathologic extra-axial fluid collections. The lateral, third, fourth ventricles are mildly prominent, stable, age-appropriate and concordant with the appearance of the sulci. There is no evidence for acute intraparenchymal hemorrhage or infarct. Again identified are several subcortical supratentorial areas of low-attenuation. There is neither mass nor mass effect. There is no shift of midline structures. The paranasal sinuses and mastoid air cells are clear. There are no osseous lesions. The cervical vertebra are in normal alignment. There is mild disc height loss at C6/C7. Disc heights and vertebral heights are otherwise well-preserved. There is mild anterior osteophyte formation. There are no fractures. There is no prevertebral soft tissue swelling. There is no cervical lymphadenopathy. The visualized lung apices are clear. IMPRESSION: No evidence for acute intracranial injury. Stable appearance of mild white matter disease. No evidence for acute injury to the cervical spine. Mild degenerative change within the cervical spine.
--- NOTE | 2016-05-23 21:04 | NUR ---
PT NSR HR 96 ON MONITOR. DENIES COMPLAINTS AT THIS TIME. AWAITING RESULTS.
--- NOTE | 2016-05-23 21:36 | CT SCAN REPORT ---
EXAMINATION: CT CHEST WITHOUT CONTRAST CT ABDOMEN AND PELVIS WITHOUT CONTRAST CLINICAL INFORMATION: Syncope. Status post fall. Trauma. Rib pain. History of lung cancer, status post right lower lobectomy. COMPARISON: Chest x-rays of 03/28/2016 and multiple priors dated back to 03/18/2016. Chest CT of 03/22/2016. TECHNIQUE: Multidetector volumetric CT imaging of the chest, abdomen and pelvis is acquired without intravenous contrast administration. Postprocessing is performed at a dedicated workstation. Multiplanar reformatted images are submitted. DLP: 936.51 mGy-cm. FINDINGS: CHEST: LUNGS: Postsurgical changes of left upper lobectomy and right lower lobectomy are again noted. There are moderate to severe changes of emphysema. There is a 0.5 cm solid nodule in the left lower lobe (series 3 image 27) which is stable compared to previous CT of 03/22/2016. A 0.8 x 0.8 x 0.9 cmnodule is noted in the right middle lobe adjacent to the fissure medially and posteriorly (series 3 image 31, coronal series 602 image 82). A second nodule abutting the fissure is noted in the right middle lobe measuring 0.7 x 1.3 x 1.0 cm (series 3 image 37, series 602 image 70). Please note that evaluation of the regions containing nodules in the right lung is significantly limited on the previous study due to presence of significant airspace disease in this region on previous study. LOWER NECK AND MEDIASTINUM: A 1.7 cm ill-defined hypodense nodule containing coarse calcifications in the right thyroid is stable. No pathologically enlarged lymph nodes. A few subcentimeter precarinal lymph nodes are noted. No definite evidence of hilar adenopathy. Cardiac size is in upper limits of normal. No pericardial effusion. Calcific atherosclerosis of the aorta. The trachea and central bronchi are well patent. No evidence of mediastinal hematoma or mediastinal fluid collection. A right-sided Port-A-Cath terminates at the cavoatrial junction. Small hiatal hernia. PLEURA: There is a small right pleural effusion in the lower chest which might be loculated. No left pleural effusion. No pleural mass or thickening. AXILLAE AND CHEST WALL SOFT TISSUES: No axillary adenopathy. No evidence of significant soft tissue abnormality. Mild stranding in the wall of the right lower chest posterolaterally is related to placement of the chest tube in this region, as seen on the previous study. OSSEOUS STRUCTURES: Healing fracture of the posterolateral segment of the right 6th rib is noted with associated periosteal reaction. No acute osseous abnormality. Note is made of findings suggestive of diffuse interosseous skeletal hyperostosis. ABDOMEN AND PELVIS: LIVER, GALLBLADDER AND BILIARY TREE: The liver is normal in size, shape and attenuation. No focal liver lesion or biliary ductal dilatation. The gallbladder is somewhat contracted however unremarkable. SPLEEN: Normal. PANCREAS: Normal. ADRENAL GLANDS: Normal. KIDNEYS: Normal in size, shape and attenuation. No evidence of radiopaque urinary tract calculi, hydroureteronephrosis or perinephric stranding. Left renal vascular calcifications are noted. PELVIC VISCERA: The bladder is adequately distended and unremarkable. The prostate is enlarged measuring 5.7 cm in transverse dimension. Seminal vesicles are unremarkable. GASTROINTESTINAL TRACT: The stomach is partially distended however unremarkable. Small bowel loops are unremarkable. No evidence of colonic wall thickening or pericolonic fat stranding. There is mild diverticulosis of the sigmoid and descending colon without acute diverticulitis. The appendix is normal. PERITONEAL CAVITY: No evidence of free intraperitoneal air or fluid. ABDOMINAL WALL: No evidence of significant soft tissue abnormality. Small left inguinal hernia containing fat is noted. There are postsurgical changes in the right inguinal region likely from prior hernia repair. VASCULATURE: Moderate calcific atherosclerosis of the aortoiliac vessels which are normal in caliber. LYMPH NODES: No adenopathy. OSSEOUS STRUCTURES: No evidence of from acute or suspicious osseous lesions. IMPRESSION: 1. No acute osseous abnormality in the chest, abdomen and pelvis. A healing fracture of the right 6th rib. 2. Postsurgical changes of left upper lobectomy and right lower lobectomy. Changes of emphysema. A 0.5 cm nodule in the left lower lobe is stable compared to previous CT. Two right lung nodules abutting the fissure as described above are not discretely seen on the previous CT due to presence of significant amount of airspace disease in the region on the previous CT. Small right pleural effusion which might be loculated. 3. No evidence of acute traumatic injury to the chest, abdomen and pelvis. 4. Colonic diverticulosis without acute diverticulitis. 5. Prostatomegaly.
--- NOTE | 2016-05-23 21:43 | NUR ---
RAY COLBY DEMARCO AT BEDSIDE TO REEVAL, UPDATE PT AND DISCUSS POSSIBLE ADMISSION?
--- NOTE | 2016-05-23 22:23 | History & Physical ---
CLARENCE KEMP,[facility] [place] 05/23/16 2223: [facility] Statement: I have seen and personally examined NADYA MALDONADO and documented this H&P. The patient is a 75 year old M who presented with a patient stated chief complaint of loss of consciousness. Source of Information: patient, family, old records Exam Limitations: poor historian, language barrier History of Present Illness: Mr. Maldonado is a 75 y/o F with PMHx of lung cancer s/p left upper lobectomy in 1996 with recent lung adenocarcinoma s/p right lower lobectomy, paroxysmal atrial fibrillation and rheumatoid arthritis who presents with loss of consciousness following a fall. Of note patient is a poor historian partly due to language barrier and tends to digress a lot and some of the details of the history is obtained from his over the phone. On the day of current presentation, patient was working on his boat, when he fell down and hit his head. Right before the fall, he felt dizzy and "saw stars". After the fall, he experienced whole body aches including neck, chest, hip and abdominal pain and headache but these symptoms had resolved prior to the time of the interview. The episode was witnessed by patient's granddaughter according to whom patient lost consciousness during the episode. There was no seizure-like activity. Of note, patient had been experiencing significant pain secondary to his rheumatoid arthritis for the past few days leading up to current presentation and saw his director semiconductor yesterday who made some adjustments to his medications. Of note, patient has had five falls within the past year. Patient was recently hospitalized here at [place] (03/21/16-03/29/16) for right lower lobectomy for adenocarcinoma of the lung. During that time he developed new-onset paroxysmal atrial fibrillation and was started on digoxin and metoprolol. Patient sees oncologist Dr. Benedicto Carrasco and was scheduled to start chemotherapy tomorrow. Patient has a right-sided chest port but it is unclear if this is his first chemotherapy session or not. Allergies/Medications Allergies: Coded Allergies: No Known Allergies (04/23/16) Home Med list Albuterol Sulfate (Proair Hfa) 90 MCG HFA.AER.AD 2 PUF INH Q6P PRN WHEEZING ( Reported) Atorvastatin Calcium 40 MG TABLET 1 TAB PO DAILY CHOLESTEROL (Reported) Cyanocobalamin (Vitamin B-12) 1,000 MCG TABLET 1 TAB PO DAILY SUPPLEMENT ( Reported) Docusate Sodium (Colace) 100 MG CAPSULE 1 CAP PO PRN GI (Reported) Escitalopram Oxalate (Lexapro) 20 MG TABLET 2 TAB PO DAILY DEPRESSION ( Reported) Esomeprazole (Nexium) 40 MG CAPSULE.DR 1 CAP PO BID GI (Reported) Hydroxychlorquine (Plaquenil) 200 MG TABLET 1 TAB PO BID RA (Reported) Insulin Aspart (Novolog) 100 UNIT/ML VIAL 11 UNITS SC TIDAC PRN DM (Reported) Insulin Detemir (Levemir) 100 UNIT/ML VIAL 11 UNITS SC QPM DM (Reported) Lidocaine (Lidoderm) 5 % ADH..PATCH 1 PAT TOP DAILY pain (Reported) may wear up to 12 hours Then 12 hours without patch Metformin HCl (Metformin HCl ER) 500 MG TAB.ER.24H 2 TAB PO BID DM (Reported) Prednisone 5 MG TABLET 2 TAB PO DAILY RA (Reported) Pregabalin (Lyrica) 75 MG CAPSULE 1 CAP PO BID NEUROPATHY (Reported) Sulfasalazine 500 MG TABLET 3 TAB PO BID RA (Reported) Tamsulosin HCl (Flomax) 0.4 MG CAP.ER.24H 1 CAP PO BID BPH (Reported) Tramadol HCl 50 MG TABLET 1 TAB PO TID PRN PAIN (Reported) Past History Travel History Traveled to [place] past 21 day No Medical History Neurological: NONE EENT: cataracts Cardiovascular: AFIB, hypertension, hyperlipidemia Respiratory: COPD Gastrointestinal: GERD Hepatic: NONE Renal: benign prost hyperplasia Musculoskeletal: rheumatoid arthritis, PSEUDOGOUT Psychiatric: alcohol dependence (quit in 1992), anxiety, depression, substance abuse (in the past) Endocrine: diabetes Blood Disorders: NONE Cancer(s): lung cancer (ALEXSANDRA (1996), RLL adenoCx (2017)) 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 SISTER (Diabetes mellitus). Psychosocial History Where do you live? Home Who Do You Live With? spouse Services at Home: None Primary Language: East Timorese Smoking Status: Former Smoker (Smoked 10 Yrs, Quit >50 Yrs) ETOH Use: denies use Illicit Drug Use: denies illicit drug use Functional Ability ADLs Independent: dressing, eating, toileting, bathing. Ambulation: cane, walker IADLs Independent: shopping, housework, finances, food prep, telephone, transportation , medication admin. 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 EENTM: Reports: no symptoms. Cardiovascular: Denies: chest pain, palpitations. Respiratory: Reports: no symptoms. GI: Denies: abdominal pain, constipation, diarrhea, nausea, vomiting. Genitourinary: Reports: no symptoms. Musculoskeletal: Reports: no symptoms. Skin: Reports: no symptoms. Neurological/Psychological: Denies: headache, tonic-clonic seizures. Hematologic/Endocrine: Reports: no symptoms. Immunologic/Allergic: Reports: no symptoms. All Other Systems: Reviewed and Negative Exam & Diagnostic Data Last 24 Hrs of Vital Signs/I&O Vital Signs Date Time Temp Pulse Resp B/P Pulse O2 O2 Flow FiO2 Ox Delivery Rate 05/24 0030 98.3 92 20 160/80 96 Room Air 05/24 0000 Room Air 05/23 2304 95 Room Air 05/23 2232 98.5 89 18 169/80 93 05/23 2144 97.5 92 18 128/84 94 05/23 2105 Room Air 05/23 1844 97.4 83 22 175/84 98 Room Air Intake & Output 05/24 0800 05/24 0000 05/23 1600 Intake Total 625 0 Output Total Balance 625 0 Intake, IV 375 Intake, Oral 250 0 Patient 72.575 kg 72.575 kg Weight Physical Exam General Appearance Alert, Oriented X3, No Acute Distress Skin No Rashes HEENT Atraumatic, Dry Mucous Membranes Neck Supple Cardiovascular Regular Rate, Normal S1, Normal S2 Lungs Diminished Breath Sounds, No Crackles or Wheezes Abdomen Soft, No Tenderness, Positive Bowel Sounds Neurological No Focal Neurological Deficits Noted Extremities No Edema Last 24 Hrs of Labs/Abelardo: Laboratory Tests 05/24/16 0740: Troponin I Pending 05/24/16 0740: Troponin I Cancelled, Digoxin Pending 05/24/16 0205: Anion Gap 9, Estimated GFR > 60, BUN/Creatinine Ratio 26.0 H, Calcium 9.9, Phosphorus 2.9, Magnesium 1.2 L, Troponin I < 0.01 05/24/16 0205: Sodium Cancelled, Potassium Cancelled, Chloride Cancelled, Carbon Dioxide Cancelled, Anion Gap Cancelled, BUN Cancelled, Creatinine Cancelled, BUN/ Creatinine Ratio Cancelled, CBC w Diff NO MAN DIFF REQ, RBC 3.39 L, MCV 82.6, MCH 26.5 L, RDW 17.4 H, MPV 7.9, Gran % 70.1, Lymphocytes % 17.5 L, Monocytes % 10.9 H, Eosinophils % 1.1, Basophils % 0.4, Absolute Granulocytes 9.4 H, Absolute Lymphocytes 2.3, Absolute Monocytes 1.5 H, Absolute Eosinophils 0.1, Absolute Basophils 0.1, PUBS MCHC 32.0 L 05/23/161951: Anion Gap 11, Estimated GFR > 60, BUN/Creatinine Ratio 31.7 H, Glucose 171 H, Calcium 10.3 H, Magnesium 1.1 L, Total Bilirubin 0.4, AST 13 L, ALT 25, Alkaline Phosphatase 72, Troponin I < 0.01, Total Protein 6.7, Albumin 3.5, Globulin 3.2, Albumin/Globulin Ratio 1.1, PT 12.9 H, INR 1.23 H, APTT 26, CBC w Diff NO MAN DIFF REQ, RBC 3.74 L, MCV 81.7, MCH 26.6 L, RDW 17.4 H, MPV 7.9 , Gran % 77.2 H, Lymphocytes % 12.8 L, Monocytes % 9.3, Eosinophils % 0.3, Basophils % 0.4, Absolute Granulocytes 11.7 H, Absolute Lymphocytes 2.0, Absolute Monocytes 1.4 H, Absolute Eosinophils 0.1, Absolute Basophils 0.1, PUBS MCHC 32.6 L Diagnostic Data EKG Results Normal sinus rhythm HR 93 [address]Tc [address] HEAD/C-SPINE: No evidence for acute intracranial injury. Stable appearance of mild white matter disease. No evidence for acute injury to the cervical spine. Mild degenerative change within the cervical spine. CT CHEST/ABDOMEN/PELVIS: 1. No acute osseous abnormality in the chest, abdomen and pelvis. A healing fracture of the right 6th rib. 2. Postsurgical changes of left upper lobectomy and right lower lobectomy. Changes of emphysema. A 0.5 cm nodule in the left lower lobe is stable compared to previous CT. Two right lung nodules abutting the fissure as described above are not discretely seen on the previous CT due to presence of significant amount of airspace disease in the region on the previous CT. Small right pleural effusion which might be loculated. 3. No evidence of acute traumatic injury to the chest, abdomen and pelvis. 4. Colonic diverticulosis without acute diverticulitis. 5. Prostatomegaly. Assessment/Plan Assessment: 75 y/o F with PMHx of lung cancer s/p left upper lobectomy in 1996 with recent lung adenocarcinoma s/p right lower lobectomy, paroxysmal atrial fibrillation and rheumatoid arthritis who is admitted for syncope. #Syncope: According to history provided by patient and confirmed by his , it appears that loss of consciousness preceded fall. No focal deficits on neuro exam. CT Head/C-Spine/Chest/Abdomen/Pelvis with no evidence of acute injury. Differential includes vasovagal syncope, orthostatic hypotension and cardiac causes. * Admit to telemetry for continuous cardiac monitoring. * Cardiology consulted. Appreciate their recs. * PT evaluation. * Serial troponins and EKG. * Check orthostatic vitals. * Confirm home medications and resume in the AM. #Adenocarcinoma of the lung: S/p recent RLL lobectomy. Scheduled for chemotherapy tomorrow. * Alert patient's oncologist Dr. Benedicto Carrasco of his admission. #Hypercalcemia: Calcium with mild elevation to 10.3 on admission. Of note mild hypercalcemia has been present since March 2016. Possibly paraneoplastic secondary to lung cancer. * Recheck calcium in the morning. #Rheumatoid arthritis: * Continue prior to admission prednisone 10 mg PO daily and sulfasalazine 1500 mg PO BID. * Confirm Plaquenil dose and resume in the AM. #IDDM: * Accu-checks and medium dose Novolog sliding scale TIDAC. * Hold oral hypoglycemic agents while inpatient. Diet: Consistent Carbohydrate 3 DVT PPx: HSQ and ALPs CODE: FULL As Ranked By This Provider Problem List: 1. Syncope 2. S/P lobectomy of lung 3. Adenocarcinoma, lung 4. Insulin dependent type 2 diabetes mellitus 5. Rheumatoid arthritis 6. Hypercalcemia 7. Paroxysmal atrial fibrillation Core Measures/Miscellaneous Acute Coronary Syndrome ACS Diagnosis: No Cerebrovascular Accident CVA/TIA Diagnosis: No Congestive Heart Failure CHF Diagnosis: No Venous Thromboembolism VTE Risk Factors: Acute medical illness, Age > 40, Malignancy Myelo Disorder No [facility] VTE prophylaxis d/t: No contraindications No VTE Pharm Prophylaxis d/t: No contraindications VTE Diagnosis: No VTE Type: NONE VTE Confirmed by (Test): NONE Severe Sepsis Severe Sepsis Present: No Septic Shock Septic Shock Present: No Miscellaneous Documentation Attending Case Discussed With: Marianela Christine MD Primary Care Physician: UNKNOWN Patient sees these Specialists Oncologist Dr. Benedicto Carrasco MD Surgeon Evan Rosales MD Dining Car Waiter/Waitress Torin Perdomo MD Level of Patient Care: Telemetry JACOBO NAVA 05/24/16 0309: Resident Review Statement Resident Statement: examined this patient, discussed with commercial internship, agreed with commercial internship, discussed with family, reviewed EMR data (avail), reviewed images, amended to note Other Findings: This is 75-year-old man with past medical history of diabetes mellitus, COPD not on home oxygen, GERD, hypertension, hyperlipidemia, history of lung cancer in 1996 on left side, recent adenocarcinoma on right side, S/P surgery that was done on day February 2016 supposed to get chemotherapy tomorrow, anxiety, depression, rheumatoid arthritis, paroxysmal A. fib. He presented to the emergency department status post passing out. Patient is poor historian, we contact his over the phone and she said that he was cleaning his boat when he passed out in front of his family. Patient stated that he felt lightheaded prior to the episode. He complained of headaches chest and neck pain. He denies any heart racing, chest pain or shortness of breath prior to the passing out. Physical examination, imaging and lab as above. Assessment: -Syncope/passing out: So far there is no clear etiology, as the patient has a remote history of paroxysmal atrial fibrillation that need to be ruled out as the patient off any anticoagulation and according to his medication same history that is no metoprolol was refilled recently, we need to confirm the patient home medication, the patient had recent echocardiogram that was done no need for repeating. Vasovagal also need to be ruled out as the patient felt dizzy and lightheaded prior to the episode. -Right-sided adenocarcinoma status post lobectomy: Patient supposed to receive his first chemotherapy tomorrow, will try to contact the patient cardiothoracic surgeon and oncology. -Leukocytosis/hypercalcemia/hypomagnesemia: The leukocytosis most likely secondary to the chronic steroid due to the underlying rheumatoid arthritis. The patient had elevated calcium that was reported since the previous admissions , will give the patient gentle hydration and recheck in the morning. he received 1 g of IV magnesium in the emergency department. Plan: -Admit patient to telemetry floor -Vitals every shift, monitor INRs, fall precaution -Check Orthostatic vital signs -Start gentle IV fluid hydration at 75 mL per hour -Serial troponin and EKG -Cardiology consultation in a.m. -Recheck CBC and basic panel electrolytes including mag, calcium, replete accordingly. -TRC nebs as needed -Physical therapy consultation in a.m. -Contact the patient oncology -Place the patient on diabetic diet, insulin sliding scale, Accu-Chek -We'll need to confirm the patient home medication. -Pain pathway -DVT prophylaxis subcutaneous heparin -Full code MARIANELA CHRISTINE 05/24/16 0350: Attending MD Review Statement Attending Statement Attending MD Statement: examined this patient, discuss w/resident/PA/GALLERY OR MUSEUM CURATOR, agreed w/resident/PA/GALLERY OR MUSEUM CURATOR, reviewed EMR data (avail), reviewed images, amended to note Attending Assessment/Plan: CC: Passing out PMH: DM, COPD, GERD, HTN, HLD, history of lung cancer in 1996 on left side, recent adenocarcinoma on right side, S/P surgery supposed to get chemotherapy, anxiety, depression, RA, paroxysmal A. fib Patient is very poor historian. He does not provide a lot of details in the history, digresses multiple times. Last few days is all joints were hurting a lot, he went to his director semiconductor, who changed his medications, patient was feeling better, so he went to work on his boat, and fell down on his head. Patient mentions seeing stars and feeling dizzy just before the fall. The fall was witnessed and he passed out at that time. Patient complains of whole body pain after coming to ER including headache, neck pain, chest pain, hip pain it was all resolved by this time we saw patient. Patient supposed to get chemotherapy tomorrow, has port on the right side, not sure if this is first time or chemotherapy is ongoing (again patient does not provide any details). Patient currently denies chest pain, palpitations, nausea, vomiting, there was no witnessed seizures. Vitals: Afebrile, pulse in 80s, RR 22 at presentation, blood pressure 175/84, saturating well on room air. On exam: A O 3, cooperative, no acute distress, neck supple, no JVD, no lymphadenopathy, mucosa dry, no focal neurological deficit, no dependent edema, no obvious skin rashes or inflammation CVS: S1-S2, RRR. RS: No adventitious sounds. Abdomen: Soft, NT, ND, bowel sounds present. Peripheral pulses perfusion normal. Labs: WBC 15.2, hemoglobin 9.9, platelets 288, MCV 81.7, sodium 133, chloride 96 , creatinine 0.6, glucose 171, calcium 10.3, magnesium 1.1, troponin less than 0.01, INR 1.[address] head, CT chest, CT cervical spine, CT abdomen and pelvis was obtain and without contrast. 1. No evidence for acute intracranial injury. Stable appearance of mild white matter disease. No evidence for acute injury to the cervical spine. Mild degenerative change within the cervical spine. 2. No acute osseous abnormality in the chest, abdomen and pelvis. A healing fracture of the right 6th rib. 3. Postsurgical changes of left upper lobectomy and right lower lobectomy. Changes of emphysema. A 0.5 cm nodule in the left lower lobe is stable compared to previous CT. Two right lung nodules abutting the fissure as described above are not discretely seen on the previous CT due to presence of significant amount of airspace disease in the region on the previous CT. Small right pleural effusion which might be loculated. 4. No evidence of acute traumatic injury to the chest, abdomen and pelvis. 5. Colonic diverticulosis without acute diverticulitis. 6. Prostatomegaly. A and P #1 syncope: At this point it's unclear whether patient fell down and then passed out. But according to the history that patient provides and his discusses that patient had some dizziness, "stars in front of his eyes" before he had a fall And immediately lost consciousness for some time. No history available however he woke up, no observed seizures. No obvious focal neurological deficit at this point no obvious trauma on multiple CT images as mentioned above. Patient had history of paroxysmal A. fib, during previous hospitalization. Observe on telemetry, serial EKG, trend troponin, orthostatic vitals now and in morning, patient appears volume contracted, continue normal saline at 75 mL per hour for 1 L, consult cardiology in a.m. #2 patient has history of lung cancer, right-sided adenocarcinoma S/P right lower lobe lobectomy. Patient is expected to get chemotherapy tomorrow, informed patient's oncologist about patient being in hospital. #3 leukocytosis: Probably secondary to steroids. #4 hypercalcemia: Mild, persistently elevate, continue gentle hydration, repeat values in morning. #5 history of diabetes: Patient stopped taking Victoza, continue basal and sliding scale insulin, hold metformin. #6 patient is a poor historian, also did not provide details about his home medications. According to the records he is on amlodipine, atorvastatin, digoxin , Lexapro, Plaquenil(?), Insulin, lisinopril, metformin, metoprolol, prednisone, Lyrica, sulfasalazine, tamsulosin, tramadol: Need to confirm medications and dosages before resuming, probably call pharmacy or PCP will be beneficial. #6 DVT prophylaxis with heparin, adequate pain control.
--- NOTE | 2016-05-23 22:38 | NUR ---
MAG SULFATE INFUSING AT THIS TIME PER EMAR. PT TOLERATING WELL. AWAITING ADMISSION.
--- NOTE | 2016-05-23 23:10 | NUR ---
PT BED ASSIGNMENT [id number]
--- NOTE | 2016-05-23 23:25 | NUR ---
HOUSE STAFF AT BEDSIDE
--- NOTE | 2016-05-23 23:38 | NUR ---
REPORT GIVEN TO JYOTI GUERRERO
[2016-05-24 00:30] VITALS: BP 160/80
[2016-05-24 03:03] LABS: ABSOLUTE BASOPHIL COUNT 0.1 /CUMM (0.0-0.2); ABSOLUTE EOSINOPHIL COUNT 0.1 /CUMM (0.0-0.7); ABSOLUTE GRANULOCYTE CT 9.4 /CUMM (1.4-6.5); ABSOLUTE LYMPH COUNT 2.3 /CUMM (1.2-3.4); ABSOLUTE MONOCYTE COUNT 1.5 /CUMM (0.10-0.60); BASOPHIL % 0.4 % (0.0-2.0); EOSINOPHIL % 1.1 % (0-5); GRANULOCYTE % 70.1 % (42.2-75.2); MEAN CORPUSCULAR HGB 26.5 PG (27.0-31.0); MEAN CORPUSCULAR VOLUME 82.6 FL (80.0-94.0); MEAN PLATELET VOLUME 7.9 FL (7.4-10.4); PLATELET COUNT 252 /CUMM (130-400); RBC DISTRIBUTION WIDTH 17.4 % (11.5-14.5); RED BLOOD CELL CT 3.39 /CUMM (4.70-6.10); WHITE BLOOD CELL COUNT 13.4 /CUMM (4.8-10.8)
--- NOTE | 2016-05-24 07:16 | PN- Housestaff ---
SELENE HALL 05/24/16 0715: Subjective Follow-up For: Syncope Hypomagnesemia CA Lung Complaints: no complaints Tele-Events Since Last Visit: NSR 80 TO 90 BPM No overnight events Subjective: Reviewed the patient seated comfortably on the bed. No acute distress. Family in the room, patient reports he slept well and is looking forward to go home today Review of Systems Constitutional: Denies: chills, fever. Cardiovascular: Denies: chest pain, palpitations. Respiratory: Denies: cough, short of breath. Gastrointestinal: Denies: abdominal pain, nausea, vomiting. Genitourinary: Denies: no symptoms. Musculoskeletal: Reports: see HPI. Objective Last 24 Hrs of Vital Signs/I&O Vital Signs Date Time Temp Pulse Resp B/P Pulse O2 O2 Flow FiO2 Ox Delivery Rate 05/24 0946 98.3 92 20 160/80 05/24 0800 94 Room Air Room Air 05/24 0030 98.3 92 20 160/80 96 Room Air 05/24 0000 Room Air 05/23 2304 95 Room Air 05/23 2232 98.5 89 18 169/80 93 05/23 2144 97.5 92 18 128/84 94 05/23 2105 Room Air 05/23 1844 97.4 83 22 175/84 98 Room Air Intake & Output 05/24 1600 05/24 0800 05/24 0000 Intake Total 625 0 Output Total Balance 625 0 Intake, IV 375 Intake, Oral 250 0 Patient 160 lb 160 lb Weight Physical Exam General Appearance: Alert, Oriented X3, Cooperative, No Acute Distress Skin: No Rashes HEENT: Atraumatic, Mucous Membr. moist/pink Neck: Supple, No JVD Cardiovascular: Regular Rate, Normal S1, Normal S2 Lungs: Clear to Auscultation Abdomen: Normal Bowel Sounds, Soft Neurological: Normal Speech, Normal Tone Extremities: No Cyanosis, No Edema Current Medications: Current Medications Sig/Lelo Start time Last Medication Dose Route Stop Time Status Admin Acetaminophen 650 MG Q6P PRN 05/23 2330 AC PO Albuterol Sulfate 2 PUF Q6P PRN 05/24 1015 AC INH Atorvastatin Calcium 40 MG DAILY 05/24 1015 AC 05/24 PO 1202 Cyanocobalamin 1,000 MCG DAILY 05/24 1015 AC 05/24 PO 1201 Docusate Sodium 100 MG DAILY 05/24 1016 AC 05/24 PO 1201 Escitalopram Oxalate 20 MG DAILY 05/24 1100 AC 05/24 PO 1227 Heparin Sodium 5,000 UNIT Q8 05/24 0600 AC 05/24 (Porcine) SC 0533 Hydroxychloroquine 200 MG BID 05/24 1017 AC 05/24 Sulfate PO 1202 Insulin Aspart 0 TIDAC 05/24 0800 AC 05/24 SC 1200 Magnesium Oxide 400 MG BID 05/24 1000 CAN PO 05/25 2201 Magnesium Oxide 800 MG ONE ONE 05/24 0745 DC 05/24 PO 05/24 0746 0836 Magnesium Sulfate 1 GM ONCE ONE 05/24 0645 DC 05/24 Dextrose/Water 100 ML IV 05/24 1044 0836 Magnesium Sulfate 1 GM ONCE ONE 05/23 2200 DC 05/23 Dextrose/Water 100 ML IV 05/24 0159 2238 Omeprazole 40 MG DAILY AC 05/25 0700 AC PO Oxycodone/ 2 TAB Q8P PRN 05/23 2330 AC Acetaminophen PO Prednisone 10 MG DAILY 05/24 1020 DC PO Prednisone 10 MG DAILY 05/24 1000 AC 05/24 PO 0946 Pregabalin 75 MG BID 05/24 1101 AC 05/24 PO 1200 Sodium Chloride 1,000 ML ONCE ONE 05/24 0015 AC 05/24 IV 05/24 1334 0044 Sulfasalazine 1,500 MG BID 05/24 1000 AC 05/24 PO 1201 Tamsulosin HCl 0.4 MG BID 05/24 0130 AC 05/24 PO 0946 Tramadol HCl 50 MG Q8P PRN 05/23 2330 AC 05/24 PO 0950 Last 24 Hrs of Lab/Abelardo Results Last 24 Hrs of Labs/Mics: Laboratory Tests 05/24/16 0740: Troponin I < 0.01 05/24/16 0740: Troponin I Cancelled, Digoxin < 0.4 L 05/24/16 0205: Anion Gap 9, Estimated GFR > 60, BUN/Creatinine Ratio 26.0 H, Calcium 9.9, Phosphorus 2.9, Magnesium 1.2 L, Troponin I < 0.01 05/24/16 0205: Sodium Cancelled, Potassium Cancelled, Chloride Cancelled, Carbon Dioxide Cancelled, Anion Gap Cancelled, BUN Cancelled, Creatinine Cancelled, BUN/ Creatinine Ratio Cancelled, CBC w Diff NO MAN DIFF REQ, RBC 3.39 L, MCV 82.6, MCH 26.5 L, RDW 17.4 H, MPV 7.9, Gran % 70.1, Lymphocytes % 17.5 L, Monocytes % 10.9 H, Eosinophils % 1.1, Basophils % 0.4, Absolute Granulocytes 9.4 H, Absolute Lymphocytes 2.3, Absolute Monocytes 1.5 H, Absolute Eosinophils 0.1, Absolute Basophils 0.1, PUBS MCHC 32.0 L 05/23/161951: Anion Gap 11, Estimated GFR > 60, BUN/Creatinine Ratio 31.7 H, Glucose 171 H, Calcium 10.3 H, Magnesium 1.1 L, Total Bilirubin 0.4, AST 13 L, ALT 25, Alkaline Phosphatase 72, Troponin I < 0.01, Total Protein 6.7, Albumin 3.5, Globulin 3.2, Albumin/Globulin Ratio 1.1, PT 12.9 H, INR 1.23 H, APTT 26, CBC w Diff NO MAN DIFF REQ, RBC 3.74 L, MCV 81.7, MCH 26.6 L, RDW 17.4 H, MPV 7.9 , Gran % 77.2 H, Lymphocytes % 12.8 L, Monocytes % 9.3, Eosinophils % 0.3, Basophils % 0.4, Absolute Granulocytes 11.7 H, Absolute Lymphocytes 2.0, Absolute Monocytes 1.4 H, Absolute Eosinophils 0.1, Absolute Basophils 0.1, PUBS MCHC 32.6 L Assessment/Plan Assessment: Mr. Maldonado is a 75 y/o F with PMHx of lung cancer s/p left upper lobectomy in 1996 with recent lung adenocarcinoma s/p right lower lobectomy, paroxysmal atrial fibrillation and rheumatoid arthritis who is admitted after a transient fall and loss of consciousness which we will manage as syncope. Syncope: According to history provided by patient and confirmed by his , it appears that loss of consciousness preceded fall. No focal deficits on neuro exam. CT Head/C-Spine/Chest/Abdomen/Pelvis with no evidence of acute injury. Patient had 3 troponins which are negative. He was reviewed by a physical therapist whose assessment for about the patient can be home self-care. Follow up cardiology recommendations. Patient was admitted as 23 hour AND is looking forward to go home today. Adenocarcinoma of the lung: S/p RLL lobectomy. Scheduled for reviewed by a rn palliative oncologist. Dr. Benedicto Carrasco I spoke with the office of Dr. Carrasco and patient has been rescheduled for May 28 at 11:45 AM. Hypercalcemia: Calcium with mild elevation to 10.3 on admission. Of note mild hypercalcemia has been present since March 2016. Likely paraneoplastic secondary to lung cancer. Repeated calcium level with within normal limits 9.9. Rheumatoid arthritis: Patient was restarted on his home medication Prednisone 10 mg PO daily, hydroxychloroquine 200 mg twice a day and sulfasalazine 1500 mg PO BID. IDDM: Patient started on insulin sliding scale. We held metformin during the course of the stay but will be restarted the medication as he goes home. Overnight the patient's sugar has remained stable with fingerstick 176, 138, 160, 160, 182, 182, 182. Problem List: 1. S/P lobectomy of lung 2. Rheumatoid arthritis 3. Insulin dependent type 2 diabetes mellitus 4. Adenocarcinoma, lung 5. Syncope 6. Hypomagnesemia Pain Ratin Pain Location: Back Pain Goal: Remain pain free Pain Plan: Tramadol, percocet Tomorrow's Labs & Rationales: None DVT/Prophylaxis: pharmacological Discharge Plan Discharge Disposition: home Stable for Discharge? Yes Anticipated Discharge (Day): today SHERLEY BATISTA 05/24/16 1517: Attending MD Review Statement Attending Statement Attending MD Statement: examined this patient, discuss w/resident/PA/HOSPITAL TRAY SERVICE WORKER, agreed w/resident/PA/HOSPITAL TRAY SERVICE WORKER, discussed with family, reviewed EMR data (avail), discussed with nursing, discussed with case mgmt, reviewed images Attending Assessment/Plan: syncope likely vasovagal, improved with hydration, encourage po fluids, bedisde. d/c today cleared by cardiology. f/u o/p cards and pcp, hem/onc as scheduled
[2016-05-24] MEDS ORDERED: LIDODERM1 EACH TOP (10:26)
--- NOTE | 2016-05-24 11:39 | Cons- Cardiology ---
General Information and HPI Consulting Request Date of Consult: 05/24/16 Requested By: SHERLEY BATISTA MD Reason for Consult: syncope Source of Information: patient, family, old records History of Present Illness: This is a 75-year-old male with a past medical history of lung cancer status post recent right lower lung lobectomy and lymph node resection, isolated episode of atrial fibrillation postoperatively, hypertension, hyperlipidemia, recently mildly depressed ejection fraction by echocardiogram, COPD, GERD, and diabetes mellitus who presents to [facility] with the an episode of syncope. The history was obtained from the patient and his family. The patient says he was working on his boat when he felt dizzy and "saw stars" which causes him to fall down and his head, he apparently then lost consciousness for a short period of time. There was no reported seizure activity or incontinence. He denied any chest pain or diaphoresis prior to the of. He does note recurrent episodes of dizziness in the past which are sometimes positional. Denies shortness of breath, orthopnea, paroxysmal nocturnal dyspnea, or obvious bleeding. He was scheduled to start chemotherapy in the near future. On my interview with the patient today he was sitting in his chair and felt at baseline. He does note some arthritic pain. Denies palpitations. Allergies/Medications Allergies: Coded Allergies: No Known Allergies (04/23/16) Home Med List: Albuterol Sulfate (Proair Hfa) 90 MCG HFA.AER.AD 2 PUF INH Q6P PRN WHEEZING ( Reported) Atorvastatin Calcium 40 MG TABLET 1 TAB PO DAILY CHOLESTEROL (Reported) Cyanocobalamin (Vitamin B-12) 1,000 MCG TABLET 1 TAB PO DAILY SUPPLEMENT ( Reported) Docusate Sodium (Colace) 100 MG CAPSULE 1 CAP PO PRN GI (Reported) Escitalopram Oxalate (Lexapro) 20 MG TABLET 2 TAB PO DAILY DEPRESSION ( Reported) Esomeprazole (Nexium) 40 MG CAPSULE.DR 1 CAP PO BID GI (Reported) Hydroxychlorquine (Plaquenil) 200 MG TABLET 1 TAB PO BID RA (Reported) Insulin Aspart (Novolog) 100 UNIT/ML VIAL 11 UNITS SC TIDAC PRN DM (Reported) Insulin Detemir (Levemir) 100 UNIT/ML VIAL 11 UNITS SC QPM DM (Reported) Lidocaine (Lidoderm) 5 % ADH..PATCH 1 PAT TOP DAILY pain (Reported) may wear up to 12 hours Then 12 hours without patch Metformin HCl (Metformin HCl ER) 500 MG TAB.ER.24H 2 TAB PO BID DM (Reported) Prednisone 5 MG TABLET 2 TAB PO DAILY RA (Reported) Pregabalin (Lyrica) 75 MG CAPSULE 1 CAP PO BID NEUROPATHY (Reported) Sulfasalazine 500 MG TABLET 3 TAB PO BID RA (Reported) Tamsulosin HCl (Flomax) 0.4 MG CAP.ER.24H 1 CAP PO BID BPH (Reported) Tramadol HCl 50 MG TABLET 1 TAB PO TID PRN PAIN (Reported) Current Medications: Current Medications Sig/Lelo Start time Last Medication Dose Route Stop Time Status Admin Acetaminophen 650 MG Q6P PRN 05/23 2330 AC PO Albuterol Sulfate 2 PUF Q6P PRN 05/24 1015 AC INH Atorvastatin Calcium 40 MG DAILY 05/24 1015 AC PO Cyanocobalamin 1,000 MCG DAILY 05/24 1015 AC PO Docusate Sodium 100 MG DAILY 05/24 1016 AC PO Escitalopram Oxalate 20 MG DAILY 05/24 1100 AC PO Heparin Sodium 5,000 UNIT Q8 05/24 0600 AC 05/24 (Porcine) SC 0533 Hydroxychloroquine 200 MG BID 05/24 1017 AC Sulfate PO Insulin Aspart 0 TIDAC 05/24 0800 AC 05/24 SC 0834 Magnesium Oxide 400 MG BID 05/24 1000 CAN PO 05/25 2201 Magnesium Oxide 800 MG ONE ONE 05/24 0745 DC 05/24 PO 05/24 0746 0836 Magnesium Sulfate 1 GM ONCE ONE 05/24 0645 DC 05/24 Dextrose/Water 100 ML IV 05/24 1044 0836 Magnesium Sulfate 1 GM ONCE ONE 05/23 2200 DC 05/23 Dextrose/Water 100 ML IV 05/24 0159 2238 Omeprazole 40 MG DAILY AC 05/25 0700 AC PO Oxycodone/ 2 TAB Q8P PRN 05/23 2330 AC Acetaminophen PO Prednisone 10 MG DAILY 05/24 1020 AC PO Prednisone 10 MG DAILY 05/24 1000 AC 05/24 PO 0946 Pregabalin 75 MG BID 05/24 1101 AC PO Sodium Chloride 1,000 ML ONCE ONE 05/24 0015 AC 05/24 IV 05/24 1334 0044 Sulfasalazine 1,500 MG BID 05/24 1000 AC PO Tamsulosin HCl 0.4 MG BID 05/24 0130 AC 05/24 PO 0946 Tramadol HCl 50 MG Q8P PRN 05/23 2330 AC 05/24 PO 0950 Review of Systems Review of Systems: Review of systems as per HPI. The remainder of a 10 point review of systems was reviewed and was otherwise negative. 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 SISTER (Diabetes mellitus). Psychosocial History Where Do You Live? Home Who Do You Live With? spouse Services at Home: None Smoking Status: Former Smoker ETOH Use: denies use Functional Ability ADLs Independent: dressing, eating, toileting, bathing. 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 Exam & Diagnostic Data Vital Signs and I&O Vital Signs Date Time Temp Pulse Resp B/P Pulse O2 O2 Flow FiO2 Ox Delivery Rate 05/24 1240 100 148/72 05/24 0946 98.3 92 20 160/80 05/24 0800 94 Room Air Room Air 05/24 0030 98.3 92 20 160/80 96 Room Air 05/24 0000 Room Air 05/23 2304 95 Room Air 05/23 2232 98.5 89 18 169/80 93 05/23 2144 97.5 92 18 128/84 94 05/23 2105 Room Air 05/23 1844 97.4 83 22 175/84 98 Room Air Intake & Output 05/24 1600 05/24 0800 05/24 0000 05/23 1600 05/23 0800 05/23 0000 Intake Total 625 0 Output Total Balance 625 0 Intake, IV 375 Intake, Oral 250 0 Patient 160 lb 160 lb Weight Physical Exam: General: no apparent distress. Alert. Eyes: No obvious scleral icterus. HEENT: No jugular venous distention or abnormal jugular venous pulsations. Cardiovascular: Normal intensity S1/S2. PMI not grossly displaced. Respiratory: No rales or rhonchi Abdomen: Soft, nontender with no guarding or rebound tenderness. Musculoskeletal: No clubbing or cyanosis noted Skin: Warm Neurologic: No gross focal deficits noted. Labs/Abelardo Results: Laboratory Tests 05/24 05/24 05/24 05/24 1300 0740 0740 0205 Chemistry Sodium (137 - 145 mmol/L) 134 L Potassium (3.5 - 5.1 mmol/L) 3.7 Chloride (98 - 107 mmol/L) 98 Carbon Dioxide (22 - 30 mmol/L) 27 Anion Gap (5 - 16) 9 BUN (9 - 20 mg/dL) 13 Creatinine (0.7 - 1.2 mg/dL) 0.5 L Estimated GFR (>60 ml/min) > 60 BUN/Creatinine Ratio (7 - 25 %) 26.0 H Calcium (8.4 - 10.2 mg/dL) 9.9 Phosphorus (2.5 - 4.5 mg/dL) 2.9 Magnesium (1.6 - 2.3 mg/dL) Pending 1.2 L Troponin I (<0.11 ng/ml) < 0.01 Cancelled < 0.01 Toxicology Digoxin (0.8 - 2.0 ng/mL) < 0.4 L 05/24 05/23 0205 1952 Chemistry Sodium (137 - 145 mmol/L) Cancelled 133 L Potassium (3.5 - 5.1 mmol/L) Cancelled 4.5 Chloride (98 - 107 mmol/L) Cancelled 96 L Carbon Dioxide (22 - 30 mmol/L) Cancelled 26 Anion Gap (5 - 16) Cancelled 11 BUN (9 - 20 mg/dL) Cancelled 19 Creatinine (0.7 - 1.2 mg/dL) Cancelled 0.6 L Estimated GFR (>60 ml/min) > 60 BUN/Creatinine Ratio (7 - 25 %) Cancelled 31.7 H Glucose (65 - 99 mg/dL) 171 H Calcium (8.4 - 10.2 mg/dL) 10.3 H Magnesium (1.6 - 2.3 mg/dL) 1.1 L Total Bilirubin (0.2 - 1.3 mg/dL) 0.4 AST (17 - 59 U/L) 13 L ALT (21 - 72 U/L) 25 Alkaline Phosphatase (< 127 U/L) 72 Troponin I (<0.11 ng/ml) < 0.01 Total Protein (6.3 - 8.2 g/dL) 6.7 Albumin (3.5 - 5.0 g/dL) 3.5 Globulin (1.9 - 4.2 gm/dL) 3.2 Albumin/Globulin Ratio (1.1 - 2.2 %) 1.1 Coagulation PT (9.4 - 12.5 SEC) 12.9 H INR (0.90 - 1.17) 1.23 H APTT (25 - 37 SEC) 26 Hematology CBC w Diff NO MAN DIFF REQ NO MAN DIFF REQ WBC (4.8 - 10.8 /CUMM) 13.4 H 15.2 H RBC (4.70 - 6.10 /CUMM) 3.39 L 3.74 L Hgb (14.0 - 18.0 G/DL) 9.0 L 9.9 L Hct (42 - 52 %) 28.0 L 30.5 L MCV (80.0 - 94.0 FL) 82.6 81.7 MCH (27.0 - 31.0 PG) 26.5 L 26.6 L RDW (11.5 - 14.5 %) 17.4 H 17.4 H Plt Count (130 - 400 /CUMM) 252 288 MPV (7.4 - 10.4 FL) 7.9 7.9 Gran % (42.2 - 75.2 %) 70.1 77.2 H Lymphocytes % (20.5 - 51.1 %) 17.5 L 12.8 L Monocytes % (1.7 - 9.3 %) 10.9 H 9.3 Eosinophils % (0 - 5 %) 1.1 0.3 Basophils % (0.0 - 2.0 %) 0.4 0.4 Absolute Granulocytes (1.4 - 6.5 /CUMM) 9.4 H 11.7 H Absolute Lymphocytes (1.2 - 3.4 /CUMM) 2.3 2.0 Absolute Monocytes (0.10 - 0.60 /CUMM) 1.5 H 1.4 H Absolute Eosinophils (0.0 - 0.7 /CUMM) 0.1 0.1 Absolute Basophils (0.0 - 0.2 /CUMM) 0.1 0.1 PUBS MCHC (33.0 - 37.0 G/DL) 32.0 L 32.6 L Diagnostic Data EKG Results Tracing was personally reviewed and shows sinus rhythm at 93 bpm with no infarct pattern Other Results Head CT IMPRESSION: No evidence for acute intracranial injury. Stable appearance of mild white matter disease. No evidence for acute injury to the cervical spine. Mild degenerative change within the cervical spine. Echocardiogram Normal LV chamber size with borderline concentric LVH. The estimated LVEF is 45-50%. There is mild global hypokinesis. There is mild mitral regurgitation. There is mild tricuspid regurgitation. The estimated PA systolic pressure is 45 mmHg. César Choudhury M.D. (Electronically Signed) Final Date: 25 March 2016 13:11 Telemetry tracings were personally reviewed and shows sinus rhythm Assessment/Plan Assessment/Plan 1. Dizziness with a fall/head strike and subsequent transient loss of consciousness 2. Isolated brief episode of atrial fibrillation after recent right upper lobe lobectomy 3. Lung cancer planned for chemotherapy in the near future 4. COPD by history 5. GERD 6. Hypertension 7. Hyperlipidemia 8. Diabetes 9. Mild cardiomyopathy on recent echocardiogram EF 45-50% Etiology of the recent episode is unclear. It appears he suffers from chronic intermittent dizziness which I doubt is cardiac in etiology. Vasovagal episode and orthostatic episode certainly in the differential. It is also possible that he lost consciousness from the head strike as it appears he hit his head before he lost consciousness. He did have a recent echo showing mild left ventricular dysfunction which was thought due to the transient atrial fibrillation. He will need a repeat echocardiogram in the future as well as ischemic testing but this can be done after discharge. Telemetry tracings show no evidence of recurrent atrial fibrillation or other arrhythmias at this time. His blood pressure is elevated and I would recommend starting him on Toprol-XL 25 mg by mouth daily given the mild LV dysfunction. Would document orthostatic vital signs. Would not initiate on full anticoagulation in the absence of recurrent atrial fibrillation and given his history of recurrent dizziness with falls. The patient should follow-up in my office within one week of discharge. Additional assessment per the medical team. Please do not hesitate to contact me with any questions or concerns. Maurisio Walsh MD [facility] Consult Acknowledgment - Thank you for your consult request.
--- NOTE | 2016-05-24 12:00 | Patient Discharge Instructions ---
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 Carrasco on May 28 at 11:45 AM Acute Coronary Syndrome Inclusion Criteria At DC or during hospital stay patient has or had the following: ACS DIAGNOSIS No Discharge Core Measures Meds if any: Prescribed or Continued at Discharge Meds if any: NOT Prescribed or Continued at Discharge Congestive Heart Failure Inclusion Criteria At DC or during hospital stay patient has or had the following: CHF DIAGNOSIS No Discharge Core Measures Meds if any: Prescribed or Continued at Discharge Meds if any: NOT Prescribed or Continued at Discharge Cerebrovascular accident Inclusion Criteria At DC or during hospital stay patient has or had the following: CVA/TIA Diagnosis No Discharge Core Measures Meds if any: Prescribed or Continued at Discharge Meds if any: NOT Prescribed or Continued at Discharge Venous thromboembolism Inclusion Criteria VTE Diagnosis No VTE Type NONE VTE Confirmed by (Test) NONE Discharge Core Measures - Per Current guidelines, there needs to be overlap - treatment for the first 5 days of Warfarin therapy. - If discharged on Warfarin prior to 5 days of - overlap therapy, the patient will need to be - assessed for post discharge needs including - *Post discharge parental anticoagulation - *Warfarin and/or parental anticoagulation education - *Follow up date to check INR post discharge At least 5 days overlap therapy as Inpatient No Meds if any: Prescribed or Continued at Discharge Note: Overlap Therapy is Warfarin and Anticoagulant Meds if any: NOT Prescribed or Continued at Discharge
[2016-05-24 12:40] VITALS: BP 148/72
== END 2016-05-24 15:40 ==
LOC: ENRESERVTM → ENRESERVDT → ERH 18:00 → 1NO 22:57 → ENPENDDIS 22:57 → 1NO 22:57 → ERHI 22:57 → 1NO 23:45
PROVIDERS: Internal Medicine Hematology & Oncology; Physician Assistant Medical; ADMIT Internal Medicine
DX: R55 Syncope and collapse (principal); Z85.118 Personal history of other malignant neoplasm of bronchus and lung; I48.0 Paroxysmal atrial fibrillation; M06.9 Rheumatoid arthritis, unspecified; E83.52 Hypercalcemia; E11.9 Type 2 diabetes mellitus without complications; J44.9 Chronic obstructive pulmonary disease, unspecified; K21.9 Gastro-esophageal reflux disease without esophagitis; I10 Essential (primary) hypertension; E78.5 Hyperlipidemia, unspecified; I42.9 Cardiomyopathy, unspecified
CPT/HCPCS: 6020; 36415; 74176; 82436; 93005; 93010; 96372; 96374; 96376; 97110-GP; 97116-GP; 97161-GP; G0378; J1644; J3490; J7512

== ENCOUNTER 2017-09-03 18:24 | Inpatient (IN) | payer OTHER ==
[~2017-09-03] VITALS: Ht 172.7 cm; Wt 75.8 kg
[~2017-09-03 18:24] MED LIST changes: +BACTROBAN15 GM TOP; +HYDROXYZINE HCL25 M2 PO; +LIDOCAINE1 EACH; +LIDODERM1 EACH TOP; +LISINOPRIL5 M1 PO; +METFORMIN HCL500 M4 PO; +MOBIC7.5 M1 PO; +RANITIDINE HCL150 MG PO
--- NOTE | 2017-09-03 18:54 | ED MVC/FALL/TRAUMA COMPLAINT ---
History of Present Illness General Chief Complaint: Facial or Head Injury Stated Complaint: FALL LAST WEEK /ENCARNACION Source: patient, family Exam Limitations: language barrier Vital Signs & Intake/Output Vital Signs & Intake/Output Vital Signs Date Time Temp Pulse Resp B/P B/P Pulse O2 O2 Flow FiO2 Mean Ox Delivery Rate 09/03 1957 97.9 84 20 155/67 94 Room Air 09/03 1928 95 Room Air 09/03 1825 97.1 92 18 156/84 94 Room Air Allergies Coded Allergies: hydromorphone (LOOPY, TOO MUCH PER PT 09/03/17) Reconcile Medications Albuterol Sulfate (Proair Hfa) 90 MCG HFA.AER.AD 2 PUF INH Q6P PRN WHEEZING ( Reported) Amlodipine Besylate 5 MG TABLET 1 TAB PO DAILY BP (Reported) Atorvastatin Calcium 20 MG TABLET 1 TAB PO DAILY CHOLESTEROL (Reported) Colchicine 0.6 MG TABLET 1 TAB PO DAILY GOUT (Reported) Cyanocobalamin (Vitamin B-12) 1,000 MCG TABLET 1 TAB PO DAILY SUPPLEMENT ( Reported) Docusate Sodium (Colace) 100 MG CAPSULE 1 CAP PO PRN GI (Reported) Escitalopram Oxalate (Lexapro) 20 MG TABLET 2 TAB PO DAILY DEPRESSION ( Reported) Esomeprazole (Nexium) 40 MG CAPSULE.DR 1 CAP PO DAILY GI (Reported) Hydroxychlorquine (Plaquenil) 200 MG TABLET 1 TAB PO BID RA (Reported) Insulin Aspart (Novolog) 100 UNIT/ML VIAL 5 UNITS SC TIDAC PRN DM (Reported) Insulin Detemir (Levemir) 100 UNIT/ML VIAL 25 UNITS SC QPM DM (Reported) Lisinopril 10 MG TABLET 1 TAB PO DAILY BP (Reported) Metformin HCl (Metformin HCl ER) 500 MG TAB.ER.24H 2 TAB PO BID DM (Reported) Prednisone 10 MG TABLET 30 MG PO DAILY STEROID (Reported) Pregabalin (Lyrica) 75 MG CAPSULE 1 CAP PO BID NEUROPATHY (Reported) Ranitidine (Ranitidine HCl) 150 MG TABLET 1 TAB PO BID GI (Reported) Sulfasalazine 500 MG TABLET 3 TAB PO BID RA (Reported) Tamsulosin HCl (Flomax) 0.4 MG CAP.ER.24H 1 CAP PO BID BPH (Reported) Tiotropium Br/Olodaterol HCl (Stiolto Respimat Inhal [place]) 2.5 MCG-2.5 MCG/ ACTUATION MIST.INHAL 2 PUFF INH DAILY RESP. (Reported) Tofacitinib Citrate (Xeljanz) 5 MG TABLET 1 TAB PO BID RA (Reported) Tramadol HCl 50 MG TABLET 1 TAB PO TID PRN PAIN (Reported) Trazodone HCl 50 MG TABLET 1 TAB PO PRN SLEEP (Reported) Triage Note: PT TO TRIAGE WITH HIS FAMILY , PER FAMILY PATIENT HAS FALLEN TWICE IN THE PAST 2 MONTHS LAST TIME WAS 3.5 WEEKS AGO, PT HIT R SIDE OF HEAD. PT FOR THE PAST WEEK HAS BEEN COMPLAINING OF R SIDE HEADACHE AND THEY ARE CONCERNED. PT ALERT AND ORIENTED, FAMILY DENIES PT BEING ON THINNNERS Triage Nurses Notes Reviewed? yes Onset: Gradual Duration: constant Timing: recent history Severity: severe Severity Numbers: 7 HPI: Patient is a 77-year-old male with a past medical history of gout, chronic pain currently on tramadol oxycodone and Dilaudid, lung cancer with multiple lobectomies with no active treatment, paroxysmal atrial fibrillation,, COPD rheumatoid arthritis, diabetes, patient is not anticoagulated, last chemotherapy treatment was in June no further treatment is scheduled for patient. Patient presents emergency room in which history is limited due to being a poor historian and says taking only in which family is concerned the past 2 weeks of 2 falls IN 3 weeks ago was noted to family members after he was doing yard work and his home leaning forward patient struck the right side of his head to the grounds no loss consciousness had occurred patient since has been complaining of worsening chronic neck pain and headaches. Patient has been having a white productive cough for the past 7-10 days Patient has been complaining of chronic shortness of breath with no new changes patient also is complaining of chronic arthralgia patient currently is on prednisone for his rheumatoid arthritis. Family's concerns of denies weakness and fatigue for the past few days. Patient denies any chest pain arm pain jaw pain nausea vomiting leg swelling hemoptysis. ([place] BELL,Breezy) Past History Travel History Traveled to [place] past 21 day No Medical History Any Pertinent Medical History? 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 SISTER (Diabetes mellitus). Hx Contributory? No (Breezy Lopez) Review of Systems Review of Systems Constitutional: Reports: see HPI, weakness. Denies: chills, fever. Eyes: Reports: no symptoms. Ears, Nose, Throat, Mouth: Reports: no symptoms. Respiratory: Reports: see HPI, cough. Cardiovascular: Reports: no symptoms. Gastrointestinal/Abdominal: Reports: no symptoms. Genitourinary: Reports: no symptoms. Musculoskeletal: Reports: no symptoms. Skin: Reports: no symptoms. Neurological/Psychological: Reports: see HPI, headache. All Other Systems: Reviewed and Negative (Breezy Lopez) Physical Exam Physical Exam General Appearance: alert, comfortable, lethargic Head: atraumatic Eyes: Bilateral: PERRL, EOMI. Ears, Nose, Throat, Mouth: hearing grossly normal Neck: normal inspection, supple, paraspinous muscle tender, spinous processes tender, stiff neck Respiratory: rhonchi Cardiovascular: regular rate/rhythm Peripheral Pulses: 2+ radial (R) Gastrointestinal: normal bowel sounds, soft, non-tender Extremities: normal range of motion Neurologic/Psych: no motor/sensory deficits, awake, alert, oriented x 3 Skin: intact, normal color, warm/dry Core Measures ACS in differential dx? No CVA/TIA Diagnosis No Sepsis Present: No Sepsis Focused Exam Completed? No (Breezy Lopez) Progress Differential Diagnosis: abd injury, C/T/L spine injury, ext injury, ICH, pelvis injury, pnemothorax, spinal cord injury Plan of Care: Orders Procedure Date/time Status Consistent Carbohydrate 2 09/04 B Active Patient Data 09/03 2134 Active OXYGEN SETUP (GEN) 09/03 2126 Active Saline Lock 09/03 2126 Active Admit to inpatient 09/03 2126 Active Vital Signs 09/03 2126 Active Activity/Ambulation 09/03 2126 Active Code Status 09/03 2126 Active BLOOD CULTURE 09/03 2122 Active Intake & Output 09/03 1928 Active URINE DRUG SCREEN FOR ER ONLY 09/03 1856 Complete URINALYSIS 09/03 1856 Complete TROPONIN LEVEL 09/03 1856 Complete COMPREHENSIVE METABOLIC PANEL 09/03 1856 Complete CBC WITHOUT DIFFERENTIAL 09/03 1856 Complete EKG 09/03 1856 Active Current Medications Sig/Lelo Start time Last Medication Dose Stop Time Status Admin Azithromycin 500 MG ONCE ONE 09/03 2129 AC 09/03 (Zithromax) 09/03 Sodium Chloride 250 ML (Normal Saline 0.9%) Sodium Chloride 1,000 ML BOLUS ONE 09/03 2129 AC 09/03 (Normal Saline 0.9%) 09/03 Ibuprofen 600 MG ONCE ONE 09/03 1914 CAN (Motrin) 09/04 1915 Laboratory Tests 09/03/171919: Anion Gap 12, Estimated GFR > 60, BUN/Creatinine Ratio 35.0 H, Glucose 171 H, Calcium 10.5 H, Total Bilirubin 0.3, AST 17, ALT 20 L, Alkaline Phosphatase 65 , Troponin I < 0.01, Total Protein 6.5, Albumin 3.6, Globulin 2.9, Albumin/ Globulin Ratio 1.2, CBC w Diff NO MAN DIFF REQ, RBC 3.21 L, MCV 92.9, MCH 30.3, MCHC 32.6 L, RDW 16.9 H, MPV 7.1 L, Gran % 86.0 H, Lymphocytes % 7.8 L, Monocytes % 6.2, Eosinophils % 0, Basophils % 0, Absolute Granulocytes 13.8 H, Absolute Lymphocytes 1.3, Absolute Monocytes 1.0 H, Absolute Eosinophils 0, Absolute Basophils 0, Urine Opiates Screen 101, Methadone Screen 62, Barbiturate Screen < 60, Ur Phencyclidine Scrn < 6.00, Amphetamines Screen < 100, U Benzodiazepines Scrn < 85, Urine Cocaine Screen < 50, Urine Cannabis Screen > 80.00 H, Urine Color YEL, Urine Clarity CLEAR, Urine pH 6.0, Ur Specific [place] 1.025, Urine Protein NEG, Urine Ketones NEG, Urine Nitrite NEG, Urine Bilirubin NEG@ICTO, Urine Urobilinogen 0.2, Ur Leukocyte Esterase NEG, Ur Microscopic EXAM NOT REQUIRED, Urine Hemoglobin NEG, Urine Glucose NEG Microbiology 09/03 2199 BLOOD: Blood Culture - RECD 09/03 2153 BLOOD: Blood Culture - RECD Patient upon initial presentation is resting comfortably bedside no apparent distress patient is following all commands appropriately and is alert and oriented 2038 PT WAS RE-EVALUATED HAD IMPROVEMENT OF HIS PAIN RESTING COMFORATABLY CT scan was resulted showing concerns of pneumonia. Discussed results with patient and he will be admitted for concerns of community acquired pneumonia family and patient agree had no questions Diagnostic Imaging: Viewed by Me: CT Scan. Radiology Impression: acute abnormality Initial ED EKG: normal p-waves, normal QRS complex, normal sinus rhythm, 83 BPM, NSR Prior EKG: unchanged Comments: PATIENT: NADYA WARE PRESENT AGE: 77 PATIENT ACCOUNT NO: [id number] : 41 LOCATION: [facility] ORDERING PHYSICIAN: Breezy BELL SERVICE DATE: 09/03/17 EXAM TYPE: CAT - CT CERV SPINE WO IV CONTRAST; CT HEAD WO IV CONTRAST CT HEAD WITHOUT IV CONTRAST CT CERVICAL SPINE WITHOUT IV CONTRAST INDICATION: Multiple falls. Trauma. COMPARISON: Cervical spine CT and head CT May 23, 2016. TECHNIQUE: Multidetector CT acquisitions of the head and cervical spine were obtained without IV contrast. Multiplanar reformats were acquired and utilized for image interpretation. FINDINGS: HEAD: There is global cerebral volume loss and there is mild to moderate chronic microangiopathy. There is no intracranial hemorrhage, hydrocephalus, extra-axial surface collection, midline shift, or other herniation pattern. Stanton to white matter differentiation is diffusely maintained without evidence of an evolved acute territorial infarct. The basilar cisterns are preserved. No significant soft tissue abnormality. No acute osseous abnormality. There is mild mucosal thickening within the ethmoid air cells bilaterally with the upper aspect of the left maxillary sinus. CERVICAL SPINE: Motion degraded nearly nondiagnostic cervical spine CT. Given the presence of motion artifact I cannot exclude the presence of a an acute fracture within the cervical spine. Repeat study recommended if there is high clinical suspicion. Degenerative changes involving the atlantodental interval. Degenerative appearing anterior subluxation of C6 on C7. There is superior endplate height loss at T2 that is chronic and stable. Multilevel endplate osteophytes and disc volume loss, greatest at C6-C7 where there is vacuum phenomenon. There is no prevertebral soft tissue swelling. Centrilobular emphysema within the upper lungs. Right IJ Port-A-Cath is partially imaged. IMPRESSION: 1. No acute intracranial abnormality. There is global cerebral volume loss and there is mild to moderate chronic microangiopathy. 2. Motion degraded nearly nondiagnostic cervical spine CT. Given the presence of motion artifact I cannot exclude the presence of a an acute fracture within the cervical spine. Repeat study recommended if there is high clinical suspicion. PATIENT: NADYA WARE PRESENT AGE: 77 PATIENT ACCOUNT NO: [id number] : 41 LOCATION: [facility] ORDERING PHYSICIAN: Breezy BELL SERVICE DATE: 09/03/17 EXAM TYPE: CAT - CT CHEST WO IV CONTRAST EXAMINATION: CT CHEST WITHOUT CONTRAST CLINICAL INFORMATION: Lung cancer history. Shortness of breath. COMPARISON: CT biopsy dated 08/11/[address] dated 09/12/2016. PET-CT dated 02/25/2017 TECHNIQUE: Multidetector volumetric CT imaging of the chest was done. Axial MIP volume rendering provided. Sagittal and coronal reformatted images were obtained. DLP: 299 mGy-cm FINDINGS: LUNGS: Postsurgical changes of a right lower lobectomy are noted. Within the posterosuperior aspect of the right middle lobe, there is a 4.8 x 5.9 x 4.8 cm region of ill-defined airspace consolidation with internal aerated emphysematous lobules. This is superimposed upon a background of moderate severe centrilobular pulmonary emphysema. The previously seen pulmonary nodule at the time of the prior lung biopsy is present in this region, obscured by the surrounding opacities. There is a persistent 1.1 x 1.2 x 0.7 cm nodule along the right minor fissure which is not appreciably changed from prior. This was not FDG avid on the prior study. Within the left upper lobe on image 208/480 of series 6, there is a 6 mm pulmonary nodule which is unchanged from 09/12/2016. A spiculated 5 mm nodule in the left lower lobe on image 303/480 of series 6 is also unchanged. Dependent secretions are present within the trachea. The peripheral airways are otherwise clear. MEDIASTINUM: Heart is normal in size. Calcific atherosclerosis is present in the coronary arteries and thoracic aorta. No aneurysmal dilatation. Right IJ Port-A-Cath terminates at the cavoatrial junction. A 0.9 cm right lower paratracheal lymph node is at the upper limits normal in size. No evidence of hilar adenopathy, though sensitivity is limited without injuries contrast. PLEURA: There is no pleural effusion. No pleural mass or thickening. AXILLA: No lymphadenopathy. UPPER ABDOMEN: Unremarkable. OSSEOUS STRUCTURES: Moderate multilevel degenerative disc disease in the thoracic spine is characterized by prominent bridging osteophytes. No fracture or spondylolisthesis. There is mild kyphotic prominence in the thoracic spine. IMPRESSION: 1. New 5.9 x 4.8 cm area of patchy airspace opacification in the posterior aspect of the right middle lobe at the site of the previously biopsied lesion (03/13/2017, diagnosis of adenocarcinoma). This is most concerning for pneumonia, though recommend correlation for a history of external beam radiation treatments in this region. Residual postbiopsy intrapulmonary hemorrhage possible, though unlikely to persist over this time. 2. Pulmonary emphysema 3. Additional bilateral pulmonary nodules are unchanged from prior. DICTATED BY: Uriel Mcclain MD DATE/TIME DICTATED:09/03/172055 BUS GREASER:STELLA DATE/TIME TRANSCRIBED:09/03/172055 (Breezy Lopez) Departure Departure Disposition: STILL A PATIENT Condition: Stable Clinical Impression Primary Impression: Pneumonia Secondary Impressions: Arthralgia, Concussion Referrals: Mel Guzman MD (PCP/Family) Departure Forms: Customer Survey General Discharge Information Admission Note Spoke With: Delvis Beltran MD Documentation of Exam: Documentation of any treatments & extenuating circumstances including Concerns Regarding Discharge (functional status, medication knowledge or non-compliance, living conditions, etc.) that warrant an admission rather than observation: [ Patient requires IV antibiotics and IV fluids and repeat labs, IV fluids case management consultation and pulmonary consultation] (Breezy Lopez) PA/CAREER TECHNICAL COUNSELOR Co-Sign Statement Statement: ED Attending supervision documentation- x I saw and evaluated the patient. I have also reviewed all the pertinent lab results and diagnostic results. I agree with the findings and the plan of care as documented in the PA's/CAREER TECHNICAL COUNSELOR's documentation. Fall, weakness, pneumonia [] I have reviewed the ED Record and agree with the PA's/CAREER TECHNICAL COUNSELOR's documentation. [] Additions or exceptions (if any) to the PAs/CAREER TECHNICAL COUNSELOR's note and plan are summarized below: [] (Elba KEMP,Josef)
[2017-09-03 19:41] LABS: ABSOLUTE BASOPHIL COUNT 0 /CUMM (0.0-0.2); ABSOLUTE EOSINOPHIL COUNT 0 /CUMM (0.0-0.7); ABSOLUTE GRANULOCYTE CT 13.8 /CUMM (1.4-6.5); ABSOLUTE LYMPH COUNT 1.3 /CUMM (1.2-3.4); BASOPHIL % 0 % (0.0-2.0); EOSINOPHIL % 0 % (0-5); HEMATOCRIT 29.8 % (42-52); MEAN CORPUSCULAR HGB 30.3 PG (27.0-31.0); MEAN CORPUSCULAR HGB CONC 32.6 G/DL (33.0-37.0); MEAN CORPUSCULAR VOLUME 92.9 FL (80.0-94.0); MEAN PLATELET VOLUME 7.1 FL (7.4-10.4); PLATELET COUNT 478 /CUMM (130-400); RBC DISTRIBUTION WIDTH 16.9 % (11.5-14.5); RED BLOOD CELL CT 3.21 /CUMM (4.70-6.10)
--- NOTE | 2017-09-03 21:15 | CT SCAN REPORT ---
CT HEAD WITHOUT IV CONTRAST CT CERVICAL SPINE WITHOUT IV CONTRAST INDICATION: Multiple falls. Trauma. COMPARISON: Cervical spine CT and head CT May 23, 2016. TECHNIQUE: Multidetector CT acquisitions of the head and cervical spine were obtained without IV contrast. Multiplanar reformats were acquired and utilized for image interpretation. FINDINGS: HEAD: There is global cerebral volume loss and there is mild to moderate chronic microangiopathy. There is no intracranial hemorrhage, hydrocephalus, extra-axial surface collection, midline shift, or other herniation pattern. Stanton to white matter differentiation is diffusely maintained without evidence of an evolved acute territorial infarct. The basilar cisterns are preserved. No significant soft tissue abnormality. No acute osseous abnormality. There is mild mucosal thickening within the ethmoid air cells bilaterally with the upper aspect of the left maxillary sinus. CERVICAL SPINE: Motion degraded nearly nondiagnostic cervical spine CT. Given the presence of motion artifact I cannot exclude the presence of a an acute fracture within the cervical spine. Repeat study recommended if there is high clinical suspicion. Degenerative changes involving the atlantodental interval. Degenerative appearing anterior subluxation of C6 on C7. There is superior endplate height loss at T2 that is chronic and stable. Multilevel endplate osteophytes and disc volume loss, greatest at C6-C7 where there is vacuum phenomenon. There is no prevertebral soft tissue swelling. Centrilobular emphysema within the upper lungs. Right IJ Port-A-Cath is partially imaged. IMPRESSION: 1. No acute intracranial abnormality. There is global cerebral volume loss and there is mild to moderate chronic microangiopathy. 2. Motion degraded nearly nondiagnostic cervical spine CT. Given the presence of motion artifact I cannot exclude the presence of a an acute fracture within the cervical spine. Repeat study recommended if there is high clinical suspicion.
--- NOTE | 2017-09-03 21:16 | CT SCAN REPORT ---
EXAMINATION: CT CHEST WITHOUT CONTRAST CLINICAL INFORMATION: Lung cancer history. Shortness of breath. COMPARISON: CT biopsy dated 08/11/[address] dated 09/12/2016. PET-CT dated 02/25/2017 TECHNIQUE: Multidetector volumetric CT imaging of the chest was done. Axial MIP volume rendering provided. Sagittal and coronal reformatted images were obtained. DLP: 299 mGy-cm FINDINGS: LUNGS: Postsurgical changes of a right lower lobectomy are noted. Within the posterosuperior aspect of the right middle lobe, there is a 4.8 x 5.9 x 4.8 cm region of ill-defined airspace consolidation with internal aerated emphysematous lobules. This is superimposed upon a background of moderate severe centrilobular pulmonary emphysema. The previously seen pulmonary nodule at the time of the prior lung biopsy is present in this region, obscured by the surrounding opacities. There is a persistent 1.1 x 1.2 x 0.7 cm nodule along the right minor fissure which is not appreciably changed from prior. This was not FDG avid on the prior study. Within the left upper lobe on image 208/480 of series 6, there is a 6 mm pulmonary nodule which is unchanged from 09/12/2016. A spiculated 5 mm nodule in the left lower lobe on image 303/480 of series 6 is also unchanged. Dependent secretions are present within the trachea. The peripheral airways are otherwise clear. MEDIASTINUM: Heart is normal in size. Calcific atherosclerosis is present in the coronary arteries and thoracic aorta. No aneurysmal dilatation. Right IJ Port-A-Cath terminates at the cavoatrial junction. A 0.9 cm right lower paratracheal lymph node is at the upper limits normal in size. No evidence of hilar adenopathy, though sensitivity is limited without injuries contrast. PLEURA: There is no pleural effusion. No pleural mass or thickening. AXILLA: No lymphadenopathy. UPPER ABDOMEN: Unremarkable. OSSEOUS STRUCTURES: Moderate multilevel degenerative disc disease in the thoracic spine is characterized by prominent bridging osteophytes. No fracture or spondylolisthesis. There is mild kyphotic prominence in the thoracic spine. IMPRESSION: 1. New 5.9 x 4.8 cm area of patchy airspace opacification in the posterior aspect of the right middle lobe at the site of the previously biopsied lesion (03/13/2017, diagnosis of adenocarcinoma). This is most concerning for pneumonia, though recommend correlation for a history of external beam radiation treatments in this region. Residual postbiopsy intrapulmonary hemorrhage possible, though unlikely to persist over this time. 2. Pulmonary emphysema 3. Additional bilateral pulmonary nodules are unchanged from prior.
[2017-09-03] MEDS ORDERED: PREDNISONE10 M2 PO (21:29)
[2017-09-03] MEDS ORDERED: COLCHICINE0.6 M2 PO (21:29)
[2017-09-03] MEDS ORDERED: STIOLTO RESPIMAT4 GM INH (21:30)
[2017-09-03] MEDS ORDERED: LISINOPRIL10 M1 PO (21:30)
[2017-09-03] MEDS ORDERED: XELJANZ5 M1 PO (21:30)
[2017-09-03] MEDS ORDERED: ATORVASTATIN CA20 M1 PO (21:31)
[2017-09-03] MEDS ORDERED: NEXIUM40 M1 PO (21:31)
[2017-09-03] MEDS ORDERED: AMLODIPINE BESYL5 M1 PO (21:31)
[2017-09-03] MEDS ORDERED: TRAZODONE HCL50 M1 PO (21:31)
--- NOTE | 2017-09-03 22:37 | History & Physical ---
Raz Garcia 09/03/17 2236: General Information and HPI MD Statement: I have seen and personally examined NADYA MALDONADO and documented this H&P. The patient is a 77 year old M who presented with a patient stated chief complaint of [frequent falls and persistent cough]. 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 Patient speaks Jamaican, therefore history obtained from his family. and daughter are present at bedside. Per family patient had multiple witnessed falls in the last 2 weeks accompanied by a persistent headache. They report that one of the times that he fell, he fell forward and hit his head. Family denies any syncope or presyncopal events before the falls, except for lightheadedness that he complains of before falls. In regard to the headache, they state that Tylenol relieves the headache although they believe it is getting worse. They deny any seizure like activity. Today patient is somnolent but arousable during interview. Family also reports that he has a worsening cough. He reports shortness of breath with a productive cough that started as white sputum and now is a thick yellow sputum. Upon awakening patient was coughing profusely until sitting up. He denies chest pain , palpitations, lightheadedness, diaphoresis. Patient uses 2 L of oxygen at home. Allergies/Medications Allergies: Coded Allergies: hydromorphone (LOOPY, TOO MUCH PER PT 09/03/17) Home Med list Albuterol Sulfate 2.5 MG/0.5 ML VIAL.NEB 1 Vial INH/AMANDA Q6 PRN COPD (Reported ) Albuterol Sulfate (Proair Hfa) 90 MCG HFA.AER.AD 2 PUF INH Q6P PRN WHEEZING ( Reported) Amlodipine Besylate 5 MG TABLET 1 TAB PO DAILY BP (Reported) Atorvastatin Calcium 20 MG TABLET 1 TAB PO DAILY CHOLESTEROL (Reported) Azithromycin 250 MG TABLET 250 MG PO DAILY PNA Cefdinir 300 MG CAPSULE 1 CAP PO BID PNA Colchicine 0.6 MG TABLET 1 TAB PO DAILY GOUT (Reported) Cyanocobalamin (Vitamin B-12) 1,000 MCG TABLET 1 TAB PO DAILY SUPPLEMENT ( Reported) Docusate Sodium (Colace) 100 MG CAPSULE 1 CAP PO PRN GI (Reported) Escitalopram Oxalate (Lexapro) 20 MG TABLET 2 TAB PO DAILY DEPRESSION ( Reported) Esomeprazole (Nexium) 40 MG CAPSULE.DR 1 CAP PO DAILY GI (Reported) Furosemide (Lasix) 20 MG TABLET 1 TAB PO DAILY PRN EDEMA (Reported) Hydroxychlorquine (Plaquenil) 200 MG TABLET 1 TAB PO BID RA (Reported) Insulin Aspart (Novolog) 100 UNIT/ML VIAL 5 UNITS SC TIDAC PRN DM (Reported) Insulin Detemir (Levemir) 100 UNIT/ML VIAL 25 UNITS SC QPM DM (Reported) Lisinopril 10 MG TABLET 1 TAB PO DAILY BP (Reported) Magnesium Oxide 400 MG TABLET 1 TAB PO DAILY SUPPLEMENT (Reported) Metformin HCl (Metformin HCl ER) 500 MG TAB.ER.24H 2 TAB PO BID DM (Reported) Prednisone 10 MG TABLET 30 MG PO DAILY STEROID (Reported) Pregabalin (Lyrica) 75 MG CAPSULE 1 CAP PO BID NEUROPATHY (Reported) Ranitidine (Ranitidine HCl) 150 MG TABLET 1 TAB PO BID GI (Reported) Sulfasalazine 500 MG TABLET 3 TAB PO BID RA (Reported) Tamsulosin HCl (Flomax) 0.4 MG CAP.ER.24H 1 CAP PO BID BPH (Reported) Tiotropium Br/Olodaterol HCl (Stiolto Respimat Inhal [place]) 2.5 MCG-2.5 MCG/ ACTUATION MIST.INHAL 2 PUFF INH DAILY RESP. (Reported) Tofacitinib Citrate (Xeljanz) 5 MG TABLET 1 TAB PO BID RA (Reported) Tramadol HCl 50 MG TABLET 1 TAB PO TID PRN PAIN (Reported) Trazodone HCl 50 MG TABLET 1 TAB PO PRN SLEEP (Reported) Past History Travel History Traveled to [place] past 21 day No Medical History Neurological: NONE EENT: cataracts Cardiovascular: AFIB, hypertension, hyperlipidemia Respiratory: COPD, PNA Gastrointestinal: GERD Hepatic: NONE Renal: benign prost hyperplasia Musculoskeletal: rheumatoid arthritis, PSEUDOGOUT Psychiatric: alcohol dependence (quit in 1992), anxiety, depression, substance abuse (in the past) Endocrine: diabetes Blood Disorders: NONE Cancer(s): lung cancer (ALEXSANDRA (1997), RLL adenoCx (2017)) 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 SISTER (Diabetes mellitus). Psychosocial History Who Do You Live With? spouse Services at Home: None Primary Language: Jamaican ETOH Use: denies use Illicit Drug Use: denies illicit drug use Functional Ability ADLs Independent: dressing, eating, toileting, bathing. Ambulation: cane, walker IADLs Independent: shopping, housework, finances, food prep, telephone, transportation , medication admin. Review of Systems Review of Systems Constitutional: Reports: see HPI. EENTM: Reports: see HPI. Cardiovascular: Reports: see HPI. Respiratory: Reports: see HPI. GI: Reports: see HPI. Genitourinary: Reports: see HPI. Musculoskeletal: Reports: no symptoms. Skin: Reports: no symptoms. Neurological/Psychological: Reports: no symptoms. Hematologic/Endocrine: Reports: no symptoms. Immunologic/Allergic: Reports: no symptoms. All Other Systems: Reviewed and Negative Exam & Diagnostic Data Last 24 Hrs of Vital Signs/I&O Vital Signs Date Time Temp Pulse Resp B/P B/P Pulse O2 O2 Flow FiO2 Mean Ox Delivery Rate 09/04 0617 98.1 85 20 136/78 98 Nasal 2.0L Cannula 09/04 0406 152/80 09/04 0035 97.6 83 18 142/76 94 Nasal 2.0L Cannula 09/04 0000 Nasal 2.0L Cannula 09/03 2311 97.3 83 16 142/56 96 Nasal 2.0L Cannula 09/038 97.9 82 20 147/74 97 Room Air 09/038 97.9 84 20 155/67 94 Room Air 09/03 1929 95 Room Air 09/03 1826 97.1 92 18 156/84 94 Room Air Intake & Output 09/04 0800 09/04 0000 09/03 1600 Intake Total Output Total 750 Balance -750 Output, Urine 750 Patient 177 lb Weight Weight Reported by Patient Measurement Method Physical Exam General Appearance Alert, Mild Distress Skin Temp/Moisture Exam: Warm/Dry Sepsis Skin Exam (color): Normal for Ethnicity HEENT PERRLA, EOMI Neck Supple Cardiovascular Normal S1, Normal S2 Lungs Coarse sounds Last 24 Hrs of Labs/Abelardo: Laboratory Tests 09/05/17 0800: CBC w Diff NO MAN DIFF REQ, RBC 3.18 L, MCV 91.8, MCH 29.8, MCHC 32.5 L, RDW 16.4 H, MPV 9.0, Gran % 80.7 H, Lymphocytes % 11.0 L, Monocytes % 7.1, Eosinophils % 0.2, Basophils % 1.0, Absolute Granulocytes 11.1 H, Absolute Lymphocytes 1.5, Absolute Monocytes 1.0 H, Absolute Eosinophils 0, Absolute Basophils 0.1 09/05/17 0721: PTH Intact 65.1 09/05/17 0610: Anion Gap 10, Estimated GFR > 60, BUN/Creatinine Ratio 26.0 H, Iron 35 L, TIBC 272, Ferritin 54.8 Microbiology 09/05 514 URINE ROUT: Legionella Antigen - COMP 09/05 514 URINE ROUT: Streptococcus pneumoniae Antigen (M - COMP Assessment/Plan Assessment: Vitals on admission were T 97.1, HR 92, RR 18, BP 156/84 and O2 94 % on Room Air. WBC Count 16.0, Hb 9.6, Plt count 478, NA 135, BUN / Cr 28/0.8, blood Glucose 171, CA 10.5. Utox positive for cannabis EKG NSR CT head negative CT Chest showed New 5.9 x 4.8 cm area of patchy airspace opacification in the posterior aspect of the right middle lobe at the site of the previously biopsied lesion (03/13/2017, diagnosis of adenocarcinoma). This is most concerning for pneumonia. Problem List: 1. Right middle lob pnueomonia 2. Recurrent Falls 3. Headaches 4. Hx of Cancer 5. Chronic Medical Conditions Admit patient to the general medicine floor IV ceftriaxone and azithromycin Sputum culture Oxygen as needed TRC eval PT eval Swallow eval Continue home medicationa DVT prophylaxis with SCDs and subcu Lovenox Full code As Ranked By This Provider Problem List: 1. S/P lobectomy of lung Core Measures/Misc (11/10) Acute Coronary Syndrome ACS Diagnosis: No Congestive Heart Failure Congestive Heart Failure Diagnosis No Cerebrovascular Accident CVA/TIA Diagnosis: No VTE (View Protocol) VTE Risk Factors Acute Medical Illness No Mechanical VTE Prophylaxis d/t N/A MechProphylax Ordered No VTE Pharm Prophylaxis d/t NA PharmProphylax ordered Sepsis (View protocol) Sepsis Present: No If YES complete Sepsis Event Note If YES complete Sepsis Event Note Tati Pradhan MD 09/03/17 2237: Core Measures/Misc (11/10) Sepsis (View protocol) If YES complete Sepsis Event Note If YES complete Sepsis Event Note Resident Review Statement Resident Statement: examined this patient, discussed with customer experience intern, agreed with customer experience intern, reviewed EMR data (avail), discussed with nursing, reviewed images Other Findings: Mr. Maldonado is a 77 y/o gentleman with PMH significant for Paroxysmal A.FIB not on anticoagulation, hypertension, hyperlipidemia, COPD on 2L nocturnal oxygen, PNA, GERD, benign prost hyperplasia, rheumatoid arthritis, alcohol dependence (quit in 1992), anxiety, depression, substance abuse (in the past), diabetes, lung cancer status post resection (ALEXSANRDA (1996), RLL adenoCx (2016) and radiation therapy in June 2017 is brought in by family because of frequent falls and persistent headache. Patient is Jamaican speaking, most Hx obtained from the family. Per the , Patient has had 3 witnessed falls in the past 2 weeks, also hit his head once and since then has been complaining of headaches which is usually relieved with tylenol but yesterday got worse and patient decided to come to the ER. also mentions being lightheaded and Pale at the time of fall. Denies any LOC. Patient does report chest pain and palpitations at the time fall which resolved on its own. Denies any current chest pain and palpitations. Patient has also been having a productive cough on and off x 2 weeks but has worsened for the past 1 week. He is bringing up white/yellow colored phlegm. Deneis any hemoptysis. Patient has chronic shortness of breath because of Hx of lung Ca and COPD but denies any worsening. Also uses 2L of oxygen at night without any recent increase in O2 requirements. Vitals on admission were Temp of 97.1, HR 92, RR 18, BP 156/84 and O2 sats 94 % on Room Air. Labs significant for WBC Count 16.0, Hb 9.6, Plt count 478, NA 135, BUN / Cr 28/ 0.8, blood Glucose 171, CA 10.5. Utox positive for cannabis CT Chest showed New 5.9 x 4.8 cm area of patchy airspace opacification in the posterior aspect of the right middle lobe at the site of the previously biopsied lesion (03/13/2017, diagnosis of adenocarcinoma). This is most concerning for pneumonia. Problem list; 1. CAP 2. hx of lung Ca s/p lobectimies and chemo 3. Recurrent Falls 4. Chronic medical conditions - Admit the patient to Gen Med Floor - Start the Patient on IV Ceftriaxone and Azithromycin - Sputum cx - f/u blood Cx - Urine legionella and strep antigen - Supplemental O2 as needed. - TRC evaluation - PT evaluation - Repeat Trop and EKG as patient reoprted chest pain and palpitation at the time of fall - Continue home medication. - Continue Prednisone taper, currently on 20mg daily for RA. DVT Prophylaxis; ALPS and S/C Lovenox Code Status; Full Code Delvis Beltran MD 09/04/17 0042: Core Measures/Misc (11/10) Sepsis (View protocol) If YES complete Sepsis Event Note If YES complete Sepsis Event Note Attending MD Review Statement Attending Statement Attending MD Statement: examined this patient, discuss w/resident/PA/MACHINE DESIGN ENGINEER, agreed w/resident/PA/MACHINE DESIGN ENGINEER, reviewed EMR data (avail) Attending Assessment/Plan: 77M PMH lung cancer s/p left upper lobectomy in 1996 with recent lung adenocarcinoma s/p right lower lobectomy, paroxysmal atrial fibrillation and rheumatoid arthritis present with 2 weeks of multiple falls and worsening cough. Patient is sleepy but rousable. He reports diffuse body aches, cough with yellow sputum, and mild SOB. Per family he has fallen twice in the past two weeks, losing his balance both times. He has no syncope and no chest pain, palpitations, lightheadedness, diaphoresis, or SOB prior to falls. His cough started as thin white sputum but has thickened recently. He has decreased PO intake. Exam shows an ill man with right sided coarse breath sounds, soft abdomen, normal cardiac exam. CT chest shows RML pneumonia/pneumonitis (patient had a right lung lobectomy in March 2016 followed by radiation and chemotherapy in June). CT head negative. EKG NSR. WBC 16. 1. RML pneumonia 2. Recurrent falls 3. History of right lung cancer Plan - Admit to general medicine - Ceftriaxone and Azithromycin - Sputum culture - Continue home medications - DVT PPx
[2017-09-03 23:11] VITALS: BP 142/56
[2017-09-04 00:35] VITALS: BP 142/76
--- NOTE | 2017-09-04 00:49 | Admission Certification ---
Admission Certification Certification Statement - As attending physician, I certify that at the time of - admission, based on clinical presentation, severity of - symptoms, need for further diagnostic testing and - therapeutic interventions, and risk of adverse outcomes - without in-hospital treatment, in my clinical assessment, - this patient requires an acute hospital stay for a minimum - of two nights or longer. I have also considered psychsocial - factors such as support system, advanced age, financial - issues, cognitive issues, and failed out-patient treatments, - past re-admission history, safety of patient, and lack of - compliance as applicable. Specific rationale supporting this admission is: RML pneumonia with weakness and recurrent falls
[2017-09-04] MEDS ORDERED: ALBUTEROL2.5 MG/0.5 INH/SOL (01:15)
[2017-09-04] MEDS ORDERED: MAGNESIUM OXID400 M1 PO (01:16)
[2017-09-04] MEDS ORDERED: LASIX20 M1 PO (01:19)
[2017-09-04 06:17] VITALS: BP 136/78
[2017-09-04 08:28] LABS: ABSOLUTE BASOPHIL COUNT 0 /CUMM (0.0-0.2); ABSOLUTE EOSINOPHIL COUNT 0 /CUMM (0.0-0.7); ABSOLUTE GRANULOCYTE CT 11.6 /CUMM (1.4-6.5); ABSOLUTE LYMPH COUNT 1.1 /CUMM (1.2-3.4); BASOPHIL % 0.2 % (0.0-2.0); EOSINOPHIL % 0.2 % (0-5); HEMATOCRIT 29.4 % (42-52); MEAN CORPUSCULAR HGB CONC 32.4 G/DL (33.0-37.0); MEAN CORPUSCULAR VOLUME 92.6 FL (80.0-94.0); MEAN PLATELET VOLUME 7.9 FL (7.4-10.4); PLATELET COUNT 388 /CUMM (130-400); RBC DISTRIBUTION WIDTH 16.1 % (11.5-14.5); RED BLOOD CELL CT 3.17 /CUMM (4.70-6.10); WHITE BLOOD CELL COUNT 13.7 /CUMM (4.8-10.8)
--- NOTE | 2017-09-04 10:00 | PN- Housestaff ---
See Addendum Subjective Follow-up For: Pneumonia Subjective: Patient seen and examined at bedside, no acute events overnight, afebrile. Patient is primarily [place]-speaking, patient is complaining of headache, fever , cough productive of yellow/white phlegm, night sweats. Review of Systems Constitutional: Reports: diaphoresis, fever. Denies: chills. Cardiovascular: Denies: chest pain. Respiratory: Reports: cough, sputum production. Gastrointestinal: Denies: abdominal pain, constipation, diarrhea, changes in stool. Objective Last 24 Hrs of Vital Signs/I&O Vital Signs Date Time Temp Pulse Resp B/P B/P Pulse O2 O2 Flow FiO2 Mean Ox Delivery Rate 09/04 0910 136/78 09/04 0910 136/78 09/04 0910 136/78 09/04 0839 Nasal 2.0L Cannula 09/04 0617 98.1 85 20 136/78 98 Nasal 2.0L Cannula 09/04 0406 152/80 09/04 0035 97.6 83 18 142/76 94 Nasal 2.0L Cannula 09/04 0000 Nasal 2.0L Cannula 09/03 2311 97.3 83 16 142/56 96 Nasal 2.0L Cannula 09/03 2228 97.9 82 20 147/74 97 Room Air 09/03 1958 97.9 84 20 155/67 94 Room Air 09/03 1929 95 Room Air 09/03 1826 97.1 92 18 156/84 94 Room Air Intake & Output 09/04 1600 09/04 0800 09/04 0000 Intake Total Output Total 750 Balance -750 Output, Urine 750 Patient 167 lb 177 lb Weight Weight Reported by Patient Measurement Method Physical Exam General Appearance: Alert, Oriented X3, Cooperative Skin: No Rashes HEENT: Atraumatic, EOMI Neck: Supple, No LAD Cardiovascular: Regular Rate, Normal S1, Normal S2 Lungs: Bilateral rhonci appreciated Abdomen: Normal Bowel Sounds, Soft, No Tenderness Extremities: No Cyanosis, No Edema, Normal Pulses Vascular: Normal Pulses, Pulses Symmetrical Assessment/Plan Assessment: Patient is a 77-year-old male with PMH significant for paroxysmal AF (not on AC) , HTN, HLD, COPD on 2L, PNA, GERD, BPH, RA, alcohol dependence, anxiety to, depression, substance abuse, diabetes, lung cancer with left upper lobe lobectomy (1996), and 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 Problem List: 1. Pneumonia vs Pneumonitis 2. Hypercalcemia 3. Anemia 3. H/o Hypertension 4. H/o Hyperlipidemia 5. H/o Rheumatoid Arthritis 6. H/o GERD 7. H/o COPD 8. H/o Depression 9. H/o Gout #Pneumonia vs Pneumonitis CT on 09/03/17- pacthy airspace opacification is posterior right middle lobe. Elevated WBC 13.7, with left shift. Cannot r/o Radiation Pneumonitis because patient has hx of recieving radiation in June 2017. Plan: - F/u Strep pneumo and Legionella antigen - F/u resp. cultures - Continue Ceftriaxone 1000mg Qdaily, Azithromycin 250mg Qdaily - Will try to get more information regarding radiation, was treated at cancer center #Hypercalcemia Corrected [place] 11.1. Possible etiology- primary hyperthyroidism vs lung malignancy vs Multiple myeloma Plan: - Vit. D - PTH - will consider PTHrP is Vit. D and PTH are normal #Anemia Low H/H upon admission 9.7/29.8. Possible etiologies: RA vs Iron deficency vs Malignancy Plan: - continue to monitor - Iron, TIBC, Ferritin #Hypertension Plan: - Lisinopril 10mg - Amlodipine 5mg - Furosemide 20mg #Hyperlipidemia plan: - Atrovastatin 20mg #Depression Plan: Escitalopram 20mg Trazodone 50mg #Rheumatoid Arthritis plan: - Hydroxychloroquine 200mg BID - Tocafitinib 5mg - Sulfasalazine 1500mg #Gout plan: Colchicine 600mcg # Problem List: 1. Pneumonia Pain Ratin Pain Location: n/a Pain Goal: Remain pain free Pain Plan: none Tomorrow's Labs & Rationales: CBC, BEP, IROn Panel
[2017-09-04 10:09] LABS: GRANULOCYTE % 84.7 % (42.2-75.2)
[2017-09-04 15:02] VITALS: BP 110/56
[2017-09-04 21:49] VITALS: BP 128/62
[2017-09-05 07:11] VITALS: BP 139/63
--- NOTE | 2017-09-05 07:19 | PN- Housestaff ---
See Addendum Subjective Follow-up For: Pneumonia Subjective: Patient seen and examined at bedside, no acute events overnight, afebrile. Patient has no complaint of today. Denies fever, shortness of breath, night sweats, chills. Patient continues to have cough productive of clear phlegm and a cup at bedside. Review of Systems Constitutional: Denies: chills, diaphoresis, fever. Cardiovascular: Denies: chest pain, palpitations. Respiratory: Reports: cough, sputum production. Gastrointestinal: Denies: abdominal pain, constipation, diarrhea, changes in stool. Objective Last 24 Hrs of Vital Signs/I&O Vital Signs Date Time Temp Pulse Resp B/P B/P Pulse O2 O2 Flow FiO2 Mean Ox Delivery Rate 09/05 0711 97.5 86 18 139/63 96 09/05 0000 Nasal 2.0L Cannula 09/04 2149 97.9 83 18 128/62 97 Nasal 2.0L Cannula 09/04 1745 95 Nasal 2.0L Cannula 09/04 1600 Nasal 2.0L Cannula 09/04 1502 97.8 102 20 110/56 95 Nasal Cannula 09/04 0910 136/78 09/04 0910 136/78 09/04 0910 136/78 09/04 0839 Nasal 2.0L Cannula 09/04 0800 93 Nasal 4.0L Cannula Intake & Output 09/05 0800 09/05 0000 09/04 1600 Intake Total 480 520 500 Output Total 550 200 Balance -70 520 300 Intake, IV 0 40 Intake, Oral 480 480 500 Number 0 0 1 Bowel Movements Output, Urine 550 200 Physical Exam General Appearance: Alert, Oriented X3, Cooperative HEENT: Atraumatic, EOMI Neck: Supple Cardiovascular: Regular Rate, Normal S1, Normal S2 Lungs: Normal Air Movement, Rhonci appreciated at bilat. 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 Problem List: 1. Pneumonia vs Pneumonitis 2. Hypercalcemia 3. Anemia 3. H/o Hypertension 4. H/o Hyperlipidemia 5. H/o Rheumatoid Arthritis 6. H/o GERD 7. H/o COPD 8. H/o Depression 9. H/o Gout #Pneumonia vs Pneumonitis CT on 09/03/17- pacthy airspace opacification is posterior right middle lobe. Elevated WBC 13.7, with left shift. Neg Strep Pneumo and Legionella. No blood culture growth 2/2 after day 1. Cannot r/o Radiation Pneumonitis because patient has hx of recieving radiation in June 2017. Plan: - change to PO meds for antipication discharge, Azithromycin 250mg, Cefdinir 300mg for 3 days - Will try to get more information regarding radiation, was treated at cancer center - Will continue steroids for Radiation Pneumonitis #Hypercalcemia Corrected [place] 11.1. Possible etiology- primary hyperthyroidism vs lung malignancy vs Multiple myeloma. Normal PTH Plan: - f/u Vit. D - order PTHrP #Anemia Low H/H upon admission 9.7/29.8. Possible etiologies: RA vs Iron deficency vs Malignancy. Low Iron, Normal TIBC, Ferritin Plan: - continue to monitor - Ferrous Sulfate 325mg #Hypertension Plan: - Lisinopril 10mg - Amlodipine 5mg - Furosemide 20mg #Hyperlipidemia plan: - Atrovastatin 20mg #Depression Plan: Escitalopram 20mg Trazodone 50mg #Rheumatoid Arthritis plan: - Hydroxychloroquine 200mg BID - Tocafitinib 5mg - Sulfasalazine 1500mg #Gout plan: Colchicine 600mcg Plan to discharge patient home today, as he feels comfortable to go home. Will complete 5 day course with PO Azithromycin 250mg Qdaily, and Cefdinir 300mg BID. 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 Haresh Carrasco ( Oncologist). Patient will follow up with [facility] Dr. Ha Galdamez regarding Predniose therapy for Radiation Pulmonitis. Problem List: 1. Pneumonitis, radiation Pain Ratin Pain Location: n/a Pain Goal: Remain pain free Pain Plan: none Tomorrow's Labs & Rationales: cbc
[2017-09-05 08:54] LABS: ABSOLUTE BASOPHIL COUNT 0.1 /CUMM (0.0-0.2); ABSOLUTE EOSINOPHIL COUNT 0 /CUMM (0.0-0.7); ABSOLUTE GRANULOCYTE CT 11.1 /CUMM (1.4-6.5); ABSOLUTE LYMPH COUNT 1.5 /CUMM (1.2-3.4); EOSINOPHIL % 0.2 % (0-5); GRANULOCYTE % 80.7 % (42.2-75.2); HEMATOCRIT 29.1 % (42-52); MEAN CORPUSCULAR HGB 29.8 PG (27.0-31.0); MEAN CORPUSCULAR HGB CONC 32.5 G/DL (33.0-37.0); MEAN CORPUSCULAR VOLUME 91.8 FL (80.0-94.0); PLATELET COUNT 347 /CUMM (130-400); RBC DISTRIBUTION WIDTH 16.4 % (11.5-14.5); RED BLOOD CELL CT 3.18 /CUMM (4.70-6.10); WHITE BLOOD CELL COUNT 13.8 /CUMM (4.8-10.8)
[2017-09-05] MEDS ORDERED: CEFDINIR300 M1 PO ×2 (10:39→16:15)
[2017-09-05] MEDS ORDERED: AZITHROMYCIN250 M1 PO ×2 (10:39→16:15)
--- NOTE | 2017-09-05 14:47 | Discharge Summary ---
Visit Information Visit Dates Admission Date: 09/03/17 Discharge Date: 09/05/17 Hospital Course Course Attending Physician: Wei Brunson MD Primary Care Physician: Thomas KEMP, [facility] Course: Mr. 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 Problems at Admission: 1. Right middle Lobe Pneumonia 2. Recurrent Falls 3. Headaches ED Course: Patient was started on Ceftrizone and azithromycin for pneumonia identified on CXR. Aspiration pneumonia is a strong possibility with patients history of falls. PT evaluation was ordered to evaulate the patient due to his history of recurrent falls. Vitals in ED: Temp 97.1, HR 92, RR 18, BP 156/84, 94% O2 saturation Significant Labs in ED: WBC: 16.0, Granulocyte 86.0, Hb: 9.7, Ht. 29.8, Plt. 478. Utox positive for Cannabis Imaging In CT: CT Head - No acute intracranial abnormality CT cervical spine- Cannot exclude present of an acute fracture within the cervical spine, repeast study if there is a high clincial suspicion CXR- New area of patchy airspace opacification in the posterior airspace of RML. Concerning for pneumonia, recommend correlation for a history of external beam radiation threatments in this region. Pulmonary emphysema General Medicine floor course: Patient was continued on the ABx started in ED pending respiratory cultures, and . . Radiation pneumonitis could not be ruled out because had recently recieved Radation therapy in June 2017. Patients labs showed hypercalcemia after being corrected albumin, his PTH and Vit. D were normal, so ordered PTHrP to assess the possibiity of malignancy as a cause of hypercalcemia. Patient had anemia present on admission, and after being worked up it was revealed patient had iron deficiency. Mr. Maldonado was formally evaluated by Physial therapy and recommended home physial therapy. Patient was will complete a 5 day course of ABx, 3 day of Azithromycin and Cefdinir BID. Patient is to follow up with compounder as he will continue his steroids to treat radiation pneumonitis. Patient was started on Prednisone 20mg by Dr. Haresh Carrasco (oncologist) for ITP, which had resolved during stay. Conditions Treated for: Pneumonia Radiation Pneumonitis Hypercalcemia Anemia Hypertension Rheumatoid Arthritis Gout Allergies: Coded Allergies: hydromorphone (LOOPY, TOO MUCH PER PT 09/03/17) Disposition Summary Disposition Principal Diagnosis: Falls Additional Diagnosis: Right middle lobe pneumonia Radiation Pneumonitis Hypercalcemia Anemia Discharge Disposition: home health services Discharge Instructions General Discharge Information Code Status: Full Code Patient's Diet: Consistent Carbohydrate II Patient's Activity: As tolerated, working with home therapy Follow-Up Instructions/Appts: Patient is to follow up with Living Advisor (Dr. Ha Galdamez) and Oncologist (Dr. Haresh Carrasco). Medications at Discharge Discharge Medications: Continue taking these medications: Tramadol HCl (Tramadol HCl) 50 MG TABLET 1 Tablet ORAL THREE TIMES DAILY as needed for PAIN Comments: NOT GIVEN IN HOSPITAL Hydroxychlorquine (Plaquenil) 200 MG TABLET 1 Tablet ORAL TWICE DAILY Comments: Last Taken: 09/05/17 Time: 8:30 AM Tamsulosin HCl (Flomax) 0.4 MG CAP.ER.24H 1 Capsule ORAL TWICE DAILY Comments: Last Taken: 09/05/17 Time: 8:30 AM Insulin Aspart (Novolog) 100 UNIT/ML VIAL 5 Units Inject into fatty tissue 3 TIMES DAILY BEFORE MEALS as needed for DM Comments: Last Taken: 09/05/17 Time: 4:30 PM Insulin Detemir (Levemir) 100 UNIT/ML VIAL 25 Units Inject into fatty tissue Every night Comments: Last Taken: 09/04/17 Time: 10:00 PM Sulfasalazine (Sulfasalazine) 500 MG TABLET 3 Tablet ORAL TWICE DAILY Comments: Last Taken: / Time: 8:30 AM Docusate Sodium (Colace) 100 MG CAPSULE 1 Capsule ORAL DAILY as needed for GI Comments: NOT GIVEN IN HOSPITAL Pregabalin (Lyrica) 75 MG CAPSULE 1 Capsule ORAL TWICE DAILY Comments: Last Taken: 09/05/17 Time: 8:30 AM Albuterol Sulfate (Proair Hfa) 90 MCG HFA.AER.AD 2 Puff Inhale through mouth EVERY SIX HOURS NEEDED as needed for WHEEZING Comments: NOT GIVEN IN HOSPITAL Escitalopram Oxalate (Lexapro) 20 MG TABLET 2 Tablet ORAL DAILY Comments: Last Taken: 09/05/17 Time: 8:30 AM Metformin HCl (Metformin HCl ER) 500 MG TAB.ER.24H 2 Tablet ORAL TWICE DAILY Qty = 360 Comments: NOT GIVEN IN HOSPITAL Cyanocobalamin (Vitamin B-12) 1,000 MCG TABLET 1 Tablet ORAL DAILY Comments: NOT GIVEN IN HOSPITAL Ranitidine (Ranitidine HCl) 150 MG TABLET 1 Tablet ORAL TWICE DAILY Qty = 60 Comments: NOT GIVEN IN HOSPITAL Prednisone (Prednisone) 10 MG TABLET 30 Milligram ORAL DAILY Comments: Last Taken: 09/05/17 Time: 8:30 AM Colchicine (Colchicine) 0.6 MG TABLET 1 Tablet ORAL DAILY Qty = 90 Comments: Last Taken: 09/05/17 Time: 8:30 AM Tofacitinib Citrate (Xeljanz) 5 MG TABLET 1 Tablet ORAL TWICE DAILY Qty = 60 Comments: Last Taken: 09/05/17 Time: 8:30 AM Lisinopril (Lisinopril) 10 MG TABLET 1 Tablet ORAL DAILY Qty = 30 Comments: Last Taken: 09/05/17 Time: 8:30 AM Tiotropium Br/Olodaterol HCl (Stiolto Respimat Inhal M[place]od) 2.5 MCG-2.5 MCG/ ACTUATION MIST.INHAL 2 PUFF Inhale through mouth DAILY Qty = 4 Comments: NOT GIVEN IN HOSPITAL Esomeprazole (Nexium) 40 MG CAPSULE.DR 1 Capsule ORAL DAILY Qty = 30 Comments: Last Taken: 09/05/17 Time: 5:30 AM (PRILOSEC GIVEN) Atorvastatin Calcium (Atorvastatin Calcium) 20 MG TABLET 1 Tablet ORAL DAILY Qty = 30 Comments: Last Taken: 09/05/17 Time: 4:30 PM Amlodipine Besylate (Amlodipine Besylate) 5 MG TABLET 1 Tablet ORAL DAILY Qty = 90 Comments: Last Taken: 09/05/17 Time: 8:30 AM Trazodone HCl (Trazodone HCl) 50 MG TABLET 1 Tablet ORAL as needed for SLEEP Qty = 15 Comments: NOT GIVEN IN HOSPITAL Albuterol Sulfate (Albuterol Sulfate) 2.5 MG/0.5 ML VIAL.NEB 1 Vial Inhale Solution EVERY SIX HOURS as needed for COPD Comments: Last Taken: 09/05/17 Time: 11:30 am Magnesium Oxide (Magnesium Oxide) 400 MG TABLET 1 Tablet ORAL DAILY Comments: Last Taken: 09/05/17 Time: 8:30 AM Furosemide (Lasix) 20 MG TABLET 1 Tablet ORAL DAILY as needed for EDEMA Comments: Last Taken: 09/05/17 Time: 8:30 AM Start taking the following new medications: Cefdinir (Cefdinir) 300 MG CAPSULE 1 Capsule ORAL TWICE DAILY Qty = 6 No Refills Instructions: . Comments: NOT GIVEN IN HOSPTITAL Azithromycin (Azithromycin) 250 MG TABLET 250 Milligram ORAL DAILY Qty = 3 No Refills Instructions: . Comments: Last Taken: 09/05/17 Time: 10:00 PM Copies To: Luna KEMP,Benedicto; Rudolph KEMP,[place] Attending MD Review Statement Documenting Attending: Wei Brunson MD Other Findings: The patient was seen and agree with the above summary and plan of care upon discharge. Will follow-up with his pulmonary physician (Dr. Galdamez) in [place] and Oncologist (Dr. Carrasco) in [place].
[2017-09-05 15:11] VITALS: BP 122/60
--- NOTE | 2017-09-05 16:14 | Patient Discharge Instructions ---
Discharge Instructions General Discharge Information You were seen/treated for: Falls and Radiation Pneumonitis Watch for these problems: Fever, chills, Shortness of Breath, coughing up blood. Special Instructions: Follow up with Pulmonolgist Dr. Ha Galdamez, Oncologist Dr. Benedicto Carrasco. Continue all medications as instructed to patient and daughter Nancy. Diet Continue normal diet: Yes Recommended Diet: Heart Healthy Acute Coronary Syndrome Inclusion Criteria At DC or during hospital stay patient has or had the following: ACS DIAGNOSIS No Discharge Core Measures Meds if any: Prescribed or Continued at Discharge Meds if any: NOT Prescribed or Continued at Discharge Congestive Heart Failure Inclusion Criteria At DC or during hospital stay patient has or had the following: CHF DIAGNOSIS No Discharge Core Measures Meds if any: Prescribed or Continued at Discharge Meds if any: NOT Prescribed or Continued at Discharge Cerebrovascular accident Inclusion Criteria At DC or during hospital stay patient has or had the following: CVA/TIA Diagnosis No Discharge Core Measures Meds if any: Prescribed or Continued at Discharge Meds if any: NOT Prescribed or Continued at Discharge Venous thromboembolism Inclusion Criteria VTE Diagnosis No VTE Type NONE VTE Confirmed by (Test) NONE Discharge Core Measures - Per Current guidelines, there needs to be overlap - treatment for the first 5 days of Warfarin therapy. - If discharged on Warfarin prior to 5 days of - overlap therapy, the patient will need to be - assessed for post discharge needs including - *Post discharge parental anticoagulation - *Warfarin and/or parental anticoagulation education - *Follow up date to check INR post discharge At least 5 days overlap therapy as Inpatient No Meds if any: Prescribed or Continued at Discharge Note: Overlap Therapy is Warfarin and Anticoagulant Meds if any: NOT Prescribed or Continued at Discharge
== END 2017-09-05 19:15 | disposition home health service (06) | DRG 195 ==
LOC: ERH 18:24 → ERHI 21:27 → 2NB 21:27 → ENRESERV 22:02 → ENTRNSPT 22:36 → 2NB 22:52 → CMPTRNSPT 23:49 → 2NB 09-04 10:30 → ENPENDDIS 09-05 16:20 → ENTRNSPT 09-05 18:54 → EDTRNSPTSTS 09-05 19:02 → EDTRNSPT 09-05 19:02 → 2NB 09-05 19:15 → CMPTRNSPT 09-05 19:16
PROVIDERS: Hospitalist; Internal Medicine; Physician Assistant
DX: J18.1 Lobar pneumonia, unspecified organism (principal); I48.0 Paroxysmal atrial fibrillation; I10 Essential (primary) hypertension; E78.5 Hyperlipidemia, unspecified; J44.9 Chronic obstructive pulmonary disease, unspecified; Z99.81 Dependence on supplemental oxygen; K21.9 Gastro-esophageal reflux disease without esophagitis; N40.0 Benign prostatic hyperplasia without lower urinary tract symptoms; M06.9 Rheumatoid arthritis, unspecified; F41.9 Anxiety disorder, unspecified; F32.9 Major depressive disorder, single episode, unspecified; Z90.2 Acquired absence of lung [part of]; Z85.118 Personal history of other malignant neoplasm of bronchus and lung; Z91.81 History of falling; W18.30XA Fall on same level, unspecified, initial encounter; Y92.009 Unspecified place in unspecified non-institutional (private) residence as the place of occurrence of the external cause; Z79.4 Long term (current) use of insulin; Z79.51 Long term (current) use of inhaled steroids; Z79.52 Long term (current) use of systemic steroids; Z92.21 Personal history of antineoplastic chemotherapy; D64.9 Anemia, unspecified; E83.52 Hypercalcemia
CPT/HCPCS: 2NBSP; 36415; 36592; 80307; 81003; 82436; 87040; 87070; 87449; 87450; 93005; 93010; 96365; 96375; J0131; J0456; J0696; J1650; J3490; J7040